=== PATIENT | male | born 1940 | race Caucasian/White ===

== ENCOUNTER → 2017-09-22 11:00 | Outpatient (CLI) | payer MEDICARE, OTHER, SELFPAY ==
[2017-09-22 12:17] LABS: Add Manual Diff / Slide Review NO; Basophils Percent Auto 0.9 % (0-2); Eosinophils Percent Auto 1.9 % (2-4); Hematocrit 27.2 % (41-53); Hemoglobin 9.2 g/dL (13.5-17.5); Lymphocytes Percent Auto 12.7 % (25-40); Mean Corpuscular HGB Conc 33.7 % (30-36); Mean Corpuscular Hemoglobin 30.9 PG (26-34); Mean Corpuscular Volume 91.8 fL (80-100); Monocytes Percent Auto 13.7 % (3-14); Neutrophils Absolute Auto 5600 /uL (3000-5900); Neutrophils Percent Auto 70.8 % (50-75); Platelet Count 265 X10^3/uL (150-400); Red Blood Cell Count 2.96 X10^6/uL (4.5-5.9); Red Cell Distribution Width 18.4 % (11.6-14.8); White Blood Cell Count 7.9 X10^3/uL (4.5-11.0)
== END ==
DX: D64.9 Anemia, unspecified (principal)
CPT/HCPCS: 36415; 85025

== ENCOUNTER → 2017-09-24 06:59 | Outpatient (CLI) | payer MEDICARE, OTHER, SELFPAY ==
[2017-09-24 07:43] LABS: Add Manual Diff / Slide Review NO; Basophils Percent Auto 0.8 % (0-2); Eosinophils Percent Auto 2.1 % (2-4); Hematocrit 29.8 % (41-53); Hemoglobin 9.9 g/dL (13.5-17.5); Lymphocytes Percent Auto 8.9 % (25-40); Mean Corpuscular HGB Conc 33.2 % (30-36); Mean Corpuscular Hemoglobin 30.7 PG (26-34); Mean Corpuscular Volume 92.4 fL (80-100); Monocytes Percent Auto 13.8 % (3-14); Neutrophils Absolute Auto 6200 /uL (3000-5900); Neutrophils Percent Auto 74.4 % (50-75); Platelet Count 284 X10^3/uL (150-400); Red Blood Cell Count 3.23 X10^6/uL (4.5-5.9); Red Cell Distribution Width 18.6 % (11.6-14.8); White Blood Cell Count 8.4 X10^3/uL (4.5-11.0)
== END ==
DX: D64.9 Anemia, unspecified (principal); C22.1 Intrahepatic bile duct carcinoma
CPT/HCPCS: 36415; 85025

== ENCOUNTER → 2017-10-08 07:20 | Outpatient (CLI) | payer MEDICARE, OTHER, SELFPAY ==
[2017-10-08 08:47] LABS: Add Manual Diff / Slide Review NO; Basophils Percent Auto 0.8 % (0-2); Eosinophils Percent Auto 2.3 % (2-4); Hematocrit 25.1 % (41-53); Hemoglobin 8.3 g/dL (13.5-17.5); Lymphocytes Percent Auto 9.7 % (25-40); Mean Corpuscular HGB Conc 33.1 % (30-36); Mean Corpuscular Hemoglobin 31.2 PG (26-34); Mean Corpuscular Volume 94.4 fL (80-100); Monocytes Percent Auto 10.7 % (3-14); Neutrophils Absolute Auto 5700 /uL (3000-5900); Neutrophils Percent Auto 76.5 % (50-75); Platelet Count 281 X10^3/uL (150-400); Red Blood Cell Count 2.66 X10^6/uL (4.5-5.9); Red Cell Distribution Width 18.5 % (11.6-14.8); White Blood Cell Count 7.4 X10^3/uL (4.5-11.0)
== END ==
DX: D64.9 Anemia, unspecified (principal); C22.1 Intrahepatic bile duct carcinoma
CPT/HCPCS: 36415; 85025

== ENCOUNTER → 2017-10-14 09:51 | Outpatient (CLI) | payer MEDICARE, OTHER, SELFPAY ==
[2017-10-14 10:23] LABS: Add Manual Diff / Slide Review NO; Basophils Percent Auto 0.7 % (0-2); Eosinophils Percent Auto 2.4 % (2-4); Hematocrit 27.5 % (41-53); Lymphocytes Percent Auto 13.4 % (25-40); Mean Corpuscular HGB Conc 32.9 % (30-36); Mean Corpuscular Hemoglobin 29.9 PG (26-34); Mean Corpuscular Volume 90.9 fL (80-100); Monocytes Percent Auto 12.9 % (3-14); Neutrophils Absolute Auto 5000 /uL (3000-5900); Neutrophils Percent Auto 70.6 % (50-75); Platelet Count 271 X10^3/uL (150-400); Red Blood Cell Count 3.02 X10^6/uL (4.5-5.9); Red Cell Distribution Width 17.2 % (11.6-14.8)
== END ==
DX: D64.9 Anemia, unspecified (principal); K26.7 Chronic duodenal ulcer without hemorrhage or perforation
CPT/HCPCS: 36415; 85025

== ENCOUNTER → 2017-10-26 10:07 | Outpatient (CLI) | payer MEDICARE, OTHER, SELFPAY ==
[2017-10-26 10:29] LABS: Hemoglobin 7.9 g/dL (13.5-17.5); Mean Corpuscular Hemoglobin 30.2 PG (26-34); Red Blood Cell Count 2.62 X10^6/uL (4.5-5.9); White Blood Cell Count 7.6 X10^3/uL (4.5-11.0)
[2017-10-26 10:33] LABS: Add Manual Diff / Slide Review NO; Basophils Percent Auto 0.8 % (0-2); Eosinophils Percent Auto 1.3 % (2-4); Hematocrit 23.5 % (41-53); Lymphocytes Percent Auto 11.4 % (25-40); Mean Corpuscular HGB Conc 33.6 % (30-36); Monocytes Percent Auto 11.2 % (3-14); Neutrophils Absolute Auto 5700 /uL (3000-5900); Neutrophils Percent Auto 75.3 % (50-75); Platelet Count 306 X10^3/uL (150-400); Red Cell Distribution Width 16.7 % (11.6-14.8)
== END ==
DX: D64.9 Anemia, unspecified (principal); K26.7 Chronic duodenal ulcer without hemorrhage or perforation
CPT/HCPCS: 36415; 85025

== ENCOUNTER → 2017-10-28 08:17 | Outpatient (CLI) | payer MEDICARE, OTHER, SELFPAY ==
[2017-10-28 08:54] LABS: Add Manual Diff / Slide Review NO; Basophils Percent Auto 0.6 % (0-2); Eosinophils Percent Auto 1.3 % (2-4); Hematocrit 25.6 % (41-53); Hemoglobin 8.4 g/dL (13.5-17.5); Mean Corpuscular HGB Conc 32.9 % (30-36); Mean Corpuscular Hemoglobin 29.8 PG (26-34); Mean Corpuscular Volume 90.6 fL (80-100); Monocytes Percent Auto 12.1 % (3-14); Neutrophils Absolute Auto 5300 /uL (3000-5900); Platelet Count 297 X10^3/uL (150-400); Red Blood Cell Count 2.83 X10^6/uL (4.5-5.9); Red Cell Distribution Width 16.2 % (11.6-14.8)
[2017-10-28 09:53] LABS: Ferritin 39.4 ng/mL (17.9-464)
[2017-10-28 10:23] LABS: Folate 8.3 ng/mL (2.76-20.0); Vitamin B12 262 pg/mL (239-931)
== END ==
DX: D64.9 Anemia, unspecified (principal); C22.1 Intrahepatic bile duct carcinoma
CPT/HCPCS: 36415; 82607; 82728; 82746; 85025; 85045

== ENCOUNTER → 2017-11-11 14:27 | Outpatient (CLI) | payer MEDICARE, OTHER, SELFPAY ==
[2017-11-11 14:47] LABS: Add Manual Diff / Slide Review NO; Eosinophils Percent Auto 1.3 % (2-4); Hematocrit 22.5 % (41-53); Hemoglobin 7.4 g/dL (13.5-17.5); Lymphocytes Percent Auto 12.7 % (25-40); Mean Corpuscular HGB Conc 32.9 % (30-36); Mean Corpuscular Hemoglobin 29.5 PG (26-34); Mean Corpuscular Volume 89.7 fL (80-100); Monocytes Percent Auto 12.7 % (3-14); Neutrophils Absolute Auto 4900 /uL (3000-5900); Neutrophils Percent Auto 72.3 % (50-75); Platelet Count 291 X10^3/uL (150-400); Red Blood Cell Count 2.51 X10^6/uL (4.5-5.9); Red Cell Distribution Width 16.6 % (11.6-14.8); White Blood Cell Count 6.7 X10^3/uL (4.5-11.0)
== END ==
DX: D64.9 Anemia, unspecified (principal)
CPT/HCPCS: 36415; 85025

== ENCOUNTER 2017-11-11 16:00 | Emergency (ER) | payer MEDICARE, OTHER, SELFPAY ==
[2017-11-11] VITALS (9 sets, daily range): BP systolic 117–129; BP diastolic 53–65; PULSE 66–78; RESP 14–20; TEMP 36.7–36.9; O2SAT 97–100
--- NOTE | 2017-11-11 16:30 | PC.NURSE ---
patient reports that this has happened before and when he felt short of breath on exertion with some chest pain that is currently resolved he knew he needed to get his levels checked. patient denies any shortness of breath or chest pain at this time.
--- NOTE | 2017-11-11 18:43 | DI.CT.S_ITS ---
PROCEDURE: CT ABDOMEN PELVIS W CON INDICATIONS: known cholangiocarcinoma and bleeding TECHNIQUE: After the administration of intravenous contrast, 5 mm thick sections acquired from the diaphragm to the symphysis. 5 mm coronal and sagittal reformats were acquired. For radiation dose reduction, the following was used: automated exposure control, adjustment of mA and/or kV according to patient size. COMPARISON: [facility], MR, ABDOMEN WITHOUT CONTRAST, 09/27/2014, 14:21. [facility], CT, PE STUDY (CTA CHEST), 02/05/2015, 14:39. [facility], CR, CHEST 1 VIEW, 11/27/2016, 14:46. FINDINGS: Image quality: Excellent. ABDOMEN: Lung bases: Small right pleural effusion and right basilar atelectasis. Heart size is mildly increased. Solid organs: Liver is normal in size and enhancement. There is pneumobilia. Gallbladder is surgically absent. Biliary system is non dilated. Pancreas enhances normally. There is mild atrophy of the pancreatic head and uncinate process. No pancreatic duct dilation. No discrete mass is identified in pancreas. Spleen is normal in size and enhancement. No adrenal nodules. Kidneys demonstrate normal size and enhancement, without hydronephrosis. There are multiple renal cysts bilaterally. Peritoneum and bowel: There is wall thickening involving the gastric antrum. Bowel loops demonstrate normal wall thickness and caliber. No free fluid or air. Nodes and vessels: No retroperitoneal or mesenteric adenopathy by size criteria. Aorta and inferior vena cava are normal in size. Miscellaneous: No ventral hernias. PELVIS: Genitourinary: Bladder wall thickness is normal. Miscellaneous: No inguinal hernias or adenopathy. Bones: No suspicious bony lesions. No vertebral body compression fractures. Bilateral hip prostheses. IMPRESSION: 1. There is wall thickening involving gastric antrum, which may be secondary to gastritis or peptic ulcer disease. No free air to suggest gastric perforation. 2. Pneumobilia, presumably postsurgical. 3. Small right pleural effusion and bibasilar atelectasis. 4. Bilateral renal cysts. 5. Mild cardiomegaly. Dictated by: Dede Aguirre M.D. on 11/11/2017 at 21:11 Approved by: Dede Aguirre M.D. on 11/11/2017 at 21:22
--- NOTE | 2017-11-11 19:06 | ED_ITS ---
HPI - Recheck/Abnormal Lab/Rx General Chief Complaint: Recheck/Abnormal Lab/Rx Stated Complaint: sent by md for infusion Time Seen by Provider: 11/11/17 18:08 Source: patient Mode of arrival: ambulatory Limitations: no limitations History of Present Illness HPI narrative: Patient is a 77-year-old male who presents with need for blood transfusion. He apparently had his labs drawn as an outpatient because he was not feeling well today noted hemoglobin 7.4. 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 He thinks he might be bleeding somewhere. Today he was feeling just fatigued and short of breath with exertion. As he previously has had chest pain but does have a history of atrial fibrillation. He is occasionally seen at that [facility] in [place]. Currently in the middle of from his all turnover is a no he seems to be following him. 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 He did have a procedure done at the [facility] back in September. He was previously also on Xarelto for his atrial fibrillation which she no longer is. He now takes a daily 81 mg aspirin. He currently has no pain no chest pain no shortness of breath no abdominal pain it is really just wanting a blood transfusion. Her primary care physician did order a blood transfusion for him up at the infusion clinic closed [facility] Related Data Home Medications Medication Instructions Recorded Confirmed atorvastatin 80 mg PO QPM #0 11/27/16 11/11/17 levothyroxine 100 mcg PO QAM #0 11/27/16 11/11/17 metformin [Glucophage XR] 500 mg PO BID #0 11/27/16 11/11/17 zolpidem 10 mg PO HS #0 11/27/16 11/11/17 flunisolide 1 spray INTRANASAL PRN PRN 11/11/17 11/11/17 irbesartan 75 mg PO QPM 11/11/17 11/11/17 metoprolol succinate 50 mg PO QPM 11/11/17 11/11/17 omeprazole 40 mg PO BID 11/11/17 11/11/17 Allergies Allergy/AdvReac Type Severity Reaction Status Date / Time No Known Drug Allergies Allergy Verified 10/28/17 15:52 Review of Systems Review of Systems All systems reviewed & are unremarkable except as noted in HPI and below Constitutional Denies chills, Denies fever(s), Denies lethargy and Denies weakness Cardiovascular Reports irregular heart rhythm (AFib), Reports lightheadedness and Reports dyspnea on exertion Respiratory Reports as per HPI and Reports dyspnea on exertion Gastrointestinal Gastrointestinal: Denies melena, Denies change in stool character, Denies fecal incontinence, Denies diarrhea, Denies vomiting and Denies hematemesis Musculoskeletal Denies back pain, Denies muscle weakness, Denies numbness and Denies tingling Integumentary/Breasts Denies pruritus, Denies erythema, Denies rash and Denies wounds Neurologic Denies numbness, Denies tingling and Denies weakness PFSH Medical History Anemia (Acute) Atrial fibrillation (Acute) Cholangiocarcinoma (Acute) Diabetes (Acute) Duodenal ulcer (Acute) Social History marital status: household members: spouse Smoking Status: Never smoker Exam Initial Vital Signs Initial Vital Signs: Vital Signs Temperature 98.0 F 11/11/17 16:05 Pulse Rate 67 11/11/17 16:05 Respiratory Rate 20 11/11/17 16:05 Blood Pressure 117/55 L 11/11/17 16:05 Pulse Oximetry 100 11/11/17 16:05 Const General: cooperative and well developed Nutritional Appearance: well nourished Orientation: alert, awake, oriented x3 and not confused Eyes General: appearance normal, both eyes and all related structures Neck Neck: normal visual inspection, full ROM and no meningeal signs Chest Chest: normal inspection of the chest Resp Effort & Inspection: normal respiratory effort, able to speak in complete sentences, no respiratory distress and no use of accessory muscles Auscultation: clear to auscultation bilaterally, no rales, no rhonchi and no wheezes Cardio Rhythm: abnormal rhythm irregularly irregular Heart Sounds: S1 normal and S2 normal GI Inspection: non-distended Palpation: soft, no hepatosplenomegaly, No guarding, No pulsatile mass and No tender Auscultation: normal bowel sounds Skin General: no rashes or lesions noted, No jaundice and No petechiae Neuro General: alert, awake and oriented x3 Cranial Nerves: CN's II-XI intact bilaterally Course Orders Ordered: ED Orders 11/11/17 18:24 EKG-12 Lead Stat 11/11/17 18:43 CT abdomen pelvis w con Stat 11/11/17 19:55 Partial Thromboplastin Time Stat Prothrombin Time INR Stat Consultations Consultation #1: I spoke with on-call oncology physician for [facility] in [place]. He reviewed patient's chart he is familiar. He agrees the patient needs closer follow-up. He understands patient is between primary physicians at this time. He agrees with patient being discharged after blood transfusion and they will follow up with patient. Time: 22:07 Vital Signs - 8 hr 11/11/17 17:58 11/11/17 18:11 11/11/17 20:53 Temperature Pulse Rate 66 68 69 Respiratory Rate 16 16 16 Blood Pressure Blood Pressure [Right Arm] 121/65 H 125/60 H 123/57 H Pulse Oximetry 97 97 97 11/11/17 21:10 11/11/17 21:30 11/11/17 22:00 Temperature 98.4 F 98.0 F Pulse Rate 66 73 78 Respiratory Rate 16 17 16 Blood Pressure 119/60 129/54 H Blood Pressure [Right Arm] 127/61 H Pulse Oximetry 98 11/11/17 23:05 11/11/17 23:34 Temperature 98.2 F 98.1 F Pulse Rate 78 78 Respiratory Rate 14 14 Blood Pressure 124/53 H 124/53 H Blood Pressure [Right Arm] Pulse Oximetry 97 MDM - Recheck/Abnormal Lab/Rx Medical Records Attestation: I reviewed the patient's medical records. Lab Data Attestation: I reviewed the patient's lab results. Labs from earlier today are noted in chart Result diagrams: 11/11/17 14:36 Lab Results 11/11/17 11/11/17 11/11/17 Range/Units 14:36 14:36 19:55 PT 13.2 H (10.1-12.7) SECONDS INR 1.2 (0.9-1.3) APTT 29 (26.4-36.2) SECONDS Sodium 138 (137-145) mmol/L Potassium 4.1 (3.4-5.1) mmol/L Chloride 105 (98-107) mmol/L Carbon Dioxide 26 (22-32) mmol/L BUN 17 (9-20) mg/dL Creatinine 0.70 (0.66-1.25) mg/dL Estimated GFR > 60.0 (>60) mL/min BUN/Creatinine Ratio 24.3 H (6-22) Glucose 156 H (80-110) mg/dL Calcium 8.4 (8.4-10.2) mg/dL Total Bilirubin 0.3 (0.2-1.3) mg/dL AST 35 (17-59) IU/L ALT 19 L (21-72) IU/L Alkaline Phosphatase 85 (38-126) U/L Total Protein 6.5 (6.3-8.2) g/dL Albumin 3.3 L (3.5-5.0) g/dL Globulin 3.2 (1.7-4.1) g/dL Albumin/Globulin Ratio 1.0 (1.0-2.8) Blood Type A Positive Antibody Screen Negative Crossmatch See Detail Imaging Data CT scan - abdomen: Radiologist's impression: PROCEDURE: CT ABDOMEN PELVIS W CON INDICATIONS: known cholangiocarcinoma and bleeding TECHNIQUE: After the administration of intravenous contrast, 5 mm thick sections acquired from the diaphragm to the symphysis. 5 mm coronal and sagittal reformats were acquired. For radiation dose reduction, the following was used: automated exposure control, adjustment of mA and/or kV according to patient size. COMPARISON: [facility], MR, ABDOMEN WITHOUT CONTRAST, 09/27/2014, 14:21. [facility], CT, PE STUDY (CTA CHEST), 02/05/2015, 14:39. [facility], CR, CHEST 1 VIEW, 11/27/2016, 14:46. FINDINGS: Image quality: Excellent. ABDOMEN: Lung bases: Small right pleural effusion and right basilar atelectasis. Heart size is mildly increased. Solid organs: Liver is normal in size and enhancement. There is pneumobilia. Gallbladder is surgically absent. Biliary system is non dilated. Pancreas enhances normally. There is mild atrophy of the pancreatic head and uncinate process. No pancreatic duct dilation. No discrete mass is identified in pancreas. Spleen is normal in size and enhancement. No adrenal nodules. Kidneys demonstrate normal size and enhancement, without hydronephrosis. There are multiple renal cysts bilaterally. Peritoneum and bowel: There is wall thickening involving the gastric antrum. Bowel loops demonstrate normal wall thickness and caliber. No free fluid or air. Nodes and vessels: No retroperitoneal or mesenteric adenopathy by size criteria. Aorta and inferior vena cava are normal in size. Miscellaneous: No ventral hernias. PELVIS: Genitourinary: Bladder wall thickness is normal. Miscellaneous: No inguinal hernias or adenopathy. Bones: No suspicious bony lesions. No vertebral body compression fractures. Bilateral hip prostheses. IMPRESSION: 1. There is wall thickening involving gastric antrum, which may be secondary to gastritis or peptic ulcer disease. No free air to suggest gastric perforation. 2. Pneumobilia, presumably postsurgical. 3. Small right pleural effusion and bibasilar atelectasis. 4. Bilateral renal cysts. 5. Mild cardiomegaly. Dictated by: Dede Aguirre M.D. on 11/11/2017 at 21:11 ECG Data Attestation: I personally reviewed and interpreted this ECG as follows: Interpretation: AFib rate [address] changes right bundle-branch block noted , this is compared to [facility] is a EKG from 10/26/2017 and this is similar. MDM Narrative Medical decision making narrative: Patient is requiring frequent blood transfusions. It sounds as though he is trying to manage this himself. We discussed how he needs to stop taking aspirin may be contributing to his duodenal ulcers on bleeding. I have received records from [facility] and reviewed them. Initially when he had EGD there were no bleeding ulcers but many were found. He is hemodynamically stable. He continues to deny any changes in bowel movements no signs of acute bleeding. I have discussed case with Oncology who will follow him as outpatient. Expressed my concerns of frequent blood transfusions, they agree and understand. I discussed at length with patient he needs to stop taking his aspirin and Xarelto (which she is currently not taking). He is at risk of stroke is due to his AFib, however he is anemic and likely has bleeding from ulcer. I discussed all findings with the patient and spouse, Education has been performed regarding treatment plan, diagnosis, warning signs and symptoms and all concerns have been addressed. Verbally agree with and understood all of the above. Discharge Plan Departure Patient Disposition: Home, Self-Care Clinical Impression: Anemia Discharge Date/Time: 11/11/17 23:24 Interventions: ED Discharge Assessment Last Done: 11/11/17 23:34 Instructions: Anemia Activity Restrictions/Additional Instructions: *You have been diagnosed with anemia *What to do: Need to follow-up with [facility]. You should hear from them tomorrow if not please contact them. -also asked about a watchmen patch *Continue to take medications as directed *Follow up with your primary care provider in 2-3 days *Return to ER if you should have any new, worsening or concerning symptoms Prescriptions: No Action metformin [Glucophage XR] 500 MG tablet extended release 24 hr 500 mg PO BID Qty: 0 RF: 0 levothyroxine 100 MCG tablet 100 mcg PO QAM Qty: 0 RF: 0 zolpidem 10 MG tablet 10 mg PO HS Qty: 0 RF: 0 atorvastatin 80 MG tablet 80 mg PO QPM Qty: 0 RF: 0 metoprolol succinate 100 mg tablet extended release 24 hr 50 mg PO QPM RF: 0 omeprazole 40 mg capsule,delayed release(DR/EC) 40 mg PO BID RF: 0 irbesartan 150 mg tablet 75 mg PO QPM RF: 0 flunisolide 25 mcg (0.025 %) [place],Non-Aerosol 1 spray Intranasal PRN PRN (Reason: Allergy Symptoms) RF: 0 Referrals: Tomy Pope MD [Non-Staff] -
[2017-11-11 19:13] LABS: Alanine Aminotransferase 19 IU/L (21-72); Albumin 3.3 g/dL (3.5-5.0); Alkaline Phosphatase 85 U/L (38-126); Aspartate Aminotransferase 35 IU/L (17-59); BUN Creatinine Ratio 24.3 (6-22); Bilirubin Total 0.3 mg/dL (0.2-1.3); Blood Urea Nitrogen 17 mg/dL (9-20); Calcium 8.4 mg/dL (8.4-10.2); Carbon Dioxide 26 mmol/L (22-32); Chloride 105 mmol/L (98-107); Estimated Glomerular Filt Rate > 60.0 mL/min (>60); Globulin 3.2 g/dL (1.7-4.1); Glucose 156 mg/dL (80-110); HEMOLYSIS < 15 (0-50); Potassium 4.1 mmol/L (3.4-5.1); Sodium 138 mmol/L (137-145); Total Protein 6.5 g/dL (6.3-8.2)
[2017-11-11 20:13] LABS: INR 1.2 (0.9-1.3); Prothrombin Time 13.2 SECONDS (10.1-12.7)
[2017-11-11 20:16] LABS: PTT Partial Thromboplastin Tim 29 SECONDS (26.4-36.2)
--- NOTE | 2017-11-11 21:20 | PC.NURSE ---
patients is running home for a little bit her number is [phone]
--- NOTE | 2017-11-15 13:16 | PC.NURSE ---
Follow up phone call: Pt states he saw his doctor today and feels well currently. No new complaints. Encouraged to f/u as needed and indicated and return for any concerns or needs.
== END 2017-11-11 23:24 | disposition home or self-care (01) ==
PROVIDERS: Emergency Provider Emergency Medicine
DX: D64.9 Anemia, unspecified (principal); C22.1 Intrahepatic bile duct carcinoma; R53.83 Other fatigue; R06.02 Shortness of breath
CPT/HCPCS: 36415; 36430; 36591; 74177; 80053; 85025; 85610; 85730; 86850; 86900; 86901; 93005; 93010; 99283; 99285; P9016; Q9967

== ENCOUNTER → 2017-11-16 09:55 | Outpatient (CLI) | payer MEDICARE, OTHER, SELFPAY ==
[2017-11-16 10:15] LABS: Add Manual Diff / Slide Review NO; Basophils Percent Auto 1.1 % (0-2); Eosinophils Percent Auto 1.5 % (2-4); Hematocrit 25.6 % (41-53); Hemoglobin 8.3 g/dL (13.5-17.5); Lymphocytes Percent Auto 10.8 % (25-40); Mean Corpuscular HGB Conc 32.6 % (30-36); Mean Corpuscular Hemoglobin 29.4 PG (26-34); Mean Corpuscular Volume 90.2 fL (80-100); Monocytes Percent Auto 12.5 % (3-14); Neutrophils Absolute Auto 5700 /uL (3000-5900); Neutrophils Percent Auto 74.1 % (50-75); Platelet Count 325 X10^3/uL (150-400); Red Blood Cell Count 2.84 X10^6/uL (4.5-5.9); Red Cell Distribution Width 16.4 % (11.6-14.8); White Blood Cell Count 7.7 X10^3/uL (4.5-11.0)
== END ==
PROVIDERS: PCP Internal Medicine; Visit Provider Physician Assistant
DX: D64.9 Anemia, unspecified (principal)
CPT/HCPCS: 36415; 85025

== ENCOUNTER → 2017-11-30 13:18 | Outpatient (CLI) | payer MEDICARE, OTHER, SELFPAY ==
[2017-11-30 13:37] LABS: Add Manual Diff / Slide Review NO; Basophils Percent Auto 0.7 % (0-2); Eosinophils Percent Auto 1.6 % (2-4); Hematocrit 23.3 % (41-53); Hemoglobin 7.8 g/dL (13.5-17.5); Mean Corpuscular HGB Conc 33.2 % (30-36); Mean Corpuscular Hemoglobin 28.5 PG (26-34); Mean Corpuscular Volume 85.7 fL (80-100); Monocytes Percent Auto 13.7 % (3-14); Neutrophils Absolute Auto 4700 /uL (3000-5900); Platelet Count 276 X10^3/uL (150-400); Red Blood Cell Count 2.72 X10^6/uL (4.5-5.9); Red Cell Distribution Width 15.8 % (11.6-14.8); White Blood Cell Count 6.7 X10^3/uL (4.5-11.0)
== END ==
PROVIDERS: PCP Internal Medicine
DX: D64.9 Anemia, unspecified (principal)
CPT/HCPCS: 36415; 85025

== ENCOUNTER → 2017-12-27 12:32 | Outpatient (CLI) | payer MEDICARE, OTHER, SELFPAY ==
--- NOTE | 2017-12-27 | DI.US.S_ITS ---
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 Color and pulse Doppler interrogation was performed of both testicles. COMPARISON: None. FINDINGS: Right: Testicle is normal in size at 4.2 x 2.5 x 3.2 cm, and homogenous in echotexture. Epididymis is normal in overall size and morphology. No hydrocele. Small varicocele. Overlying scrotal skin is normal in thickness. Left: Testicle is normal in size at 4.4 x 2.5 x 2.6 cm, and homogeneous in echotexture. Epididymis is normal in overall size and morphology. Moderate hydrocele. No right varicocele. Overlying scrotal skin is normal in thickness. Doppler: Color and pulse Doppler demonstrate normal and symmetric arterial flow in both testicles. IMPRESSION: 1. Normal testicles bilaterally. 2. Moderate left hydrocele. 3. Small right varicocele. Dictated by: Yoel WING Interpreted: Deepak Anders MD on 12/27/2017 at 14:06 Approved by: Deepak Anders M.D. on 12/27/2017 at 15:19
== END ==
PROVIDERS: PCP Internal Medicine; Visit Provider Internal Medicine
DX: N50.9 Disorder of male genital organs, unspecified (principal); N43.3 Hydrocele, unspecified; I86.1 Scrotal varices
CPT/HCPCS: 76870

== ENCOUNTER → 2018-01-11 09:34 | Outpatient (CLI) | payer MEDICARE, OTHER, SELFPAY ==
[2018-01-11 09:52] LABS: Add Manual Diff / Slide Review NO; Basophils Percent Auto 0.9 % (0-2); Lymphocytes Percent Auto 11.1 % (25-40); Mean Corpuscular HGB Conc 33.3 % (30-36); Mean Corpuscular Hemoglobin 29.2 PG (26-34); Mean Corpuscular Volume 87.6 fL (80-100); Monocytes Percent Auto 13.8 % (3-14); Neutrophils Absolute Auto 4900 /uL (3000-5900); Neutrophils Percent Auto 72.2 % (50-75); Platelet Count 254 X10^3/uL (150-400); Red Blood Cell Count 3.43 X10^6/uL (4.5-5.9); Red Cell Distribution Width 19.6 % (11.6-14.8); White Blood Cell Count 6.8 X10^3/uL (4.5-11.0)
== END ==
PROVIDERS: Family Provider Internal Medicine; PCP Internal Medicine
DX: D64.9 Anemia, unspecified (principal); C22.1 Intrahepatic bile duct carcinoma
CPT/HCPCS: 36415; 85025

== ENCOUNTER → 2018-01-24 07:00 | Outpatient (CLI) | payer MEDICARE, OTHER, SELFPAY ==
[2018-01-24 07:14] LABS: Add Manual Diff / Slide Review NO; Basophils Percent Auto 0.7 % (0-2); Hematocrit 28.4 % (41-53); Hemoglobin 9.3 g/dL (13.5-17.5); Lymphocytes Percent Auto 10.1 % (25-40); Mean Corpuscular HGB Conc 32.7 % (30-36); Mean Corpuscular Hemoglobin 28.7 PG (26-34); Mean Corpuscular Volume 87.6 fL (80-100); Monocytes Percent Auto 12.4 % (3-14); Neutrophils Absolute Auto 5400 /uL (3000-5900); Neutrophils Percent Auto 74.8 % (50-75); Platelet Count 332 X10^3/uL (150-400); Red Blood Cell Count 3.24 X10^6/uL (4.5-5.9); Red Cell Distribution Width 18.8 % (11.6-14.8); White Blood Cell Count 7.2 X10^3/uL (4.5-11.0)
== END ==
PROVIDERS: Family Provider Internal Medicine; PCP Internal Medicine
DX: C22.1 Intrahepatic bile duct carcinoma (principal); D64.9 Anemia, unspecified
CPT/HCPCS: 36415; 85025

== ENCOUNTER → 2018-01-27 13:22 | Outpatient (CLI) | payer MEDICARE, OTHER, SELFPAY ==
[2018-01-27 13:38] LABS: Add Manual Diff / Slide Review NO; Basophils Percent Auto 0.9 % (0-2); Eosinophils Percent Auto 1.8 % (2-4); Hematocrit 25.5 % (41-53); Hemoglobin 8.4 g/dL (13.5-17.5); Lymphocytes Percent Auto 10.8 % (25-40); Mean Corpuscular HGB Conc 33.1 % (30-36); Mean Corpuscular Hemoglobin 28.8 PG (26-34); Mean Corpuscular Volume 87.2 fL (80-100); Monocytes Percent Auto 11.9 % (3-14); Neutrophils Absolute Auto 5500 /uL (3000-5900); Neutrophils Percent Auto 74.6 % (50-75); Platelet Count 350 X10^3/uL (150-400); Red Blood Cell Count 2.93 X10^6/uL (4.5-5.9); White Blood Cell Count 7.4 X10^3/uL (4.5-11.0)
== END ==
PROVIDERS: Family Provider Internal Medicine; PCP Internal Medicine
DX: D64.9 Anemia, unspecified (principal); C22.1 Intrahepatic bile duct carcinoma
CPT/HCPCS: 36415; 85025

== ENCOUNTER → 2018-02-01 13:31 | Outpatient (CLI) | payer MEDICARE, OTHER, SELFPAY ==
[2018-02-01 13:44] LABS: Add Manual Diff / Slide Review NO; Basophils Percent Auto 0.6 % (0-2); Eosinophils Percent Auto 2.3 % (2-4); Hematocrit 29.9 % (41-53); Hemoglobin 9.8 g/dL (13.5-17.5); Lymphocytes Percent Auto 10.3 % (25-40); Mean Corpuscular HGB Conc 32.7 % (30-36); Mean Corpuscular Hemoglobin 28.5 PG (26-34); Mean Corpuscular Volume 86.9 fL (80-100); Monocytes Percent Auto 11.3 % (3-14); Neutrophils Absolute Auto 5700 /uL (3000-5900); Neutrophils Percent Auto 75.5 % (50-75); Platelet Count 406 X10^3/uL (150-400); Red Blood Cell Count 3.44 X10^6/uL (4.5-5.9); Red Cell Distribution Width 18.5 % (11.6-14.8); White Blood Cell Count 7.5 X10^3/uL (4.5-11.0)
== END ==
PROVIDERS: Family Provider Internal Medicine; PCP Internal Medicine; Visit Provider Internal Medicine
DX: K92.2 Gastrointestinal hemorrhage, unspecified (principal)
CPT/HCPCS: 36415; 85025

== ENCOUNTER → 2018-02-07 09:52 | Outpatient (CLI) | payer MEDICARE, OTHER, SELFPAY ==
[2018-02-07 10:10] LABS: Add Manual Diff / Slide Review NO; Basophils Percent Auto 0.7 % (0-2); Eosinophils Percent Auto 1.9 % (2-4); Hematocrit 28.1 % (41-53); Hemoglobin 9.4 g/dL (13.5-17.5); Lymphocytes Percent Auto 13.1 % (25-40); Mean Corpuscular HGB Conc 33.5 % (30-36); Mean Corpuscular Volume 86.6 fL (80-100); Monocytes Percent Auto 13.9 % (3-14); Neutrophils Absolute Auto 4600 /uL (3000-5900); Neutrophils Percent Auto 70.4 % (50-75); Platelet Count 313 X10^3/uL (150-400); Red Blood Cell Count 3.25 X10^6/uL (4.5-5.9); Red Cell Distribution Width 18.4 % (11.6-14.8); White Blood Cell Count 6.5 X10^3/uL (4.5-11.0)
== END ==
PROVIDERS: Family Provider Internal Medicine; PCP Internal Medicine
DX: D64.9 Anemia, unspecified (principal); C22.1 Intrahepatic bile duct carcinoma
CPT/HCPCS: 36415; 85025

== ENCOUNTER → 2018-02-10 12:58 | Outpatient (CLI) | payer MEDICARE, OTHER, SELFPAY ==
[2018-02-10 13:12] LABS: Add Manual Diff / Slide Review NO; Basophils Percent Auto 0.8 % (0-2); Hematocrit 27.2 % (41-53); Hemoglobin 8.9 g/dL (13.5-17.5); Lymphocytes Percent Auto 11.9 % (25-40); Mean Corpuscular HGB Conc 32.6 % (30-36); Mean Corpuscular Hemoglobin 28.3 PG (26-34); Mean Corpuscular Volume 86.8 fL (80-100); Monocytes Percent Auto 14.2 % (3-14); Neutrophils Absolute Auto 5500 /uL (3000-5900); Neutrophils Percent Auto 71.1 % (50-75); Platelet Count 274 X10^3/uL (150-400); Red Blood Cell Count 3.14 X10^6/uL (4.5-5.9); Red Cell Distribution Width 18.4 % (11.6-14.8); White Blood Cell Count 7.8 X10^3/uL (4.5-11.0)
== END ==
PROVIDERS: Family Provider Internal Medicine; PCP Internal Medicine
DX: D64.9 Anemia, unspecified (principal); C22.1 Intrahepatic bile duct carcinoma
CPT/HCPCS: 36415; 85025

== ENCOUNTER → 2018-02-15 09:59 | Outpatient (CLI) | payer MEDICARE, OTHER, SELFPAY ==
[2018-02-15 10:14] LABS: Add Manual Diff / Slide Review NO; Basophils Percent Auto 0.8 % (0-2); Eosinophils Percent Auto 1.5 % (2-4); Hematocrit 26.4 % (41-53); Hemoglobin 8.7 g/dL (13.5-17.5); Mean Corpuscular HGB Conc 33.1 % (30-36); Mean Corpuscular Hemoglobin 28.7 PG (26-34); Mean Corpuscular Volume 86.8 fL (80-100); Monocytes Percent Auto 13.3 % (3-14); Neutrophils Absolute Auto 4600 /uL (3000-5900); Neutrophils Percent Auto 71.4 % (50-75); Platelet Count 266 X10^3/uL (150-400); Red Blood Cell Count 3.05 X10^6/uL (4.5-5.9); Red Cell Distribution Width 18.8 % (11.6-14.8); White Blood Cell Count 6.5 X10^3/uL (4.5-11.0)
== END ==
PROVIDERS: Family Provider Internal Medicine; PCP Internal Medicine
DX: D64.9 Anemia, unspecified (principal); C22.1 Intrahepatic bile duct carcinoma
CPT/HCPCS: 36415; 85025

== ENCOUNTER → 2018-02-18 10:55 | Outpatient (CLI) | payer MEDICARE, OTHER, SELFPAY ==
[2018-02-18 11:11] LABS: Add Manual Diff / Slide Review NO; Basophils Percent Auto 0.9 % (0-2); Eosinophils Percent Auto 1.9 % (2-4); Hematocrit 27.5 % (41-53); Hemoglobin 9.1 g/dL (13.5-17.5); Lymphocytes Percent Auto 14.4 % (25-40); Mean Corpuscular Hemoglobin 28.7 PG (26-34); Mean Corpuscular Volume 86.8 fL (80-100); Monocytes Percent Auto 14.9 % (3-14); Neutrophils Absolute Auto 4400 /uL (3000-5900); Neutrophils Percent Auto 67.9 % (50-75); Platelet Count 283 X10^3/uL (150-400); Red Blood Cell Count 3.17 X10^6/uL (4.5-5.9); Red Cell Distribution Width 18.3 % (11.6-14.8); White Blood Cell Count 6.5 X10^3/uL (4.5-11.0)
== END ==
PROVIDERS: PCP Internal Medicine
DX: D64.9 Anemia, unspecified (principal); C22.1 Intrahepatic bile duct carcinoma
CPT/HCPCS: 36415; 85025

== ENCOUNTER → 2018-02-24 09:53 | Outpatient (CLI) | payer MEDICARE, OTHER, SELFPAY ==
[2018-02-24 10:09] LABS: Add Manual Diff / Slide Review NO; Basophils Percent Auto 0.9 % (0-2); Eosinophils Percent Auto 1.4 % (2-4); Hematocrit 26.9 % (41-53); Hemoglobin 8.9 g/dL (13.5-17.5); Lymphocytes Percent Auto 13.4 % (25-40); Mean Corpuscular Hemoglobin 28.2 PG (26-34); Mean Corpuscular Volume 85.6 fL (80-100); Monocytes Percent Auto 13.9 % (3-14); Neutrophils Absolute Auto 5200 /uL (3000-5900); Neutrophils Percent Auto 70.4 % (50-75); Platelet Count 326 X10^3/uL (150-400); Red Blood Cell Count 3.15 X10^6/uL (4.5-5.9); Red Cell Distribution Width 17.8 % (11.6-14.8); White Blood Cell Count 7.3 X10^3/uL (4.5-11.0)
[2018-02-24 11:17] LABS: HEMOLYSIS < 15 (0-50); Iron 27 ug/dL (49-181)
[2018-02-24 11:28] LABS: Percent Iron Saturation 8 % (20-50); Total Iron Binding Capacity 353 ug/dL (261-462); Transferrin 279 mg/dL (206-381)
[2018-02-24 11:54] LABS: Ferritin 16.9 ng/mL (17.9-464)
== END ==
PROVIDERS: PCP Internal Medicine; Visit Provider Internal Medicine
DX: D50.9 Iron deficiency anemia, unspecified (principal)
CPT/HCPCS: 36415; 82728; 83540; 83550; 85025

== ENCOUNTER → 2018-03-14 10:58 | Outpatient (CLI) | payer MEDICARE, OTHER, SELFPAY ==
[2018-03-14 11:22] LABS: Add Manual Diff / Slide Review NO; Basophils Percent Auto 0.6 % (0-2); Eosinophils Percent Auto 0.7 % (2-4); Hematocrit 27.8 % (41-53); Hemoglobin 8.9 g/dL (13.5-17.5); Lymphocytes Percent Auto 10.6 % (25-40); Mean Corpuscular HGB Conc 31.9 % (30-36); Mean Corpuscular Hemoglobin 26.4 PG (26-34); Mean Corpuscular Volume 82.9 fL (80-100); Monocytes Percent Auto 11.9 % (3-14); Neutrophils Absolute Auto 6100 /uL (3000-5900); Neutrophils Percent Auto 76.2 % (50-75); Platelet Count 339 X10^3/uL (150-400); Red Blood Cell Count 3.36 X10^6/uL (4.5-5.9); White Blood Cell Count 7.9 X10^3/uL (4.5-11.0)
== END ==
PROVIDERS: Family Provider Internal Medicine; PCP Internal Medicine
DX: D64.9 Anemia, unspecified (principal); C22.1 Intrahepatic bile duct carcinoma
CPT/HCPCS: 36415; 85025

== ENCOUNTER → 2018-04-20 10:01 | Outpatient (CLI) | payer MEDICARE, OTHER, SELFPAY ==
[2018-04-20 10:16] LABS: Add Manual Diff / Slide Review NO; Basophils Percent Auto 0.6 % (0-2); Hematocrit 25.2 % (41-53); Hemoglobin 8.2 g/dL (13.5-17.5); Lymphocytes Percent Auto 12.9 % (25-40); Mean Corpuscular HGB Conc 32.4 % (30-36); Mean Corpuscular Volume 77.3 fL (80-100); Monocytes Percent Auto 15.4 % (3-14); Neutrophils Absolute Auto 4600 /uL (1500-7000); Neutrophils Percent Auto 70.1 % (50-75); Platelet Count 373 X10^3/uL (150-400); Red Blood Cell Count 3.26 X10^6/uL (4.5-5.9); Red Cell Distribution Width 19.2 % (11.6-14.8); White Blood Cell Count 6.5 X10^3/uL (4.5-11.0)
== END ==
PROVIDERS: Family Provider Internal Medicine; PCP Internal Medicine
DX: D64.9 Anemia, unspecified (principal); C22.1 Intrahepatic bile duct carcinoma
CPT/HCPCS: 36415; 85025

== ENCOUNTER → 2018-04-22 10:11 | Outpatient (CLI) | payer MEDICARE, OTHER, SELFPAY ==
[2018-04-22 10:27] LABS: Add Manual Diff / Slide Review NO; Basophils Percent Auto 0.7 % (0-2); Eosinophils Percent Auto 1.4 % (2-4); Hematocrit 25.5 % (41-53); Hemoglobin 8.3 g/dL (13.5-17.5); Lymphocytes Percent Auto 13.4 % (25-40); Mean Corpuscular HGB Conc 32.4 % (30-36); Mean Corpuscular Hemoglobin 24.9 PG (26-34); Mean Corpuscular Volume 76.6 fL (80-100); Monocytes Percent Auto 13.8 % (3-14); Neutrophils Absolute Auto 4200 /uL (1500-7000); Neutrophils Percent Auto 70.7 % (50-75); Platelet Count 384 X10^3/uL (150-400); Red Blood Cell Count 3.32 X10^6/uL (4.5-5.9); Red Cell Distribution Width 19.2 % (11.6-14.8); White Blood Cell Count 5.9 X10^3/uL (4.5-11.0)
--- NOTE | 2018-04-26 15:33 | PC.NURSE ---
Addendum entered by Clover Jones R.N. 04/26/18 15:51: Florencia called back. No premeds and no lasix with each unit to infuse over 2 hours. This was written as a verbal telephone order on the original order sheet. Original Note: Left message on pt voicemail to call and schedule an appt for transfusion, Informed him tomorrow 04/27 or Saturday 04/29 would be when we can do it (not as we have too many chemo treatments that day). Looked over orders which had incomplete information on them. Dr Rodriguez's office called and spoke with Florencia in [place]. She is getting clarifications from Dr Rodriguez and will either call or fax the clarifications to us.
== END ==
PROVIDERS: Family Provider Internal Medicine; PCP Internal Medicine
DX: C22.1 Intrahepatic bile duct carcinoma (principal); D64.9 Anemia, unspecified
CPT/HCPCS: 36415; 85025

== ENCOUNTER → 2018-05-04 09:58 | Outpatient (CLI) | payer MEDICARE, OTHER, SELFPAY ==
[2018-05-04 10:24] LABS: Add Manual Diff / Slide Review NO; Basophils Absolute Auto 0 /uL (0-100); Basophils Percent Auto 0.7 % (0-2); Eosinophils Absolute Auto 100 /uL (0-450); Eosinophils Percent Auto 1.6 % (2-4); Hematocrit 30.2 % (41-53); Hemoglobin 9.8 g/dL (13.5-17.5); Lymphocytes Absolute Auto 900 /uL (1100-4500); Lymphocytes Percent Auto 13.1 % (25-40); Mean Corpuscular HGB Conc 32.3 % (30-36); Mean Corpuscular Hemoglobin 25.8 PG (26-34); Mean Corpuscular Volume 79.7 fL (80-100); Monocytes Absolute Auto 900 /uL (0-900); Monocytes Percent Auto 13.2 % (3-14); Neutrophils Absolute Auto 4700 /uL (1500-7000); Neutrophils Percent Auto 71.4 % (50-75); Platelet Count 331 X10^3/uL (150-400); Red Cell Distribution Width 21.5 % (11.6-14.8); White Blood Cell Count 6.6 X10^3/uL (4.5-11.0)
[2018-05-04 10:35] LABS: Acanthocytes 1+; Anisocytosis 1+; Burr Cells 1+; Ovalocytes 1+; Poikilocytosis 1+
== END ==
PROVIDERS: PCP Internal Medicine
DX: D64.9 Anemia, unspecified (principal); C22.1 Intrahepatic bile duct carcinoma
CPT/HCPCS: 85025

== ENCOUNTER → 2018-05-25 12:00 | Outpatient (CLI) | payer MEDICARE, OTHER, SELFPAY ==
[2018-05-25 12:35] LABS: Add Manual Diff / Slide Review NO; Basophils Absolute Auto 0 /uL (0-100); Basophils Percent Auto 0.3 % (0-2); Eosinophils Absolute Auto 100 /uL (0-450); Eosinophils Percent Auto 1.5 % (2-4); Hemoglobin 10.4 g/dL (13.5-17.5); Lymphocytes Absolute Auto 800 /uL (1100-4500); Lymphocytes Percent Auto 10.9 % (25-40); Mean Corpuscular HGB Conc 32.5 % (30-36); Mean Corpuscular Hemoglobin 25.6 PG (26-34); Mean Corpuscular Volume 78.8 fL (80-100); Monocytes Absolute Auto 1000 /uL (0-900); Monocytes Percent Auto 13.8 % (3-14); Neutrophils Absolute Auto 5200 /uL (1500-7000); Neutrophils Percent Auto 73.5 % (50-75); Platelet Count 321 X10^3/uL (150-400); Red Blood Cell Count 4.06 X10^6/uL (4.5-5.9); Red Cell Distribution Width 22.5 % (11.6-14.8); White Blood Cell Count 7.1 X10^3/uL (4.5-11.0)
[2018-05-25 13:06] LABS: Acanthocytes 1+; Anisocytosis 2+; Microcytosis 1+; Ovalocytes 1+; Poikilocytosis 3+; Polychromasia 1+; Schistocytes 1+; Tear Drop Cells 1+
[2018-05-27 07:57] LABS: Cancer (Carbohydrate) Ag 19-9 48 U/mL (< 34)
== END ==
PROVIDERS: Family Provider Internal Medicine; PCP Internal Medicine
DX: D64.9 Anemia, unspecified (principal); C22.1 Intrahepatic bile duct carcinoma
CPT/HCPCS: 36415; 85025; 86301

== ENCOUNTER → 2018-06-17 09:56 | Outpatient (CLI) | payer MEDICARE, OTHER, SELFPAY ==
[2018-06-17 10:23] LABS: Add Manual Diff / Slide Review NO; Basophils Absolute Auto 100 /uL (0-100); Basophils Percent Auto 0.7 % (0-2); Eosinophils Absolute Auto 100 /uL (0-450); Eosinophils Percent Auto 1.2 % (2-4); Hematocrit 31.2 % (41-53); Lymphocytes Absolute Auto 700 /uL (1100-4500); Lymphocytes Percent Auto 8.7 % (25-40); Mean Corpuscular Hemoglobin 25.4 PG (26-34); Mean Corpuscular Volume 79.2 fL (80-100); Monocytes Absolute Auto 1000 /uL (0-900); Monocytes Percent Auto 12.7 % (3-14); Neutrophils Absolute Auto 5900 /uL (1500-7000); Neutrophils Percent Auto 76.7 % (50-75); Platelet Count 371 X10^3/uL (150-400); Red Blood Cell Count 3.94 X10^6/uL (4.5-5.9); Red Cell Distribution Width 21.9 % (11.6-14.8); White Blood Cell Count 7.7 X10^3/uL (4.5-11.0)
[2018-06-17 10:45] LABS: Anisocytosis 3+; Macrocytosis 1+; Microcytosis 1+; Poikilocytosis 2+
[2018-06-17 10:46] LABS: Ovalocytes 1+
[2018-06-17 10:47] LABS: Hypochromasia 2+; Polychromasia 1+; Schistocytes 1+; Stomatocytes 1+; Target Cells 1+
== END ==
PROVIDERS: Family Provider Internal Medicine; PCP Internal Medicine
DX: D64.9 Anemia, unspecified (principal); C22.1 Intrahepatic bile duct carcinoma
CPT/HCPCS: 36415; 85025

== ENCOUNTER → 2018-07-07 08:30 | Outpatient (CLI) | payer MEDICARE, OTHER, SELFPAY ==
[2018-07-07 10:00] LABS: Add Manual Diff / Slide Review NO; Basophils Absolute Auto 0 /uL (0-100); Basophils Percent Auto 0.5 % (0-2); Eosinophils Absolute Auto 300 /uL (0-450); Eosinophils Percent Auto 2.9 % (2-4); Hematocrit 29.3 % (41-53); Hemoglobin 9.7 g/dL (13.5-17.5); Lymphocytes Absolute Auto 800 /uL (1100-4500); Lymphocytes Percent Auto 9.2 % (25-40); Mean Corpuscular Hemoglobin 26.5 PG (26-34); Mean Corpuscular Volume 80.3 fL (80-100); Monocytes Absolute Auto 1000 /uL (0-900); Monocytes Percent Auto 11.5 % (3-14); Neutrophils Absolute Auto 6500 /uL (1500-7000); Neutrophils Percent Auto 75.9 % (50-75); Platelet Count 391 X10^3/uL (150-400); Red Blood Cell Count 3.65 X10^6/uL (4.5-5.9); Red Cell Distribution Width 19.6 % (11.6-14.8); White Blood Cell Count 8.5 X10^3/uL (4.5-11.0)
[2018-07-07 10:32] LABS: Alanine Aminotransferase 42 IU/L (21-72); Albumin 3.1 g/dL (3.5-5.0); Albumin Globulin Ratio 0.9 (1.0-2.8); Alkaline Phosphatase 348 U/L (38-126); Aspartate Aminotransferase 42 IU/L (17-59); Bilirubin Total 0.3 mg/dL (0.2-1.3); Blood Urea Nitrogen 14 mg/dL (9-20); Calcium 8.5 mg/dL (8.4-10.2); Carbon Dioxide 25 mmol/L (22-32); Chloride 100 mmol/L (98-107); Estimated Glomerular Filt Rate > 60.0 mL/min (>60); Globulin 3.5 g/dL (1.7-4.1); Glucose 152 mg/dL (80-110); HEMOLYSIS < 15 (0-50); Potassium 3.9 mmol/L (3.4-5.1); Sodium 137 mmol/L (137-145); Total Protein 6.6 g/dL (6.3-8.2)
[2018-07-09 17:51] LABS: Cancer (Carbohydrate) Ag 19-9 61 U/mL (< 34)
== END ==
DX: C22.1 Intrahepatic bile duct carcinoma (principal)
CPT/HCPCS: 36415; 80053; 85025; 86301

== ENCOUNTER 2018-07-21 00:55 | Inpatient (IN) | payer MEDICARE, OTHER, SELFPAY ==
[2018-07-21] VITALS (14 sets, daily range): BP systolic 112–141; BP diastolic 42–72; PULSE 66–91; RESP 9–18; TEMP 36.4–37; O2SAT 93–100; BMI 32.1
--- NOTE | 2018-07-21 | DI.ECHO.S_ITS ---
[facility] +---------+ : : [address] : : : : [id number] : : : : Phone: [phone]+ Echocardiogram Report + + :Name: PADDY ROYAL Study Date: 07/21/2018 Height: 68 in : :[facility] Exam Location: [facility] Weight: 211 lb : : Gender: Male BSA: 2.1 m2 : :: 1940 Age: 78 yrs BP: 121/70 mmHg: :Reason For Study: PARASTHESIA, MURMUR, TIA : : Performed By: Waqar Ta : :Referring: JUAN ANTONIO DALEY : + + Interpretation Summary Left ventricular systolic function is normal without focal wall motion abnormalities with the ejection fraction visually estimated to be 60-65%. There has been no significant change since the previous study. The right ventricle grossly appears normal in size with probable normal systolic function and is likely unchanged compared to the previous study The right ventricular systolic pressure is estimated to be at least 35 mmHg based on an estimated right atrial pressure of 8 mm Hg. The left atrium is severely dilated and right atrium is moderately dilated. The aortic valve is severely calcified with moderate to severely reduced leaflet mobility producing probable moderate to severe aortic stenosis that is progressive compared to the previous study. The peak aortic velocity is 3.4 m/sec with a mean gradient of 25 mmHg and a calculated aortic valve area is 0.96 cm2. There is mild aortic regurgitation. There is a small mobile echogenic structure noted on the aortic side of the non-coronary cusp of the aortic valve measuring approximately 3 mm x 5 mm which could reflect a calcified Lambl's excrescence and would be a very unusual appearance and location for a vegetation, although the latter cannot be entirely excluded. This was not seen on the previous study although the aortic valve was not well imaged on that exam. There is mild to moderate tricuspid regurgitation that is more prominent compared to the previous study. There is a trivial pericardial effusion noted that appears to be new compared to the previous study. The patient was in atrial fibrillation with heart rates between 61-88 bpm during the exam. Procedure: A two-dimensional transthoracic echocardiogram with color flow and Doppler was performed. The study quality was technically adequate. Comparison is made with the echocardiogram of 05/09/14. The patient was in atrial fibrillation with heart rates between 61-88 bpm during the exam. Left Ventricle: The left ventricle is grossly normal size. There is normal left ventricular wall thickness. Left ventricular systolic function is normal without focal wall motion abnormalities. The ejection fraction is estimated to be 60-65%. There has been no significant change since the previous study. Right Ventricle: The right ventricle grossly appears normal in size with probable normal systolic function. This is unchanged compared to the previous study. Atria: The left atrium is severely dilated. The right atrium is moderately dilated. The interatrial septum is intact with no evidence for an atrial septal defect. Mitral Valve: There is mild mitral annular calcification. There is trace mitral regurgitation. Aortic Valve: The aortic valve is trileaflet. The aortic valve is severely calcified. Leaflet mobility is moderate to severely reduced. There is a small mobile echogenic structure noted on the aortic side of the non-coronary cusp of the aortic valve measuring approximately 3 mm x 5 mm which could reflect a calcified Lambl's excrescence and would be a very unusual appearance and location for a vegetation, although the latter cannot be entirely excluded. This was not seen on the previous study although the aortic valve is not well imaged. There is moderate to severe aortic stenosis. This is progressive compared to the previous study. The peak aortic velocity is 3.4 m/sec. The aortic valve mean gradient is 25 mmHg. The calculated aortic valve area is 0.96 cm2. There is mild aortic regurgitation. Tricuspid Valve: The tricuspid valve is normal in structure and function. There is mild to moderate tricuspid regurgitation. This is more prominent compared to the previous study. The right ventricular systolic pressure is estimated to be at least 35 mmHg based on an estimated right atrial pressure of 8 mm Hg. Pulmonic Valve: The pulmonic valve is normal in structure and function. There is trace pulmonic regurgitation. Great Vessels: The aortic root is normal size. The dimensions of the ascending aorta are normal. The pulmonary artery is normal size. The IVC is dilated (diameter is greater than 2.1 cm) yet it collapses greater than 50% with a sniff. This suggests a right atrial pressure of 8 mm Hg. Pericardium/ Pleura There is a trivial pericardial effusion noted. This is new compared to the previous study. There is no pleural effusion. MMode/2D Measurements & Calculations LVIDd: 5.8 cm LVOT diam: 2.3 cm LVIDs: 4.0 cm Ao root diam: 3.3 cm FS: 30.0 % asc Aorta Diam: 3.3 cm EPSS: 0.99 cm Ao Arch Diam (Prox Trans): 2.6 cm IVSd: 1.0 cm LVPWd: 0.91 cm LV warren. diameter/BSA (cm/m^2): 2.8 LV sys. diameter/BSA (cm/m^2): 1.9 LA dimension: 5.2 cm RA long axis: 6.6 cm LA A2 area: 38.0 cm2 RA area: 25.9 cm2 LA A4 area: 38.3 cm2 RA vol: 86.4 ml LA length (vol): 8.3 cm RA : 41.3 ml/m2 LA vol: 148.5 ml IVC diam: 2.7 cm LA vol index: 71.0 ml/m2 Doppler Measurements & Calculations Ao V2 max: 340.6 cm/sec LVOT Max Jono: 80.9 cm/sec Ao V2 mean: 237.9 cm/sec LV V1 max P.6 mmHg Ao max P.4 mmHg LV V1 VTI: 19.0 cm Ao mean P.3 mmHg JAYA(I,D): 0.96 cm2 Ao V2 VTI: 82.5 cm JAYA(V,D): 0.99 cm2 sev ratio: 0.23 JAYA indexed to BSA (cm^2/m^2): 0.46 AI P1/2t: 834.5 msec AI dec slope: 116.9 cm/sec2 MV E max jono: 101.8 cm/sec TR max jono: 261.4 cm/sec MV A max jono: 2.5 cm/sec TR max P.4 mmHg MV E/A: 41.5 PA V2 max: 93.2 cm/sec Med Peak E' Jono: 4.8 cm/sec PA V2 mean: 67.5 cm/sec E/E' med: 21.3 PA mean P.0 mmHg Lat Peak E' Jono: 7.4 cm/sec PA pr(Accel): 26.6 mmHg E/E' lat: 13.8 E/e' average: 17.6 MV dec time: 0.18 sec SV(LVOT): 79.1 ml Reading Physician:PM
--- NOTE | 2018-07-21 01:07 | DI.CT.S_ITS ---
PROCEDURE: CT HEAD/BRAIN WO CON INDICATIONS: left sided numnbness TECHNIQUE: Noncontrast 4.5 mm thick angled axial sections acquired from the foramen magnum to the vertex, with coronal and sagittal reformats. For radiation dose reduction, the following was used: automated exposure control, adjustment of mA and/or kV according to patient size. COMPARISON: [facility], MR, BRAIN WITHOUT CONTRAST, 08/07/2015, 11:42. FINDINGS: Image quality: Excellent. CSF spaces: Basal cisterns are patent. No extra-axial fluid collections. The ventricles are symmetric in size and shape. Brain: No intracranial bleeds or masses. There is moderate cerebral volume loss for age, with resultant ventricular and sulcal prominence. There are minimal periventricular and deep white matter chronic small vessel ischemic changes. Chronic, small, right frontal and right occipital infarcts noted. noted. There is intracranial internal carotid artery atherosclerosis. Skull and face: Calvarium and visualized facial bones appear intact, without suspicious lesions. Sinuses: Visualized sinuses and mastoids are clear. IMPRESSION: No acute intracranial disease process. Dictated by: Idalmis Yan MD, PhD on 07/21/2018 at 7:39 Approved by: Idalmis Yan MD, PhD on 07/21/2018 at 7:42
[2018-07-21 01:16] LABS: Add Manual Diff / Slide Review NO; Basophils Absolute Auto 100 /uL (0-100); Basophils Percent Auto 1.3 % (0-2); Eosinophils Absolute Auto 200 /uL (0-450); Eosinophils Percent Auto 2.7 % (2-4); Hematocrit 28.9 % (41-53); Hemoglobin 9.6 g/dL (13.5-17.5); INR 1.1 (0.9-1.3); Lymphocytes Absolute Auto 1000 /uL (1100-4500); Lymphocytes Percent Auto 12.5 % (25-40); Mean Corpuscular HGB Conc 33.2 % (30-36); Mean Corpuscular Hemoglobin 26.4 PG (26-34); Mean Corpuscular Volume 79.7 fL (80-100); Monocytes Absolute Auto 900 /uL (0-900); Monocytes Percent Auto 11.1 % (3-14); Neutrophils Absolute Auto 5900 /uL (1500-7000); Neutrophils Percent Auto 72.4 % (50-75); Platelet Count 360 X10^3/uL (150-400); Prothrombin Time 12.3 SECONDS (10.1-12.7); Red Blood Cell Count 3.62 X10^6/uL (4.5-5.9); White Blood Cell Count 8.1 X10^3/uL (4.5-11.0)
[2018-07-21 01:19] LABS: PTT Partial Thromboplastin Tim 30 SECONDS (26.4-36.2)
[2018-07-21] MEDS: SODIUM CHLORIDE 0.9% 1,000 ML 150 ML IV ×2 (01:30→06:27)
[2018-07-21 01:36] LABS: Alanine Aminotransferase 26 IU/L (21-72); Albumin 3.2 g/dL (3.5-5.0); Albumin Globulin Ratio 0.8 (1.0-2.8); Alkaline Phosphatase 294 U/L (38-126); Aspartate Aminotransferase 35 IU/L (17-59); BUN Creatinine Ratio 13.8 (6-22); Bilirubin Total 0.5 mg/dL (0.2-1.3); Blood Urea Nitrogen 11 mg/dL (9-20); Calcium 8.6 mg/dL (8.4-10.2); Carbon Dioxide 27 mmol/L (22-32); Chloride 104 mmol/L (98-107); Creatine Kinase 28 U/L (55-170); Estimated Glomerular Filt Rate > 60.0 mL/min (>60); Globulin 3.8 g/dL (1.7-4.1); Glucose 114 mg/dL (80-110); HEMOLYSIS < 15 (0-50); Potassium 3.8 mmol/L (3.4-5.1); Sodium 138 mmol/L (137-145)
[2018-07-21 01:48] LABS: Troponin I < 0.012 ng/mL (0.01-0.034)
--- NOTE | 2018-07-21 01:51 | ED.NEUROSD ---
HPI - Neuro Symptoms/Deficit General Chief Complaint: Neuro Symptoms/Deficit Stated Complaint: left side face/arm/leg numbness,sx approx 0000 Time Seen by Provider: 07/21/18 01:06 Source: patient and EMS Mode of arrival: ambulatory Limitations: no limitations History of Present Illness HPI Narrative: Patient is a 78-year-old male who presents with left-sided numbness. He says he woke up feeling like his left arm, left face and left leg were numb. Like they were asleep. However he could still move everything. Started 1 hour ago. He has a history of bleeding gastric ulcers. In fact he had an EGD 2 weeks ago for a bleeding ulcer. He does have a history of atrial fibrillation but not on anticoagulation due to frequent gastric bleeding. He has no chest pain no heart palpitations no shortness of breath. no difficulty speaking no other focal deficits. On Anticoagulants: No Related Data Home Medications Medication Instructions Recorded Confirmed atorvastatin 80 mg PO QPM #0 11/27/16 11/11/17 levothyroxine 100 mcg PO QAM #0 11/27/16 11/11/17 metformin [Glucophage XR] 500 mg PO BID #0 11/27/16 11/11/17 zolpidem 10 mg PO HS #0 11/27/16 11/11/17 flunisolide 1 spray INTRANASAL PRN PRN 11/11/17 11/11/17 irbesartan 75 mg PO QPM 11/11/17 11/11/17 metoprolol succinate 50 mg PO QPM 11/11/17 11/11/17 omeprazole 40 mg PO BID 11/11/17 11/11/17 Allergies Allergy/AdvReac Type Severity Reaction Status Date / Time No Known Drug Allergies Allergy Verified 10/28/17 15:52 Review of Systems Review of Systems ROS Unobtainable: All systems reviewed & are unremarkable except as noted in HPI and below Constitutional Denies chills, Denies fever(s), Denies lethargy and Denies weakness Eyes Denies change in vision, Denies eye discharge, Denies irritation and Denies loss of vision Cardiovascular Denies chest pain, Denies irregular heart rhythm, Denies lightheadedness, Denies palpitations, Denies dyspnea, Denies dyspnea on exertion and Denies orthopnea Respiratory Denies cough, Denies dyspnea, Denies dyspnea on exertion and Denies wheezing Gastrointestinal Gastrointestinal: Denies abdominal pain, Denies change in bowel habits, Denies diarrhea, Denies nausea and Denies vomiting Genitourinary Denies hematuria, Denies flank pain, Denies urinary incontinence and Denies urinary urgency Musculoskeletal Denies back pain, Denies muscle weakness, Reports numbness (Left arm and leg and face) and Reports tingling (Left arm and left and face) Integumentary/Breasts Denies pruritus, Denies erythema, Denies rash and Denies wounds Neurologic Denies loss of vision, Reports numbness (Left arm and leg and face), Reports tingling (Left arm and left and face) and Denies weakness Endocrine Denies palpitations Allergic/Immunologic Denies wheezing [facility] Medical History Bladder cancer (Acute) Anemia (Acute) Atrial fibrillation (Acute) Cholangiocarcinoma (Acute) Diabetes (Acute) Duodenal ulcer (Acute) Social History (Updated 11/12/17 @ 01:02 by Nessa Mcgowan DO) marital status: household members: spouse Smoking Status: Never smoker Social History marital status: household members: spouse Smoking Status: Never smoker Exam Initial Vital Signs Initial Vital Signs: Vital Signs Temperature 98.4 F 07/21/18 01:04 Pulse Rate 73 07/21/18 01:04 Respiratory Rate 12 07/21/18 01:04 Blood Pressure 141/64 H 07/21/18 01:04 Pulse Oximetry 93 07/21/18 01:04 GENERAL: Alert pleasant elderly male no acute distress. HEENT: Head atraumatic,EOMI, pupils reactive, face symmetric, moist mucous membranes CARDIOVASCULAR: Regular rate and rhythm without murmurs, rubs or gallops. RESPIRATORY: Breath sounds equal bilaterally, no wheezes rales or rhonchi. ABDOMEN: Soft, nontender. Normoactive bowel sounds all 4 quadrants. No guarding or rebound. EXTREMITIES: Normal range of motion, no clubbing or edema. Neurovascularly intact NEUROLOGICAL: Alert and oriented x4.Normal gait and speech. Cranial nerves II through XII grossly intact. Good wstmrs-pm-peoa, good bsgo-fz-gdxg, strength equal bilaterally, no dysarthria or aphasia, sensation in tact to soft touch bilaterally, no visual changes, no facial droop decreased sensation to light touch to left side of face, left arm and left leg SKIN: Warm, dry, no laceration, no petechiae, no rashes or lesions. bandage on left leg mild erythema patient states that is not new from Mohs surgery Scores NIH Stroke Scale Level of Conciousness: Alert, keenly responsive Ask month/age: Answers both questions correctly. Open/close eyes, close hand: Performs both tasks correctly Best gaze horizontal: Normal Visual castillo: No visual loss Facial palsy: Normal symetrical movement Left arm drift: No drift for full 10 sec Right arm drift: No drift for full 10 sec Left leg drift: No drift for full 10 sec Right leg drift: No drift for full 10 sec Limb ataxia: Absent Sensory on face/arms/legs: Mild to moderate sensory loss, can tell touch Best language: No aphasia, normal Dysarthria: Normal Extinction or inattention: No abnormality Total NIH Stroke scale score: 1 Course Orders Ordered: ED Orders 07/21/18 EKG-12 Lead Routine 07/21/18 00:45 Complete Blood Count AUTO DIFF Stat Partial Thromboplastin Time Stat Prothrombin Time INR Stat 07/21/18 01:07 CT head/brain wo con Stat Urine Drug Screen, Rapid Stat 07/21/18 01:14 Comprehensive Metabolic Panel Stat Troponin & CK Cardiac Panel Stat Sodium Chloride (Normal Saline 0.9%) 1,000 mls @ 150 mls/hr IV CONT ZULEYMA Last Admin: 07/21/18 01:30 Dose: 150 mls/hr Vital Signs - 8 hr 07/21/18 01:04 07/21/18 03:00 07/21/18 03:30 Temperature 98.4 F Pulse Rate 73 66 70 Respiratory Rate 12 9 L 12 Blood Pressure 141/64 H Blood Pressure [Left Arm] 116/60 112/49 L Pulse Oximetry 93 100 99 07/21/18 04:30 Temperature Pulse Rate 68 Respiratory Rate 16 Blood Pressure Blood Pressure [Left Arm] 114/42 L Pulse Oximetry 95 MDM - Neuro Symptoms/Deficit Lab Data Attestation: I reviewed the patient's lab results. Result diagrams: 07/21/18 00:45 07/21/18 01:14 Lab Results 07/21/18 07/21/18 07/21/18 Range/Units 00:45 00:45 01:14 WBC 8.1 (4.5-11.0) X10^3/uL RBC 3.62 L (4.5-5.9) X10^6/uL Hgb 9.6 L (13.5-17.5) g/dL Hct 28.9 L (41-53) % MCV 79.7 L (80-100) fL MCH 26.4 (26-34) PG MCHC 33.2 (30-36) % RDW 18.0 H (11.6-14.8) % Plt Count 360 (150-400) X10^3/uL Neut % (Auto) 72.4 (50-75) % Lymph % (Auto) 12.5 L (25-40) % [place] % (Auto) 11.1 (3-14) % Eos % (Auto) 2.7 (2-4) % Baso % (Auto) 1.3 (0-2) % Neut # (Auto) 5900 (1731-8349) /uL Lymph # (Auto) 1000 L (3293-5269) /uL [place] # (Auto) 900 (0-900) /uL Eos # (Auto) 200 (0-450) /uL Baso # (Auto) 100 (0-100) /uL PT 12.3 (10.1-12.7) SECONDS INR 1.1 (0.9-1.3) APTT 30 (26.4-36.2) SECONDS Sodium 138 (137-145) mmol/L Potassium 3.8 (3.4-5.1) mmol/L Chloride 104 (98-107) mmol/L Carbon Dioxide 27 (22-32) mmol/L BUN 11 (9-20) mg/dL Creatinine 0.80 (0.66-1.25) mg/dL Estimated GFR > 60.0 (>60) mL/min BUN/Creatinine Ratio 13.8 (6-22) Glucose 114 H (80-110) mg/dL Calcium 8.6 (8.4-10.2) mg/dL Total Bilirubin 0.5 (0.2-1.3) mg/dL AST 35 (17-59) IU/L ALT 26 (21-72) IU/L Alkaline Phosphatase 294 H (38-126) U/L Total Creatine Kinase 28 L (55-170) U/L CK-MB (CK-2) TNP CK-MB (CK-2) Rel Index TNP Troponin I < 0.012 (0.01-0.034) ng/mL Total Protein 7.0 (6.3-8.2) g/dL Albumin 3.2 L (3.5-5.0) g/dL Globulin 3.8 (1.7-4.1) g/dL Albumin/Globulin Ratio 0.8 L (1.0-2.8) ECG Data Attestation: I personally reviewed and interpreted this ECG as follows: Prior ECG tracings: available for review Interpretation: Atrial fibrillation rate [address] changes, similar to previous EKG MDM Narrative Medical decision making narrative: Patient is at significantly high risk for TIA or CVA due to atrial fibrillation diabetes hypertension hyperlipidemia and no anticoagulation. Actually it should be evaluated for the watchman patch, if he is a candidate. Patient continues to have numbness he says there is like a line going down his face. 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 Discharge Plan Departure Patient Disposition: Admitted as Observation Clinical Impression: Brain TIA Admit Date/Time: 07/21/18 04:46 Admit Provider: Tavia Stephenson
--- NOTE | 2018-07-21 05:53 | PM.HP.1 ---
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 Symptom onset at approximately 10:00 p.m. on 07/20/2018. Symptoms were persistent for at least 45 minutes, at which time patient brought the could discern up to his and sought help at the emergency department. Prior to onset of symptoms patient admits to taking his night time dose of lipitor and ambien. Associated symptoms included lightheadedness with position change. Patient denies experiencing headache, change in vision, chest pain, palpitations, syncopal events, abdominal pain, nausea or vomiting. He is known to have degree of exertional dyspnea at baseline. At time of the evaluation, approximately 6-8 hours since onset of symptoms patient still experiencing paresthesia of face and extremities. Hx of melanoma, requiring removal of malignant lesions three weeks ago from [facility]. The extremity does have edema, but no tenderness or s/s of an infection. Known to have chronic afib (dx 1992). Currently managed with metoprolol. He is off anti-coagulation due to history of bleeding and anemia. At present time also denies hemoptysis, hematemesis, and blood loss per rectum. Patient follows with Cardiology Dr. Rosi Kaba at [facility]. PCP is Dr. Rodriguez and oncologist Dr. Tomy Pope. Patient History Medical History Bladder cancer (Acute) Anemia (Acute) Atrial fibrillation (Acute) Cholangiocarcinoma (Acute) Diabetes (Acute) Duodenal ulcer (Acute) Surgical History (Updated 07/21/18 @ 07:26 by MARLIN Mcduffie) Status post left hip replacement (Inactive) Family History (Updated 07/21/18 @ 07:28 by MARLIN Mcduffie) Mother No known health problems Father No known health problems Social History marital status: household members: spouse Smoking Status: Never smoker Family & Social History Family History (Updated 07/21/18 @ 07:28 by MARLIN Mcduffie) Mother No known health problems Father No known health problems Social History: household members spouse Prior Living Arrangements House Safety & Behavioral: Feels Safe in Current Yes Environment Been Physically Hurt or No Threatened By a Person Suicidal Ideation Description None Suicide Plan Description No Plan Tobacco & Substance use: Smoking Status Never smoker alcohol intake frequency 0-2 drinks per day Substance Use Type does not use Meds Home Medications Medication Instructions Recorded Confirmed Type atorvastatin 80 mg PO QPM #0 11/27/16 07/21/18 History levothyroxine 100 mcg PO QAM #0 11/27/16 07/21/18 History metformin [Glucophage XR] 500 mg PO BID #0 11/27/16 07/21/18 History zolpidem 5 mg PO HS #0 11/27/16 07/21/18 History flunisolide 1 spray INTRANASAL PRN PRN 11/11/17 07/21/18 History irbesartan 75 mg PO QPM 11/11/17 07/21/18 History metoprolol succinate 50 mg PO QPM 11/11/17 07/21/18 History omeprazole 40 mg PO BID 11/11/17 07/21/18 History pantoprazole 40 mg PO DAILY 07/21/18 07/21/18 History sucralfate 1 g PO QPM 07/21/18 07/21/18 History Allergies Allergy/AdvReac Type Severity Reaction Status Date / Time No Known Drug Allergies Allergy Verified 10/28/17 15:52 Review of Systems Review of Systems All systems reviewed & are unremarkable except as noted in HPI and below Exam Vital Signs (past 8 hours): - 07/21/18 01:04 07/21/18 01:45 07/21/18 02:00 Temperature 98.4 F Pulse Rate 73 73 78 Respiratory Rate 12 13 16 Blood Pressure 141/64 H Blood Pressure [Left Arm] 126/59 L 116/58 L Pulse Oximetry 93 99 97 07/21/18 02:30 07/21/18 03:00 07/21/18 03:30 Temperature Pulse Rate 79 66 70 Respiratory Rate 17 9 L 12 Blood Pressure Blood Pressure [Left Arm] 115/65 116/60 112/49 L Pulse Oximetry 97 100 99 07/21/18 04:30 07/21/18 05:21 Temperature 98.1 F Pulse Rate 68 74 Respiratory Rate 16 18 Blood Pressure 126/72 Blood Pressure [Left Arm] 114/42 L Pulse Oximetry 95 99 Oxygen Delivery Method Room Air Oxygen Flow Rate 0 Narrative Exam Narrative: Constitutional: NAD Neurologic: AOx3, left face mild paresthesis, left upper extremity and left lower extremity - no sensation to light tough NIHSS 1 Head: NC, AT Eyes: PERRL, EOMI Ears: external ears normal, no otorrhea Nose: external nose normal, no rhinorrhea or epistaxis Throat: dry MM, oropharynx w/o exudate Neck: no masses, lymphadenopathy, or JVD Chest / Respiratory: equal chest rise, unlabored respiratory effort, no tachypnea, CTAB Heart / CV: S1S2, + murmur Abdomen / GI: round, NT, ND, + BS, no organomegaly, no suprapubic tenderness Peripheral / Vascular: warm to touch, DP and PT pulses palpable, BLE edema L > R; LLE bandaged no signs of infection or inflammation Musc: full ROM of upper and lower extremities, adequate muscle tone and bulk Skin: no ecchymosis or suspicious lesions / ulcers Objective Labs Result Diagrams: 07/21/18 00:45 07/21/18 01:14 Labs: Laboratory Results - last 24 hr 07/21/18 07/21/18 07/21/18 00:45 00:45 01:14 WBC 8.1 RBC 3.62 L Hgb 9.6 L Hct 28.9 L MCV 79.7 L MCH 26.4 MCHC 33.2 RDW 18.0 H Plt Count 360 Neut % (Auto) 72.4 Lymph % (Auto) 12.5 L [place] % (Auto) 11.1 Eos % (Auto) 2.7 Baso % (Auto) 1.3 Neut # (Auto) 5900 Lymph # (Auto) 1000 L [place] # (Auto) 900 Eos # (Auto) 200 Baso # (Auto) 100 PT 12.3 INR 1.1 APTT 30 Sodium 138 Potassium 3.8 Chloride 104 Carbon Dioxide 27 BUN 11 Creatinine 0.80 Estimated GFR > 60.0 BUN/Creatinine Ratio 13.8 Glucose 114 H Calcium 8.6 Total Bilirubin 0.5 AST 35 ALT 26 Alkaline Phosphatase 294 H Total Creatine Kinase 28 L CK-MB (CK-2) TNP CK-MB (CK-2) Rel Index TNP Troponin I < 0.012 Total Protein 7.0 Albumin 3.2 L Globulin 3.8 Albumin/Globulin Ratio 0.8 L Assessment & Plan Assessment & Plan narrative: Paresthesias (left sided), or acute, present on admission Patient is being admitted for a TIA/stroke workup - MR stroke imaging - echo - neuro checks per protocol - vital signs q.4 hours Chronic atrial fibrillation with controlled ventricular response, chronic condition, present on admission Currently managed with Toprol-XL 50 mg daily. Patient is not a candidate for NOACs, coumadin and now even ASA due to GI bleeds. 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 Patient has advanced directive. Designated DPOA is his spouse. Home medications reviewed and reconciled accordingly. Melanoma of left lower extremity with recent surgical resection of lesions, chronic, present on admission, stable - consider wound care consult if patient has a prolonged hospital stay Quality VTE Deep Vein Thrombosis/Pulmonary Embolism Present on Admission: No
--- NOTE | 2018-07-21 06:23 | DI.MRI.S_ITS ---
PROCEDURE: MR STROKE Pre- and post-contrast brain MRI, non-contrast brain MR angiogram, pre- and postcontrast neck MR angiogram INDICATIONS: left face, arm, leg paresthesia TECHNIQUE: Brain: Noncontrast axial T1 spin echo, axial T2 fast spin echo, sagittal and axial FLAIR, coronal T2 fast spin echo, axial gradient echo, axial diffusion and ADC through the brain. After the administration of contrast, axial 3D VIBE of the cranial vasculature and brain. Brain MRA: Non-contrast 3-D time of flight MR angiogram, with multiple prnkeps-bahdaohwd-hxmipkwodu (MIP) reformats performed. Neck MRA: Axial and sagittal TruFISP through the neck. Coronal dynamic MR angiogram during administration of contrast in the arterial and venous phases, with 3-dimenstional btpxzcy-pwuzusrpi-mfeigfkjrp (MIP) reformats constructed from subtraction images. COMPARISON: [facility], MR, BRAIN WITHOUT CONTRAST, 08/07/2015, 11:42. [facility], CT, CT HEAD/BRAIN WO CON, 07/21/2018, 1:24. FINDINGS: Image quality: Excellent. BRAIN: CSF spaces: Ventricles are normal in size and shape. Basal cisterns are patent. No extra-axial fluid collections. Brain: There is focal infarction involving the right posterior thalamus, with increased diffusion weighted signal with associated dark ADC signal. Potential additional infarction can be seen involving the medial right temporal lobe, as on series 20 image 60. No intracranial bleeds or mass effects. Acevedo-white matter interface is normal. Brainstem appears normal. Normal intravascular flow voids are present. No abnormal intracranial enhancement. Skull and face: Calvarial marrow signal is normal. Orbits appear normal. Note is made of bilateral lens replacements. Sinuses: Sinuses and mastoids are clear. BRAIN MR ANGIOGRAM: Anterior circulation: Intracranial internal carotid arteries are normal in size and enhancement. The flow within the paired anterior cerebral arteries is normal and symmetric. The flow within the middle cerebral arteries is normal and symmetric. The anterior communicating artery is seen. No stenoses, occlusions, or aneurysms. Posterior circulation: The visualized portions of the vertebral arteries demonstrate normal caliber, and join to form a normal appearing basilar artery. There is occlusion of the right proximal posterior cerebral artery, approximately 1 cm beyond its origin. The flow within the left posterior cerebral artery appears normal. No focal aneurysms. NECK MR ANGIOGRAM: Carotids: Great vessels demonstrate a conventional anatomy as they arise from the aortic arch. The origins of the common carotid arteries appear patent. The calibers and courses of both common carotid arteries are normal. The bifurcation regions appear normal bilaterally. The internal carotid arteries demonstrate normal course and caliber. Posterior circulation: The origins of the vertebral arteries appear patent. More superior portions of both vertebral arteries demonstrate normal course and caliber, and join to form a normal appearing basilar artery. Miscellaneous: Subclavian arteries appear patent. There is a small right-sided pleural effusion and a trace left-sided pleural effusion. Pre-contrast images through the neck show no soft tissue abnormalities. IMPRESSION: BRAIN MRI: Focal areas of infarction can be seen involving the right thalamus. There is potential additional infarction seen involving the medial right temporal lobe, yet this is said with less certainty. Note is made of age-appropriate brain parenchymal volume loss and chronic small vessel ischemic changes. BRAIN MR ANGIOGRAM: There is occlusion of the right posterior cerebral artery seen approximately 1 cm beyond its origin. NECK MR ANGIOGRAM: Within the arteries of the neck, no hemodynamically significant stenosis can be seen. Small right-sided pleural effusion and a trace left-sided pleural effusion incidentally noted. Dictated by: Deepak Anders M.D. on 07/21/2018 at 8:51 Approved by: Deepak Anders M.D. on 07/21/2018 at 9:01
--- NOTE | 2018-07-21 06:48 | PC.NURSE ---
Admission note: Pt arrived via stretcher accompanied by ED RN, Geena already in room. Pt transferred self to hospital bed, changed into yellow gown for fall risk, admission assessment complete, oriented to room, call light, and safety protocols. Pt acknowledged understanding. Assessment notable for irregularly irregular heart rate with murmur, bilateral 2+ pitting edema, and melanoma excision to left lower extremity. Pt passed bedside swallow eval, NIH is 0, pt has tingling to left side of body but no sensory deficits related to it. to bring in meds as med list brought in does not indicate how many times a day a med is taken and has duplicates of medications. Pt to have MRI today. Will pass all pertinent information to day shift nurse.
--- NOTE | 2018-07-21 10:58 | PT.IIE ---
Surgical History (Last Updated 07/21/18 @ 07:26 by MARLIN Mcduffie) Status post left hip replacement (Inactive) Medical History (Last Reviewed 07/21/18 @ 07:25 by MARLIN Mcduffie) Bladder cancer (Acute) Anemia (Acute) Atrial fibrillation (Acute) Cholangiocarcinoma (Acute) Diabetes (Acute) Duodenal ulcer (Acute) Physical Therapy Inpatient Evaluation/Re-Eval M1 PT/OT-IP Prior Functional Status Start: 07/21/18 12:49 Freq: NEEDED Status: Active Protocol: Document 07/21/18 10:58 AB (Rec: 07/21/18 13:02 AB [id number]) Medical Review Prior Functional Status Medical History Reviewed Yes Communication able to make needs known Mobility and Gait pt stated that he is independent with all mobilities and ambulation without AD Social History Household Members spouse Living Arrangements House Number of Floors (Floors) Two Floors Number of Stairs To Enter/Railing? pt stays on main level of the house; has no steps to enter Home Environment High Toilet Walk in Shower Home Equipment Crutches Hand Held Shower Employment Status Retired M2 PT-IP Current Condition Start: 07/21/18 12:49 Freq: NEEDED Status: Active Protocol: Document 07/21/18 10:58 AB (Rec: 07/21/18 13:02 AB [id number]) Physical Therapy Current Condition Current Condition Evaluation Date 07/21/18 Treatment Diagnosis Brain TIA; difficulty in walking Onset Date 07/21/18 Precautions Other Precautions Falls M3 PT-IP Subjective Start: 07/21/18 12:49 Freq: NEEDED Status: Active Protocol: Document 07/21/18 10:58 AB (Rec: 07/21/18 13:02 AB [id number]) Subjective Physical Therapy Visit Type Type Initial Evaluation Visit Start Time 10:58 Visit Stop Time 12:25 Total Visit Minutes 30 Notes pt seen for split visits Number of COMPOUND MIXER Visits 0 Physical Therapy Visit Comments Patient Comments i am tired M4 PT-IP Mobility and Gait Start: 07/21/18 12:49 Freq: NEEDED Status: Active Protocol: Document 07/21/18 10:58 AB (Rec: 07/21/18 13:02 AB [id number]) PT-Bed Mobility Assessment Supine to Sit Supine to Sit Maximum Assistance 1 Person Assistance Sit to Supine Sit to Supine Maximum Assistance 1 Person Assistance Scooting Scooting to Edge of Bed Maximum Assistance PT-Transfer Assessment Sit to and From Stand Sit to and from Stand Minimal Assistance Equipment Transfer Assistive Device Gait Belt Front Wheeled Walker Orthotic/Prosthetic Devices or Brace: No Gait Assessment Gait Gait Assistance Required: Minimum Assistance Distance (Feet) 40 Able to Maintain Weight Bearing Status Yes During Gait Assistive Devices Assistive Device Gait Belt Front Wheeled Walker Orthotic/Prosthetic Devices or Brace: No Gait Deviations General Gait Pattern Antalgic Decreased Stride Length Decreased Feet Clearance Factors Limiting Gait Function Factors Limiting Gait Function Decreased Activity Tolerance Decreased Sensation Decreased Strength Poor Balance Poor Safety Awareness Comments Gait Comments pt presents with antalgic gait with decrease LLE elevation. PT-Balance Assessment Sitting Balance and Reactions Static Sitting Balance Ability Good Dynamic Sitting Balance Ability Fair Standing Balance and Reactions Static Standing Balance Ability Fair Dynamic Standing Balance Ability Fair Device Used FWW M5 PT-IP Objective Assessments Start: 07/21/18 12:49 Freq: NEEDED Status: Active Protocol: Document 07/21/18 10:58 AB (Rec: 07/21/18 13:02 [id number]) Orientation Orientation/Cognition Level of Alertness Alert Orientation Name Age Date Place Situation Safety Awareness Decreased Safety Awareness Gross Range of Motion Lower Extremity ROM Assessment Within Functional Limits Strength Lower Extremity Strength Assessment Left Impaired Knee 3+/5 Sensation Assessment Sensation Gross Sensation Left UE Impaired Left LE Impaired Light Touch Impaired Proprioception (Position) Impaired Sensation Description Numbness Comments Sensation Comments pt able to feel light touch on L side but stated that it is less than R side Muscle Tone Muscle Tone WNL Yes M6 PT-IP Treatment Start: 07/21/18 12:49 Freq: NEEDED Status: Active Protocol: Document 07/21/18 10:58 AB (Rec: 07/21/18 13:02 AB [id number]) Physical Therapy Treatment Education Education Provided Safety M7 PT-IP Assessment and Plan Start: 07/21/18 12:49 Freq: NEEDED Status: Active Protocol: Document 07/21/18 10:58 AB (Rec: 07/21/18 13:02 AB [id number]) PT Summary Assessment and Plan Potential Rehabilitation Potential Good Status of Condition at Evaluation Evolving Summary Impairments Strength Balance Coordination Sensation Cognition Bed Mobility Transfers Gait Activity Tolerance Assessment Summary pt requiring max A with bed mobility and min A with transfers and has decrease activity tolerance and safety awareness. pt will benefit from acute rehab or SNF rehab. will continue to assess. Goals Bed Mobility Goal Standby Assistance Transfer Goal Standby Assistance Front Wheeled Walker Gait Goal Standby Assistance Front Wheel Walker Gait Distance 200 Days to Meet Goals 5 Frequency of Treatment Frequency Of Treatment Once a Day Treatment Plan Physical Therapy Treatment Plan Bed Mobility Training Transfer Training Gait Training Therapeutic Exercise Balance Retraining Post Op Education Discharge Planning Hot or Cold Pack Neuromuscular Re-ed Coordination Retraining Manual Therapy Other Recommendations and Next Treatment ambulation, bed mobility Focus Recommendations To Nursing Amount of Assist Needed 1 Person Assist Discharge Recommendations PT Discharge Recommendations SNF Rehab Acute Rehab Equipment Needed for Home Before FWW: pt stated that spouse Discharge will be able to borrow one
[2018-07-21] MEDS: LEVOTHYROXINE 100 MCG TABLET PO (14:16)
--- NOTE | 2018-07-21 14:16 | PM.EVENT ---
Date Patient Seen: 07/21/18 Patient seen and examined chart reviewed. Patient presented with left arm and left leg weakness. 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 This is mostly likely embolic from his Atrial Fibrillation. The patient's echo confirmed progressive aortic stenosis as well. Patient reports he was to follow up with his Oncologist to discuss resuming anticoagulation following his last EGD last week. I have a call into his Oncologist, Dr. Tomy Pope to discuss. In the interim will start PT/OT/Speech. DVT prophylaxis for now.
[2018-07-21] MEDS: PANTOPRAZOLE 40 MG TABLET PO (14:20)
--- NOTE | 2018-07-21 15:22 | OT.IP.EVAL ---
Past Medical History (Last Reviewed 07/21/18 @ 07:25 by MARLIN Mcduffie) Bladder cancer (Acute) Anemia (Acute) Atrial fibrillation (Acute) Cholangiocarcinoma (Acute) Diabetes (Acute) Duodenal ulcer (Acute) Surgical History (Last Updated 07/21/18 @ 07:26 by MARLIN Mcduffie) Status post left hip replacement (Inactive) Occupational Therapy Inpatient Evaluation/Re-Eval M1 PT/OT-IP Prior Functional Status Start: 07/21/18 12:49 Freq: NEEDED Status: Active Protocol: Document 07/21/18 15:22 PJNela (Rec: 07/21/18 18:53 PJ [id number]) Medical Review Prior Functional Status Medical History Reviewed Yes Diet/Fluid Consistency Regular Communication WNL Mobility and Gait Pt stated that he is independent with all mobilities and ambulation without AD. Pt stated he went to gym to walk on treadmill until 3 weeks ago when he had melanoma removed from L LE. Activities of Daily Living and IADL's Pt independent with eating, standing grooming, dressing except assist pt with knee high CHENG hose and pt slipped into his tie shoes. Pt stands to shower. 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 Prior Functional Level (Other details) Pt still drives. He manages his own finances and sets up his pillbox. Social History Household Members spouse Living Arrangements House Number of Floors (Floors) Two Floors Number of Stairs To Enter/Railing? 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 Additional Social History Comment pt has stocking demetrio that he uses with min assist from his M2 OT-IP Current Condition Start: 07/21/18 18:25 Freq: Status: Active Protocol: Document 07/21/18 15:22 PJM (Rec: 07/21/18 18:53 PJ [id number]) Occupational Therapy Current Condition Current Condition Evaluation Date 07/21/18 Treatment Diagnosis decr'd self care, mobility w/ DX of R stroke,occluded post cerebral artery Post Operative Precautions Other Precautions fall risk, L side tingling M3 OT- IP Subjective and Pain Start: 04/11/19 18:25 Freq: Status: Active Protocol: Document 07/21/18 15:22 PJ (Rec: 07/21/18 18:53 [facility] [id number]) OT- Subjective Occupational Therapy Visit Type Type Initial Evaluation Visit Start Time 14:45 Visit Stop Time 15:22 Notes Pt's observing this session. Occupational Therapy Visit Comments Patient Comments I feel like the whole L aside of my body feels tingling. Patient/Caregiver Goals to go home, resume prior level of function, to walk without a device OT Pain Assessment Pain When Pain Assessed After Treatment Pain Present Pain Present Denied Pain M4 OT- IP ADL's Start: 07/21/18 18:25 Freq: Status: Active Protocol: Document 07/21/18 15:22 PJ (Rec: 07/21/18 18:53 [facility] [id number]) OT [id number]-[id number]-[id number] General Evaluation Self-Feeding Ability Independent Comments OT Self-Feeding Comments pt able to use L hand as assist to open all packages, pt is R dominant OT ADL-Grooming General Evaluation Grooming Ability Standby Assistance Areas Needing Assistance Face Washing Comments OT Grooming Comments in bed OT ADL-Oral Care Comments Oral Care Comments to be assessed OT ADL-Dressing Comments OT Dressing Comments pt declined this session due to fatigue, to be assessed OT ADL-Toileting Comments OT Toileting Comments pt declines need, to be assessed OT ADL-Bathing Comments OT Bathing Comments to be assessed as activity tolerance improves, pt currently stands to shower; provided education re: shower seats and other bathroom safety equipt options/ resources M5 OT- IP IADL's Start: 07/21/18 18:25 Freq: Status: Active Protocol: Document 07/21/18 15:22 PJ (Rec: 07/21/18 18:53 [facility] [id number]) OT-Instrumental Activities of Daily Living Deficits IADL Deficits Identified Deficits Home Safety Awareness Awareness of Need for Assistance at Home Good Awareness Ability to Problem Solve Emergency Able to Problem Solve Situations Medication Management Medication Management No Deficits Identified Medication Management Comments pt manages own meds at home and sets up pillbox Money Management Money Management No Deficits Identified Meal Preparation Meal Preparation Caregiver Provides Assist Meal Preparation Comments does cooking at home Spinning Room Worker Spinning Room Worker Caregiver Provides Assist Spinning Room Worker Comments does all radio repairer domestic Driving Driving Comments pt drives when feeling well M6 OT- IP Functional Cognition Start: 07/21/18 18:25 Freq: Status: Active Protocol: Document 07/21/18 15:22 PJM (Rec: 07/21/18 18:53 PJ [id number]) Cognitive Factors Limiting Selfcare Function Cognitive Ability Level of Alertness Alert Patient Orientation Name Age Birthday Month Year Place Situation Attention Span Ability Capable of Focused Attention Capable of Sustained Attention Ability to Follow Commands Able to Follow One Step Commands Memory Description No Deficits Noted Safety Awareness Underestimates Need for Assistance Cognitive Comments Cognitive Assessment Comments Pt alert and oriented but tends to underestimate his current level of function and amount of assistance needed. OT- Vision and Hearing OT- Hearing Assessment OT- Hearing Assessment Left Ear Impaired OT- Vision Assessment Visual Acuity Glasses All The Time Visual Attentiveness WFL Occular Pursuits WFL Visual Caldera WFL Vision Assessment Comments ? subtle L neglect; further assessment to follow M7 OT- IP Mobility and Balance Start: 07/21/18 18:25 Freq: Status: Active Protocol: Document 07/21/18 15:22 PJ (Rec: 07/21/18 18:53 PJ [id number]) OT-Transfer Assessment Comments Mobility Comments pt declined OOB this session, see Dexter gay OT- Gait Assessment Comments Gait Ability Comments pt declined OOB this session, see Dexter gay OT- Balance Assessment Comments Other Balance Tests/Deviations/Treatment pt declined OOB this session, : see Dexter gay M8 OT- IP Objective Assessments Start: 07/21/18 18:25 Freq: Status: Active Protocol: Document 07/21/18 15:22 PJ (Rec: 07/21/18 18:53 PJ [id number]) OT Gross Range of Motion Upper Extremity Range of Motion Assessment Within Functional Limits ROM Impairments BUE WFL except decreased B shoulder scaption noted due to hx of B rotator cuff injuries per pt, R worse than L. B scaption limited to about 90 degrees in BUE. Note LUE lag/drift during BUE AROM assessment. OT Strength Upper Extremity Strength Shoulder R 3+/5 L 4-/5 Elbow R 4+/5 L 4+/5 flex/ext Hand R Infection Control Coordinator 4+/5 L 4/5 Hand Infection Control Coordinator Strength Hand Dominance Right Comments Strength Comments Pt has subtle LUE strength deficts in LUE. New strength deficits in L shoulder difficult to assess due to old B rotator cuff tears. OT- Coordination Assessment Comments Coordination Comments Pt able to open small and tight plastic packages using L hand as assist for meal set up. OT-Muscle Tone Assessment Muscle Tone WNL Yes OT Sensation Assessment Location Left Arm Light Touch Impaired Proprioception (Position) Intact/Normal Comments Summary Comments Pt detects and localizes lt touch but subjectively tingling throughout LUE/hand. Edema Edema Absent M9 OT- IP Assessment and Plan Start: 07/21/18 18:25 Freq: Status: Active Protocol: Document 07/21/18 15:22 PJM (Rec: 07/21/18 18:53 PJM [id number]) OT Summary Assessment and Plan Potential Rehabilitation Potential Good Analytic Complexity at Evaluation Moderate Summary OT Impairments Range of Motion Strength Sensation Functional Mobility Grooming Dressing Toileting Bathing Toilet Transfers Shower Transfers Assessment Summary Moderate complexity OT assessment due to complex medical hx and hx of B orthopedic injuries to shoulders making neuro assessment more challenging. Pt is 78 yr old male admitted with L side weakness/tingling. MRI showed focal infarct in R posterior thalamus and possible 2nd infarct in R temporal lobe with occluded posterior cerebral artery. Pt currently has performance deficits in all functional mobility/transfers resulting in decreased independence in standing grooming, dressing, bathing and toileting. Pt is below his baseline level of function. Recommend further rehab services in acute rehab vs SNF pending progress here. Goals Self-Feeding Goal Independent Grooming Goal Standby Assistance Dressing Goal Minimal Assistance Toileting Goal Standby Assistance Bathing Goal Standby Assistance Toilet Transfer Goal Standby Assistance Shower Transfer Goal Contact Guard Assistance Walk-in Shower Shower Chair Patient/Caregiver Education Goal Demonstrate Energy Conservation and Pacing Caregiver Independent Assisting Patient Days to Meet Goals 7 Frequency of Treatment Frequency Of Treatment Once a Day Treatment Plan OT Treatment Plan ADL Training Functional Mobility Patient/Family Education Discharge Planning Discharge Recommendations OT Discharge Recommendations SNF Rehab Acute Rehab Other Discharge Recommendations pending progress here Home Equipment Needs shower chair, further recommendations to follow
--- NOTE | 2018-07-21 15:23 | PC.NURSE ---
Day Shift- Pt A&OX4, NIH score 1 for left side numbness/tingling only. OOB with 1 PA, slow and slightly unsteady gait. Worked with PT today. Speech seeing this afternoon. Denies pain, discomfort, shortness of breath, nausea. NPO throughout shift, awaiting clarification from Dr. Nobles. Attempted a few times to clarify. Scheduled medications held this AM until clarification. Pt went for Brain MRI this AM, ECHO completed in room. Spoke with Dr. nobles around 1400. Okay for pt to have Heart healthy diet. Check blood glucose levels ac&hs. Okay to have medications since passed nursing swallow evaluation. Pt took 2 small pills without difficulty with water, apple sauce also given. High fall risk precautions in place.
--- NOTE | 2018-07-21 16:12 | ST.IPCSEOM ---
Care Team Visit Care Team Role Provider Type Nessa Mcgowan DO Emergency Provider Physician Specialty: Emergency Medicine Address: [address] [place] [address], [id number] Email: MARLIN Mcduffie Admit Provider Advanced Slot Operations Director Attending Provider Specialty: Internal Medicine Address: [address] [place] [address], [id number] Email: Past Medical History (Last Reviewed 07/21/18 @ 07:25 by MARLIN Mcduffie) Bladder cancer (Acute Medical) Anemia (Acute Medical) Atrial fibrillation (Acute Medical) Cholangiocarcinoma (Acute Medical) Diabetes (Acute Medical) Duodenal ulcer (Acute Medical) Speech-Language Pathology Swallow Evaluation [employer] END FINDER Clinical Swallow Evaluation Start: 07/21/18 16:05 Freq: Status: Active Protocol: Document 07/21/18 16:05 [facility] (Rec: 07/21/18 16:12 [facility] [id number]) Clinical Swallow Evaluation Session Time Visit Start Time 14:50 Visit Stop Time 15:10 Total Visit Minutes 20 Referral Referring Physician Tavia Stephenson Reason for Referral CVA Setting Assessment Location Acute Care Visit Type Note Type Initial Evaluation Next Note Type Next Note Type Treatment Note Patient Information Identification Type Name ID Wristband History Patient is a 78 year old male who presented to the ED with CVA symptoms. He has a history of bladder cancer, anemia, aFib, cholangiocarcinoma, diabetes and duodenal ulcer. Imaging upon admission revealed the following: Brain MRI: Focal areas of infarction can be seen involving the right thalamus. There is potential additional infarction seen involving the medial right temporal lobe, yet this is said with less certainty. Subjective Observations Patient was awake and alert, lying in bed with present . OT just finishing evaluation . Patient passed nursing swallow screen. He had also just eaten a regular turkey sandwich prior to [employer] FINDER clinical swallow evaluation. No signs of difficulty observed. Patient has not worked with speech therapy in the past. Evaluation Liquids Trialed Ice Chips Thin Solids Trialed Mechanical Soft Regular Administration Type Straw Self-Feeding Oral Impairment WFL Oral Strategies Upright at 90 degrees Oral Phase Comments Functional oral phase. No impairment observed. Pharyngeal Impairment WFL Pharyngeal Phase Comments Functional pharyngeal phase. Observed mild wet vocal quality after several bites of arron cracker and a sip of water. However, no cough or change in respiratory rate. Patient verablized that he has a sensitive throat and will cough easily when things stick . Findings Dysphagia Type No dysphagia Rehabilitation Potential Excellent Impressions Patient presents with functional swallowing ability at this time. Mild wet vocal quality observed after multiple trials of arron cracker and a sip of water, however, resolved with spontaneous throat clear. At this time, no s/s of aspiration or dysphagia observed. TRIALS COMPELTED: Thin liquid via cup and straw, string cheese, arron cracker. RECOMMEND: Thin liquids, regular textures, mediation to be administered one at a time in thin liquid, per patient's preference. [employer] END FINDER will follow up for diet tolerance assessment. Diet Recommendations Liquids Order Thin Diet Order Regular Medication Recommendations As Tolerated Aspiration Precautions Recommended Precautions Upright at 90 Degrees Alternate Liquids/Solids Frequent Rest Periods Small Bites/Sips Treatment Plan Placement Recommendations after Home Discharge Appropriate for Therapy Yes Therapy Recommendations Follow up for additional education regarding speech and swallowing and how they can be affected post-CVA. Dysphagia Goals Patient will tolerate the safest, least restrictive diet without overt s/s of aspiration.
[2018-07-21] MEDS: ATORVASTATIN 20 MG TABLET 80 MG PO (17:04)
[2018-07-21] MEDS: METOPROLOL ER 50 MG TABLET PO (17:04)
[2018-07-21] MEDS: IRBESARTAN 150 MG TABLET 75 MG PO (17:05)
[2018-07-21] MEDS: ENOXAPARIN 40 MG/0.4 ML SYRINGE SUBCUT (18:27)
[2018-07-21] MEDS: cephALEXin 250 MG CAPSULE 500 MG PO (18:38)
[2018-07-21] MEDS: ONDANSETRON 4 MG ODT SL (21:22)
--- NOTE | 2018-07-21 22:08 | PC.NURSE ---
Addendum entered by Denise Trevino R.N. 07/21/18 22:50: pt is now resting with eyes closed, respirations equal and unlabored. pt's is awake and states not to wake for PO abx that were previously not administered r/t nausea. Geena states will notify RN when pt awakes to assess pt's ability/want to take ABX. Original Note: 2204 pt had unmeasured amount of emesis (as bag was emptied by pt's )after continued nausea post SL zofran at 2121. pt states has chronic reflux issues and feels like eating dinner and than taking more water with medications was just too much when all I'm doing is sitting here. pt states improvement adding that he hasn't thrown up in 20 years but has 3x in the last 3 weeks. pt educated about nausea as possible side effect to antibiotic but pt feels this does not correlate with medication. oral care with mouth wash and cool washcloth to forehead for comfort. pt's supportive spouse remains at chairside as pt sitting in recliner for comfort.
--- NOTE | 2018-07-22 00:13 | PC.NURSE ---
2350 Checked pt. to do VS & assessment, but he's sound asleep. Spouse requested to just let him sleep, states he's having hard time sleeping earlier, just let him. Instructed to call staff if he wakes up, will monitor.
[2018-07-22 01:20] VITALS: BP 108/60; PULSE 70; RESP 18; TEMP 36.6; O2SAT 96
[2018-07-22 01:35] VITALS: O2SAT 96
[2018-07-22 05:26] VITALS: BP 111/67; PULSE 66; RESP 18; TEMP 36.9; O2SAT 97
[2018-07-22] MEDS: ONDANSETRON 4 MG/2 ML INJ IV (05:34)
[2018-07-22] MEDS: SODIUM CHLORIDE 0.9% FLUSH 10 ML IV ×2 (05:34→09:12)
[2018-07-22] MEDS: LEVOTHYROXINE 100 MCG TABLET PO (05:47)
--- NOTE | 2018-07-22 06:27 | PC.NURSE ---
Notified MARLIN Stephenson that pt. C/O nausea. Pt. & spouse requested to have Zofran IVP, reported after taking Zofran PO on evening shift, he vomited. 4 mg. of Zofran admin. IVP slowly over 3 mins. Pt. resting/sleeping now. Denies any DURAN & CP, will cont. POC & monitor.
[2018-07-22 07:38] VITALS: BP 130/59; PULSE 65; RESP 16; TEMP 36.9; O2SAT 98
[2018-07-22] MEDS: cephALEXin 250 MG CAPSULE 500 MG PO (09:12)
[2018-07-22] MEDS: PANTOPRAZOLE 40 MG TABLET PO (09:12)
[2018-07-22] MEDS: MINOCYCLINE HCL 100 MG CAPSULE PO (09:12)
[2018-07-22] MEDS: ENOXAPARIN 40 MG/0.4 ML SYRINGE SUBCUT (09:45)
--- NOTE | 2018-07-22 10:15 | PT.IPTN ---
Current Diagnoses Cerebral infarction due to embolism of right middle cerebral artery (07/21/18) Physical Therapy Treatment Note M2 PT-IP Current Condition Start: 07/21/18 12:49 Freq: NEEDED Status: Active Protocol: Document 07/21/18 10:58 AB (Rec: 07/21/18 13:02 AB [id number]) Physical Therapy Current Condition Current Condition Evaluation Date 07/21/18 Treatment Diagnosis Brain TIA; difficulty in walking Onset Date 07/21/18 Precautions Other Precautions Falls M3 PT-IP Subjective Start: 07/21/18 12:49 Freq: NEEDED Status: Active Protocol: Document 07/22/18 10:15 AB (Rec: 07/22/18 12:46 AB [id number]) Subjective Physical Therapy Visit Type Type Treatment Note Visit Start Time 10:15 Visit Stop Time 10:58 Total Visit Minutes 43 Number of PLANISHER Visits 0 Physical Therapy Visit Comments Patient Comments pt agreeable to do PT; spouse present M4 PT-IP Mobility and Gait Start: 07/21/18 12:49 Freq: NEEDED Status: Active Protocol: Document 07/22/18 10:15 AB (Rec: 07/22/18 12:46 AB [id number]) PT-Bed Mobility Assessment Supine to Sit Supine to Sit Maximum Assistance 1 Person Assistance Sit to Supine Sit to Supine Moderate Assistance 1 Person Assistance Scooting Scooting to Edge of Bed Maximum Assistance PT-Transfer Assessment Sit to and From Stand Sit to and from Stand Moderate Assistance 1 Person Assistance Use of Upper Extremities Equipment Transfer Assistive Device Gait Belt Front Wheeled Walker Orthotic/Prosthetic Devices or Brace: No Transfers Transfer Destination Bed Chair Transfer Technique Stand Step Pivot Transfer Ability Level of Assist Contact Guard Assistance Comments Mobility Comments caregiver training conducted. educated spouse on how to use safety belt and on how to assist pt with bed mobility, transfers and ambulation. Spouse was able to safely assist pt. Gait Assessment Gait Gait Assistance Required: Contact Guard Assist Distance (Feet) 250 Able to Maintain Weight Bearing Status Yes During Gait Assistive Devices Assistive Device Gait Belt Front Wheeled Walker Orthotic/Prosthetic Devices or Brace: No Gait Deviations General Gait Pattern Antalgic Factors Limiting Gait Function Factors Limiting Gait Function Decreased Activity Tolerance Decreased Strength Poor Balance Poor Safety Awareness Comments Gait Comments spouse assisted pt with ambulation M5 PT-IP Objective Assessments Start: 07/21/18 12:49 Freq: NEEDED Status: Active Protocol: Document 07/21/18 10:58 AB (Rec: 07/21/18 13:02 AB [id number]) Orientation Orientation/Cognition Level of Alertness Alert Orientation Name Age Date Place Situation Safety Awareness Decreased Safety Awareness Gross Range of Motion Lower Extremity ROM Assessment Within Functional Limits Strength Lower Extremity Strength Assessment Left Impaired Knee 3+/5 Sensation Assessment Sensation Gross Sensation Left UE Impaired Left LE Impaired Light Touch Impaired Proprioception (Position) Impaired Sensation Description Numbness Comments Sensation Comments pt able to feel light touch on L side but stated that it is less than R side Muscle Tone Muscle Tone WNL Yes M6 PT-IP Treatment Start: 07/21/18 12:49 Freq: NEEDED Status: Active Protocol: Document 07/22/18 10:15 AB (Rec: 07/22/18 12:46 AB [id number]) Physical Therapy Treatment Education Education Provided Safety Other Treatments Other Treatment Performed spouse stated that she is going to borrow a walker. educated on safety and equipement options and is agreeable but pt is hesitant. pt is also initially not amenable to outpt PT but agreed afterwards. M7 PT-IP Assessment and Plan Start: 07/21/18 12:49 Freq: NEEDED Status: Active Protocol: Document 07/22/18 10:15 AB (Rec: 07/22/18 12:46 AB [id number]) PT Summary Assessment and Plan Potential Rehabilitation Potential Good Status of Condition at Evaluation Evolving Summary Impairments Pain ROM Strength Balance Coordination Sensation Tone Cognition Bed Mobility Transfers Gait Activity Tolerance Progress Towards Goals Progressing Toward Goals Assessment Summary caregiver training conducted and spouse is able to safely assist pt. pt plans to go home today. Goals Bed Mobility Goal Standby Assistance Transfer Goal Standby Assistance Front Wheeled Walker Gait Goal Standby Assistance Front Wheel Walker Gait Distance 200 Days to Meet Goals 5 Frequency of Treatment Frequency Of Treatment Once a Day Treatment Plan Physical Therapy Treatment Plan Bed Mobility Training Transfer Training Gait Training Therapeutic Exercise Balance Retraining Discharge Planning Hot or Cold Pack Neuromuscular Re-ed Coordination Retraining Manual Therapy Other Recommendations and Next Treatment ambulation, bed mobility Focus Recommendations To Nursing Amount of Assist Needed 1 Person Assist Discharge Recommendations PT Discharge Recommendations Home with 02/11 Assist Outpatient PT
--- NOTE | 2018-07-22 10:33 | PM.DS.1 ---
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 Symptom onset at approximately 10:00 p.m. on 07/20/2018. Symptoms were persistent for at least 45 minutes, at which time patient brought the could discern up to his and sought help at the emergency department. Prior to onset of symptoms patient admits to taking his night time dose of lipitor and ambien. Associated symptoms included lightheadedness with position change. Patient denies experiencing headache, change in vision, chest pain, palpitations, syncopal events, abdominal pain, nausea or vomiting. He is known to have degree of exertional dyspnea at baseline. At time of the evaluation, approximately 6-8 hours since onset of symptoms patient still experiencing paresthesia of face and extremities. Hx of melanoma, requiring removal of malignant lesions three weeks ago from [facility]. The extremity does have edema, but no tenderness or s/s of an infection. Known to have chronic afib (dx 1992). Currently managed with metoprolol. He is off anti-coagulation due to history of bleeding and anemia. At present time also denies hemoptysis, hematemesis, and blood loss per rectum. Patient follows with Cardiology Dr. Rosi Kaba at [facility]. PCP is Dr. Rodriguez and oncologist Dr. Tomy Pope. Discharge Providers Date of admission: 07/21/18 04:46 Discharge Date: 07/22/18 Consults: 07/21/18 05:52 Consult to Dietitian, Adult Routine Comment: Reason For Exam: Per protocol 07/21/18 06:23 Consult to Discharge Planning Routine Comment: Consult to Occupational Therapy Evaluate & Treat Comment: Physician Instructions: Evaluate and treat Consult to Physical Therapy Evaluate & Treat Comment: Physician Instructions: Evaluate and Treat Consult to Speech Therapy Evaluate & Treat Comment: Physician Instructions: Evaluate and treat Discharge provider: Leeann Nobles MD Summary Discharge Diagnosis: 1. Acute right thalamic/parietal CVA, present on admission 2. Paroxysmal atrial fibrillation, chronic 3. Recent upper GI bleed 4. Cholangiocarcinoma 5. Malignant melanoma, status post excision of the left lower lesion 6. History of bladder cancer 7. Remote history of a occipital CVA 6. Hypertension 7. Hypothyroid 8. Type 2 diabetes 9. Gastroesophageal reflux disease Hospital Course: The patient is a 78-year-old male with a history of hypertension, hyperlipidemia, remote history of CVA, paroxysmal atrial fibrillation who presented to the hospital with abrupt onset of left-sided weakness. The patient underwent an MRI of the brain which did confirm an acute CVA involving the right parietal and right thalamic area. This was an acute infarct. 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 He had been treated at the [facility] with cautery. He was recently seen and cleared to resume his anticoagulation. The patient had plans to follow up with his oncologist in about 1 week. Unfortunately he developed a left CVA in the interim. Physically his speech was not affected. His mentation is good. He does have some left-sided weakness which persists. It was felt that the patient would benefit from outpatient rehabilitation to work on his balance. The patient will be placed back on Xarelto. He will follow up with Dr. Pope in a week. He will also follow up with his regular screening nurse. In addition the patient will be referred to rehabilitation given his difficulty with balance. Overall he made significant improvement. He was deemed appropriate for discharge and arrangements were made for him to be discharged home. Exam Vital Signs (past 8 hours): - 07/22/18 05:26 07/22/18 07:38 Temperature 98.4 F 98.5 F Pulse Rate 66 65 Respiratory Rate 18 16 Blood Pressure 111/67 130/59 L Pulse Oximetry 97 98 Oxygen Delivery Method Room Air Oxygen Flow Rate 0 Narrative Exam Narrative: Pleasant male in no acute distress Lungs: Clear to auscultation Cardiac exam: Irregularly regular normal S1-S2 with a 2/6 systolic ejection murmur Abdomen: Soft nontender nondistended Extremities: Bilateral edema Objective Imaging MRI - head: Radiologist's impression: BRAIN MRI: Focal areas of infarction can be seen involving the right thalamus. There is potential additional infarction seen involving the medial right temporal lobe, yet this is said with less certainty. Note is made of age-appropriate brain parenchymal volume loss and chronic small vessel ischemic changes. BRAIN MR ANGIOGRAM: There is occlusion of the right posterior cerebral artery seen approximately 1 cm beyond its origin. NECK MR ANGIOGRAM: Within the arteries of the neck, no hemodynamically significant stenosis can be seen. Small right-sided pleural effusion and a trace left-sided pleural effusion incidentally noted. Echo: Radiologist's impression: eft ventricular systolic function is normal without focal wall motion abnormalities with the ejection fraction visually estimated to be 60-65%. There has been no significant change since the previous study. The right ventricle grossly appears normal in size with probable normal systolic function and is likely unchanged compared to the previous study The right ventricular systolic pressure is estimated to be at least 35 mmHg based on an estimated right atrial pressure of 8 mm Hg. The left atrium is severely dilated and right atrium is moderately dilated. The aortic valve is severely calcified with moderate to severely reduced leaflet mobility producing probable moderate to severe aortic stenosis that is progressive compared to the previous study. The peak aortic velocity is 3.4 m/sec with a mean gradient of 25 mmHg and a calculated aortic valve area is 0.96 cm2. There is mild aortic regurgitation. There is a small mobile echogenic structure noted on the aortic side of the non-coronary cusp of the aortic valve measuring approximately 3 mm x 5 mm which could reflect a calcified Lambl's excrescence and would be a very unusual appearance and location for a vegetation, although the latter cannot be entirely excluded. This was not seen on the previous study although the aortic valve was not well imaged on that exam. There is mild to moderate tricuspid regurgitation that is more prominent compared to the previous study. There is a trivial pericardial effusion noted that appears to be new compared to the previous study. The patient was in atrial fibrillation with heart rates between 61-88 bpm during the exam. Labs Result Diagrams: 07/21/18 00:45 07/21/18 01:14 Discharge Plan Discharge Plan Discharge Problem: Brain TIA Patient Disposition: Home Discharge comment: F/u with Dr. Pope and Dr. Toth in 1-2 weeks. Will follow up with out patient rehab as well for balance training Discharge Med Rec/Prescriptions Prescriptions: New Xarelto 20 mg tablet 20 mg PO QPM Qty: 30 RF: 0 Continued metformin [Glucophage XR] 500 MG tablet extended release 24 hr 1,000 mg PO QPM Qty: 0 RF: 0 levothyroxine 100 MCG tablet 100 mcg PO QAM Qty: 0 RF: 0 zolpidem 10 MG tablet 5 mg PO HS Qty: 0 RF: 0 atorvastatin 80 MG tablet 80 mg PO QPM Qty: 0 RF: 0 metoprolol succinate 100 mg tablet extended release 24 hr 50 mg PO DAILY RF: 0 omeprazole 40 mg capsule,delayed release(DR/EC) 40 mg PO BID RF: 0 irbesartan 150 mg tablet 75 mg PO DAILY RF: 0 flunisolide 25 mcg (0.025 %) [place],Non-Aerosol 1 spray Intranasal PRN PRN (Reason: Allergy Symptoms) RF: 0 sucralfate 1 gram tablet 1 g PO QID RF: 0 nitroglycerin 0.4 mg Tablet, Sublingual 0.4 mg SUBLINGUAL Q5-15M PRN (Reason: Chest Pain) RF: 0 isosorbide mononitrate 30 mg Tablet Extended Release 24 Hr 30 mg PO DAILY RF: 0 cephalexin 500 mg Capsule 500 mg PO Q6H RF: 0 minocycline 1 cap PO BID RF: 0 Discontinued pantoprazole 40 mg tablet,delayed release (DR/EC) 40 mg PO BID RF: 0 Provider Discharge Instructions Diet: Low-sodium and Low-cholesterol Activity: as tolerated Skin/Wound/Dressing Care Other wound treatment: Continue current wound care to left lower extremity Discharge Data Attending Provider: Tavia Stephenson Admit Date/Time: 07/21/18 04:46 Quality VTE Deep Vein Thrombosis/Pulmonary Embolism Present on Admission: No
--- NOTE | 2018-07-22 11:21 | PC.NURSE ---
Pt NIH stroke scale a 0. Pt has equal hand cementer and is able to lift both of his legs up. O facial droop or issues with vision and he now denies any numbness or tingling. He has been discharged from the hospital and will be going home this afternoon. Voices no issues with pain. He was incontinent after passing some gas, he had a xs stool. in room visiting.
--- NOTE | 2018-07-22 11:24 | ST.IPDYTX ---
Care Team Visit Care Team Role Provider Type Nessa Mcgowan DO Emergency Provider Physician Specialty: Emergency Medicine Address: [address] [place] [address], [id number] Email: MARLIN Mcduffie Admit Provider Advanced Wire Turning Machine Operator Attending Provider Specialty: Internal Medicine Address: [address] [place] [address], [id number] Email: AIR SAMPLER Dysphagia Treatment AIR SAMPLER Dysphagia Treatment Start: 07/21/18 16:05 Freq: Status: Active Protocol: Document 07/22/18 11:21 MRM (Rec: 07/22/18 11:24 MRM [id number]) Dysphagia Treatment Session Time Visit Start Time 11:10 Visit Stop Time 11:20 Total Visit Minutes 10 Setting Assessment Location Acute Care Visit Type Note Type Treatment Note Next Note Type Next Note Type Treatment Note Patient Information Identification Type Name ID Wristband Subjective Observations Patient awake, sitting upright in chair with present. Per patient and staff, patient was able to eat breakfast this morning and take oral medication without difficulty. No overt s/s of aspiration or dysphagia observed. Treatment Liquids Trialed Thin Administration Type Self-Feeding Oral Strategies Upright at 90 degrees Treatment Activities Patient independent in demonstrating ability to safely tolerate thin liquids. He declined trials of solid food due to not feeling hungry . No overt s/s of aspiration. No dysphagia observed. AIR SAMPLER educated family and patient regarding role of AIR SAMPLER (speech, swallowing, cognition, etc) and invited the patient to request an order from MD should any needs arise in the future that can be addressed by AIR SAMPLER. Patient and family verbalized understanding and agreed. Assessment Patient Response to Treatment Excellent Rehab Potential Excellent Assessment of Improvement No dysphagia. Able to safely eat and drink without overt s/ s of aspiration or difficulty. Diet Recommendations Recommendations Continue Current Diet Liquids Order Thin Diet Order Regular Medication Recommendations As Tolerated Aspiration Precautions Recommended Precautions Upright at 90 Degrees Treatment Plan Placement Recommendation after Discharge Home Therapy Recommendations No further therapy required at this time. Recommend D/C from speech therapy. Please reconsult if warranted.
[2018-07-22 11:45] VITALS: BP 108/55; PULSE 73; RESP 16; TEMP 37.1; O2SAT 98
--- NOTE | 2018-07-23 12:48 | CM.DPNOTE ---
Late Entry DC Note: Pt DC 4.03.30, home w/spouse to assist, therapy team cleared pt for safe return home w/outpt PT. No SW needs indicated. CONRADO Noble Discharge Planning/Care Management Advanced directive, confirm from FAMILY Start: 07/21/18 05:53 Freq: Q24H Status: Discharge Protocol: Document 07/21/18 05:53 RL (Rec: 07/21/18 05:53 RL [id number]) Advance Directive, confirm on record Time 05:45 Person contacted Geena Felixkiana Copy received No CM Discharge Assessment Start: 07/21/18 09:03 Freq: Status: Discharge Protocol: Document 07/21/18 09:04 JW (Rec: 07/21/18 09:11 JW [id number]) Discharge Planning Assessment Assigned Global Sales Executive CONRADO Zepeda DPOA/Assigned Designee Name Geena Martinesparmjit, dtr ([place]) Contact Information [phone] and dtr Advance Directives? Yes: Yes, NOT ON FILE Advance Directives on File No History Provided By Patient Significant Other Medical Record Prior Living Arrangements House Household Members spouse Independent with ADL's No: Exertional dyspnea at baseline Is patient alert and oriented? Yes Comment Prior h/o bladder CA, oncologist Dr Tomy Pope Barriers to Discharge Yes Comment Pt under observation for stroke r/o. PCP: Dr Rodriguez Payer: Medicare/[employer]. DCP pending medical course and possibly therapy evals as indicated/ordered by attending physician. Further assessment needed to determine safest DCP. Additional Comment Referrals pending further assessment. Review Status In Process
== END 2018-07-22 13:39 | disposition home or self-care (01) | DRG 65 ==
LOC: ED 04:35 → AC 06:56
PROVIDERS: Admitting Provider Nurse Practitioner Gerontology; Emergency Provider Emergency Medicine; Visit Provider Nurse Practitioner Gerontology
DX: I63.411 Cerebral infarction due to embolism of right middle cerebral artery (principal); G81.94 Hemiplegia, unspecified affecting left nondominant side; I48.0 Paroxysmal atrial fibrillation; R20.2 Paresthesia of skin; I25.10 Atherosclerotic heart disease of native coronary artery without angina pectoris; E11.9 Type 2 diabetes mellitus without complications; I10 Essential (primary) hypertension; E03.9 Hypothyroidism, unspecified; Z79.84 Long term (current) use of oral hypoglycemic drugs; R01.1 Cardiac murmur, unspecified; D63.8 Anemia in other chronic diseases classified elsewhere
CPT/HCPCS: 36415; 70450; 70553; 80053; 81003; 82550; 82962; 84484; 85025; 85610; 85730; 92526; 92610; 93005; 93010; 93306; 94762; 96360; 96361; 97116; 97162; 97166; 97530; 97535; 99284; 99285; 99291; J1650; J2405

== ENCOUNTER → 2018-08-12 13:36 | Outpatient (RCR) | payer MEDICARE, OTHER, SELFPAY ==
[2018-07-21 05:26] VITALS: BMI 32.1
[2018-08-12 13:57] VITALS: BP 125/69; PULSE 76; RESP 18; TEMP 36.6; O2SAT 97
== END ==
LOC: INF 13:36
PROVIDERS: PCP Internal Medicine; Visit Provider Internal Medicine
DX: D64.9 Anemia, unspecified (principal)

== ENCOUNTER 2018-09-06 21:53 | Emergency (ER) | payer MEDICARE, OTHER, SELFPAY ==
[2018-07-21 05:26] VITALS: BMI 32.1
[2018-09-06 22:07] VITALS: BP 142/61; PULSE 61; RESP 15; TEMP 36.4; O2SAT 99; BMI 32.6
--- NOTE | 2018-09-06 22:21 | ED.NEUROSD ---
HPI - Neuro Symptoms/Deficit General Chief Complaint: Neuro Symptoms/Deficit Stated Complaint: STROKE SYMPTOMS Time Seen by Provider: 09/06/18 21:59 Source: patient Mode of arrival: ambulatory Limitations: no limitations History of Present Illness HPI Narrative: The patient is a 78-year-old male who presents with confusion and repetitive questioning. He has complicated history of cholangiocarcinoma with a biliary stent which actually was blocked last week and repaired at [facility]. He has been on a clear liquid diet and symptoms of blockage of actually resolved. He had a stroke all in July is with some left arm tingling and weakness. He has been going to physical therapy and occupational therapy since then. Patient states that since occupational therapy this morning he has had some left arm tingling but not really weakness. He says he gets this occasionally. She seems to be lasting a while. Patient according to has had confusion asking where things are on and places things that he should no his such as physical therapy he goes there twice a week and has been for number of weeks. He had repetitive questions this evening. They drove by house and he kept asking about over and over again. Patient actually can't remember this. No point did he have any slurring of speech or facial drooping no weakness. He has in the past had GI bleeding and was held off of anticoagulation for his atrial fibrillation. However after stroke in July he was put back on Eliquis. He has hemoglobin hematocrit have been stable since then. He denies any GI bleeding at this time. Onset (ago): day(s) On Anticoagulants: Yes Related Data Home Medications Medication Instructions Recorded Confirmed atorvastatin 80 mg PO QPM #0 11/27/16 07/21/18 levothyroxine 100 mcg PO QAM #0 11/27/16 07/21/18 metformin [Glucophage XR] 1,000 mg PO QPM #0 11/27/16 07/21/18 zolpidem 5 mg PO HS #0 11/27/16 07/21/18 flunisolide 1 spray INTRANASAL PRN PRN 11/11/17 07/21/18 irbesartan 75 mg PO DAILY 11/11/17 07/21/18 metoprolol succinate 50 mg PO DAILY 11/11/17 07/21/18 omeprazole 40 mg PO BID 11/11/17 07/21/18 cephalexin 500 mg PO Q6H 07/21/18 07/21/18 isosorbide mononitrate 30 mg PO DAILY 07/21/18 07/21/18 minocycline 1 cap PO BID 07/21/18 07/21/18 nitroglycerin 0.4 mg SUBLINGUAL Q5-15M PRN 07/21/18 07/21/18 sucralfate 1 g PO QID 07/21/18 07/21/18 Previous Rx's Medication Instructions Recorded rivaroxaban [Xarelto] 20 mg PO QPM #30 tab 07/22/18 Allergies Allergy/AdvReac Type Severity Reaction Status Date / Time No Known Drug Allergies Allergy Verified 09/06/18 22:10 Review of Systems Review of Systems ROS Unobtainable: All systems reviewed & are unremarkable except as noted in HPI and below Constitutional Denies chills, Denies fever(s), Denies lethargy and Denies weakness Eyes Denies change in vision, Denies eye discharge, Denies irritation and Denies loss of vision ENT Ears, Nose, Mouth, and Throat: Denies dizziness Cardiovascular Denies chest pain, Denies irregular heart rhythm, Denies lightheadedness, Denies palpitations, Denies dyspnea, Denies dyspnea on exertion and Denies orthopnea Respiratory Denies cough, Denies dyspnea, Denies dyspnea on exertion and Denies wheezing Genitourinary Denies hematuria, Denies flank pain, Denies urinary incontinence and Denies urinary urgency Musculoskeletal Denies back pain, Denies muscle weakness, Denies numbness and Denies tingling Integumentary/Breasts Denies pruritus, Denies erythema, Denies rash and Denies wounds Neurologic Reports as per HPI, Denies dizziness, Denies loss of vision, Denies numbness, Denies tingling and Denies weakness Endocrine Denies palpitations Allergic/Immunologic Denies wheezing [facility] Medical History CVA (cerebral vascular accident) (Acute) Anemia (Acute) Atrial fibrillation (Acute) Bladder cancer (Acute) Cholangiocarcinoma (Acute) Diabetes (Acute) Duodenal ulcer (Acute) Surgical History Status post left hip replacement (Inactive) Family History (Updated 07/21/18 @ 07:28 by MARLIN Mcduffie) Mother No known health problems Father No known health problems Social History marital status: household members: spouse Smoking Status: Never smoker Family History Mother No known health problems Father No known health problems Social History marital status: household members: spouse Smoking Status: Never smoker Exam Initial Vital Signs Initial Vital Signs: Vital Signs Temperature 97.5 F L 09/06/18 22:07 Pulse Rate 61 09/06/18 22:07 Respiratory Rate 15 09/06/18 22:07 Blood Pressure 142/61 H 09/06/18 22:07 Pulse Oximetry 99 09/06/18 22:07 GENERAL: Alert pleasant elderly gentleman HEENT: Head atraumatic,EOMI, pupils reactive, CARDIOVASCULAR: Irregular systolic murmur noted. RESPIRATORY: Breath sounds equal bilaterally, no wheezes rales or rhonchi. ABDOMEN: Soft, nontender. No right upper quadrant pain no guarding no rebound RECTAL: Hemoccult-positive, no hemorrhoids, nontender : No CVA tenderness EXTREMITIES: Normal range of motion, no clubbing or edema. Neurovascularly intact NEUROLOGICAL: Alert and oriented x4.Normal gait and speech. Cranial nerves II through XII grossly intact. Good [id number], good [id number], strength equal bilaterally, no dysarthria or aphasia, sensation in tact to soft touch bilaterally, no visual changes, no facial droop SKIN: Warm, dry, no laceration, no petechiae, no rashes or lesions. Nonjaundiced. Scores NIH Stroke Scale Level of Conciousness: Alert, keenly responsive Ask month/age: Answers both questions correctly. Open/close eyes, close hand: Performs both tasks correctly Best gaze horizontal: Normal Visual castillo: No visual loss Facial palsy: Normal symetrical movement Left arm drift: No drift for full 10 sec Right arm drift: No drift for full 10 sec Left leg drift: No drift for full 10 sec Right leg drift: No drift for full 10 sec Limb ataxia: Absent Sensory on face/arms/legs: Normal, no sensory loss Best language: No aphasia, normal Dysarthria: Normal Extinction or inattention: No abnormality Total NIH Stroke scale score: 0 Course Orders Ordered: ED Orders 09/06/18 22:20 Ammonia (NH3) Stat Complete Blood Count AUTO DIFF Stat Comprehensive Metabolic Panel Stat Partial Thromboplastin Time Stat Prothrombin Time INR Stat 09/06/18 22:24 CT head/brain wo con Stat EKG-12 Lead Stat Vital Signs - 8 hr 09/06/18 23:17 09/07/18 00:14 Pulse Rate 60 64 Respiratory Rate 58 H 18 Blood Pressure 118/60 Blood Pressure [Left Arm] 122/63 Pulse Oximetry 100 99 MDM - Neuro Symptoms/Deficit Lab Data Attestation: I reviewed the patient's lab results. Result diagrams: 09/06/18 22:20 09/06/18 22:20 Lab Results 09/06/18 09/06/18 09/06/18 Range/Units 22:20 22:20 22:20 WBC 6.9 (4.5-11.0) X10^3/uL RBC 3.88 L (4.5-5.9) X10^6/uL Hgb 10.7 L (13.5-17.5) g/dL Hct 32.3 L (41-53) % MCV 83.3 (80-100) fL MCH 27.5 (26-34) PG MCHC 33.0 (30-36) % RDW 22.1 H (11.6-14.8) % Plt Count 350 (150-400) X10^3/uL Neut % (Auto) 67.9 (50-75) % Lymph % (Auto) 15.2 L (25-40) % [place] % (Auto) 13.5 (3-14) % Eos % (Auto) 2.6 (2-4) % Baso % (Auto) 0.8 (0-2) % Neut # (Auto) 4700 (1276-8213) /uL Lymph # (Auto) 1100 (5970-5211) /uL [place] # (Auto) 900 (0-900) /uL Eos # (Auto) 200 (0-450) /uL Baso # (Auto) 100 (0-100) /uL RBC Morphology See below Anisocytosis 3+ H PT (10.1-12.7) SECONDS INR (0.9-1.3) APTT (26.4-36.2) SECONDS Sodium 139 (137-145) mmol/L Potassium 3.9 (3.4-5.1) mmol/L Chloride 102 (98-107) mmol/L Carbon Dioxide 29 (22-32) mmol/L BUN 8 L (9-20) mg/dL Creatinine 0.70 (0.66-1.25) mg/dL Estimated GFR > 60.0 (>60) mL/min BUN/Creatinine Ratio 11.4 (6-22) Glucose 109 (80-110) mg/dL Calcium 9.0 (8.4-10.2) mg/dL Total Bilirubin 0.5 (0.2-1.3) mg/dL AST 31 (17-59) IU/L ALT 27 (21-72) IU/L Alkaline Phosphatase 276 H (38-126) U/L Ammonia < 9.0 L (9-30) umol/L Total Protein 7.3 (6.3-8.2) g/dL Albumin 3.5 (3.5-5.0) g/dL Globulin 3.8 (1.7-4.1) g/dL Albumin/Globulin Ratio 0.9 L (1.0-2.8) 05//19 Range/Units 22:20 WBC (4.5-11.0) X10^3/uL RBC (4.5-5.9) X10^6/uL Hgb (13.5-17.5) g/dL Hct (41-53) % MCV (80-100) fL MCH (26-34) PG MCHC (30-36) % RDW (11.6-14.8) % Plt Count (150-400) X10^3/uL Neut % (Auto) (50-75) % Lymph % (Auto) (25-40) % [place] % (Auto) (3-14) % Eos % (Auto) (2-4) % Baso % (Auto) (0-2) % Neut # (Auto) (1274-9037) /uL Lymph # (Auto) (0847-2528) /uL [place] # (Auto) (0-900) /uL Eos # (Auto) (0-450) /uL Baso # (Auto) (0-100) /uL RBC Morphology Anisocytosis PT 14.0 H (10.1-12.7) SECONDS INR 1.2 (0.9-1.3) APTT 35 D (26.4-36.2) SECONDS Sodium (137-145) mmol/L Potassium (3.4-5.1) mmol/L Chloride (98-107) mmol/L Carbon Dioxide (22-32) mmol/L BUN (9-20) mg/dL Creatinine (0.66-1.25) mg/dL Estimated GFR (>60) mL/min BUN/Creatinine Ratio (6-22) Glucose (80-110) mg/dL Calcium (8.4-10.2) mg/dL Total Bilirubin (0.2-1.3) mg/dL AST (17-59) IU/L ALT (21-72) IU/L Alkaline Phosphatase (38-126) U/L Ammonia (9-30) umol/L Total Protein (6.3-8.2) g/dL Albumin (3.5-5.0) g/dL Globulin (1.7-4.1) g/dL Albumin/Globulin Ratio (1.0-2.8) Imaging Data CT scan - head: Radiologist's impression: Patient report: No acute intracranial disease. ECG Data Attestation: I personally reviewed and interpreted this ECG as follows: Prior ECG tracings: available for review Interpretation: Atrial fibrillation rate [address] change is right bundle-branch block noted MDM Narrative Medical decision making narrative: Discussed at length patient and . No evidence of hepatic encephalopathy ammonia level is negative and he is alert and oriented x3 now. He had stroke workup last month echocardiogram and brain MRI. At which point he was restarted on Eliquis. He had no actual focal deficits. He has some worsening of left arm tingling which is a symptom he had during his stroke in July. We discussed observation versus discharge home. They understand that he is at high risk for CVA. At this time they would like to go home. They an appointment with PCP in 2 days. At this time his blood work is reassuring and symptoms do not suggest blockage of his stent. He has no pain vomiting or elevated bilirubin. At this time imaging not indicated. states that it was blocked actually with food, and he has been on clear liquid diet since. Discharge Plan Departure Patient Disposition: Home Clinical Impression: Amnesia, global, transient Discharge Date/Time: 09/07/18 00:15 Interventions: ED Discharge Assessment Last Done: 09/07/18 00:14 Instructions: DI for Transient Ischemic Attack Activity Restrictions/Additional Instructions: *You have been diagnosed with possible transient global amnesia *What to do: No sign of liver failure today. Head CT is blood work are reassuring. Still at risk for stroke *Continue to take medications as directed *Follow up with your primary care provider in 2-3 days as scheduled *Return to ER if you should have increasing weakness, confusion, facial drooping, speech changes, visual changes or any new, worsening or concerning symptoms Prescriptions: No Action metformin [Glucophage XR] 500 MG tablet extended release 24 hr 1,000 mg PO QPM Qty: 0 RF: 0 levothyroxine 100 MCG tablet 100 mcg PO QAM Qty: 0 RF: 0 zolpidem 10 MG tablet 5 mg PO HS Qty: 0 RF: 0 atorvastatin 80 MG tablet 80 mg PO QPM Qty: 0 RF: 0 metoprolol succinate 100 mg tablet extended release 24 hr 50 mg PO DAILY RF: 0 omeprazole 40 mg capsule,delayed release(DR/EC) 40 mg PO BID RF: 0 irbesartan 150 mg tablet 75 mg PO DAILY RF: 0 flunisolide 25 mcg (0.025 %) [place],Non-Aerosol 1 spray Intranasal PRN PRN (Reason: Allergy Symptoms) RF: 0 sucralfate 1 gram tablet 1 g PO QID RF: 0 nitroglycerin 0.4 mg Tablet, Sublingual 0.4 mg SUBLINGUAL Q5-15M PRN (Reason: Chest Pain) RF: 0 isosorbide mononitrate 30 mg Tablet Extended Release 24 Hr 30 mg PO DAILY RF: 0 cephalexin 500 mg Capsule 500 mg PO Q6H RF: 0 minocycline 1 cap PO BID RF: 0 Xarelto 20 mg tablet 20 mg PO QPM Qty: 30 RF: 0 Referrals: Flaquito Rodriguez MD [Primary Care Provider] -
--- NOTE | 2018-09-06 22:24 | DI.CT.S_ITS ---
PROCEDURE: CT HEAD/BRAIN WO CON INDICATIONS: confusion TECHNIQUE: Noncontrast 4.5 mm thick angled axial sections acquired from the foramen magnum to the vertex, with coronal and sagittal reformats. For radiation dose reduction, the following was used: automated exposure control, adjustment of mA and/or kV according to patient size. COMPARISON: [facility], CT, CT HEAD/BRAIN WO CON, 07/21/2018, 1:24. FINDINGS: Image quality: Excellent. CSF spaces: Basal cisterns are patent. No extra-axial fluid collections. The ventricles are symmetric in size and shape. Brain: No intracranial bleeds or masses. There is cerebral volume loss for age, with resultant ventricular and sulcal prominence. There are periventricular and deep white matter chronic small vessel ischemic changes. Chronic small right frontal and right occipital infarcts are stable. There is intracranial internal carotid artery and vertebral artery atherosclerosis. Skull and face: Calvarium and visualized facial bones appear intact, without suspicious lesions. Metallic device with tip in the posterior margin of the left temporal bone is stable compared to prior examination. Sinuses: Visualized sinuses and mastoids are clear. IMPRESSION: No acute intracranial disease process. Dictated by: Idalmis Yan MD, PhD on 09/07/2018 at 7:34 Approved by: Idalmis Yan MD, PhD on 09/07/2018 at 7:36
[2018-09-06 22:34] LABS: Add Manual Diff / Slide Review NO; Basophils Absolute Auto 100 /uL (0-100); Basophils Percent Auto 0.8 % (0-2); Eosinophils Absolute Auto 200 /uL (0-450); Eosinophils Percent Auto 2.6 % (2-4); Hematocrit 32.3 % (41-53); Hemoglobin 10.7 g/dL (13.5-17.5); Lymphocytes Absolute Auto 1100 /uL (1100-4500); Lymphocytes Percent Auto 15.2 % (25-40); Mean Corpuscular Hemoglobin 27.5 PG (26-34); Mean Corpuscular Volume 83.3 fL (80-100); Monocytes Absolute Auto 900 /uL (0-900); Monocytes Percent Auto 13.5 % (3-14); Neutrophils Absolute Auto 4700 /uL (1500-7000); Neutrophils Percent Auto 67.9 % (50-75); Platelet Count 350 X10^3/uL (150-400); Red Blood Cell Count 3.88 X10^6/uL (4.5-5.9); Red Cell Distribution Width 22.1 % (11.6-14.8); White Blood Cell Count 6.9 X10^3/uL (4.5-11.0)
[2018-09-06 22:35] LABS: INR 1.2 (0.9-1.3)
[2018-09-06 22:37] LABS: PTT Partial Thromboplastin Tim 35 SECONDS (26.4-36.2)
[2018-09-06 22:40] LABS: Alanine Aminotransferase 27 IU/L (21-72); Albumin 3.5 g/dL (3.5-5.0); Albumin Globulin Ratio 0.9 (1.0-2.8); Alkaline Phosphatase 276 U/L (38-126); Aspartate Aminotransferase 31 IU/L (17-59); BUN Creatinine Ratio 11.4 (6-22); Bilirubin Total 0.5 mg/dL (0.2-1.3); Blood Urea Nitrogen 8 mg/dL (9-20); Carbon Dioxide 29 mmol/L (22-32); Chloride 102 mmol/L (98-107); Estimated Glomerular Filt Rate > 60.0 mL/min (>60); Globulin 3.8 g/dL (1.7-4.1); Glucose 109 mg/dL (80-110); HEMOLYSIS < 15 (0-50); Potassium 3.9 mmol/L (3.4-5.1); Sodium 139 mmol/L (137-145); Total Protein 7.3 g/dL (6.3-8.2)
[2018-09-06 22:48] LABS: Ammonia (NH3) < 9.0 umol/L (9-30)
[2018-09-06 23:17] VITALS: BP 122/63; PULSE 60; RESP 58; O2SAT 100
--- NOTE | 2018-09-07 00:07 | ED_ITS ---
HPI - Neuro Symptoms/Deficit General Chief Complaint: Neuro Symptoms/Deficit Stated Complaint: STROKE SYMPTOMS Time Seen by Provider: 09/06/18 21:59 Source: patient Mode of arrival: ambulatory Limitations: no limitations History of Present Illness HPI Narrative: The patient is a 78-year-old male who presents with confusion and repetitive questioning. He has complicated history of cholangiocarcinoma with a biliary stent which actually was blocked last week and repaired at [facility]. He has been on a clear liquid diet and symptoms of blockage of actually resolved. He had a stroke all in July is with some left arm tingling and weakness. He has been going to physical therapy and occupational therapy since then. Patient states that since occupational therapy this morning he has had some left arm tingling but not really weakness. He says he gets this occasionally. She seems to be lasting a while. Patient according to has had confusion asking where things are on and places things that he should no his such as physical therapy he goes there twice a week and has been for number of weeks. He had repetitive questions this evening. They drove by house and he kept asking about over and over again. Patient actually can't remember this. No point did he have any slurring of speech or facial drooping no weakness. He has in the past had GI bleeding and was held off of anticoagulation for his atrial fibrillation. However after stroke in July he was put back on Eliquis. He has hemoglobin hematocrit have been stable since then. He denies any GI bleeding at this time. Onset (ago): day(s) On Anticoagulants: Yes Related Data Home Medications Medication Instructions Recorded Confirmed atorvastatin 80 mg PO QPM #0 11/27/16 07/21/18 levothyroxine 100 mcg PO QAM #0 11/27/16 07/21/18 metformin [Glucophage XR] 1,000 mg PO QPM #0 11/27/16 07/21/18 zolpidem 5 mg PO HS #0 11/27/16 07/21/18 flunisolide 1 spray INTRANASAL PRN PRN 11/11/17 07/21/18 irbesartan 75 mg PO DAILY 11/11/17 07/21/18 metoprolol succinate 50 mg PO DAILY 11/11/17 07/21/18 omeprazole 40 mg PO BID 11/11/17 07/21/18 cephalexin 500 mg PO Q6H 07/21/18 07/21/18 isosorbide mononitrate 30 mg PO DAILY 07/21/18 07/21/18 minocycline 1 cap PO BID 07/21/18 07/21/18 nitroglycerin 0.4 mg SUBLINGUAL Q5-15M PRN 07/21/18 07/21/18 sucralfate 1 g PO QID 07/21/18 07/21/18 Previous Rx's Medication Instructions Recorded rivaroxaban [Xarelto] 20 mg PO QPM #30 tab 07/22/18 Allergies Allergy/AdvReac Type Severity Reaction Status Date / Time No Known Drug Allergies Allergy Verified 09/06/18 22:10 Review of Systems Review of Systems ROS Unobtainable: All systems reviewed & are unremarkable except as noted in HPI and below Constitutional Denies chills, Denies fever(s), Denies lethargy and Denies weakness Eyes Denies change in vision, Denies eye discharge, Denies irritation and Denies loss of vision ENT Ears, Nose, Mouth, and Throat: Denies dizziness Cardiovascular Denies chest pain, Denies irregular heart rhythm, Denies lightheadedness, Denies palpitations, Denies dyspnea, Denies dyspnea on exertion and Denies orthopnea Respiratory Denies cough, Denies dyspnea, Denies dyspnea on exertion and Denies wheezing Genitourinary Denies hematuria, Denies flank pain, Denies urinary incontinence and Denies urinary urgency Musculoskeletal Denies back pain, Denies muscle weakness, Denies numbness and Denies tingling Integumentary/Breasts Denies pruritus, Denies erythema, Denies rash and Denies wounds Neurologic Reports as per HPI, Denies dizziness, Denies loss of vision, Denies numbness, Denies tingling and Denies weakness Endocrine Denies palpitations Allergic/Immunologic Denies wheezing FORMERLY [facility], [facility] Medical History CVA (cerebral vascular accident) (Acute) Anemia (Acute) Atrial fibrillation (Acute) Bladder cancer (Acute) Cholangiocarcinoma (Acute) Diabetes (Acute) Duodenal ulcer (Acute) Surgical History Status post left hip replacement (Inactive) Family History (Updated 07/21/18 @ 07:28 by MARLIN Mcduffie) Mother No known health problems Father No known health problems Social History marital status: household members: spouse Smoking Status: Never smoker Family History Mother No known health problems Father No known health problems Social History marital status: household members: spouse Smoking Status: Never smoker Exam Initial Vital Signs Initial Vital Signs: Vital Signs Temperature 97.5 F L 09/06/18 22:07 Pulse Rate 61 09/06/18 22:07 Respiratory Rate 15 09/06/18 22:07 Blood Pressure 142/61 H 09/06/18 22:07 Pulse Oximetry 99 09/06/18 22:07 GENERAL: Alert pleasant elderly gentleman HEENT: Head atraumatic,EOMI, pupils reactive, CARDIOVASCULAR: Irregular systolic murmur noted. RESPIRATORY: Breath sounds equal bilaterally, no wheezes rales or rhonchi. ABDOMEN: Soft, nontender. No right upper quadrant pain no guarding no rebound RECTAL: Hemoccult-positive, no hemorrhoids, nontender : No CVA tenderness EXTREMITIES: Normal range of motion, no clubbing or edema. Neurovascularly intact NEUROLOGICAL: Alert and oriented x4.Normal gait and speech. Cranial nerves II through XII grossly intact. Good [id number], good [id number], strength equal bilaterally, no dysarthria or aphasia, sensation in tact to soft touch b ilaterally, no visual changes, no facial droop SKIN: Warm, dry, no laceration, no petechiae, no rashes or lesions. Nonjaundiced. Scores NIH Stroke Scale Level of Conciousness: Alert, keenly responsive Ask month/age: Answers both questions correctly. Open/close eyes, close hand: Performs both tasks correctly Best gaze horizontal: Normal Visual castillo: No visual loss Facial palsy: Normal symetrical movement Left arm drift: No drift for full 10 sec Right arm drift: No drift for full 10 sec Left leg drift: No drift for full 10 sec Right leg drift: No drift for full 10 sec Limb ataxia: Absent Sensory on face/arms/legs: Normal, no sensory loss Best language: No aphasia, normal Dysarthria: Normal Extinction or inattention: No abnormality Total NIH Stroke scale score: 0 Course Orders Ordered: ED Orders 09/06/18 22:20 Ammonia (NH3) Stat Complete Blood Count AUTO DIFF Stat Comprehensive Metabolic Panel Stat Partial Thromboplastin Time Stat Prothrombin Time INR Stat 09/06/18 22:24 CT head/brain wo con Stat EKG-12 Lead Stat Vital Signs - 8 hr 09/06/18 23:17 09/07/18 00:14 Pulse Rate 60 64 Respiratory Rate 58 H 18 Blood Pressure 118/60 Blood Pressure [Left Arm] 122/63 Pulse Oximetry 100 99 MDM - Neuro Symptoms/Deficit Lab Data Attestation: I reviewed the patient's lab results. Result diagrams: 09/06/18 22:20 09/06/18 22:20 Lab Results 09/06/18 09/06/18 09/06/18 Range/Units 22:20 22:20 22:20 WBC 6.9 (4.5-11.0) X10^3/uL RBC 3.88 L (4.5-5.9) X10^6/uL Hgb 10.7 L (13.5-17.5) g/dL Hct 32.3 L (41-53) % MCV 83.3 (80-100) fL MCH 27.5 (26-34) PG MCHC 33.0 (30-36) % RDW 22.1 H (11.6-14.8) % Plt Count 350 (150-400) X10^3/uL Neut % (Auto) 67.9 (50-75) % Lymph % (Auto) 15.2 L (25-40) % [place] % (Auto) 13.5 (3-14) % Eos % (Auto) 2.6 (2-4) % Baso % (Auto) 0.8 (0-2) % Neut # (Auto) 4700 (3664-6894) /uL Lymph # (Auto) 1100 (3621-7270) /uL [place] # (Auto) 900 (0-900) /uL Eos # (Auto) 200 (0-450) /uL Baso # (Auto) 100 (0-100) /uL RBC Morphology See below Anisocytosis 3+ H PT (10.1-12.7) SECONDS INR (0.9-1.3) APTT (26.4-36.2) SECONDS Sodium 139 (137-145) mmol/L Potassium 3.9 (3.4-5.1) mmol/L Chloride 102 (98-107) mmol/L Carbon Dioxide 29 (22-32) mmol/L BUN 8 L (9-20) mg/dL Creatinine 0.70 (0.66-1.25) mg/dL Estimated GFR > 60.0 (>60) mL/min BUN/Creatinine Ratio 11.4 (6-22) Glucose 109 (80-110) mg/dL Calcium 9.0 (8.4-10.2) mg/dL Total Bilirubin 0.5 (0.2-1.3) mg/dL AST 31 (17-59) IU/L ALT 27 (21-72) IU/L Alkaline Phosphatase 276 H (38-126) U/L Ammonia < 9.0 L (9-30) umol/L Total Protein 7.3 (6.3-8.2) g/dL Albumin 3.5 (3.5-5.0) g/dL Globulin 3.8 (1.7-4.1) g/dL Albumin/Globulin Ratio 0.9 L (1.0-2.8) // Range/Units 22:20 WBC (4.5-11.0) X10^3/uL RBC (4.5-5.9) X10^6/uL Hgb (13.5-17.5) g/dL Hct (41-53) % MCV (80-100) fL MCH (26-34) PG MCHC (30-36) % RDW (11.6-14.8) % Plt Count (150-400) X10^3/uL Neut % (Auto) (50-75) % Lymph % (Auto) (25-40) % [place] % (Auto) (3-14) % Eos % (Auto) (2-4) % Baso % (Auto) (0-2) % Neut # (Auto) (5044-0705) /uL Lymph # (Auto) (7908-2493) /uL [place] # (Auto) (0-900) /uL Eos # (Auto) (0-450) /uL Baso # (Auto) (0-100) /uL RBC Morphology Anisocytosis PT 14.0 H (10.1-12.7) SECONDS INR 1.2 (0.9-1.3) APTT 35 D (26.4-36.2) SECONDS Sodium (137-145) mmol/L Potassium (3.4-5.1) mmol/L Chloride (98-107) mmol/L Carbon Dioxide (22-32) mmol/L BUN (9-20) mg/dL Creatinine (0.66-1.25) mg/dL Estimated GFR (>60) mL/min BUN/Creatinine Ratio (6-22) Glucose (80-110) mg/dL Calcium (8.4-10.2) mg/dL Total Bilirubin (0.2-1.3) mg/dL AST (17-59) IU/L ALT (21-72) IU/L Alkaline Phosphatase (38-126) U/L Ammonia (9-30) umol/L Total Protein (6.3-8.2) g/dL Albumin (3.5-5.0) g/dL Globulin (1.7-4.1) g/dL Albumin/Globulin Ratio (1.0-2.8) Imaging Data CT scan - head: Radiologist's impression: Patient report: No acute intracranial disease. ECG Data Attestation: I personally reviewed and interpreted this ECG as follows: Prior ECG tracings: available for review Interpretation: Atrial fibrillation rate [address] change is right bundle-branch block noted MDM Narrative Medical decision making narrative: Discussed at length patient and . No evidence of hepatic encephalopathy ammonia level is negative and he is alert and oriented x3 now. He had stroke workup last month echocardiogram and brain MRI. At which point he was restarted on Eliquis. He had no actual focal deficits. He has some worsening of left arm tingling which is a symptom he had during his stroke in July. We discussed observation versus discharge home. They und erstand that he is at high risk for CVA. At this time they would like to go home. They an appointment with PCP in 2 days. At this time his blood work is reassuring and symptoms do not suggest blockage of his stent. He has no pain vomiting or elevated bilirubin. At this time imaging not indicated. states that it was blocked actually with food, and he has been on clear liquid diet since. Discharge Plan Departure Patient Disposition: Home Clinical Impression: Amnesia, global, transient Discharge Date/Time: 09/07/18 00:15 Interventions: ED Discharge Assessment Last Done: 09/07/18 00:14 Instructions: DI for Transient Ischemic Attack Activity Restrictions/Additional Instructions: *You have been diagnosed with possible transient global amnesia *What to do: No sign of liver failure today. Head CT is blood work are reassuring. Still at risk for stroke *Continue to take medications as directed *Follow up with your primary care provider in 2-3 days as scheduled *Return to ER if you should have increasing weakness, confusion, facial drooping, speech changes, visual changes or any new, worsening or concerning symptoms Prescriptions: No Action metformin [Glucophage XR] 500 MG tablet extended release 24 hr 1,000 mg PO QPM Qty: 0 RF: 0 levothyroxine 100 MCG tablet 100 mcg PO QAM Qty: 0 RF: 0 zolpidem 10 MG tablet 5 mg PO HS Qty: 0 RF: 0 atorvastatin 80 MG tablet 80 mg PO QPM Qty: 0 RF: 0 metoprolol succinate 100 mg tablet extended release 24 hr 50 mg PO DAILY RF: 0 omeprazole 40 mg capsule,delayed release(DR/EC) 40 mg PO BID RF: 0 irbesartan 150 mg tablet 75 mg PO DAILY RF: 0 flunisolide 25 mcg (0.025 %) [place],Non-Aerosol 1 spray Intranasal PRN PRN (Reason: Allergy Symptoms) RF: 0 sucralfate 1 gram tablet 1 g PO QID RF: 0 nitroglycerin 0.4 mg Tablet, Sublingual 0.4 mg SUBLINGUAL Q5-15M PRN (Reason: Chest Pain) RF: 0 isosorbide mononitrate 30 mg Tablet Extended Release 24 Hr 30 mg PO DAILY RF: 0 cephalexin 500 mg Capsule 500 mg PO Q6H RF: 0 minocycline 1 cap PO BID RF: 0 Xarelto 20 mg tablet 20 mg PO QPM Qty: 30 RF: 0 Referrals: Flaquito Rodriguez MD [Primary Care Provider] -
[2018-09-07 00:14] VITALS: BP 118/60; PULSE 64; RESP 18; O2SAT 99
[2018-09-07 05:32] LABS: Anisocytosis 3+
== END 2018-09-07 00:15 | disposition home or self-care (01) ==
PROVIDERS: Emergency Provider Emergency Medicine; Family Provider Internal Medicine; PCP Internal Medicine
DX: G45.4 Transient global amnesia (principal); Z86.73 Personal history of transient ischemic attack (TIA), and cerebral infarction without residual deficits
CPT/HCPCS: 36591; 70450; 80053; 82140; 85025; 85610; 85730; 93005; 99283; 99285

== ENCOUNTER → 2018-10-06 14:55 | Outpatient (CLI) | payer MEDICARE, OTHER, SELFPAY ==
[2018-07-21 05:26] VITALS: BMI 32.1
[2018-10-06 15:32] LABS: Basophils Absolute Auto 0 /uL (0-100); Basophils Percent Auto 0.7 % (0-2); Eosinophils Absolute Auto 100 /uL (0-450); Eosinophils Percent Auto 1.5 % (2-4); Hematocrit 31.3 % (41-53); Hemoglobin 10.1 g/dL (13.5-17.5); Lymphocytes Absolute Auto 900 /uL (1100-4500); Lymphocytes Percent Auto 12.7 % (25-40); Mean Corpuscular HGB Conc 32.4 % (30-36); Mean Corpuscular Hemoglobin 27.2 PG (26-34); Mean Corpuscular Volume 84.1 fL (80-100); Monocytes Absolute Auto 900 /uL (0-900); Monocytes Percent Auto 13.3 % (3-14); Neutrophils Absolute Auto 5100 /uL (1500-7000); Neutrophils Percent Auto 71.8 % (50-75); Platelet Count 347 X10^3/uL (150-400); Red Blood Cell Count 3.72 X10^6/uL (4.5-5.9); Red Cell Distribution Width 20.5 % (11.6-14.8)
[2018-10-06 15:52] LABS: Add Manual Diff / Slide Review SLIDE REVIEW
[2018-10-06 16:06] LABS: Blood Urea Nitrogen 15 mg/dL (9-20); Calcium 9.5 mg/dL (8.4-10.2); Carbon Dioxide 27 mmol/L (22-32); Chloride 101 mmol/L (98-107); Estimated Glomerular Filt Rate > 60.0 mL/min (>60); Glucose 123 mg/dL (80-110); HEMOLYSIS < 15 (0-50); Potassium 4.5 mmol/L (3.4-5.1); Sodium 139 mmol/L (137-145)
[2018-10-06 16:37] LABS: Acanthocytes 1+; Anisocytosis 2+; Hypochromasia 1+; Microcytosis 1+
[2018-10-06 16:38] LABS: Poikilocytosis 1+
== END ==
PROVIDERS: Visit Provider Internal Medicine
DX: G45.4 Transient global amnesia (principal)
CPT/HCPCS: 36415; 80048; 85025

== ENCOUNTER 2018-10-08 19:37 | Emergency (ER) | payer MEDICARE, OTHER, SELFPAY ==
[2018-07-21 05:26] VITALS: BMI 32.1
[2018-10-08 19:39] VITALS: BP 107/43; PULSE 75; RESP 17; TEMP 36.7; O2SAT 100
--- NOTE | 2018-10-08 19:47 | ED.GENADULT ---
HPI - General Adult General Chief complaint: Neuro Symptoms/Deficit Stated complaint: intense tingling left side Time Seen by Provider: 10/08/18 19:41 Source: patient Mode of arrival: ambulatory Limitations: no limitations History of Present Illness HPI narrative: Patient is a 78-year-old male. He is currently on Xarelto. Back in July patient was admitted here at the hospital with a diagnosis of TIA. 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 Patient states that since that event he has had tingling in the left side of his face and his left upper extremity and also the left side of his abdomen and thorax. He has also had some balance issues. Has been attending physical therapy because of the balance issues. Has been taking his Xarelto. He reports that he was at his baseline state health when prior to arrival he stated that he had a sudden onset of a more intense tingling feeling in the left side of his body. He states that it was not new symptoms just a more intense feeling of the tingling that he has been having since his stroke. Initially was evaluated by EMS but came to the hospital by private vehicle with his . Related Data Home Medications Medication Instructions Recorded Confirmed atorvastatin 80 mg PO QPM #0 11/27/16 07/21/18 levothyroxine 100 mcg PO QAM #0 11/27/16 07/21/18 metformin [Glucophage XR] 1,000 mg PO QPM #0 11/27/16 07/21/18 zolpidem 5 mg PO HS #0 11/27/16 07/21/18 flunisolide 1 spray INTRANASAL PRN PRN 11/11/17 07/21/18 irbesartan 75 mg PO DAILY 11/11/17 07/21/18 metoprolol succinate 50 mg PO DAILY 11/11/17 07/21/18 omeprazole 40 mg PO BID 11/11/17 07/21/18 cephalexin 500 mg PO Q6H 07/21/18 07/21/18 isosorbide mononitrate 30 mg PO DAILY 07/21/18 07/21/18 minocycline 1 cap PO BID 07/21/18 07/21/18 nitroglycerin 0.4 mg SUBLINGUAL Q5-15M PRN 07/21/18 07/21/18 sucralfate 1 g PO QID 07/21/18 07/21/18 Previous Rx's Medication Instructions Recorded rivaroxaban [Xarelto] 20 mg PO QPM #30 tab 07/22/18 gabapentin 100 mg PO TID #90 cap 10/08/18 Allergies Allergy/AdvReac Type Severity Reaction Status Date / Time No Known Drug Allergies Allergy Verified 09/06/18 22:10 Review of Systems Constitutional Denies fever(s), Denies headache(s) and Denies weakness Eyes Denies change in vision ENT Ears, Nose, Mouth, and Throat: Denies vertigo, Denies dizziness, Denies facial pain, Denies headache(s), Denies disequilibrium and Denies tinnitus Cardiovascular Denies chest pain, Denies palpitations and Denies dyspnea Respiratory Denies cough and Denies dyspnea Gastrointestinal Gastrointestinal: Denies change in stool character, Denies constipation, Denies diarrhea and Denies vomiting Genitourinary Denies dysuria Musculoskeletal Denies myalgias, Denies arthralgias and Reports tingling Integumentary/Breasts Denies lesions and Denies rash Neurologic Denies abnormal speech, Denies confusion, Denies vertigo, Denies dizziness, Denies headache(s), Denies focal weakness, Reports tingling, Reports paresthesias, Denies disequilibrium and Denies weakness Psychiatric Denies confusion Endocrine Denies palpitations Hematologic/Lymphatic Comments: On Xarelto [facility] Medical History CVA (cerebral vascular accident) (Acute) Anemia (Acute) Atrial fibrillation (Acute) Bladder cancer (Acute) Cholangiocarcinoma (Acute) Diabetes (Acute) Duodenal ulcer (Acute) Social History marital status: household members: spouse Smoking Status: Never smoker Exam Initial Vital Signs Initial Vital Signs: Vital Signs Temperature 98.0 F 10/08/18 19:39 Pulse Rate 75 10/08/18 19:39 Respiratory Rate 17 10/08/18 19:39 Blood Pressure 107/43 L 10/08/18 19:39 Pulse Oximetry 100 10/08/18 19:39 Const General: cooperative, comfortable, well developed, well groomed and No acute distress Orientation: alert, awake and oriented x3 HENMT Head: normal to inspection and normocephalic Eyes Pupils: PERRL EOM: EOM intact bilaterally Resp Effort & Inspection: normal respiratory effort Auscultation: clear to auscultation bilaterally Cardio Rate: regular rate Rhythm: regular rhythm Pulses: radial pulses present GI Inspection: non-distended Palpation: soft, No firm and No tender Skin Lesions: no lesions Rashes: no rashes Neuro General: alert, awake and oriented x3 Cranial Nerves: CN's II-XI intact bilaterally Speech: speech normal Gait: normal gait Motor: muscle tone normal throughout Sensory Exam: no sensory deficits noted Coordination: [id number] test normal Extrem General: normal to inspection and capillary refill normal Scores GCS Walter coma scale eye opening: Spontaneous Walter coma scale verbal response: Orientated Walter coma scale motor response: Obey commands Walter coma scale total score: 15 NIH Stroke Scale Level of Conciousness: Alert, keenly responsive Ask month/age: Answers both questions correctly. Open/close eyes, close hand: Performs both tasks correctly Best gaze horizontal: Normal Visual castillo: No visual loss Facial palsy: Normal symetrical movement Left arm drift: No drift for full 10 sec Right arm drift: No drift for full 10 sec Left leg drift: No drift for full 10 sec Right leg drift: No drift for full 10 sec Limb ataxia: Absent Sensory on face/arms/legs: Mild to moderate sensory loss, can tell touch Best language: No aphasia, normal Dysarthria: Normal Extinction or inattention: No abnormality Total NIH Stroke scale score: 1 Course Orders Ordered: ED Orders 10/08/18 19:49 CT head/brain wo con Stat EKG-12 Lead Stat 10/08/18 19:50 Complete Blood Count AUTO DIFF Stat Comprehensive Metabolic Panel Stat Lipase Stat Partial Thromboplastin Time Stat Prothrombin Time INR Stat Thyroid Stimulating Hormone Stat Triiodothyronine T3 Free Stat Troponin I Stat 10/08/18 22:02 Troponin I Stat Discontinued Medications Gabapentin (Neurontin) 100 mg PO NOW ONE Stop: 10/08/18 21:30 Last Admin: 10/08/18 21:41 Dose: 100 mg Vital Signs - 8 hr 10/08/18 19:39 10/08/18 21:00 10/08/18 22:04 Temperature 98.0 F Pulse Rate 75 58 L 54 L Respiratory Rate 17 16 14 Blood Pressure 107/43 L Blood Pressure [Right Arm] 104/46 L 108/74 Pulse Oximetry 100 99 99 10/08/18 23:06 Temperature Pulse Rate 57 L Respiratory Rate 14 Blood Pressure Blood Pressure [Right Arm] 102/56 L Pulse Oximetry 99 Medical Decision Making Medical Records Medical records reviewed: Yes I reviewed the patient's medical records. Lab Data Lab results reviewed: Yes I reviewed the patient's lab results. Result diagrams: 10/08/18 19:50 10/08/18 19:50 Lab Results 10/08/18 10/08/18 10/08/18 Range/Units 19:50 19:50 19:50 WBC 7.3 (4.5-11.0) X10^3/uL RBC 3.48 L (4.5-5.9) X10^6/uL Hgb 9.7 L (13.5-17.5) g/dL Hct 29.2 L (41-53) % MCV 83.8 (80-100) fL MCH 28.0 (26-34) PG MCHC 33.4 (30-36) % RDW 20.3 H (11.6-14.8) % Plt Count 318 (150-400) X10^3/uL Neut % (Auto) 68.3 (50-75) % Lymph % (Auto) 14.8 L (25-40) % [place] % (Auto) 13.6 (3-14) % Eos % (Auto) 2.2 (2-4) % Baso % (Auto) 1.1 (0-2) % Neut # (Auto) 5000 (8402-0870) /uL Lymph # (Auto) 1100 (9528-6598) /uL Bedford # (Auto) 1000 H (0-900) /uL Eos # (Auto) 200 (0-450) /uL Baso # (Auto) 100 (0-100) /uL RBC Morphology See below Polychromasia 1+ H Poikilocytosis 2+ H Acanthocytes (Spur) 2+ Schistocytes 1+ H PT 13.4 H (10.1-12.7) SECONDS INR 1.2 (0.9-1.3) APTT 33 D (26.4-36.2) SECONDS Sodium 140 (137-145) mmol/L Potassium 4.1 (3.4-5.1) mmol/L Chloride 105 (98-107) mmol/L Carbon Dioxide 25 (22-32) mmol/L BUN 13 (9-20) mg/dL Creatinine 0.60 L (0.66-1.25) mg/dL Estimated GFR > 60.0 (>60) mL/min BUN/Creatinine Ratio 21.7 (6-22) Glucose 125 H (80-110) mg/dL Calcium 8.9 (8.4-10.2) mg/dL Total Bilirubin 0.4 (0.2-1.3) mg/dL AST 46 (17-59) IU/L ALT 34 (21-72) IU/L Alkaline Phosphatase 340 H (38-126) U/L Troponin I 0.018 (0.01-0.034) ng/mL Total Protein 7.2 (6.3-8.2) g/dL Albumin 3.6 (3.5-5.0) g/dL Globulin 3.6 (1.7-4.1) g/dL Albumin/Globulin Ratio 1.0 (1.0-2.8) Lipase 32 (23-300) U/L TSH (0.47-4.68) uIU/mL Free T3 (2.77-5.27) pg/mL 10/08/18 10/08/18 Range/Units 19:50 22:02 WBC (4.5-11.0) X10^3/uL RBC (4.5-5.9) X10^6/uL Hgb (13.5-17.5) g/dL Hct (41-53) % MCV (80-100) fL MCH (26-34) PG MCHC (30-36) % RDW (11.6-14.8) % Plt Count (150-400) X10^3/uL Neut % (Auto) (50-75) % Lymph % (Auto) (25-40) % Bedford % (Auto) (3-14) % Eos % (Auto) (2-4) % Baso % (Auto) (0-2) % Neut # (Auto) (2469-6858) /uL Lymph # (Auto) (7140-3673) /uL Bedford # (Auto) (0-900) /uL Eos # (Auto) (0-450) /uL Baso # (Auto) (0-100) /uL RBC Morphology Polychromasia Poikilocytosis Acanthocytes (Spur) Schistocytes PT (10.1-12.7) SECONDS INR (0.9-1.3) APTT (26.4-36.2) SECONDS Sodium (137-145) mmol/L Potassium (3.4-5.1) mmol/L Chloride (98-107) mmol/L Carbon Dioxide (22-32) mmol/L BUN (9-20) mg/dL Creatinine (0.66-1.25) mg/dL Estimated GFR (>60) mL/min BUN/Creatinine Ratio (6-22) Glucose (80-110) mg/dL Calcium (8.4-10.2) mg/dL Total Bilirubin (0.2-1.3) mg/dL AST (17-59) IU/L ALT (21-72) IU/L Alkaline Phosphatase (38-126) U/L Troponin I < 0.012 (0.01-0.034) ng/mL Total Protein (6.3-8.2) g/dL Albumin (3.5-5.0) g/dL Globulin (1.7-4.1) g/dL Albumin/Globulin Ratio (1.0-2.8) Lipase (23-300) U/L TSH 2.90 (0.47-4.68) uIU/mL Free T3 2.60 L (2.77-5.27) pg/mL Imaging Data CT scan - head: Radiologist's impression: [place] [address] CT Scan Report Signed Patient: Osvaldo Martines [facility]#: [id number] : 2Acct:[id number] Age/Sex: 78 / MDate of Service: 10/08/18 Loc: ED Accession Number: [id number] Procedure: CT head/brain wo con Ordering Provider: Wagner Ronquillo D.O. PROCEDURE: CT HEAD/BRAIN WO CON INDICATIONS: Left-sided tingling TECHNIQUE: Noncontrast 4.5 mm thick angled axial sections acquired from the foramen magnum to the vertex, with coronal and sagittal reformats. For radiation dose reduction, the following was used: automated exposure control, adjustment of mA and/or kV according to patient size. COMPARISON: [facility], CT, CT HEAD/BRAIN WO CON, 09/06/2018, 22:27. [facility], CT, CT HEAD/BRAIN WO CON, 07/21/2018, 1:24. FINDINGS: Image quality: Excellent. CSF spaces: Basal cisterns are patent. No extra-axial fluid collections. The ventricles are symmetric in size and shape. Brain: No intracranial bleeds or masses. There is cerebral volume loss for age, with resultant ventricular and sulcal prominence. There are periventricular and deep white matter chronic small vessel ischemic changes. Old small areas of encephalomalacia at the right frontal and right occipital regions are again noted from prior infarctions in those areas in the distant past. There is intracranial internal carotid artery atherosclerosis. Skull and face: Calvarium and visualized facial bones appear intact, without suspicious lesions. There is a metallic structure that appears embedded within the calvarium of the posterior fossa on the left anterolaterally. Uncertain etiology but this appears likely iatrogenic. Sinuses: Visualized sinuses and mastoids are clear. IMPRESSION: Source of paresthesias on the left is not found. The brain parenchyma appears normal for age except for the presence of mild microvascular atherosclerotic change in the deep white matter of each hemisphere and small areas of right anterior and right posterior cerebrum infarctions producing small areas of encephalomalacia previously documented. Metal artifact is present from a device that appears embedded within the calvarium lateral to the posterior lateral aspect of the left cerebellum. Please correlate clinically to determine the etiology of that structure. Dictated by: Luis Carlos Paulino M.D. on 10/08/2018 at 20:38 Approved by: Luis Carlos Paulino M.D. on 10/08/2018 at 20:44 ECG Data Attestation: I personally reviewed and interpreted this ECG as follows: Prior ECG tracings: not available for review Interpretation: Atrial fibrillation Ventricular rate is 73 Normal axis Right bundle branch block Normal QTC No ST T wave changes MDM Narrative Medical decision making narrative: Patient with no objective findings on his neurologic exam. I did give him a 1 on his NIH scale because he stated that he was having tingling on the left side of his body however when testing this with touch patient reported that it felt the same as his right side. He did ambulate in the emergency department without problems. His head CT shows no acute pathology. He is on Xarelto for atrial fibrillation. Patient is not a candidate for tPA given the fact that he is on Xarelto. I did discuss the case with Dr. Fernando who was the neurologist cosmetics and toiletries salesperson at [facility] who stated that because of his thalamic stroke he is at risk for ?thalamic pain syndrome ?she states that this is a condition that normally develops a couple months after a thalamic issue. This does fit the patient's symptoms. She states that is treated with gabapentin. If the patient was having a new stroke today he would have to be from his atrial fibrillation causing him to shed emboli that would have to affect the exact same area as his prior stroke and in the setting of him being on Xarelto. We feel that this is unlikely. Patient was given gabapentin here in the emergency department. He did stay for 2nd troponin which was unremarkable. I felt this is less likely ACS. I have the patient call his primary provider on Wednesday for follow-up. He was given return precautions and follow-up instructions. He expressed understanding and agreement with plan. Discharge Plan Departure Patient Disposition: Home Clinical Impression: Paresthesia Discharge Date/Time: 10/08/18 23:08 Interventions: ED Discharge Assessment Last Done: 10/08/18 23:08 Instructions: DI for Numbness/tingling Activity Restrictions/Additional Instructions: Continue all of your medications as directed. On Wednesday contact your primary doctor's office to discuss follow-up. Take the new prescription as directed. Return to the emergency department for any new or worsening symptoms Prescriptions: New gabapentin 100 mg capsule 100 mg PO TID Qty: 90 RF: 0 No Action metformin [Glucophage XR] 500 MG tablet extended release 24 hr 1,000 mg PO QPM Qty: 0 RF: 0 levothyroxine 100 MCG tablet 100 mcg PO QAM Qty: 0 RF: 0 zolpidem 10 MG tablet 5 mg PO HS Qty: 0 RF: 0 atorvastatin 80 MG tablet 80 mg PO QPM Qty: 0 RF: 0 metoprolol succinate 100 mg tablet extended release 24 hr 50 mg PO DAILY RF: 0 omeprazole 40 mg capsule,delayed release(DR/EC) 40 mg PO BID RF: 0 irbesartan 150 mg tablet 75 mg PO DAILY RF: 0 flunisolide 25 mcg (0.025 %) Garrett,Non-Aerosol 1 spray Intranasal PRN PRN (Reason: Allergy Symptoms) RF: 0 sucralfate 1 gram tablet 1 g PO QID RF: 0 nitroglycerin 0.4 mg Tablet, Sublingual 0.4 mg SUBLINGUAL Q5-15M PRN (Reason: Chest Pain) RF: 0 isosorbide mononitrate 30 mg Tablet Extended Release 24 Hr 30 mg PO DAILY RF: 0 cephalexin 500 mg Capsule 500 mg PO Q6H RF: 0 minocycline 1 cap PO BID RF: 0 Xarelto 20 mg tablet 20 mg PO QPM Qty: 30 RF: 0 Referrals: Tomy Pope MD [Primary Care Provider] -
[2018-10-08 20:01] LABS: Add Manual Diff / Slide Review NO; Basophils Absolute Auto 100 /uL (0-100); Basophils Percent Auto 1.1 % (0-2); Eosinophils Absolute Auto 200 /uL (0-450); Eosinophils Percent Auto 2.2 % (2-4); Hematocrit 29.2 % (41-53); Hemoglobin 9.7 g/dL (13.5-17.5); Lymphocytes Absolute Auto 1100 /uL (1100-4500); Lymphocytes Percent Auto 14.8 % (25-40); Mean Corpuscular HGB Conc 33.4 % (30-36); Mean Corpuscular Volume 83.8 fL (80-100); Monocytes Absolute Auto 1000 /uL (0-900); Monocytes Percent Auto 13.6 % (3-14); Neutrophils Absolute Auto 5000 /uL (1500-7000); Neutrophils Percent Auto 68.3 % (50-75); Platelet Count 318 X10^3/uL (150-400); Red Blood Cell Count 3.48 X10^6/uL (4.5-5.9); Red Cell Distribution Width 20.3 % (11.6-14.8); White Blood Cell Count 7.3 X10^3/uL (4.5-11.0)
[2018-10-08 20:06] LABS: INR 1.2 (0.9-1.3); Prothrombin Time 13.4 SECONDS (10.1-12.7)
[2018-10-08 20:08] LABS: PTT Partial Thromboplastin Tim 33 SECONDS (26.4-36.2)
[2018-10-08 20:10] LABS: Alanine Aminotransferase 34 IU/L (21-72); Albumin 3.6 g/dL (3.5-5.0); Alkaline Phosphatase 340 U/L (38-126); Aspartate Aminotransferase 46 IU/L (17-59); BUN Creatinine Ratio 21.7 (6-22); Bilirubin Total 0.4 mg/dL (0.2-1.3); Blood Urea Nitrogen 13 mg/dL (9-20); Calcium 8.9 mg/dL (8.4-10.2); Carbon Dioxide 25 mmol/L (22-32); Chloride 105 mmol/L (98-107); Estimated Glomerular Filt Rate > 60.0 mL/min (>60); Globulin 3.6 g/dL (1.7-4.1); Glucose 125 mg/dL (80-110); HEMOLYSIS < 15 (0-50); Lipase 32 U/L (23-300); Potassium 4.1 mmol/L (3.4-5.1); Sodium 140 mmol/L (137-145); Total Protein 7.2 g/dL (6.3-8.2)
[2018-10-08 20:21] LABS: Troponin I 0.018 ng/mL (0.01-0.034)
[2018-10-08 20:54] LABS: Acanthocytes 2+; Poikilocytosis 2+; Polychromasia 1+; Schistocytes 1+
[2018-10-08 21:00] VITALS: BP 104/46; PULSE 58; RESP 16; O2SAT 99
[2018-10-08] MEDS: GABAPENTIN 100 MG CAPSULE PO (21:41)
[2018-10-08 22:04] VITALS: BP 108/74; PULSE 54; RESP 14; O2SAT 99
[2018-10-08 22:32] LABS: Troponin I < 0.012 ng/mL (0.01-0.034)
[2018-10-08 23:06] VITALS: BP 102/56; PULSE 57; RESP 14; O2SAT 99
== END 2018-10-08 23:08 | disposition home or self-care (01) ==
PROVIDERS: Emergency Provider Emergency Medicine
DX: R20.2 Paresthesia of skin (principal); I48.91 Unspecified atrial fibrillation; Z79.01 Long term (current) use of anticoagulants
CPT/HCPCS: 36415; 36591; 70450; 80053; 83690; 84443; 84481; 84484; 85025; 85610; 85730; 93005; 99283; 99285

== ENCOUNTER 2018-10-11 10:30 | Outpatient (RCR) | payer MEDICARE, OTHER, SELFPAY ==
[2018-07-21 05:26] VITALS: BMI 32.1
--- NOTE | 2018-07-27 13:53 | PT.OIE ---
Current Diagnoses Cerebral infarction, unspecified (07/27/18) Hemiplegia and hemiparesis following cerebral infarction affecting left non-dominant side (07/27/18) Past Medical History (Last Reviewed 07/21/18 @ 07:25 by MARLIN Mcduffie) Anemia (Acute) Atrial fibrillation (Acute) Bladder cancer (Acute) Cholangiocarcinoma (Acute) Diabetes (Acute) Duodenal ulcer (Acute) Past Surgical History (Last Updated 07/21/18 @ 07:26 by MARLIN Mcduffie) Status post left hip replacement (Inactive) Provider Visit Care Team Role Provider Type Flaquito Rodriguez MD Primary Care Provider Physician Specialty: Internal Medicine Address: [address] [place] [address], [id number] Email: Leeann Nobles MD Attending Provider Physician Specialty: Internal Medicine Address: [address] [place] [address], [id number] Email: [email or web address] Physical Therapy Initial Evaluation PT-OP-A Visit Information Start: 07/26/18 16:33 Freq: Status: Active Protocol: Document 07/27/18 11:20 [facility] (Rec: 07/27/18 13:47 [facility] [id number]) Out-Patient Physical Therapy Visit Information Visit Information Visit Type Initial Evaluation Visit Start Time 11:20 Visit Stop Time 12:05 Total Visit Minutes 45 Visit Number 1/10 Number of SENIOR PRODUCTION SUPERVISOR Visits 0 PT-OP-B Current Condition Start: 07/26/18 16:33 Freq: Status: Active Protocol: Document 07/27/18 11:20 [facility] (Rec: 07/27/18 12:16 [facility] [id number]) Current Condition History of Current Condition Current Complaints CVA left sided weakness History of Current Condition Pt was brought to hospital for TIA 07/21 and was d/c from hospital Saturday 07/22. has been helping with transfers and getting out of bed. He was able to get out of bed last night to use the barthroom indep but is typically requiring assistance. He reports dizziness when he is standing and does anything letting go of the walker. He also has cancer w/recent chemo and internal bleeding with dec hematocrit. Pt also has hx of B hip replacements in 90s and R HS issue. No falls in the past year. Pt reports entire L side hurts and feels like LUE coordination is dec. Hx of R rotator cuff injury. Treatment Goals Patient/Caregiver Goals Be back to way he was before: Used to go the gym -treadmill 15 min and stretches on machines; walk without a device; be able to push the self propell mower, get in/out of the car PT-OP-C Subjective Start: 07/26/18 16:33 Freq: Status: Active Protocol: Document 07/27/18 11:20 [facility] (Rec: 07/27/18 13:47 [facility] [id number]) OP-PT Subjective Patient Comments Patient Comments Pt reports he does not want to use the bike. PT-OP-E Functional Tests Start: 07/26/18 16:33 Freq: Status: Active Protocol: Document 07/27/18 11:20 [facility] (Rec: 07/27/18 13:47 [facility] [id number]) Functional Tests Timed Up and Go (TUG) Score 32 sec Tinetti Balance and Gait Assessment Composite Score 15 Composite Score Impairment Rating 40 to <60% Impaired (Score 12- 16) PT-OP-G Mobility & Gait Start: 07/26/18 16:33 Freq: Status: Active Protocol: Document 07/27/18 11:20 [facility] (Rec: 07/27/18 13:47 [facility] [id number]) OP Mobility Evaluation Bed Mobility Supine to and from Sit Supine to sit mod A & sit to supine SBA OP Gait Assessment Comments Gait Comments Pt amb with FWW with dec step clearance and step length. PT-OP-M Strength Start: 07/26/18 16:33 Freq: Status: Active Protocol: Document 07/27/18 11:20 [facility] (Rec: 07/27/18 12:16 [facility] [id number]) Hip Strength Hip Manual Muscle Testing Right Flexion (L2) 4- Good- Abduction 4- Good- External Rotation 4 Good Left Flexion (L2) 4- Good- External Rotation 3 Fair Knee Strength Knee Manual Muscle Testing Right Flexion (S2) 4+ Good+ Extension (L3) 4+ Good+ Left Flexion (S2) 4 Good Extension (L3) 4 Good Ankle/Foot Strength Ankle and Foot Manual Muscle Testing Right Dorsiflexion (L4) 5 Normal Plantarflexion (S1) 5 Normal Left Dorsiflexion (L4) 4 Good Plantarflexion (S1) 4 Good PT-OP-Q Treatments Start: 07/26/18 16:33 Freq: Status: Active Protocol: Document 07/27/18 11:20 [facility] (Rec: 07/27/18 13:51 [facility] [id number]) Therapeutic Exercises Supine Exercises SLR Supine Exercise Name SLR Side bilateral Reps/Minutes 10 bridge Supine Exercise Name bridge Side bilateral Reps/Minutes 10 Sidelying Exercises abd Sidelying Exercise Name sidelying Side left Reps/Minutes 15 PT-OP-T Assessment and Plan Start: 07/26/18 16:33 Freq: Status: Active Protocol: Document 07/27/18 11:20 [facility] (Rec: 07/27/18 13:47 [facility] [id number]) Physical Therapy Assessment Rehab Potential Rehabilitation Potential Good Evaluation Complexity Number of Personal Factors/Comorbidities 3 or More Number of Body Systems Impaired 4 or More Clinical Presentation at Evaluation Evolving Impairments Impairments Activity Tolerance Balance Coordination Functional Activities Functional Mobility Gait Pain Posture ROM Soft Tissue Mobility Strength Transfers Goals functional ability Short Term Goal (STG) Pt will be indep with bed mobility & transfers STG Duration 09/09/18 Flake Or Shred Roll Operator Goal (LTG) Pt will be able to get in and out of car safely and independently LTG Duration 10/26/18 balance Short Term Goal (STG) Pt will score 19 or greater to be at lower risk for falls. STG Duration 08/28/18 Flake Or Shred Roll Operator Goal (LTG) Pt will score 24 or greater on tinnetti to demonstrate improved balance and dec risk of falls LTG Duration 10/26/18 gait Short Term Goal (STG) Pt will be able to amb safely with SPC for 200ft STG Duration 09/08/18 Senior Living Goal (LTG) Pt will be able to amb safely without AD for 250ft LTG Duration 10/26/18 Assessment Summary Assessment Pt suffered CVA affecting L side with overall weakness and decreased coordination and balance. He is motivated to return to typical activities and at this time is significantly limited and requires significant assist of his . He has multiple comorbitities that are currently affecting him and have been part of his recent decline in the past 11 months. He would benefit from skilled PT to advance balance and strength. Physical Therapy Plan Frequency and Duration Frequency of Treatment 3x/Week Duration of Treatment 3 months Plan of Care Start Date 07/27/18 Plan of Care End Date 10/26/18 Therapeutic Interventions Therapeutic Interventions Aquatic Therapy Balance Training Gait Training Home Exercise Program Manual Therapy Neuromuscular Re-education Patient/Caregiver Education Self-Care/Home Management Soft Tissue Mobilization Taping Therapeutic Activities Therapeutic Exercises Next Visit Focus/Plan Next Note Type Treatment Note Next Visit Plan Standing balance exercises & strengthening; gait training; review HEP and advance further
--- NOTE | 2018-07-27 13:53 | PT.OPPOC ---
Current Diagnoses Cerebral infarction, unspecified (07/27/18) Hemiplegia and hemiparesis following cerebral infarction affecting left non-dominant side (07/27/18) Provider Visit Care Team Role Provider Type Flaquito Rodriguez MD Primary Care Provider Physician Specialty: Internal Medicine Address: [address] [place] [address], [phone] Email: Leeann Nobles MD Attending Provider Physician Specialty: Internal Medicine Address: [address] [place] [address], [phone] Email: [email or web address] Plan Of Care PT-OP-T Assessment and Plan Start: 07/26/18 16:33 Freq: Status: Active Protocol: Document 07/27/18 11:20 [facility] (Rec: 07/27/18 13:47 [facility] [id number]) Physical Therapy Assessment Rehab Potential Rehabilitation Potential Good Evaluation Complexity Number of Personal Factors/Comorbidities 3 or More Number of Body Systems Impaired 4 or More Clinical Presentation at Evaluation Evolving Impairments Impairments Activity Tolerance Balance Coordination Functional Activities Functional Mobility Gait Pain Posture ROM Soft Tissue Mobility Strength Transfers Goals functional ability Short Term Goal (STG) Pt will be indep with bed mobility & transfers STG Duration 09/09/18 Director [employer] Goal (LTG) Pt will be able to get in and out of car safely and independently LTG Duration 10/26/18 balance Short Term Goal (STG) Pt will score 19 or greater to be at lower risk for falls. STG Duration 08/28/18 Halfway Goal (LTG) Pt will score 24 or greater on tinnetti to demonstrate improved balance and dec risk of falls LTG Duration 10/26/18 gait Short Term Goal (STG) Pt will be able to amb safely with SPC for 200ft STG Duration 09/08/18 Director University Goal (LTG) Pt will be able to amb safely without AD for 250ft LTG Duration 10/26/18 Assessment Summary Assessment Pt suffered CVA affecting L side with overall weakness and decreased coordination and balance. He is motivated to return to typical activities and at this time is significantly limited and requires significant assist of his . He has multiple comorbitities that are currently affecting him and have been part of his recent decline in the past 11 months. He would benefit from skilled PT to advance balance and strength. Physical Therapy Plan Frequency and Duration Frequency of Treatment 3x/Week Duration of Treatment 3 months Plan of Care Start Date 07/27/18 Plan of Care End Date 10/26/18 Therapeutic Interventions Therapeutic Interventions Aquatic Therapy Balance Training Gait Training Home Exercise Program Manual Therapy Neuromuscular Re-education Patient/Caregiver Education Self-Care/Home Management Soft Tissue Mobilization Taping Therapeutic Activities Therapeutic Exercises Next Visit Focus/Plan Next Note Type Treatment Note Next Visit Plan Standing balance exercises & strengthening; gait training; review HEP and advance further Plan of Care Dates Plan of Care Start Date 07/27/18 Plan of Care End Date 10/26/18 Please Sign and Return: I have reviewed this Plan of Care and certify that the skilled therapy services above are required to meet the patient?s needs. Physician Signature Date Printed Name and Credentials Clinical Instructor Signature Printed Name and Credentials
--- NOTE | 2018-07-29 14:18 | PT.OTN ---
Current Diagnoses Cerebral infarction, unspecified (07/29/18) Hemiplegia and hemiparesis following cerebral infarction affecting left non-dominant side (07/29/18) Physical Therapy Treatment Note PT-OP-A Visit Information Start: 07/26/18 16:33 Freq: Status: Active Protocol: Document 07/29/18 12:05 [facility] (Rec: 07/29/18 12:30 BS [id number]) Out-Patient Physical Therapy Visit Information Visit Information Visit Type Treatment Note Visit Start Time 11:20 Visit Stop Time 12:05 Total Visit Minutes 45 Visit Number 2/10 Number of PROGRAM COUNSELOR Visits 0 PT-OP-B Current Condition Start: 07/26/18 16:33 Freq: Status: Active Protocol: Document 07/27/18 11:20 [facility] (Rec: 07/27/18 12:16 [facility] [id number]) Current Condition History of Current Condition Current Complaints CVA left sided weakness History of Current Condition Pt was brought to hospital for TIA 07/21 and was d/c from hospital Saturday 07/22. has been helping with transfers and getting out of bed. He was able to get out of bed last night to use the barthroom indep but is typically requiring assistance. He reports dizziness when he is standing and does anything letting go of the walker. He also has cancer w/recent chemo and internal bleeding with dec hematocrit. Pt also has hx of B hip replacements in s and R HS issue. No falls in the past year. Pt reports entire L side hurts and feels like LUE coordination is dec. Hx of R rotator cuff injury. Treatment Goals Patient/Caregiver Goals Be back to way he was before: Used to go the gym -treadmill 15 min and stretches on machines; walk without a device; be able to push the self propell mower, get in/out of the car PT-OP-C Subjective Start: 07/26/18 16:33 Freq: Status: Active Protocol: Document 07/29/18 12:05 [facility] (Rec: 07/29/18 12:30 BS [id number]) OP-PT Subjective Patient Comments Patient Comments Pt states he was a little depressed after the initial evaluation and notes that the stroke has been quite the life changing event. He reports a little LE muscle soreness following IE and states he did his HEP yesterday. PT-OP-E Functional Tests Start: 07/26/18 16:33 Freq: Status: Active Protocol: Document 07/27/18 11:20 [facility] (Rec: 07/27/18 13:47 [facility] [id number]) Functional Tests Timed Up and Go (TUG) Score 32 sec Tinetti Balance and Gait Assessment Composite Score 15 Composite Score Impairment Rating 40 to <60% Impaired (Score 12- 16) PT-OP-G Mobility & Gait Start: 07/26/18 16:33 Freq: Status: Active Protocol: Document 07/27/18 11:20 [facility] (Rec: 07/27/18 13:47 [facility] [id number]) OP Mobility Evaluation Bed Mobility Supine to and from Sit Supine to sit mod A & sit to supine SBA OP Gait Assessment Comments Gait Comments Pt amb with FWW with dec step clearance and step length. PT-OP-M Strength Start: 07/26/18 16:33 Freq: Status: Active Protocol: Document 07/27/18 11:20 [facility] (Rec: 07/27/18 12:16 [facility] [id number]) Hip Strength Hip Manual Muscle Testing Right Flexion (L2) 4- Good- Abduction 4- Good- External Rotation 4 Good Left Flexion (L2) 4- Good- External Rotation 3 Fair Knee Strength Knee Manual Muscle Testing Right Flexion (S2) 4+ Good+ Extension (L3) 4+ Good+ Left Flexion (S2) 4 Good Extension (L3) 4 Good Ankle/Foot Strength Ankle and Foot Manual Muscle Testing Right Dorsiflexion (L4) 5 Normal Plantarflexion (S1) 5 Normal Left Dorsiflexion (L4) 4 Good Plantarflexion (S1) 4 Good PT-OP-Q Treatments Start: 07/26/18 16:33 Freq: Status: Active Protocol: Document 07/29/18 12:05 BS (Rec: 07/29/18 12:30 BS [id number]) Therapeutic Exercises Supine Exercises SLR Supine Exercise Name SLR Side bilateral Reps/Minutes x10 Comments VCs for eccentric lowering control bridge Supine Exercise Name bridge Side bilateral Equipment Used with ball between knees Reps/Minutes 2x8 Sidelying Exercises abd Sidelying Exercise Name sidelying Side left Reps/Minutes 5 Comments Difficult for pt to do against gravity. added standing abd. Sitting Exercises 1 Sitting Exercise Name LAQs Side left Reps/Minutes x10 Comments VCs to avoid compensating with trunk extension Standing Exercises 4 Standing Exercise Name Hamstring Curls Equipment Used // bars, UE support Reps/Minutes 2x10 3 Standing Exercise Name Hip extension Side bilateral Equipment Used // bars UE support Reps/Minutes 2x10 Comments VCs for knee extension 2 Standing Exercise Name Calf Raises Side bilateral Equipment Used // bars, UE support Reps/Minutes 2x10 1 Standing Exercise Name Hip Abduction Side bilateral Equipment Used // bars, UE support Reps/Minutes 2x10 Comments VCs for slow controlled movement Neuro Re-Education Treatment Balance Activities 3 Details Vertical/Horizontal Head movements Equipment // bars Reps/Duration x8 each Comments NBOS to semi-tandem position. Minimal sway with vertical head movements. CGA 2 Details Ball catch and toss Equipment // bars Comments WBOS progressed to NBOS. Ball in/out of PREM with CGA behind pt 1 Details Alternating Marches Equipment // bars Comments with B UE support progressing to no UE for increased balance challenge. VCs slow, control. PT-OP-T Assessment and Plan Start: 07/26/18 16:33 Freq: Status: Active Protocol: Document 07/29/18 12:05 BS (Rec: 07/29/18 12:30 BS [id number]) Physical Therapy Assessment Assessment Summary Assessment Pt tolerated session well with focus on B LE strengthening and balance challenging activities. He did complain of some abdominal pain which he accredited to his tumors. Pt admitted LE fatigue at completion of session. He demo 'd poor bed mobility from supine to sit and required Mod A. Modified sidelying hip abduction to standing, change made to HEP. Physical Therapy Plan Next Visit Focus/Plan Next Note Type Treatment Note Next Visit Plan Address log roll technique/bed mobility. B LE strengthening and balance activities. Progress HEP as able.
--- NOTE | 2018-08-01 12:07 | PT.OTN ---
Current Diagnoses Cerebral infarction, unspecified (08/01/18) Hemiplegia and hemiparesis following cerebral infarction affecting left non-dominant side (08/01/18) Physical Therapy Treatment Note PT-OP-A Visit Information Start: 07/26/18 16:33 Freq: Status: Active Protocol: Document 08/01/18 11:12 EA (Rec: 08/01/18 11:18 EA [id number]) Out-Patient Physical Therapy Visit Information Visit Information Visit Type Treatment Note Visit Start Time 10:30 Visit Stop Time 11:15 Total Visit Minutes 38 Visit Number 3 PT-OP-B Current Condition Start: 07/26/18 16:33 Freq: Status: Active Protocol: Document 07/27/18 11:20 [facility] (Rec: 07/27/18 12:16 [facility] [id number]) Current Condition History of Current Condition Current Complaints CVA left sided weakness History of Current Condition Pt was brought to hospital for TIA 07/21 and was d/c from hospital Saturday 07/22. has been helping with transfers and getting out of bed. He was able to get out of bed last night to use the barthroom indep but is typically requiring assistance. He reports dizziness when he is standing and does anything letting go of the walker. He also has cancer w/recent chemo and internal bleeding with dec hematocrit. Pt also has hx of B hip replacements in 90s and R HS issue. No falls in the past year. Pt reports entire L side hurts and feels like LUE coordination is dec. Hx of R rotator cuff injury. Treatment Goals Patient/Caregiver Goals Be back to way he was before: Used to go the gym -treadmill 15 min and stretches on machines; walk without a device; be able to push the self propell mower, get in/out of the car PT-OP-C Subjective Start: 07/26/18 16:33 Freq: Status: Active Protocol: Document 08/01/18 11:12 EA (Rec: 08/01/18 11:18 EA [id number]) OP-PT Subjective Patient Comments Patient Comments Pt reports tight abdominal and low back due to bed exercises (HEP). Pt reports would like to use FRA crutches for support. PT-OP-E Functional Tests Start: 07/26/18 16:33 Freq: Status: Active Protocol: Document 07/27/18 11:20 [facility] (Rec: 07/27/18 13:47 [facility] [id number]) Functional Tests Timed Up and Go (TUG) Score 32 sec Tinetti Balance and Gait Assessment Composite Score 15 Composite Score Impairment Rating 40 to <60% Impaired (Score 12- 16) PT-OP-G Mobility & Gait Start: 07/26/18 16:33 Freq: Status: Active Protocol: Document 07/27/18 11:20 [facility] (Rec: 07/27/18 13:47 [facility] [id number]) OP Mobility Evaluation Bed Mobility Supine to and from Sit Supine to sit mod A & sit to supine SBA OP Gait Assessment Comments Gait Comments Pt amb with FWW with dec step clearance and step length. PT-OP-M Strength Start: 07/26/18 16:33 Freq: Status: Active Protocol: Document 07/27/18 11:20 [facility] (Rec: 07/27/18 12:16 [facility] [id number]) Hip Strength Hip Manual Muscle Testing Right Flexion (L2) 4- Good- Abduction 4- Good- External Rotation 4 Good Left Flexion (L2) 4- Good- External Rotation 3 Fair Knee Strength Knee Manual Muscle Testing Right Flexion (S2) 4+ Good+ Extension (L3) 4+ Good+ Left Flexion (S2) 4 Good Extension (L3) 4 Good Ankle/Foot Strength Ankle and Foot Manual Muscle Testing Right Dorsiflexion (L4) 5 Normal Plantarflexion (S1) 5 Normal Left Dorsiflexion (L4) 4 Good Plantarflexion (S1) 4 Good PT-OP-Q Treatments Start: 07/26/18 16:33 Freq: Status: Active Protocol: Document 08/01/18 11:12 EA (Rec: 08/01/18 11:18 EA [id number]) Therapeutic Exercises Sitting Exercises 1 Sitting Exercise Name LAQs Side left Resistance 2# Reps/Minutes x10 Comments VCs to avoid compensating with trunk extension Standing Exercises 5 Standing Exercise Name LUNGES WITH SUPPORT PRN Side bilateral Reps/Minutes x 8 reps each leg Comments PARTIAL 4 Standing Exercise Name Hamstring Curls Equipment Used // bars, UE support Reps/Minutes 2x10 3 Standing Exercise Name Hip extension Side bilateral Equipment Used // bars UE support Reps/Minutes 2x10 Comments VCs for knee extension 2 Standing Exercise Name Calf Raises Side bilateral Equipment Used // bars, UE support Reps/Minutes 2x10 1 Standing Exercise Name Hip Abduction Side bilateral Equipment Used // bars, UE support Reps/Minutes 2x10 Comments VCs for slow controlled movement Neuro Re-Education Treatment Balance Activities 4 Details wobble board: SDW tilt Reps/Duration x 4 mins 3 Details Vertical/Horizontal Head movements Equipment // bars Reps/Duration x8 each Comments NBOS to semi-tandem position. Minimal sway with vertical head movements. CGA 2 Details Ball catch and toss Equipment // bars Comments WBOS progressed to NBOS. Ball in/out of PREM with CGA behind pt 1 Details Alternating Marches Equipment // bars Comments with B UE support progressing to no UE for increased balance challenge. VCs slow, control. PT-OP-T Assessment and Plan Start: 07/26/18 16:33 Freq: Status: Active Protocol: Document 08/01/18 11:12 [facility] (Rec: 08/01/18 11:18 EA [id number]) Physical Therapy Assessment Assessment Summary Assessment Tolerated treatment well. Physical Therapy Plan Next Visit Focus/Plan Next Note Type Treatment Note Next Visit Plan RANDA crutches to practice
--- NOTE | 2018-08-05 11:40 | PT.OTN ---
Current Diagnoses Cerebral infarction, unspecified (08/05/18) Hemiplegia and hemiparesis following cerebral infarction affecting left non-dominant side (08/05/18) Physical Therapy Treatment Note PT-OP-A Visit Information Start: 07/26/18 16:33 Freq: Status: Active Protocol: Document 08/05/18 11:32 SA (Rec: 08/05/18 11:40 [email or web address]) Out-Patient Physical Therapy Visit Information Visit Information Visit Type Treatment Note Visit Start Time 10:30 Visit Stop Time 11:15 Total Visit Minutes 45 Visit Number 4 Number of CERTIFIED MEDICAL BILLER Visits 1 PT-OP-B Current Condition Start: 07/26/18 16:33 Freq: Status: Active Protocol: Document 07/27/18 11:20 [facility] (Rec: 07/27/18 12:16 [facility] [id number]) Current Condition History of Current Condition Current Complaints CVA left sided weakness History of Current Condition Pt was brought to hospital for TIA 07/21 and was d/c from hospital Saturday 07/22. has been helping with transfers and getting out of bed. He was able to get out of bed last night to use the barthroom indep but is typically requiring assistance. He reports dizziness when he is standing and does anything letting go of the walker. He also has cancer w/recent chemo and internal bleeding with dec hematocrit. Pt also has hx of B hip replacements in s and R HS issue. No falls in the past year. Pt reports entire L side hurts and feels like LUE coordination is dec. Hx of R rotator cuff injury. Treatment Goals Patient/Caregiver Goals Be back to way he was before: Used to go the gym -treadmill 15 min and stretches on machines; walk without a device; be able to push the self propell mower, get in/out of the car PT-OP-C Subjective Start: 07/26/18 16:33 Freq: Status: Active Protocol: Document 08/05/18 11:32 SA (Rec: 08/05/18 11:40 SA [email or web address]) OP-PT Subjective Patient Comments Patient Comments Pt presents in clinic with FWW and single forearm crutch, states he hates FWW and hopes to use crutch instead. PT-OP-E Functional Tests Start: 07/26/18 16:33 Freq: Status: Active Protocol: Document 07/27/18 11:20 [facility] (Rec: 07/27/18 13:47 [facility] [email or web address]) Functional Tests Timed Up and Go (TUG) Score 32 sec Tinetti Balance and Gait Assessment Composite Score 15 Composite Score Impairment Rating 40 to <60% Impaired (Score 12- 16) PT-OP-G Mobility & Gait Start: 07/26/18 16:33 Freq: Status: Active Protocol: Document 07/27/18 11:20 [facility] (Rec: 07/27/18 13:47 [facility] [email or web address]) OP Mobility Evaluation Bed Mobility Supine to and from Sit Supine to sit mod A & sit to supine SBA OP Gait Assessment Comments Gait Comments Pt amb with FWW with dec step clearance and step length. PT-OP-M Strength Start: 07/26/18 16:33 Freq: Status: Active Protocol: Document 07/27/18 11:20 [facility] (Rec: 07/27/18 12:16 [facility] [id number]) Hip Strength Hip Manual Muscle Testing Right Flexion (L2) 4- Good- Abduction 4- Good- External Rotation 4 Good Left Flexion (L2) 4- Good- External Rotation 3 Fair Knee Strength Knee Manual Muscle Testing Right Flexion (S2) 4+ Good+ Extension (L3) 4+ Good+ Left Flexion (S2) 4 Good Extension (L3) 4 Good Ankle/Foot Strength Ankle and Foot Manual Muscle Testing Right Dorsiflexion (L4) 5 Normal Plantarflexion (S1) 5 Normal Left Dorsiflexion (L4) 4 Good Plantarflexion (S1) 4 Good PT-OP-Q Treatments Start: 07/26/18 16:33 Freq: Status: Active Protocol: Document 08/05/18 11:32 SA (Rec: 08/05/18 11:40 SA [email or web address]) Therapeutic Exercises Supine Exercises SLR Supine Exercise Name SLR Side bilateral Equipment Used 3# Reps/Minutes x10 Comments VCs for eccentric lowering control bridge Supine Exercise Name bridge Side bilateral Equipment Used with ball between knees Reps/Minutes 2x8 Standing Exercises 5 Standing Exercise Name LUNGES WITH SUPPORT PRN Side bilateral Resistance //bars Reps/Minutes 10x each Comments PARTIAL 4 Standing Exercise Name Hamstring Curls Resistance 3# Equipment Used // bars, UE support Reps/Minutes 2x10 3 Standing Exercise Name Hip extension Side bilateral Equipment Used // bars UE support Reps/Minutes 2x10 Comments VCs for knee extension 2 Standing Exercise Name Calf Raises Side bilateral Equipment Used // bars, UE support Reps/Minutes 2x10 1 Standing Exercise Name Hip Abduction Equipment Used // bars, UE support Reps/Minutes 2x10 Comments VCs for slow controlled movement Gait Training Gait Activity Forearm cruch gait Device Used forearm crutch Level of Assistance CGA Surface level Distance/Duration 200feet Treatment Focus LLE foot elevation/sequencing Comments Completed 1 lap at stard of session and one lap at end to assess gait with fatigue. Pt did wall with foot scuff. Neuro Re-Education Treatment Balance Activities 4 Details wobble board: SDW tilt Reps/Duration x 4 mins 3 Details Vertical/Horizontal Head movements Equipment // bars Reps/Duration x8 each Comments NBOS to semi-tandem position. Minimal sway with vertical head movements. CGA 2 Details Ball catch and toss Equipment // bars Comments WBOS progressed to NBOS. Ball in/out of PREM with CGA behind pt 1 Details Alternating Marches Equipment // bars Comments Cues for slowing down, increasing SLS time PT-OP-T Assessment and Plan Start: 07/26/18 16:33 Freq: Status: Active Protocol: Document 08/05/18 11:32 SA (Rec: 08/05/18 11:40 SA [email or web address]) Physical Therapy Assessment Assessment Summary Assessment Pt to gradually transition to Single forearm crutch use in home but use FWW when fatigued , pt and agreeable to plan. Physical Therapy Plan Next Visit Focus/Plan Next Note Type Treatment Note Next Visit Plan Continue to increase use of forearm crutch vs FWW, continue with HEP and progression of strength/ balance program.
--- NOTE | 2018-08-08 12:08 | PT.OTN ---
Current Diagnoses Cerebral infarction, unspecified (08/08/18) Hemiplegia and hemiparesis following cerebral infarction affecting left non-dominant side (08/08/18) Physical Therapy Treatment Note PT-OP-A Visit Information Start: 07/26/18 16:33 Freq: Status: Active Protocol: Document 08/08/18 10:40 EA (Rec: 08/08/18 11:11 EA [id number]) Out-Patient Physical Therapy Visit Information Visit Information Visit Type Treatment Note Visit Start Time 10:30 Visit Stop Time 11:15 Total Visit Minutes 45 Visit Number 5 Number of CREDIT RELATIONSHIP MANAGER Visits 1 PT-OP-B Current Condition Start: 07/26/18 16:33 Freq: Status: Active Protocol: Document 07/27/18 11:20 [facility] (Rec: 07/27/18 12:16 [facility] [id number]) Current Condition History of Current Condition Current Complaints CVA left sided weakness History of Current Condition Pt was brought to hospital for TIA 07/21 and was d/c from hospital Saturday 07/22. has been helping with transfers and getting out of bed. He was able to get out of bed last night to use the barthroom indep but is typically requiring assistance. He reports dizziness when he is standing and does anything letting go of the walker. He also has cancer w/recent chemo and internal bleeding with dec hematocrit. Pt also has hx of B hip replacements in s and R HS issue. No falls in the past year. Pt reports entire L side hurts and feels like LUE coordination is dec. Hx of R rotator cuff injury. Treatment Goals Patient/Caregiver Goals Be back to way he was before: Used to go the gym -treadmill 15 min and stretches on machines; walk without a device; be able to push the self propell mower, get in/out of the car PT-OP-C Subjective Start: 07/26/18 16:33 Freq: Status: Active Protocol: Document 08/08/18 10:40 EA (Rec: 08/08/18 11:11 EA [id number]) OP-PT Subjective Patient Comments Patient Comments I don't use a walker at home now states FRA crutches is much better. Pt reports both shoulder s and neck are sore due to frequent sitting up and down to low chair. PT-OP-E Functional Tests Start: 07/26/18 16:33 Freq: Status: Active Protocol: Document 07/27/18 11:20 [facility] (Rec: 07/27/18 13:47 [facility] [email or web address]) Functional Tests Timed Up and Go (TUG) Score 32 sec Tinetti Balance and Gait Assessment Composite Score 15 Composite Score Impairment Rating 40 to <60% Impaired (Score 12- 16) PT-OP-G Mobility & Gait Start: 07/26/18 16:33 Freq: Status: Active Protocol: Document 07/27/18 11:20 [facility] (Rec: 07/27/18 13:47 [facility] [email or web address]) OP Mobility Evaluation Bed Mobility Supine to and from Sit Supine to sit mod A & sit to supine SBA OP Gait Assessment Comments Gait Comments Pt amb with FWW with dec step clearance and step length. PT-OP-M Strength Start: 07/26/18 16:33 Freq: Status: Active Protocol: Document 07/27/18 11:20 [facility] (Rec: 07/27/18 12:16 [facility] [id number]) Hip Strength Hip Manual Muscle Testing Right Flexion (L2) 4- Good- Abduction 4- Good- External Rotation 4 Good Left Flexion (L2) 4- Good- External Rotation 3 Fair Knee Strength Knee Manual Muscle Testing Right Flexion (S2) 4+ Good+ Extension (L3) 4+ Good+ Left Flexion (S2) 4 Good Extension (L3) 4 Good Ankle/Foot Strength Ankle and Foot Manual Muscle Testing Right Dorsiflexion (L4) 5 Normal Plantarflexion (S1) 5 Normal Left Dorsiflexion (L4) 4 Good Plantarflexion (S1) 4 Good PT-OP-Q Treatments Start: 07/26/18 16:33 Freq: Status: Active Protocol: Document 08/08/18 11:12 EA (Rec: 08/08/18 11:16 EA [id number]) Therapeutic Exercises Supine Exercises SLR Supine Exercise Name SLR Side bilateral Equipment Used 3# Reps/Minutes x10 Comments VCs for eccentric lowering control bridge Supine Exercise Name bridge Side bilateral Equipment Used with ball between knees Reps/Minutes 2x8 Sitting Exercises 2 Sitting Exercise Name Low chair sitting and standing correction: Nose over heels Reps/Minutes x 5 times 1 Sitting Exercise Name LAQs Side left Resistance 2# Reps/Minutes x10 Comments VCs to avoid compensating with trunk extension Standing Exercises 5 Standing Exercise Name LUNGES WITH SUPPORT PRN Side bilateral Resistance //bars Reps/Minutes 10x each Comments PARTIAL 4 Standing Exercise Name Hamstring Curls Resistance 3# Equipment Used // bars, UE support Reps/Minutes 2x10 3 Standing Exercise Name Hip extension Side bilateral Equipment Used // bars UE support Reps/Minutes 2x10 Comments VCs for knee extension 2 Standing Exercise Name Calf Raises Side bilateral Equipment Used // bars, UE support Reps/Minutes 2x10 1 Standing Exercise Name Hip Abduction Resistance 2# Equipment Used // bars, UE support Reps/Minutes 2x10 Comments VCs for slow controlled movement Gait Training Gait Activity 1 Description 200 ft amb Device Used none Surface flat Distance/Duration 200 ft Treatment Focus indep Comments SBA PT-OP-T Assessment and Plan Start: 07/26/18 16:33 Freq: Status: Active Protocol: Document 08/08/18 11:12 EA (Rec: 08/08/18 11:16 EA [id number]) Physical Therapy Assessment Assessment Summary Assessment Improved ambulation without support and able to apply correct technique with low chair sitting and standing., Physical Therapy Plan Next Visit Focus/Plan Next Note Type Treatment Note Next Visit Plan Progress as tolerated
--- NOTE | 2018-08-10 12:00 | PT.OTN ---
Current Diagnoses Cerebral infarction, unspecified (08/10/18) Hemiplegia and hemiparesis following cerebral infarction affecting left non-dominant side (08/10/18) Physical Therapy Treatment Note PT-OP-A Visit Information Start: 07/26/18 16:33 Freq: Status: Active Protocol: Document 08/10/18 09:45 BS (Rec: 08/10/18 16:11 BS [email or web address]) Out-Patient Physical Therapy Visit Information Visit Information Visit Type Treatment Note Visit Start Time 09:00 Visit Stop Time 09:45 Total Visit Minutes 45 Visit Number 6 PT-OP-B Current Condition Start: 07/26/18 16:33 Freq: Status: Active Protocol: Document 07/27/18 11:20 [facility] (Rec: 07/27/18 12:16 [facility] [id number]) Current Condition History of Current Condition Current Complaints CVA left sided weakness History of Current Condition Pt was brought to hospital for TIA 07/21 and was d/c from hospital Saturday 07/22. has been helping with transfers and getting out of bed. He was able to get out of bed last night to use the barthroom indep but is typically requiring assistance. He reports dizziness when he is standing and does anything letting go of the walker. He also has cancer w/recent chemo and internal bleeding with dec hematocrit. Pt also has hx of B hip replacements in 90s and R HS issue. No falls in the past year. Pt reports entire L side hurts and feels like LUE coordination is dec. Hx of R rotator cuff injury. Treatment Goals Patient/Caregiver Goals Be back to way he was before: Used to go the gym -treadmill 15 min and stretches on machines; walk without a device; be able to push the self propell mower, get in/out of the car PT-OP-C Subjective Start: 07/26/18 16:33 Freq: Status: Active Protocol: Document 08/10/18 09:45 BS (Rec: 08/10/18 16:11 BS [email or web address]) OP-PT Subjective Patient Comments Patient Comments Pt states his quads were a little sore and he notices they fatigue quickly during PT . PT-OP-E Functional Tests Start: 07/26/18 16:33 Freq: Status: Active Protocol: Document 07/27/18 11:20 [facility] (Rec: 07/27/18 13:47 [facility] [email or web address]) Functional Tests Timed Up and Go (TUG) Score 32 sec Tinetti Balance and Gait Assessment Composite Score 15 Composite Score Impairment Rating 40 to <60% Impaired (Score 12- 16) PT-OP-G Mobility & Gait Start: 07/26/18 16:33 Freq: Status: Active Protocol: Document 07/27/18 11:20 [facility] (Rec: 07/27/18 13:47 [facility] [email or web address]) OP Mobility Evaluation Bed Mobility Supine to and from Sit Supine to sit mod A & sit to supine SBA OP Gait Assessment Comments Gait Comments Pt amb with FWW with dec step clearance and step length. PT-OP-M Strength Start: 07/26/18 16:33 Freq: Status: Active Protocol: Document 07/27/18 11:20 [facility] (Rec: 07/27/18 12:16 [facility] [id number]) Hip Strength Hip Manual Muscle Testing Right Flexion (L2) 4- Good- Abduction 4- Good- External Rotation 4 Good Left Flexion (L2) 4- Good- External Rotation 3 Fair Knee Strength Knee Manual Muscle Testing Right Flexion (S2) 4+ Good+ Extension (L3) 4+ Good+ Left Flexion (S2) 4 Good Extension (L3) 4 Good Ankle/Foot Strength Ankle and Foot Manual Muscle Testing Right Dorsiflexion (L4) 5 Normal Plantarflexion (S1) 5 Normal Left Dorsiflexion (L4) 4 Good Plantarflexion (S1) 4 Good PT-OP-Q Treatments Start: 07/26/18 16:33 Freq: Status: Active Protocol: Document 08/10/18 09:45 BS (Rec: 08/10/18 16:11 BS [email or web address]) Therapeutic Exercises Supine Exercises SLR Supine Exercise Name SLR Side bilateral Equipment Used 3# Reps/Minutes 2x10 Comments VCs for eccentric lowering control bridge Supine Exercise Name bridge Comments held today. back pain with supine position. Sitting Exercises 1 Sitting Exercise Name LAQs Side bilateral Resistance 2# Reps/Minutes 2x10 Comments VCs to avoid compensating with trunk extension Standing Exercises 5 Standing Exercise Name LUNGES WITH SUPPORT PRN Side bilateral Resistance //bars Reps/Minutes 10x each Comments PARTIAL 4 Standing Exercise Name Hamstring Curls Resistance 3# Equipment Used // bars, UE support Reps/Minutes 2x12 3 Standing Exercise Name Hip extension Side bilateral Equipment Used // bars UE support Reps/Minutes 2x10 Comments VCs for knee extension 2 Standing Exercise Name Calf Raises Side bilateral Resistance 2# wts Equipment Used // bars, UE support Reps/Minutes 2x10 1 Standing Exercise Name Hip Abduction Resistance 2# Equipment Used // bars, UE support Reps/Minutes 2x10 Comments VCs for slow controlled movement Neuro Re-Education Treatment Balance Activities 2 Details Balloon Balance Surface blue foam pods Equipment // bars Comments WBOS on foam pods. balloon reaching in/out of PREM with CGA behind pt. 1 Details Alternating Marches Equipment // bars Reps/Duration 4# ankle weights Comments Cues for slowing down, increasing SLS time PT-OP-T Assessment and Plan Start: 07/26/18 16:33 Freq: Status: Active Protocol: Document 08/10/18 09:45 BS (Rec: 08/10/18 16:11 BS [email or web address]) Physical Therapy Assessment Assessment Summary Assessment Pt to PT today with use of R forearm crutch, present for session. Pt able to ambulate without forearm crutch in clinic and demo'd good balance. He tolerated B LE strengthening and balance, does become fatigued toward end of session. Physical Therapy Plan Next Visit Focus/Plan Next Note Type Treatment Note Next Visit Plan Progress B LE strengthening and balance activities as able .
--- NOTE | 2018-08-12 17:36 | PT.OTN ---
Current Diagnoses Cerebral infarction, unspecified (08/12/18) Hemiplegia and hemiparesis following cerebral infarction affecting left non-dominant side (08/12/18) Physical Therapy Treatment Note PT-OP-A Visit Information Start: 07/26/18 16:33 Freq: Status: Active Protocol: Document 08/12/18 16:00 [facility] (Rec: 08/12/18 17:36 [email or web address]) Out-Patient Physical Therapy Visit Information Visit Information Visit Type Treatment Note Visit Start Time 16:00 Visit Stop Time 16:45 Total Visit Minutes 45 Visit Number 7 Number of HOG KILLER Visits 0 PT-OP-B Current Condition Start: 07/26/18 16:33 Freq: Status: Active Protocol: Document 07/27/18 11:20 [facility] (Rec: 07/27/18 12:16 [facility] [id number]) Current Condition History of Current Condition Current Complaints CVA left sided weakness History of Current Condition Pt was brought to hospital for TIA 07/21 and was d/c from hospital Saturday 07/22. has been helping with transfers and getting out of bed. He was able to get out of bed last night to use the barthroom indep but is typically requiring assistance. He reports dizziness when he is standing and does anything letting go of the walker. He also has cancer w/recent chemo and internal bleeding with dec hematocrit. Pt also has hx of B hip replacements in s and R HS issue. No falls in the past year. Pt reports entire L side hurts and feels like LUE coordination is dec. Hx of R rotator cuff injury. Treatment Goals Patient/Caregiver Goals Be back to way he was before: Used to go the gym -treadmill 15 min and stretches on machines; walk without a device; be able to push the self propell mower, get in/out of the car PT-OP-C Subjective Start: 07/26/18 16:33 Freq: Status: Active Protocol: Document 08/12/18 16:00 HH (Rec: 08/12/18 17:36 HH [email or web address]) OP-PT Subjective Patient Comments Patient Comments my quad always feel stiff and sore. PT-OP-E Functional Tests Start: 07/26/18 16:33 Freq: Status: Active Protocol: Document 07/27/18 11:20 [facility] (Rec: 07/27/18 13:47 [facility] [email or web address]) Functional Tests Timed Up and Go (TUG) Score 32 sec Tinetti Balance and Gait Assessment Composite Score 15 Composite Score Impairment Rating 40 to <60% Impaired (Score 12- 16) PT-OP-G Mobility & Gait Start: 07/26/18 16:33 Freq: Status: Active Protocol: Document 07/27/18 11:20 [facility] (Rec: 07/27/18 13:47 [facility] [email or web address]) OP Mobility Evaluation Bed Mobility Supine to and from Sit Supine to sit mod A & sit to supine SBA OP Gait Assessment Comments Gait Comments Pt amb with FWW with dec step clearance and step length. PT-OP-M Strength Start: 07/26/18 16:33 Freq: Status: Active Protocol: Document 07/27/18 11:20 [facility] (Rec: 07/27/18 12:16 [facility] [id number]) Hip Strength Hip Manual Muscle Testing Right Flexion (L2) 4- Good- Abduction 4- Good- External Rotation 4 Good Left Flexion (L2) 4- Good- External Rotation 3 Fair Knee Strength Knee Manual Muscle Testing Right Flexion (S2) 4+ Good+ Extension (L3) 4+ Good+ Left Flexion (S2) 4 Good Extension (L3) 4 Good Ankle/Foot Strength Ankle and Foot Manual Muscle Testing Right Dorsiflexion (L4) 5 Normal Plantarflexion (S1) 5 Normal Left Dorsiflexion (L4) 4 Good Plantarflexion (S1) 4 Good PT-OP-Q Treatments Start: 07/26/18 16:33 Freq: Status: Active Protocol: Document 08/12/18 16:00 (Rec: 08/12/18 17:36 [email or web address]) Cardio Equipment Recumbent Stepper (Sci-Fit) Duration (Minutes) 5 Resistance 4 Therapeutic Exercises Standing Exercises fwd walk Side bilateral Equipment Used green loop band Reps/Minutes 5 mins lateral walk Side bilateral Equipment Used green loop band Reps/Minutes 5 mins SLS on L Side left Equipment Used grab bar Reps/Minutes 5 mins Comments finger touch on grab bar hurdles Side left Equipment Used 1 rozina Reps/Minutes 10 mins Comments step over with RLE without UE support sit to stand Side bilateral Equipment Used grab bar Reps/Minutes 10 x 3 5 Standing Exercise Name LUNGES WITH SUPPORT PRN Side bilateral Resistance //bars Reps/Minutes 10x each x2 Comments PARTIAL Manual Therapy Treatment Soft Tissue Mobilization b quad Mobilization Type Rolling Strumming Intensity/Depth Moderate Body Position Hooklying Comments distal to proximal stroke PT-OP-T Assessment and Plan Start: 07/26/18 16:33 Freq: Status: Active Protocol: Document 08/12/18 16:00 HH (Rec: 08/12/18 17:36 HH [email or web address]) Physical Therapy Assessment Assessment Summary Assessment pt milad tx well. Tx focused on facilitating single leg stance on L, B LE strengthening and manual therapy on quad. Pt feels very good and less stiff after quad STM. Physical Therapy Plan Next Visit Focus/Plan Next Note Type Treatment Note Next Visit Plan Progress B LE strengthening and balance activities as able .
--- NOTE | 2018-08-16 11:29 | PT.OTN ---
Current Diagnoses Cerebral infarction, unspecified (08/16/18) Hemiplegia and hemiparesis following cerebral infarction affecting left non-dominant side (08/16/18) Physical Therapy Treatment Note PT-OP-A Visit Information Start: 07/26/18 16:33 Freq: Status: Active Protocol: Document 08/16/18 11:18 [facility] (Rec: 08/16/18 11:29 [email or web address]) Out-Patient Physical Therapy Visit Information Visit Information Visit Type Treatment Note Visit Start Time 10:30 Visit Stop Time 11:15 Total Visit Minutes 45 Visit Number 8 Number of CLOTH COVERER Visits 1 PT-OP-B Current Condition Start: 07/26/18 16:33 Freq: Status: Active Protocol: Document 07/27/18 11:20 [facility] (Rec: 07/27/18 12:16 [facility] [id number]) Current Condition History of Current Condition Current Complaints CVA left sided weakness History of Current Condition Pt was brought to hospital for TIA 07/21 and was d/c from hospital Saturday 07/22. has been helping with transfers and getting out of bed. He was able to get out of bed last night to use the barthroom indep but is typically requiring assistance. He reports dizziness when he is standing and does anything letting go of the walker. He also has cancer w/recent chemo and internal bleeding with dec hematocrit. Pt also has hx of B hip replacements in and R HS issue. No falls in the past year. Pt reports entire L side hurts and feels like LUE coordination is dec. Hx of R rotator cuff injury. Treatment Goals Patient/Caregiver Goals Be back to way he was before: Used to go the gym -treadmill 15 min and stretches on machines; walk without a device; be able to push the self propell mower, get in/out of the car PT-OP-C Subjective Start: 07/26/18 16:33 Freq: Status: Active Protocol: Document 08/16/18 11:18 SA (Rec: 08/16/18 11:29 SA [email or web address]) OP-PT Subjective Patient Comments Patient Comments Feeling pretty good today, no longer using FWW PT-OP-E Functional Tests Start: 07/26/18 16:33 Freq: Status: Active Protocol: Document 07/27/18 11:20 [facility] (Rec: 07/27/18 13:47 [facility] [email or web address]) Functional Tests Timed Up and Go (TUG) Score 32 sec Tinetti Balance and Gait Assessment Composite Score 15 Composite Score Impairment Rating 40 to <60% Impaired (Score 12- 16) PT-OP-G Mobility & Gait Start: 07/26/18 16:33 Freq: Status: Active Protocol: Document 07/27/18 11:20 [facility] (Rec: 07/27/18 13:47 [facility] [email or web address]) OP Mobility Evaluation Bed Mobility Supine to and from Sit Supine to sit mod A & sit to supine SBA OP Gait Assessment Comments Gait Comments Pt amb with FWW with dec step clearance and step length. PT-OP-M Strength Start: 07/26/18 16:33 Freq: Status: Active Protocol: Document 07/27/18 11:20 [facility] (Rec: 07/27/18 12:16 [facility] [id number]) Hip Strength Hip Manual Muscle Testing Right Flexion (L2) 4- Good- Abduction 4- Good- External Rotation 4 Good Left Flexion (L2) 4- Good- External Rotation 3 Fair Knee Strength Knee Manual Muscle Testing Right Flexion (S2) 4+ Good+ Extension (L3) 4+ Good+ Left Flexion (S2) 4 Good Extension (L3) 4 Good Ankle/Foot Strength Ankle and Foot Manual Muscle Testing Right Dorsiflexion (L4) 5 Normal Plantarflexion (S1) 5 Normal Left Dorsiflexion (L4) 4 Good Plantarflexion (S1) 4 Good PT-OP-Q Treatments Start: 07/26/18 16:33 Freq: Status: Active Protocol: Document 08/16/18 11:18 [facility] (Rec: 08/16/18 11:29 [email or web address]) Gym Equipment Shuttle Balance Blue Details tandem, NBOS Reps/Duration 5 min Comments head turns, UE movements Therapeutic Exercises Standing Exercises fwd walk Side bilateral Equipment Used green loop band Reps/Minutes 3 mins lateral walk Side bilateral Equipment Used green loop band Reps/Minutes 3 mins SLS on L Side left Equipment Used grab bar Reps/Minutes 3 mins Comments finger touch on grab bar hurdles Side left Equipment Used 1 rozina Reps/Minutes 5 min Comments step over with RLE without UE support sit to stand Side bilateral Equipment Used grab bar Reps/Minutes 15x 5 Standing Exercise Name LUNGES WITH SUPPORT PRN Side bilateral Resistance bar Reps/Minutes 2 lengths Comments PARTIAL 4 Standing Exercise Name Hamstring Curls Resistance 3# Equipment Used // bars, UE support Reps/Minutes 2 x 10 3 Standing Exercise Name Hip extension Side bilateral Resistance 3# Equipment Used // bars UE support Reps/Minutes 10 x each Comments VCs for knee extension 2 Standing Exercise Name Calf Raises Side bilateral Equipment Used // bars, UE support Reps/Minutes 2x10 1 Standing Exercise Name Hip Abduction Side bilateral Resistance 3# Equipment Used // bars, UE support Reps/Minutes 10x each Gait Training Gait Activity Forearm cruch gait Description speed changes Device Used forearm crutch RUE Level of Assistance SBA Surface level Distance/Duration 300 feet Treatment Focus heel strike Neuro Re-Education Treatment Balance Activities 1 Details Alternating Marches Equipment bar Reps/Duration 3# Comments Cues for slowing down, increasing SLS time PT-OP-T Assessment and Plan Start: 07/26/18 16:33 Freq: Status: Active Protocol: Document 08/16/18 11:18 [facility] (Rec: 08/16/18 11:29 [facility] [email or web address]) Physical Therapy Assessment Assessment Summary Assessment Focused on LE strengthening and balance stability, pt tolerating progressions well, still fatigues quickly. Pt using single forearm crutch in RUE safely. Physical Therapy Plan Next Visit Focus/Plan Next Note Type Treatment Note Next Visit Plan Progress B LE strengthening and balance activities as able .
--- NOTE | 2018-08-18 15:20 | PT.OTN ---
Current Diagnoses Cerebral infarction, unspecified (08/18/18) Hemiplegia and hemiparesis following cerebral infarction affecting left non-dominant side (08/18/18) Physical Therapy Treatment Note PT-OP-A Visit Information Start: 07/26/18 16:33 Freq: Status: Active Protocol: Document 08/18/18 15:20 [facility] (Rec: 08/18/18 16:42 [facility] [email or web address]) Out-Patient Physical Therapy Visit Information Visit Information Visit Type Treatment Note Visit Start Time 15:20 Visit Stop Time 16:04 Total Visit Minutes 44 Visit Number 9 Number of SHADOWGRAPH OPERATOR Visits 0 PT-OP-B Current Condition Start: 07/26/18 16:33 Freq: Status: Active Protocol: Document 07/27/18 11:20 [facility] (Rec: 07/27/18 12:16 [facility] [id number]) Current Condition History of Current Condition Current Complaints CVA left sided weakness History of Current Condition Pt was brought to hospital for TIA 07/21 and was d/c from hospital Saturday 07/22. has been helping with transfers and getting out of bed. He was able to get out of bed last night to use the barthroom indep but is typically requiring assistance. He reports dizziness when he is standing and does anything letting go of the walker. He also has cancer w/recent chemo and internal bleeding with dec hematocrit. Pt also has hx of B hip replacements in s and R HS issue. No falls in the past year. Pt reports entire L side hurts and feels like LUE coordination is dec. Hx of R rotator cuff injury. Treatment Goals Patient/Caregiver Goals Be back to way he was before: Used to go the gym -treadmill 15 min and stretches on machines; walk without a device; be able to push the self propell mower, get in/out of the car PT-OP-C Subjective Start: 07/26/18 16:33 Freq: Status: Active Protocol: Document 08/18/18 15:20 [facility] (Rec: 08/18/18 16:42 [facility] [email or web address]) OP-PT Subjective Patient Comments Patient Comments Pt states that he is compliant with his HEP. PT-OP-E Functional Tests Start: 07/26/18 16:33 Freq: Status: Active Protocol: Document 07/27/18 11:20 [facility] (Rec: 07/27/18 13:47 [facility] [email or web address]) Functional Tests Timed Up and Go (TUG) Score 32 sec Tinetti Balance and Gait Assessment Composite Score 15 Composite Score Impairment Rating 40 to <60% Impaired (Score 12- 16) PT-OP-G Mobility & Gait Start: 07/26/18 16:33 Freq: Status: Active Protocol: Document 07/27/18 11:20 [facility] (Rec: 07/27/18 13:47 [facility] [email or web address]) OP Mobility Evaluation Bed Mobility Supine to and from Sit Supine to sit mod A & sit to supine SBA OP Gait Assessment Comments Gait Comments Pt amb with FWW with dec step clearance and step length. PT-OP-M Strength Start: 07/26/18 16:33 Freq: Status: Active Protocol: Document 07/27/18 11:20 [facility] (Rec: 07/27/18 12:16 [facility] [id number]) Hip Strength Hip Manual Muscle Testing Right Flexion (L2) 4- Good- Abduction 4- Good- External Rotation 4 Good Left Flexion (L2) 4- Good- External Rotation 3 Fair Knee Strength Knee Manual Muscle Testing Right Flexion (S2) 4+ Good+ Extension (L3) 4+ Good+ Left Flexion (S2) 4 Good Extension (L3) 4 Good Ankle/Foot Strength Ankle and Foot Manual Muscle Testing Right Dorsiflexion (L4) 5 Normal Plantarflexion (S1) 5 Normal Left Dorsiflexion (L4) 4 Good Plantarflexion (S1) 4 Good PT-OP-Q Treatments Start: 07/26/18 16:33 Freq: Status: Active Protocol: Document 08/18/18 15:20 [facility] (Rec: 08/18/18 16:42 [facility] [email or web address]) Gym Equipment Shuttle Recovery Unilateral Squats Resistance 50 lbs Shuttle Recovery Platform Stable Reps/Time x15 each Bilateral Squats Resistance 75 lbs Shuttle Recovery Platform Stable Reps/Time x20 Shuttle Balance Red Details A/P normal stance Reps/Duration 4 min Blue Details tandem, NBOS, normal stance Reps/Duration 6 min Comments head turns, UE movements, perturbations with normal stance Therapeutic Exercises Standing Exercises lateral walk Side bilateral Equipment Used green loop band Reps/Minutes 5 mins Therapeutic Activity Therapeutic Activity 1 Name HEP- added lateral walk, TS, NBOS added Comments printout given Neuro Re-Education Treatment Balance Activities TS, NBOS Details UE movement, head movements, EC with NBOS Surface level Equipment rail Reps/Duration 5 min Other Activities Hurdles Details 2 lb AW Reps/Duration 8 laps x3 hurdles PT-OP-T Assessment and Plan Start: 07/26/18 16:33 Freq: Status: Active Protocol: Document 08/18/18 15:20 [facility] (Rec: 08/18/18 16:42 [facility] [email or web address]) Physical Therapy Assessment Assessment Summary Assessment Pt with greater difficulty in tandem stance with L foot posterior. has gait belt at home and willing to assist with balance training, added to HEP. Pt with tendency of BLE ER in standing, requires cuing for neutral positioning. Physical Therapy Plan Frequency and Duration Frequency of Treatment 3x/Week Duration of Treatment 3 months Plan of Care Start Date 07/27/18 Plan of Care End Date 10/26/18 Next Visit Focus/Plan Next Note Type Treatment Note Next Visit Plan gait training, standing balance- static and dynamic
--- NOTE | 2018-08-23 19:06 | PT.OTN ---
Current Diagnoses Cerebral infarction, unspecified (08/23/18) Hemiplegia and hemiparesis following cerebral infarction affecting left non-dominant side (08/23/18) Physical Therapy Treatment Note PT-OP-A Visit Information Start: 07/26/18 16:33 Freq: Status: Active Protocol: Document 08/23/18 16:45 [facility] (Rec: 08/23/18 19:06 [email or web address]) Out-Patient Physical Therapy Visit Information Visit Information Visit Type Treatment Note Visit Start Time 16:45 Visit Stop Time 17:30 Total Visit Minutes 45 Visit Number 10 Number of BOX STACKER Visits 0 PT-OP-B Current Condition Start: 07/26/18 16:33 Freq: Status: Active Protocol: Document 07/27/18 11:20 [facility] (Rec: 07/27/18 12:16 [facility] [id number]) Current Condition History of Current Condition Current Complaints CVA left sided weakness History of Current Condition Pt was brought to hospital for TIA 07/21 and was d/c from hospital Saturday 07/22. has been helping with transfers and getting out of bed. He was able to get out of bed last night to use the barthroom indep but is typically requiring assistance. He reports dizziness when he is standing and does anything letting go of the walker. He also has cancer w/recent chemo and internal bleeding with dec hematocrit. Pt also has hx of B hip replacements in s and R HS issue. No falls in the past year. Pt reports entire L side hurts and feels like LUE coordination is dec. Hx of R rotator cuff injury. Treatment Goals Patient/Caregiver Goals Be back to way he was before: Used to go the gym -treadmill 15 min and stretches on machines; walk without a device; be able to push the self propell mower, get in/out of the car PT-OP-C Subjective Start: 07/26/18 16:33 Freq: Status: Active Protocol: Document 08/23/18 16:45 [facility] (Rec: 08/23/18 19:06 [email or web address]) OP-PT Subjective Patient Comments Patient Comments pt states he has not been very active recently. C/O fatigue today. PT-OP-E Functional Tests Start: 07/26/18 16:33 Freq: Status: Active Protocol: Document 07/27/18 11:20 [facility] (Rec: 07/27/18 13:47 [facility] [email or web address]) Functional Tests Timed Up and Go (TUG) Score 32 sec Tinetti Balance and Gait Assessment Composite Score 15 Composite Score Impairment Rating 40 to <60% Impaired (Score 12- 16) PT-OP-G Mobility & Gait Start: 07/26/18 16:33 Freq: Status: Active Protocol: Document 07/27/18 11:20 [facility] (Rec: 07/27/18 13:47 [facility] [email or web address]) OP Mobility Evaluation Bed Mobility Supine to and from Sit Supine to sit mod A & sit to supine SBA OP Gait Assessment Comments Gait Comments Pt amb with FWW with dec step clearance and step length. PT-OP-M Strength Start: 07/26/18 16:33 Freq: Status: Active Protocol: Document 07/27/18 11:20 [facility] (Rec: 07/27/18 12:16 [facility] [id number]) Hip Strength Hip Manual Muscle Testing Right Flexion (L2) 4- Good- Abduction 4- Good- External Rotation 4 Good Left Flexion (L2) 4- Good- External Rotation 3 Fair Knee Strength Knee Manual Muscle Testing Right Flexion (S2) 4+ Good+ Extension (L3) 4+ Good+ Left Flexion (S2) 4 Good Extension (L3) 4 Good Ankle/Foot Strength Ankle and Foot Manual Muscle Testing Right Dorsiflexion (L4) 5 Normal Plantarflexion (S1) 5 Normal Left Dorsiflexion (L4) 4 Good Plantarflexion (S1) 4 Good PT-OP-Q Treatments Start: 07/26/18 16:33 Freq: Status: Active Protocol: Document 08/23/18 16:45 (Rec: 08/23/18 19:06 [email or web address]) Therapeutic Exercises Standing Exercises step up Side bilateral Equipment Used 5 inch box and //bar Reps/Minutes 5 mins Comments without UE support fwd walk Side bilateral Equipment Used green loop band Reps/Minutes 3 mins lateral walk Side bilateral Equipment Used green loop band Reps/Minutes 5 mins SLS on L Side left Equipment Used grab bar Reps/Minutes 5 mins Comments finger touch on grab bar hurdles Side left Equipment Used 1 rozina Reps/Minutes 5 mins Comments step over with RLE without UE support sit to stand Side bilateral Equipment Used grab bar Reps/Minutes 10 x 3 Manual Therapy Treatment Soft Tissue Mobilization b quad Mobilization Type Rolling Strumming Intensity/Depth Moderate Body Position Hooklying Comments distal to proximal stroke Neuro Re-Education Treatment Balance Activities TS, NBOS Details UE movement, head movements, EC with NBOS Surface level Equipment rail Reps/Duration 5 min Other Activities Hurdles Details 2 lb AW Reps/Duration 8 laps x3 hurdles PT-OP-T Assessment and Plan Start: 07/26/18 16:33 Freq: Status: Active Protocol: Document 08/23/18 16:45 [facility] (Rec: 08/23/18 19:06 [facility] [email or web address]) Physical Therapy Assessment Assessment Summary Assessment Pt milad tx well with focus on single leg balance and strengthening. Cont to show better balance and strength on RLE> LLE. Physical Therapy Plan Next Visit Focus/Plan Next Note Type Treatment Note Next Visit Plan gait training, single leg strengthening and balance standing balance- static and dynamic
--- NOTE | 2018-09-02 11:00 | PT.OTN ---
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 (Rec: 07/27/18 12:16 [facility] [id number]) Current Condition History of Current Condition Current Complaints CVA left sided weakness History of Current Condition Pt was brought to hospital for TIA 07/21 and was d/c from hospital Saturday 07/22. has been helping with transfers and getting out of bed. He was able to get out of bed last night to use the barthroom indep but is typically requiring assistance. He reports dizziness when he is standing and does anything letting go of the walker. He also has cancer w/recent chemo and internal bleeding with dec hematocrit. Pt also has hx of B hip replacements in s and R HS issue. No falls in the past year. Pt reports entire L side hurts and feels like LUE coordination is dec. Hx of R rotator cuff injury. Treatment Goals Patient/Caregiver Goals Be back to way he was before: Used to go the gym -treadmill 15 min and stretches on machines; walk without a device; be able to push the self propell mower, get in/out of the car PT-OP-C Subjective Start: 07/26/18 16:33 Freq: Status: Active Protocol: Document 09/02/18 11:00 [facility] (Rec: 09/02/18 17:48 [facility] [id number]) OP-PT Subjective Patient Comments Patient Comments He had to go to [facility] for testing on his stomach. He does not like using any of the machines at the clinic. His reports he is more tired today due to the testing in [facility]. PT-OP-E Functional Tests Start: 07/26/18 16:33 Freq: Status: Active Protocol: Document 07/27/18 11:20 [facility] (Rec: 07/27/18 13:47 [facility] [email or web address]) Functional Tests Timed Up and Go (TUG) Score 32 sec Tinetti Balance and Gait Assessment Composite Score 15 Composite Score Impairment Rating 40 to <60% Impaired (Score 12- 16) PT-OP-G Mobility & Gait Start: 07/26/18 16:33 Freq: Status: Active Protocol: Document 07/27/18 11:20 [facility] (Rec: 07/27/18 13:47 [facility] [email or web address]) OP Mobility Evaluation Bed Mobility Supine to and from Sit Supine to sit mod A & sit to supine SBA OP Gait Assessment Comments Gait Comments Pt amb with FWW with dec step clearance and step length. PT-OP-M Strength Start: 07/26/18 16:33 Freq: Status: Active Protocol: Document 07/27/18 11:20 [facility] (Rec: 07/27/18 12:16 [facility] [id number]) Hip Strength Hip Manual Muscle Testing Right Flexion (L2) 4- Good- Abduction 4- Good- External Rotation 4 Good Left Flexion (L2) 4- Good- External Rotation 3 Fair Knee Strength Knee Manual Muscle Testing Right Flexion (S2) 4+ Good+ Extension (L3) 4+ Good+ Left Flexion (S2) 4 Good Extension (L3) 4 Good Ankle/Foot Strength Ankle and Foot Manual Muscle Testing Right Dorsiflexion (L4) 5 Normal Plantarflexion (S1) 5 Normal Left Dorsiflexion (L4) 4 Good Plantarflexion (S1) 4 Good PT-OP-Q Treatments Start: 07/26/18 16:33 Freq: Status: Active Protocol: Document 09/02/18 11:00 [facility] (Rec: 09/02/18 17:48 [facility] [id number]) Therapeutic Exercises Standing Exercises step up Side bilateral Equipment Used 5 inch box and //bar Reps/Minutes 5 mins Comments without UE support fwd walk Side bilateral Equipment Used green loop band Reps/Minutes 3 mins lateral walk Side bilateral Equipment Used green loop band Reps/Minutes 5 mins hurdles Side left Equipment Used 1 rozina Reps/Minutes 5 mins Comments step over with RLE without UE support sit to stand Side bilateral Equipment Used grab bar Reps/Minutes x 10 reps Comments verbal cues needed for technique 4 Standing Exercise Name Hamstring Curls Resistance 3# Equipment Used // bars, UE support Reps/Minutes 2 x 10 3 Standing Exercise Name Hip extension Side bilateral Resistance 3# Equipment Used // bars UE support Reps/Minutes 10 x each Comments VCs for knee extension 2 Standing Exercise Name Calf Raises Side bilateral Equipment Used // bars, UE support Reps/Minutes 2x10 1 Standing Exercise Name Hip Abduction Side bilateral Resistance 3# Equipment Used // bars, UE support Reps/Minutes 10x each Neuro Re-Education Treatment Balance Activities TS, NBOS Details tandem and narrow base of support Surface level Equipment // bars Reps/Duration 5 min Comments UE movement, head movements, EC with NBOS 4 Details Single Limb standing Surface firm Equipment // bars Reps/Duration 3 reps each side 1 Details Alternating Marches Equipment bar Reps/Duration 3# Comments Cues for slowing down, increasing SLS time PT-OP-T Assessment and Plan Start: 07/26/18 16:33 Freq: Status: Active Protocol: Document 09/02/18 11:00 [facility] (Rec: 09/02/18 17:48 [facility] [id number]) Physical Therapy Assessment Goals functional ability Short Term Goal (STG) Pt will be indep with bed mobility & transfers STG Duration 09/09/18 Migration Specialist Goal (LTG) Pt will be able to get in and out of car safely and independently LTG Duration 10/26/18 balance Short Term Goal (STG) Pt will score 19 or greater to be at lower risk for falls. STG Duration 08/28/18 Migration Specialist Goal (LTG) Pt will score 24 or greater on tinnetti to demonstrate improved balance and dec risk of falls LTG Duration 10/26/18 gait Short Term Goal (STG) Pt will be able to amb safely with SPC for 200ft STG Duration 09/08/18 Migration Specialist Goal (LTG) Pt will be able to amb safely without AD for 250ft LTG Duration 10/26/18 Progress Towards Goals Progress Towards Goals Progressing Toward Goals Assessment Summary Assessment Pt to therapy with forearm crutch. He appears frustrated with ongoing medical issues and testing. He verbalized that he does not like to use the machines at the clinic so focused on other exercises/ activities today. His is present for therapy today. Berny tolerated the treatment well with mild to moderate fatigue. Physical Therapy Plan Frequency and Duration Frequency of Treatment 3x/Week Duration of Treatment 3 months Plan of Care Start Date 07/27/18 Plan of Care End Date 10/26/18 Next Visit Focus/Plan Next Note Type Treatment Note Next Visit Plan gait training, single leg strengthening and balance standing balance- static and dynamic
--- NOTE | 2018-09-06 09:30 | PT.OTN ---
Current Diagnoses Cerebral infarction, unspecified (09/02/18) Hemiplegia and hemiparesis following cerebral infarction affecting left non-dominant side (09/02/18) Physical Therapy Treatment Note PT-OP-A Visit Information Start: 07/26/18 16:33 Freq: Status: Active Protocol: Document 09/02/18 11:00 DLM (Rec: 09/02/18 17:48 DLM [id number]) Out-Patient Physical Therapy Visit Information Visit Information Visit Type Treatment Note Visit Start Time 11:00 Visit Stop Time 11:44 Total Visit Minutes 44 Visit Number 11 Evaluation Information Evaluation Date 07/27/18 PT-OP-B Current Condition Start: 07/26/18 16:33 Freq: Status: Active Protocol: Document 07/27/18 11:20 LR (Rec: 07/27/18 12:16 [facility] [id number]) Current Condition History of Current Condition Current Complaints CVA left sided weakness History of Current Condition Pt was brought to hospital for TIA 07/21 and was d/c from hospital Saturday 07/22. has been helping with transfers and getting out of bed. He was able to get out of bed last night to use the barthroom indep but is typically requiring assistance. He reports dizziness when he is standing and does anything letting go of the walker. He also has cancer w/recent chemo and internal bleeding with dec hematocrit. Pt also has hx of B hip replacements in s and R HS issue. No falls in the past year. Pt reports entire L side hurts and feels like LUE coordination is dec. Hx of R rotator cuff injury. Treatment Goals Patient/Caregiver Goals Be back to way he was before: Used to go the gym -treadmill 15 min and stretches on machines; walk without a device; be able to push the self propell mower, get in/out of the car PT-OP-C Subjective Start: 07/26/18 16:33 Freq: Status: Active Protocol: Document 09/06/18 09:27 EA (Rec: 09/06/18 09:30 EA [id number]) OP-PT Subjective Patient Comments Patient Comments Patient received on foot with his today; he stated that he woke up at 1 a.m today and unable to get back sleep and not feeling good. He and I agreeable to cancel the session today as his main treatment plan is strengthening and endurance exercises which would be affected with his current energy level. PT-OP-E Functional Tests Start: 07/26/18 16:33 Freq: Status: Active Protocol: Document 07/27/18 11:20 [facility] (Rec: 07/27/18 13:47 [facility] [id number]) Functional Tests Timed Up and Go (TUG) Score 32 sec Tinetti Balance and Gait Assessment Composite Score 15 Composite Score Impairment Rating 40 to <60% Impaired (Score 12- 16) PT-OP-G Mobility & Gait Start: 07/26/18 16:33 Freq: Status: Active Protocol: Document 07/27/18 11:20 [facility] (Rec: 07/27/18 13:47 [facility] [id number]) OP Mobility Evaluation Bed Mobility Supine to and from Sit Supine to sit mod A & sit to supine SBA OP Gait Assessment Comments Gait Comments Pt amb with FWW with dec step clearance and step length. PT-OP-M Strength Start: 07/26/18 16:33 Freq: Status: Active Protocol: Document 07/27/18 11:20 [facility] (Rec: 07/27/18 12:16 [facility] [id number]) Hip Strength Hip Manual Muscle Testing Right Flexion (L2) 4- Good- Abduction 4- Good- External Rotation 4 Good Left Flexion (L2) 4- Good- External Rotation 3 Fair Knee Strength Knee Manual Muscle Testing Right Flexion (S2) 4+ Good+ Extension (L3) 4+ Good+ Left Flexion (S2) 4 Good Extension (L3) 4 Good Ankle/Foot Strength Ankle and Foot Manual Muscle Testing Right Dorsiflexion (L4) 5 Normal Plantarflexion (S1) 5 Normal Left Dorsiflexion (L4) 4 Good Plantarflexion (S1) 4 Good PT-OP-Q Treatments Start: 07/26/18 16:33 Freq: Status: Active Protocol: Document 09/02/18 11:00 DLM (Rec: 09/02/18 17:48 DL [id number]) Therapeutic Exercises Standing Exercises step up Side bilateral Equipment Used 5 inch box and //bar Reps/Minutes 5 mins Comments without UE support fwd walk Side bilateral Equipment Used green loop band Reps/Minutes 3 mins lateral walk Side bilateral Equipment Used green loop band Reps/Minutes 5 mins hurdles Side left Equipment Used 1 rozina Reps/Minutes 5 mins Comments step over with RLE without UE support sit to stand Side bilateral Equipment Used grab bar Reps/Minutes x 10 reps Comments verbal cues needed for technique 4 Standing Exercise Name Hamstring Curls Resistance 3# Equipment Used // bars, UE support Reps/Minutes 2 x 10 3 Standing Exercise Name Hip extension Side bilateral Resistance 3# Equipment Used // bars UE support Reps/Minutes 10 x each Comments VCs for knee extension 2 Standing Exercise Name Calf Raises Side bilateral Equipment Used // bars, UE support Reps/Minutes 2x10 1 Standing Exercise Name Hip Abduction Side bilateral Resistance 3# Equipment Used // bars, UE support Reps/Minutes 10x each Neuro Re-Education Treatment Balance Activities TS, NBOS Details tandem and narrow base of support Surface level Equipment // bars Reps/Duration 5 min Comments UE movement, head movements, EC with NBOS 4 Details Single Limb standing Surface firm Equipment // bars Reps/Duration 3 reps each side 1 Details Alternating Marches Equipment bar Reps/Duration 3# Comments Cues for slowing down, increasing SLS time PT-OP-T Assessment and Plan Start: 07/26/18 16:33 Freq: Status: Active Protocol: Document 09/02/18 11:00 DLM (Rec: 09/02/18 17:48 DLM [id number]) Physical Therapy Assessment Goals functional ability Short Term Goal (STG) Pt will be indep with bed mobility & transfers STG Duration 09/09/18 [employer] Goal (LTG) Pt will be able to get in and out of car safely and independently LTG Duration 10/26/18 balance Short Term Goal (STG) Pt will score 19 or greater to be at lower risk for falls. STG Duration 08/28/18 Prison Goal (LTG) Pt will score 24 or greater on tinnetti to demonstrate improved balance and dec risk of falls LTG Duration 10/26/18 gait Short Term Goal (STG) Pt will be able to amb safely with SPC for 200ft STG Duration 09/08/18 Prison Goal (LTG) Pt will be able to amb safely without AD for 250ft LTG Duration 10/26/18 Progress Towards Goals Progress Towards Goals Progressing Toward Goals Assessment Summary Assessment Pt to therapy with forearm crutch. He appears frustrated with ongoing medical issues and testing. He verbalized that he does not like to use the machines at the clinic so focused on other exercises/ activities today. His is present for therapy today. Berny tolerated the treatment well with mild to moderate fatigue. Physical Therapy Plan Frequency and Duration Frequency of Treatment 3x/Week Duration of Treatment 3 months Plan of Care Start Date 07/27/18 Plan of Care End Date 10/26/18 Next Visit Focus/Plan Next Note Type Treatment Note Next Visit Plan gait training, single leg strengthening and balance standing balance- static and dynamic
--- NOTE | 2018-09-13 16:02 | PT.OTN ---
Current Diagnoses Cerebral infarction, unspecified (09/13/18) Hemiplegia and hemiparesis following cerebral infarction affecting left non-dominant side (09/13/18) Physical Therapy Treatment Note PT-OP-A Visit Information Start: 07/26/18 16:33 Freq: Status: Active Protocol: Document 09/13/18 15:56 EA (Rec: 09/13/18 16:01 EA [id number]) Out-Patient Physical Therapy Visit Information Visit Information Visit Type Treatment Note Visit Start Time 15:15 Visit Stop Time 16:00 Total Visit Minutes 40 Visit Number 12 Number of MANAGEMENT CONSULTING Visits 0 PT-OP-B Current Condition Start: 07/26/18 16:33 Freq: Status: Active Protocol: Document 07/27/18 11:20 [facility] (Rec: 07/27/18 12:16 [facility] [id number]) Current Condition History of Current Condition Current Complaints CVA left sided weakness History of Current Condition Pt was brought to hospital for TIA 07/21 and was d/c from hospital Saturday 07/22. has been helping with transfers and getting out of bed. He was able to get out of bed last night to use the barthroom indep but is typically requiring assistance. He reports dizziness when he is standing and does anything letting go of the walker. He also has cancer w/recent chemo and internal bleeding with dec hematocrit. Pt also has hx of B hip replacements in and R HS issue. No falls in the past year. Pt reports entire L side hurts and feels like LUE coordination is dec. Hx of R rotator cuff injury. Treatment Goals Patient/Caregiver Goals Be back to way he was before: Used to go the gym -treadmill 15 min and stretches on machines; walk without a device; be able to push the self propell mower, get in/out of the car PT-OP-C Subjective Start: 07/26/18 16:33 Freq: Status: Active Protocol: Document 09/13/18 15:56 EA (Rec: 09/13/18 16:01 EA [id number]) OP-PT Subjective Patient Comments Patient Comments Pt reports he was able to work on his backyard today; states energy is much better. PT-OP-E Functional Tests Start: 07/26/18 16:33 Freq: Status: Active Protocol: Document 07/27/18 11:20 [facility] (Rec: 07/27/18 13:47 [facility] [id number]) Functional Tests Timed Up and Go (TUG) Score 32 sec Tinetti Balance and Gait Assessment Composite Score 15 Composite Score Impairment Rating 40 to <60% Impaired (Score 12- 16) PT-OP-G Mobility & Gait Start: 07/26/18 16:33 Freq: Status: Active Protocol: Document 07/27/18 11:20 [facility] (Rec: 07/27/18 13:47 [facility] [id number]) OP Mobility Evaluation Bed Mobility Supine to and from Sit Supine to sit mod A & sit to supine SBA OP Gait Assessment Comments Gait Comments Pt amb with FWW with dec step clearance and step length. PT-OP-M Strength Start: 07/26/18 16:33 Freq: Status: Active Protocol: Document 07/27/18 11:20 [facility] (Rec: 07/27/18 12:16 [facility] [id number]) Hip Strength Hip Manual Muscle Testing Right Flexion (L2) 4- Good- Abduction 4- Good- External Rotation 4 Good Left Flexion (L2) 4- Good- External Rotation 3 Fair Knee Strength Knee Manual Muscle Testing Right Flexion (S2) 4+ Good+ Extension (L3) 4+ Good+ Left Flexion (S2) 4 Good Extension (L3) 4 Good Ankle/Foot Strength Ankle and Foot Manual Muscle Testing Right Dorsiflexion (L4) 5 Normal Plantarflexion (S1) 5 Normal Left Dorsiflexion (L4) 4 Good Plantarflexion (S1) 4 Good PT-OP-Q Treatments Start: 07/26/18 16:33 Freq: Status: Active Protocol: Document 09/13/18 15:56 EA (Rec: 09/13/18 16:01 EA [id number]) Cardio Equipment Recumbent Stepper (Sci-Fit) Duration (Minutes) 7 Resistance 2 Gym Equipment Shuttle Recovery Unilateral Squats Resistance 50 lbs Shuttle Recovery Platform Stable Reps/Time x15 each Bilateral Squats Resistance 75 lbs Shuttle Recovery Platform Stable Reps/Time x20 x 2 Shuttle Balance Red Details A/P normal stance Reps/Duration 5 min Comments arm challenge; head turns Blue Details tandem, NBOS, normal stance Reps/Duration 6 min Comments head turns, UE movements, perturbations with normal stance Sport Cord 1 Exercise Details Fwd/BWD/SWD steps Cord/Resistance red Reps/Duration x 5 laps each Therapeutic Exercises Standing Exercises sit to stand Side bilateral Equipment Used grab bar Reps/Minutes x 10 reps Comments verbal cues needed for technique 1 Standing Exercise Name Hip Abduction Side bilateral Resistance 3# Equipment Used // bars, UE support Reps/Minutes 10x each Neuro Re-Education Treatment Other Activities Hurdles Details 2 lb AW Reps/Duration 4 laps x5 hurdles PT-OP-T Assessment and Plan Start: 07/26/18 16:33 Freq: Status: Active Protocol: Document 09/13/18 15:56 EA (Rec: 09/13/18 16:01 EA [id number]) Physical Therapy Assessment Assessment Summary Assessment Noted increased exercises tolerance; no instability noted without the use of AD. Patient is progress well. Physical Therapy Plan Next Visit Focus/Plan Next Note Type Treatment Note Next Visit Plan gait training, single leg strengthening and balance standing balance- static and dynamic
--- NOTE | 2018-09-15 13:46 | PT.OTN ---
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 non-dominant side (09/15/18) Physical Therapy Treatment Note PT-OP-A Visit Information Start: 07/26/18 16:33 Freq: Status: Active Protocol: Document 09/15/18 13:40 EA (Rec: 09/15/18 13:46 EA [id number]) Out-Patient Physical Therapy Visit Information Visit Information Visit Type Treatment Note Visit Start Time 12:15 Visit Stop Time 13:00 Total Visit Minutes 40 PT-OP-B Current Condition Start: 07/26/18 16:33 Freq: Status: Active Protocol: Document 07/27/18 11:20 [facility] (Rec: 07/27/18 12:16 [facility] [id number]) Current Condition History of Current Condition Current Complaints CVA left sided weakness History of Current Condition Pt was brought to hospital for TIA 07/21 and was d/c from hospital Saturday 07/22. has been helping with transfers and getting out of bed. He was able to get out of bed last night to use the barthroom indep but is typically requiring assistance. He reports dizziness when he is standing and does anything letting go of the walker. He also has cancer w/recent chemo and internal bleeding with dec hematocrit. Pt also has hx of B hip replacements in s and R HS issue. No falls in the past year. Pt reports entire L side hurts and feels like LUE coordination is dec. Hx of R rotator cuff injury. Treatment Goals Patient/Caregiver Goals Be back to way he was before: Used to go the gym -treadmill 15 min and stretches on machines; walk without a device; be able to push the self propell mower, get in/out of the car PT-OP-C Subjective Start: 07/26/18 16:33 Freq: Status: Active Protocol: Document 09/15/18 13:40 EA (Rec: 09/15/18 13:46 EA [id number]) OP-PT Subjective Patient Comments Patient Comments Pt reports right is sore after last OT hand therapy. Patient Reported Progress Improving PT-OP-E Functional Tests Start: 07/26/18 16:33 Freq: Status: Active Protocol: Document 07/27/18 11:20 [facility] (Rec: 07/27/18 13:47 [facility] [id number]) Functional Tests Timed Up and Go (TUG) Score 32 sec Tinetti Balance and Gait Assessment Composite Score 15 Composite Score Impairment Rating 40 to <60% Impaired (Score 12- 16) PT-OP-G Mobility & Gait Start: 07/26/18 16:33 Freq: Status: Active Protocol: Document 07/27/18 11:20 [facility] (Rec: 07/27/18 13:47 [facility] [id number]) OP Mobility Evaluation Bed Mobility Supine to and from Sit Supine to sit mod A & sit to supine SBA OP Gait Assessment Comments Gait Comments Pt amb with FWW with dec step clearance and step length. PT-OP-M Strength Start: 07/26/18 16:33 Freq: Status: Active Protocol: Document 07/27/18 11:20 [facility] (Rec: 07/27/18 12:16 [facility] [id number]) Hip Strength Hip Manual Muscle Testing Right Flexion (L2) 4- Good- Abduction 4- Good- External Rotation 4 Good Left Flexion (L2) 4- Good- External Rotation 3 Fair Knee Strength Knee Manual Muscle Testing Right Flexion (S2) 4+ Good+ Extension (L3) 4+ Good+ Left Flexion (S2) 4 Good Extension (L3) 4 Good Ankle/Foot Strength Ankle and Foot Manual Muscle Testing Right Dorsiflexion (L4) 5 Normal Plantarflexion (S1) 5 Normal Left Dorsiflexion (L4) 4 Good Plantarflexion (S1) 4 Good PT-OP-Q Treatments Start: 07/26/18 16:33 Freq: Status: Active Protocol: Document 09/15/18 13:40 EA (Rec: 09/15/18 13:46 EA [id number]) Cardio Equipment Recumbent Stepper (Sci-Fit) Duration (Minutes) 7 Resistance 2 Seat Position 14 Gym Equipment Shuttle Recovery Unilateral Squats Resistance 50 lbs Shuttle Recovery Platform Stable Reps/Time x15 each Bilateral Squats Resistance 100 lbs Shuttle Recovery Platform Stable Reps/Time x15 x 2 Shuttle Balance Red Details A/P normal stance Reps/Duration 5 min Comments arm challenge; head turns Blue Details tandem, NBOS, normal stance Reps/Duration 6 min Comments head turns, UE movements, perturbations with normal stance Sport Cord 1 Exercise Details Fwd/BWD/SWD steps Cord/Resistance blue Reps/Duration x 5 laps each Therapeutic Exercises Standing Exercises step up Side bilateral Equipment Used 5 inch box and //bar Reps/Minutes 5 mins Comments without UE support 1 Standing Exercise Name Hip Abduction Side bilateral Resistance 3# Equipment Used // bars, UE support Reps/Minutes 10x each Other Exercises 1 Other Exercise Name Side step quat on rails support Reps/Minutes 10 ft x 2 lines each direction Neuro Re-Education Treatment Balance Activities 1 Details Alternating Marches Equipment bar Reps/Duration 3# Comments Cues for slowing down, increasing SLS time Other Activities Hurdles Details 4 lb AW Reps/Duration 4 laps x5 hurdles PT-OP-T Assessment and Plan Start: 07/26/18 16:33 Freq: Status: Active Protocol: Document 09/15/18 13:40 EA (Rec: 09/15/18 13:46 EA [id number]) Physical Therapy Assessment Assessment Summary Assessment Patient tolerated treatment well with minor breaks. Over all he is progressing well. Physical Therapy Plan Next Visit Focus/Plan Next Note Type Treatment Note Next Visit Plan gait training, single leg strengthening and balance standing balance- static and dynamic
--- NOTE | 2018-09-20 15:36 | PT.OTN ---
Current Diagnoses Cerebral infarction, unspecified (09/20/18) Hemiplegia and hemiparesis following cerebral infarction affecting left non-dominant side (09/20/18) Physical Therapy Treatment Note PT-OP-A Visit Information Start: 07/26/18 16:33 Freq: Status: Active Protocol: Document 09/20/18 11:15 (Rec: 09/20/18 15:36 [email or web address]) Out-Patient Physical Therapy Visit Information Visit Information Visit Type Treatment Note Visit Note PA Visit Start Time 11:15 Visit Stop Time 12:00 Total Visit Minutes 45 Visit Number 13 Number of PROGRAM ATTENDANT Visits 0 PT-OP-B Current Condition Start: 07/26/18 16:33 Freq: Status: Active Protocol: Document 07/27/18 11:20 [facility] (Rec: 07/27/18 12:16 [facility] [id number]) Current Condition History of Current Condition Current Complaints CVA left sided weakness History of Current Condition Pt was brought to hospital for TIA 07/21 and was d/c from hospital Saturday 07/22. has been helping with transfers and getting out of bed. He was able to get out of bed last night to use the barthroom indep but is typically requiring assistance. He reports dizziness when he is standing and does anything letting go of the walker. He also has cancer w/recent chemo and internal bleeding with dec hematocrit. Pt also has hx of B hip replacements in and R HS issue. No falls in the past year. Pt reports entire L side hurts and feels like LUE coordination is dec. Hx of R rotator cuff injury. Treatment Goals Patient/Caregiver Goals Be back to way he was before: Used to go the gym -treadmill 15 min and stretches on machines; walk without a device; be able to push the self propell mower, get in/out of the car PT-OP-C Subjective Start: 07/26/18 16:33 Freq: Status: Active Protocol: Document 09/20/18 11:15 [facility] (Rec: 09/20/18 15:36 [email or web address]) OP-PT Subjective Patient Comments Patient Comments So far so good but i still want to work on my balance. My L hand has been feeling more tingling. Patient Reported Progress Improving PT-OP-E Functional Tests Start: 07/26/18 16:33 Freq: Status: Active Protocol: Document 07/27/18 11:20 [facility] (Rec: 07/27/18 13:47 [facility] [email or web address]) Functional Tests Timed Up and Go (TUG) Score 32 sec Tinetti Balance and Gait Assessment Composite Score 15 Composite Score Impairment Rating 40 to <60% Impaired (Score 12- 16) PT-OP-G Mobility & Gait Start: 07/26/18 16:33 Freq: Status: Active Protocol: Document 07/27/18 11:20 [facility] (Rec: 07/27/18 13:47 [facility] [email or web address]) OP Mobility Evaluation Bed Mobility Supine to and from Sit Supine to sit mod A & sit to supine SBA OP Gait Assessment Comments Gait Comments Pt amb with FWW with dec step clearance and step length. PT-OP-M Strength Start: 07/26/18 16:33 Freq: Status: Active Protocol: Document 07/27/18 11:20 [facility] (Rec: 07/27/18 12:16 [facility] [id number]) Hip Strength Hip Manual Muscle Testing Right Flexion (L2) 4- Good- Abduction 4- Good- External Rotation 4 Good Left Flexion (L2) 4- Good- External Rotation 3 Fair Knee Strength Knee Manual Muscle Testing Right Flexion (S2) 4+ Good+ Extension (L3) 4+ Good+ Left Flexion (S2) 4 Good Extension (L3) 4 Good Ankle/Foot Strength Ankle and Foot Manual Muscle Testing Right Dorsiflexion (L4) 5 Normal Plantarflexion (S1) 5 Normal Left Dorsiflexion (L4) 4 Good Plantarflexion (S1) 4 Good PT-OP-Q Treatments Start: 07/26/18 16:33 Freq: Status: Active Protocol: Document 09/20/18 11:15 (Rec: 09/20/18 15:36 [email or web address]) Gym Equipment Shuttle Balance Red Details A/P normal stance Reps/Duration 5 min Comments arm challenge; head turns Therapeutic Exercises Standing Exercises sit step with rozina Equipment Used hurdles //bar Reps/Minutes 3 round trips Comments without UE support stair climbing Standing Exercise Name step over pattern Side bilateral Equipment Used CGA Reps/Minutes 5 round trips Comments without UE support wall squat Side bilateral Equipment Used back against ball Reps/Minutes 15 secs x 5 step up Side bilateral Equipment Used 5 to 6 inch box and //bar Reps/Minutes 5 mins Comments without UE support SLS on L Equipment Used //bar if needed Reps/Minutes 5 secs on each x 5 hurdles Side bilateral Equipment Used 5 hurdles Reps/Minutes 5 mins Comments //bar Neuro Re-Education Treatment Balance Activities TS, EDUARDO Details tandem and narrow base of support Surface level Equipment // bars Reps/Duration 5 min Comments UE movement, head movements, EC with NBOS PT-OP-T Assessment and Plan Start: 07/26/18 16:33 Freq: Status: Active Protocol: Document 09/20/18 11:15 [facility] (Rec: 09/20/18 15:36 HH [email or web address]) Physical Therapy Assessment Goals sit to stand Impairment need UE for STS from 18inch chair Penitentiary Goal (LTG) Pt will be able to stand up from a 18' high chair without UE support LTG Duration 10/26/18 stair climbing Impairment step to pattern with railings currently Varnish Filterer Goal (LTG) Pt will be able to climb stairs with step over pattern without UE support safely. LTG Duration 10/26/18 functional ability Varnish Filterer Goal (LTG) 09/20: SBA/CGA for car transfers; ind for mobility with SPC Pt will be able to get in and out of car safely and independently LTG Duration 10/26/18 balance Penitentiary Goal (LTG) Pt will score 24 or greater on tinnetti to demonstrate improved balance and dec risk of falls LTG Duration 10/26/18 gait Varnish Filterer Goal (LTG) 09/20: goal met. Able to amb without SPC as milad Pt will be able to amb safely without AD for 250ft LTG Duration 10/26/18 Progress Towards Goals Progress Towards Goals Progressing Toward Goals Slow Progress due to Activity Tolerance Assessment Summary Assessment Pt cont to progress with overall mobility and strength. He was able to negotiate stairs 6inches with step over without UE support today with CGA. He still shows excessive sway during single leg stance activity. He will cont benefit from skilled therapy to improve overall single leg stability, strength to optimize his functional mobility in a safe manner. Physical Therapy Plan Next Visit Focus/Plan Next Note Type Treatment Note Next Visit Plan stair training. gait training, single leg strengthening and balance standing balance- static and dynamic
--- NOTE | 2018-09-22 18:26 | PT.OTN ---
Current Diagnoses Cerebral infarction, unspecified (09/22/18) Hemiplegia and hemiparesis following cerebral infarction affecting left non-dominant side (09/22/18) Physical Therapy Treatment Note PT-OP-A Visit Information Start: 07/26/18 16:33 Freq: Status: Active Protocol: Document 09/22/18 16:00 (Rec: 09/22/18 18:26 [email or web address]) Out-Patient Physical Therapy Visit Information Visit Information Visit Type Treatment Note Visit Start Time 16:00 Visit Stop Time 16:45 Total Visit Minutes 45 Visit Number 14 Number of PERCUSSION WELDING MACHINE OPERATOR Visits 0 PT-OP-B Current Condition Start: 07/26/18 16:33 Freq: Status: Active Protocol: Document 07/27/18 11:20 [facility] (Rec: 07/27/18 12:16 [facility] [id number]) Current Condition History of Current Condition Current Complaints CVA left sided weakness History of Current Condition Pt was brought to hospital for TIA 07/21 and was d/c from hospital Saturday 07/22. has been helping with transfers and getting out of bed. He was able to get out of bed last night to use the barthroom indep but is typically requiring assistance. He reports dizziness when he is standing and does anything letting go of the walker. He also has cancer w/recent chemo and internal bleeding with dec hematocrit. Pt also has hx of B hip replacements in s and R HS issue. No falls in the past year. Pt reports entire L side hurts and feels like LUE coordination is dec. Hx of R rotator cuff injury. Treatment Goals Patient/Caregiver Goals Be back to way he was before: Used to go the gym -treadmill 15 min and stretches on machines; walk without a device; be able to push the self propell mower, get in/out of the car PT-OP-C Subjective Start: 07/26/18 16:33 Freq: Status: Active Protocol: Document 09/22/18 16:00 [facility] (Rec: 09/22/18 18:26 [email or web address]) OP-PT Subjective Patient Comments Patient Comments Its a late appointment today and i feel quite tired already . PT-OP-E Functional Tests Start: 07/26/18 16:33 Freq: Status: Active Protocol: Document 07/27/18 11:20 [facility] (Rec: 07/27/18 13:47 [facility] [email or web address]) Functional Tests Timed Up and Go (TUG) Score 32 sec Tinetti Balance and Gait Assessment Composite Score 15 Composite Score Impairment Rating 40 to <60% Impaired (Score 12- 16) PT-OP-G Mobility & Gait Start: 07/26/18 16:33 Freq: Status: Active Protocol: Document 07/27/18 11:20 [facility] (Rec: 07/27/18 13:47 [facility] [email or web address]) OP Mobility Evaluation Bed Mobility Supine to and from Sit Supine to sit mod A & sit to supine SBA OP Gait Assessment Comments Gait Comments Pt amb with FWW with dec step clearance and step length. PT-OP-M Strength Start: 07/26/18 16:33 Freq: Status: Active Protocol: Document 07/27/18 11:20 [facility] (Rec: 07/27/18 12:16 [facility] [id number]) Hip Strength Hip Manual Muscle Testing Right Flexion (L2) 4- Good- Abduction 4- Good- External Rotation 4 Good Left Flexion (L2) 4- Good- External Rotation 3 Fair Knee Strength Knee Manual Muscle Testing Right Flexion (S2) 4+ Good+ Extension (L3) 4+ Good+ Left Flexion (S2) 4 Good Extension (L3) 4 Good Ankle/Foot Strength Ankle and Foot Manual Muscle Testing Right Dorsiflexion (L4) 5 Normal Plantarflexion (S1) 5 Normal Left Dorsiflexion (L4) 4 Good Plantarflexion (S1) 4 Good PT-OP-Q Treatments Start: 07/26/18 16:33 Freq: Status: Active Protocol: Document 09/22/18 16:00 (Rec: 09/22/18 18:26 [email or web address]) Gym Equipment Shuttle Balance Red Details A/P normal stance Reps/Duration 5 min Comments arm challenge; head turns stagger stance Sport Cord 1 Exercise Details Fwd/BWD/SWD steps Cord/Resistance blue Reps/Duration x 5 laps each Therapeutic Exercises Standing Exercises lateral step up Side bilateral Equipment Used 4' step, within //bar Reps/Minutes 4 mins Comments cues for foot placement sit step with rozina Equipment Used hurdles //bar Reps/Minutes 3 round trips Comments without UE support stair climbing Standing Exercise Name step over pattern Side bilateral Equipment Used CGA Reps/Minutes 7 round trips Comments without UE support step up Side bilateral Equipment Used 5 to 6 inch box and //bar Reps/Minutes 5 mins Comments without UE support Neuro Re-Education Treatment Coordination Activities tennis ball catch Details 1 step catch Equipment tennis ball Reps/Duration 10 mins Comments with athletic position PT-OP-T Assessment and Plan Start: 07/26/18 16:33 Freq: Status: Active Protocol: Document 09/22/18 16:00 [facility] (Rec: 09/22/18 18:26 [email or web address]) Physical Therapy Assessment Assessment Summary Assessment pt cont improves his single leg strength who is able to perform step up and lateral step up but required cont training for balance. Added tennis ball catch today to focus on coordination and reactive balance. Physical Therapy Plan Next Visit Focus/Plan Next Note Type Treatment Note Next Visit Plan ball catch stair training. gait training, single leg strengthening and balance standing balance- static and dynamic
--- NOTE | 2018-09-27 17:48 | PT.OTN ---
Current Diagnoses Cerebral infarction, unspecified (09/27/18) Hemiplegia and hemiparesis following cerebral infarction affecting left non-dominant side (09/27/18) Physical Therapy Treatment Note PT-OP-A Visit Information Start: 07/26/18 16:33 Freq: Status: Active Protocol: Document 09/27/18 11:15 [facility] (Rec: 09/27/18 17:48 [email or web address]) Out-Patient Physical Therapy Visit Information Visit Information Visit Type Treatment Note Visit Start Time 11:15 Visit Stop Time 12:00 Total Visit Minutes 45 Visit Number 15 Number of M48/M60 TANK DRIVER Visits 0 PT-OP-B Current Condition Start: 07/26/18 16:33 Freq: Status: Active Protocol: Document 07/27/18 11:20 [facility] (Rec: 07/27/18 12:16 [facility] [id number]) Current Condition History of Current Condition Current Complaints CVA left sided weakness History of Current Condition Pt was brought to hospital for TIA 07/21 and was d/c from hospital Saturday 07/22. has been helping with transfers and getting out of bed. He was able to get out of bed last night to use the barthroom indep but is typically requiring assistance. He reports dizziness when he is standing and does anything letting go of the walker. He also has cancer w/recent chemo and internal bleeding with dec hematocrit. Pt also has hx of B hip replacements in s and R HS issue. No falls in the past year. Pt reports entire L side hurts and feels like LUE coordination is dec. Hx of R rotator cuff injury. Treatment Goals Patient/Caregiver Goals Be back to way he was before: Used to go the gym -treadmill 15 min and stretches on machines; walk without a device; be able to push the self propell mower, get in/out of the car PT-OP-C Subjective Start: 07/26/18 16:33 Freq: Status: Active Protocol: Document 09/27/18 11:15 HH (Rec: 09/27/18 17:48 HH [email or web address]) OP-PT Subjective Patient Comments Patient Comments I did treadmill and knee extension machine yesterday. Quite sore today. PT-OP-E Functional Tests Start: 07/26/18 16:33 Freq: Status: Active Protocol: Document 07/27/18 11:20 [facility] (Rec: 07/27/18 13:47 [facility] [email or web address]) Functional Tests Timed Up and Go (TUG) Score 32 sec Tinetti Balance and Gait Assessment Composite Score 15 Composite Score Impairment Rating 40 to <60% Impaired (Score 12- 16) PT-OP-G Mobility & Gait Start: 07/26/18 16:33 Freq: Status: Active Protocol: Document 07/27/18 11:20 [facility] (Rec: 07/27/18 13:47 [facility] [email or web address]) OP Mobility Evaluation Bed Mobility Supine to and from Sit Supine to sit mod A & sit to supine SBA OP Gait Assessment Comments Gait Comments Pt amb with FWW with dec step clearance and step length. PT-OP-M Strength Start: 07/26/18 16:33 Freq: Status: Active Protocol: Document 07/27/18 11:20 [facility] (Rec: 07/27/18 12:16 [facility] [id number]) Hip Strength Hip Manual Muscle Testing Right Flexion (L2) 4- Good- Abduction 4- Good- External Rotation 4 Good Left Flexion (L2) 4- Good- External Rotation 3 Fair Knee Strength Knee Manual Muscle Testing Right Flexion (S2) 4+ Good+ Extension (L3) 4+ Good+ Left Flexion (S2) 4 Good Extension (L3) 4 Good Ankle/Foot Strength Ankle and Foot Manual Muscle Testing Right Dorsiflexion (L4) 5 Normal Plantarflexion (S1) 5 Normal Left Dorsiflexion (L4) 4 Good Plantarflexion (S1) 4 Good PT-OP-Q Treatments Start: 07/26/18 16:33 Freq: Status: Active Protocol: Document 09/27/18 11:15 (Rec: 09/27/18 17:48 [email or web address]) Therapeutic Exercises Standing Exercises sit step with rozina Equipment Used hurdles //bar Reps/Minutes 3 round trips Comments without UE support stair climbing Standing Exercise Name step over pattern Side bilateral Equipment Used CGA Reps/Minutes 7 round trips Comments without UE support step up Side bilateral Equipment Used 5 to 6 inch box and //bar Reps/Minutes 5 mins Comments without UE support SLS on L Equipment Used //bar if needed Reps/Minutes 5 secs on each x 5 hurdles Side bilateral Equipment Used 5 hurdles Reps/Minutes 5 mins Comments //bar sit to stand Standing Exercise Name STS from 19.5' Side bilateral Equipment Used from adjustable table Reps/Minutes x 8reps x 3 Comments cues for rocking motion, without UE push off Neuro Re-Education Treatment Coordination Activities tennis ball catch Details 1 step and 2 step catch Equipment tennis ball Reps/Duration 15 mins Comments with athletic position PT-OP-T Assessment and Plan Start: 07/26/18 16:33 Freq: Status: Active Protocol: Document 09/27/18 11:15 [facility] (Rec: 09/27/18 17:48 HH [email or web address]) Physical Therapy Assessment Goals balance 2 Impairment reduced overall balance Group Home Goal (LTG) Pt will be able to negotiate 5 ' hurdles in an open area without UE support to improve overall functional balance and reduce fall risk LTG Duration 10/26/18 sit to stand Impairment need UE for STS from 18inch chair Science Technician Goal (LTG) Pt will be able to stand up from a 18' high chair without UE support LTG Duration 10/26/18 stair climbing Impairment step to pattern with railings currently Group Home Goal (LTG) Pt will be able to climb stairs with step over pattern without UE support safely. LTG Duration 10/26/18 functional ability Science Technician Goal (LTG) 09/20: SBA/CGA for car transfers; ind for mobility with SPC Pt will be able to get in and out of car safely and independently LTG Duration 10/26/18 balance Science Technician Goal (LTG) Pt will score 24 or greater on tinnetti to demonstrate improved balance and dec risk of falls LTG Duration 10/26/18 gait Science Technician Goal (LTG) 09/20: goal met. Able to amb without SPC as milad Pt will be able to amb safely without AD for 250ft LTG Duration 10/26/18 Assessment Summary Assessment Pt cont improves with single leg balance. Performed hurdles next to wall bar today. And He also able to stand up from 19.5' table without UE support. Physical Therapy Plan Next Visit Focus/Plan Next Note Type Treatment Note Next Visit Plan ball catch stair training. gait training, single leg strengthening and balance standing balance- static and dynamic
--- NOTE | 2018-09-29 19:38 | PT.OTN ---
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 side (09/29/18) Physical Therapy Treatment Note PT-OP-A Visit Information Start: 07/26/18 16:33 Freq: Status: Active Protocol: Document 09/29/18 15:15 (Rec: 09/29/18 19:38 [email or web address]) Out-Patient Physical Therapy Visit Information Visit Information Visit Type Treatment Note Visit Start Time 15:15 Visit Stop Time 16:00 Total Visit Minutes 45 Visit Number 16 Number of RIVETING MACHINE OPERATOR Visits 0 PT-OP-B Current Condition Start: 07/26/18 16:33 Freq: Status: Active Protocol: Document 07/27/18 11:20 [facility] (Rec: 07/27/18 12:16 [facility] [id number]) Current Condition History of Current Condition Current Complaints CVA left sided weakness History of Current Condition Pt was brought to hospital for TIA 07/21 and was d/c from hospital Saturday 07/22. has been helping with transfers and getting out of bed. He was able to get out of bed last night to use the barthroom indep but is typically requiring assistance. He reports dizziness when he is standing and does anything letting go of the walker. He also has cancer w/recent chemo and internal bleeding with dec hematocrit. Pt also has hx of B hip replacements in s and R HS issue. No falls in the past year. Pt reports entire L side hurts and feels like LUE coordination is dec. Hx of R rotator cuff injury. Treatment Goals Patient/Caregiver Goals Be back to way he was before: Used to go the gym -treadmill 15 min and stretches on machines; walk without a device; be able to push the self propell mower, get in/out of the car PT-OP-C Subjective Start: 07/26/18 16:33 Freq: Status: Active Protocol: Document 09/29/18 15:15 (Rec: 09/29/18 19:38 [email or web address]) OP-PT Subjective Patient Comments Patient Comments no c/o PT-OP-E Functional Tests Start: 07/26/18 16:33 Freq: Status: Active Protocol: Document 07/27/18 11:20 [facility] (Rec: 07/27/18 13:47 [facility] [email or web address]) Functional Tests Timed Up and Go (TUG) Score 32 sec Tinetti Balance and Gait Assessment Composite Score 15 Composite Score Impairment Rating 40 to <60% Impaired (Score 12- 16) PT-OP-G Mobility & Gait Start: 07/26/18 16:33 Freq: Status: Active Protocol: Document 07/27/18 11:20 [facility] (Rec: 07/27/18 13:47 [facility] [email or web address]) OP Mobility Evaluation Bed Mobility Supine to and from Sit Supine to sit mod A & sit to supine SBA OP Gait Assessment Comments Gait Comments Pt amb with FWW with dec step clearance and step length. PT-OP-M Strength Start: 07/26/18 16:33 Freq: Status: Active Protocol: Document 07/27/18 11:20 [facility] (Rec: 07/27/18 12:16 [facility] [id number]) Hip Strength Hip Manual Muscle Testing Right Flexion (L2) 4- Good- Abduction 4- Good- External Rotation 4 Good Left Flexion (L2) 4- Good- External Rotation 3 Fair Knee Strength Knee Manual Muscle Testing Right Flexion (S2) 4+ Good+ Extension (L3) 4+ Good+ Left Flexion (S2) 4 Good Extension (L3) 4 Good Ankle/Foot Strength Ankle and Foot Manual Muscle Testing Right Dorsiflexion (L4) 5 Normal Plantarflexion (S1) 5 Normal Left Dorsiflexion (L4) 4 Good Plantarflexion (S1) 4 Good PT-OP-Q Treatments Start: 07/26/18 16:33 Freq: Status: Active Protocol: Document 09/29/18 15:15 (Rec: 09/29/18 19:38 [email or web address]) Therapeutic Exercises Standing Exercises S walk with hurdles Side bilateral Equipment Used hurdles Reps/Minutes 4 mins Comments open area lateral step up Side bilateral Equipment Used 4' step, open area Reps/Minutes 4 mins Comments cues for foot placement sit step with rozina Equipment Used hurdles //bar Reps/Minutes 3 round trips Comments without UE support stair climbing Standing Exercise Name step over pattern Side bilateral Equipment Used CGA Reps/Minutes 7 round trips Comments hands on hips step up Side bilateral Equipment Used 5 to 6 inch box and //bar Reps/Minutes 5 mins Comments hands on hips SLS on L Equipment Used //bar if needed Reps/Minutes 5 secs on each x 5 sit to stand Standing Exercise Name STS from 18.5 Side bilateral Equipment Used with 5 lbs ball, from adjustable table Reps/Minutes x 8reps x 3 Comments cues for rocking motion, without UE push off Neuro Re-Education Treatment Balance Activities TS, NBOS Details tandem and narrow base of support Surface level Reps/Duration 5 min Comments UE movement, head movements, Coordination Activities tennis ball catch Details 1 step and 2 step catch Equipment tennis ball Reps/Duration 15 mins Comments with athletic position and talk at the same time PT-OP-T Assessment and Plan Start: 07/26/18 16:33 Freq: Status: Active Protocol: Document 09/29/18 15:15 (Rec: 09/29/18 19:38 [email or web address]) Physical Therapy Assessment Goals balance 2 Impairment reduced overall balance Post Manager Goal (LTG) Pt will be able to negotiate 5 ' hurdles in an open area without UE support to improve overall functional balance and reduce fall risk LTG Duration 10/26/18 sit to stand Impairment need UE for STS from 18inch chair Residential Goal (LTG) Pt will be able to stand up from a 18' high chair without UE support LTG Duration 10/26/18 stair climbing Impairment step to pattern with railings currently Residential Goal (LTG) Pt will be able to climb stairs with step over pattern without UE support safely. LTG Duration 10/26/18 functional ability Post Manager Goal (LTG) 09/20: SBA/CGA for car transfers; ind for mobility with SPC Pt will be able to get in and out of car safely and independently LTG Duration 10/26/18 balance Post Manager Goal (LTG) Pt will score 24 or greater on tinnetti to demonstrate improved balance and dec risk of falls LTG Duration 10/26/18 gait Residential Goal (LTG) 09/20: goal met. Able to amb without SPC as milad Pt will be able to amb safely without AD for 250ft LTG Duration 10/26/18 Assessment Summary Assessment Pt progressed to perform rozina activities in open area today. overall showed improved single leg balance and strength. Physical Therapy Plan Next Visit Focus/Plan Next Note Type Treatment Note Next Visit Plan balance activities at open area ball catch stair training. gait training, single leg strengthening and balance standing balance- static and dynamic
--- NOTE | 2018-10-05 15:15 | PT.OTN ---
Current Diagnoses Cerebral infarction, unspecified (10/05/18) Hemiplegia and hemiparesis following cerebral infarction affecting left non-dominant side (10/05/18) Physical Therapy Treatment Note PT-OP-A Visit Information Start: 07/26/18 16:33 Freq: Status: Active Protocol: Document 10/05/18 15:12 EA (Rec: 10/05/18 15:15 EA [id number]) Out-Patient Physical Therapy Visit Information Visit Information Visit Start Time 14:30 Visit Stop Time 15:15 Total Visit Minutes 40 Visit Number 17 PT-OP-B Current Condition Start: 07/26/18 16:33 Freq: Status: Active Protocol: Document 07/27/18 11:20 [facility] (Rec: 07/27/18 12:16 [facility] [id number]) Current Condition History of Current Condition Current Complaints CVA left sided weakness History of Current Condition Pt was brought to hospital for TIA 07/21 and was d/c from hospital Saturday 07/22. has been helping with transfers and getting out of bed. He was able to get out of bed last night to use the barthroom indep but is typically requiring assistance. He reports dizziness when he is standing and does anything letting go of the walker. He also has cancer w/recent chemo and internal bleeding with dec hematocrit. Pt also has hx of B hip replacements in s and R HS issue. No falls in the past year. Pt reports entire L side hurts and feels like LUE coordination is dec. Hx of R rotator cuff injury. Treatment Goals Patient/Caregiver Goals Be back to way he was before: Used to go the gym -treadmill 15 min and stretches on machines; walk without a device; be able to push the self propell mower, get in/out of the car PT-OP-C Subjective Start: 07/26/18 16:33 Freq: Status: Active Protocol: Document 10/05/18 15:12 EA (Rec: 10/05/18 15:15 EA [id number]) OP-PT Subjective Patient Comments Patient Comments Pt reports had a long walk yesterday and feels both legs are sore. PT-OP-E Functional Tests Start: 07/26/18 16:33 Freq: Status: Active Protocol: Document 07/27/18 11:20 LR (Rec: 07/27/18 13:47 [facility] [id number]) Functional Tests Timed Up and Go (TUG) Score 32 sec Tinetti Balance and Gait Assessment Composite Score 15 Composite Score Impairment Rating 40 to <60% Impaired (Score 12- 16) PT-OP-G Mobility & Gait Start: 07/26/18 16:33 Freq: Status: Active Protocol: Document 07/27/18 11:20 [facility] (Rec: 07/27/18 13:47 [facility] [id number]) OP Mobility Evaluation Bed Mobility Supine to and from Sit Supine to sit mod A & sit to supine SBA OP Gait Assessment Comments Gait Comments Pt amb with FWW with dec step clearance and step length. PT-OP-M Strength Start: 07/26/18 16:33 Freq: Status: Active Protocol: Document 07/27/18 11:20 [facility] (Rec: 07/27/18 12:16 [facility] [id number]) Hip Strength Hip Manual Muscle Testing Right Flexion (L2) 4- Good- Abduction 4- Good- External Rotation 4 Good Left Flexion (L2) 4- Good- External Rotation 3 Fair Knee Strength Knee Manual Muscle Testing Right Flexion (S2) 4+ Good+ Extension (L3) 4+ Good+ Left Flexion (S2) 4 Good Extension (L3) 4 Good Ankle/Foot Strength Ankle and Foot Manual Muscle Testing Right Dorsiflexion (L4) 5 Normal Plantarflexion (S1) 5 Normal Left Dorsiflexion (L4) 4 Good Plantarflexion (S1) 4 Good PT-OP-Q Treatments Start: 07/26/18 16:33 Freq: Status: Active Protocol: Document 10/05/18 15:12 EA (Rec: 10/05/18 15:15 EA [id number]) Cardio Equipment Recumbent Stepper (Sci-Fit) Duration (Minutes) 7 Resistance 2 Seat Position 14 Gym Equipment Shuttle Recovery Unilateral Squats Resistance 50 lbs Shuttle Recovery Platform Stable Reps/Time x15 each Bilateral Squats Resistance 100 lbs Shuttle Recovery Platform Stable Reps/Time x15 x 2 Shuttle Balance Red Details A/P normal stance Reps/Duration 5 min Comments arm challenge; head turns stagger stance Sport Cord 1 Exercise Details Fwd/BWD/SWD steps Cord/Resistance red Reps/Duration x 5 laps each Therapeutic Exercises Standing Exercises lateral step up Side bilateral Equipment Used 4' step, open area Reps/Minutes 4 mins Comments cues for foot placement sit step with rozina Equipment Used hurdles //bar Reps/Minutes 3 round trips Comments without UE support step up Side bilateral Equipment Used 5 to 6 inch box and //bar Reps/Minutes 5 mins Comments hands on hips Other Exercises 1 Other Exercise Name Side step quat on rails support Reps/Minutes 10 ft x 2 lines each direction PT-OP-T Assessment and Plan Start: 07/26/18 16:33 Freq: Status: Active Protocol: Document 10/05/18 15:12 EA (Rec: 10/05/18 15:15 EA [id number]) Physical Therapy Assessment Assessment Summary Assessment Tolerated treatment well. Physical Therapy Plan Next Visit Focus/Plan Next Note Type Treatment Note Next Visit Plan balance activities at open area ball catch stair training. gait training, single leg strengthening and balance standing balance- static and dynamic
--- NOTE | 2018-10-11 11:38 | PT.OTN ---
Current Diagnoses Cerebral infarction, unspecified (10/11/18) Hemiplegia and hemiparesis following cerebral infarction affecting left non-dominant side (10/11/18) Physical Therapy Treatment Note PT-OP-A Visit Information Start: 07/26/18 16:33 Freq: Status: Active Protocol: Document 10/11/18 11:33 SA (Rec: 10/11/18 11:38 [email or web address]) Out-Patient Physical Therapy Visit Information Visit Information Visit Type Treatment Note Visit Start Time 10:30 Visit Stop Time 11:12 Total Visit Minutes 42 Visit Number 18 Number of WATER INSPECTOR Visits 1 PT-OP-B Current Condition Start: 07/26/18 16:33 Freq: Status: Active Protocol: Document 07/27/18 11:20 [facility] (Rec: 07/27/18 12:16 [facility] [id number]) Current Condition History of Current Condition Current Complaints CVA left sided weakness History of Current Condition Pt was brought to hospital for TIA 07/21 and was d/c from hospital Saturday 07/22. has been helping with transfers and getting out of bed. He was able to get out of bed last night to use the barthroom indep but is typically requiring assistance. He reports dizziness when he is standing and does anything letting go of the walker. He also has cancer w/recent chemo and internal bleeding with dec hematocrit. Pt also has hx of B hip replacements in and R HS issue. No falls in the past year. Pt reports entire L side hurts and feels like LUE coordination is dec. Hx of R rotator cuff injury. Treatment Goals Patient/Caregiver Goals Be back to way he was before: Used to go the gym -treadmill 15 min and stretches on machines; walk without a device; be able to push the self propell mower, get in/out of the car PT-OP-C Subjective Start: 07/26/18 16:33 Freq: Status: Active Protocol: Document 10/11/18 11:33 SA (Rec: 10/11/18 11:38 SA [email or web address]) OP-PT Subjective Patient Comments Patient Comments Pt reports feeling wobbly today, did a lot of shopping yesterday and standing/walking . PT-OP-E Functional Tests Start: 07/26/18 16:33 Freq: Status: Active Protocol: Document 07/27/18 11:20 [facility] (Rec: 07/27/18 13:47 [facility] [email or web address]) Functional Tests Timed Up and Go (TUG) Score 32 sec Tinetti Balance and Gait Assessment Composite Score 15 Composite Score Impairment Rating 40 to <60% Impaired (Score 12- 16) PT-OP-G Mobility & Gait Start: 07/26/18 16:33 Freq: Status: Active Protocol: Document 07/27/18 11:20 [facility] (Rec: 07/27/18 13:47 [facility] [email or web address]) OP Mobility Evaluation Bed Mobility Supine to and from Sit Supine to sit mod A & sit to supine SBA OP Gait Assessment Comments Gait Comments Pt amb with FWW with dec step clearance and step length. PT-OP-M Strength Start: 07/26/18 16:33 Freq: Status: Active Protocol: Document 07/27/18 11:20 [facility] (Rec: 07/27/18 12:16 [facility] [id number]) Hip Strength Hip Manual Muscle Testing Right Flexion (L2) 4- Good- Abduction 4- Good- External Rotation 4 Good Left Flexion (L2) 4- Good- External Rotation 3 Fair Knee Strength Knee Manual Muscle Testing Right Flexion (S2) 4+ Good+ Extension (L3) 4+ Good+ Left Flexion (S2) 4 Good Extension (L3) 4 Good Ankle/Foot Strength Ankle and Foot Manual Muscle Testing Right Dorsiflexion (L4) 5 Normal Plantarflexion (S1) 5 Normal Left Dorsiflexion (L4) 4 Good Plantarflexion (S1) 4 Good PT-OP-Q Treatments Start: 07/26/18 16:33 Freq: Status: Active Protocol: Document 10/11/18 11:33 SA (Rec: 10/11/18 11:38 SA [email or web address]) Cardio Equipment Recumbent Stepper (Sci-Fit) Duration (Minutes) 7 Resistance 2 Seat Position 14 Gym Equipment Shuttle Recovery Unilateral Squats Resistance 50 lbs Shuttle Recovery Platform Stable Reps/Time x15 each Bilateral Squats Resistance 100 lbs Shuttle Recovery Platform Stable Reps/Time x15 x 2 Shuttle Balance Red Details A/P normal stance Reps/Duration 5 min Comments arm challenge; head turns stagger stance Therapeutic Exercises Standing Exercises S walk with hurdles Side bilateral Equipment Used hurdles Reps/Minutes 4 mins Comments open area lateral step up Side bilateral Equipment Used 4' step, open area Reps/Minutes 4 mins sit step with rozina Equipment Used hurdles //bar Reps/Minutes 3 round trips Comments without UE support stair climbing Standing Exercise Name step over pattern Side bilateral Equipment Used CGA Reps/Minutes 7 round trips Comments hands on hips step up Side bilateral Equipment Used 5 to 6 inch box and //bar Reps/Minutes 5 mins Comments hands on hips SLS on L Side bilateral Equipment Used //bar if needed Reps/Minutes 5 secs on each x 5 Comments finger touch on grab bar sit to stand Standing Exercise Name STS from 18.5 Side bilateral Equipment Used with 5 lbs ball, from adjustable table Reps/Minutes x 8reps x 3 Comments cues for rocking motion, without UE push off Neuro Re-Education Treatment Balance Activities TS, NBOS Details tandem and narrow base of support Surface level Equipment // bars Reps/Duration 5 min Comments UE movement, head movements, Coordination Activities tennis ball catch Details 1 step and 2 step catch Equipment tennis ball Reps/Duration 6' Comments with athletic position and talk at the same time PT-OP-T Assessment and Plan Start: 07/26/18 16:33 Freq: Status: Active Protocol: Document 10/11/18 11:33 SA (Rec: 10/11/18 11:38 SA [email or web address]) Physical Therapy Assessment Assessment Summary Assessment CGA needed with balance challenges, pt tends to have LOB posterior but able to self correct. Physical Therapy Plan Next Visit Focus/Plan Next Note Type Treatment Note Next Visit Plan balance activities at open area ball catch stair training. gait training, single leg strengthening and balance standing balance- static and dynamic
--- NOTE | 2018-11-28 09:21 | PT.OPDS ---
Current Diagnoses Cerebral infarction, unspecified (10/11/18) Hemiplegia and hemiparesis following cerebral infarction affecting left non-dominant side (10/11/18) Provider Visit Care Team Role Provider Type Flaquito Rodriguez MD Primary Care Provider Physician Specialty: Internal Medicine Address: [address] [place] [address], [id number] Email: Leeann Nobles MD Attending Provider Physician Specialty: Internal Medicine Address: [address] [place] [address], [address] Email: [email or web address] Visit Number Visit Number 18 Discharge Summary PT-OP-B Current Condition Start: 07/26/18 16:33 Freq: Status: Active Protocol: Document 07/27/18 11:20 [facility] (Rec: 07/27/18 12:16 [facility] [id number]) Current Condition History of Current Condition Current Complaints CVA left sided weakness History of Current Condition Pt was brought to hospital for TIA 07/21 and was d/c from hospital Saturday 07/22. has been helping with transfers and getting out of bed. He was able to get out of bed last night to use the barthroom indep but is typically requiring assistance. He reports dizziness when he is standing and does anything letting go of the walker. He also has cancer w/recent chemo and internal bleeding with dec hematocrit. Pt also has hx of B hip replacements in 90s and R HS issue. No falls in the past year. Pt reports entire L side hurts and feels like LUE coordination is dec. Hx of R rotator cuff injury. Treatment Goals Patient/Caregiver Goals Be back to way he was before: Used to go the gym -treadmill 15 min and stretches on machines; walk without a device; be able to push the self propell mower, get in/out of the car PT-OP-C Subjective Start: 07/26/18 16:33 Freq: Status: Active Protocol: Document 10/11/18 11:33 [facility] (Rec: 10/11/18 11:38 [facility] [id number]) OP-PT Subjective Patient Comments Patient Comments Pt reports feeling wobbly today, did a lot of shopping yesterday and standing/walking . PT-OP-E Functional Tests Start: 07/26/18 16:33 Freq: Status: Active Protocol: Document 07/27/18 11:20 [facility] (Rec: 07/27/18 13:47 [facility] [id number]) Functional Tests Timed Up and Go (TUG) Score 32 sec Tinetti Balance and Gait Assessment Composite Score 15 Composite Score Impairment Rating 40 to <60% Impaired (Score 12- 16) PT-OP-G Mobility & Gait Start: 07/26/18 16:33 Freq: Status: Active Protocol: Document 07/27/18 11:20 [facility] (Rec: 07/27/18 13:47 [facility] [id number]) OP Mobility Evaluation Bed Mobility Supine to and from Sit Supine to sit mod A & sit to supine SBA OP Gait Assessment Comments Gait Comments Pt amb with FWW with dec step clearance and step length. PT-OP-M Strength Start: 07/26/18 16:33 Freq: Status: Active Protocol: Document 07/27/18 11:20 [facility] (Rec: 07/27/18 12:16 [facility] [id number]) Hip Strength Hip Manual Muscle Testing Right Flexion (L2) 4- Good- Abduction 4- Good- External Rotation 4 Good Left Flexion (L2) 4- Good- External Rotation 3 Fair Knee Strength Knee Manual Muscle Testing Right Flexion (S2) 4+ Good+ Extension (L3) 4+ Good+ Left Flexion (S2) 4 Good Extension (L3) 4 Good Ankle/Foot Strength Ankle and Foot Manual Muscle Testing Right Dorsiflexion (L4) 5 Normal Plantarflexion (S1) 5 Normal Left Dorsiflexion (L4) 4 Good Plantarflexion (S1) 4 Good PT-OP-T Assessment and Plan Start: 07/26/18 16:33 Freq: Status: Active Protocol: Document 11/28/18 09:20 [facility] (Rec: 11/28/18 09:21 [facility] [id number]) Physical Therapy Plan Discharge Physical Therapy Discharge Reasons Patient Request Discharge Comments Per pt done with PT on 10/20
== END 2018-11-29 16:16 | disposition home or self-care (01) ==
LOC: PHYS 10:30
PROVIDERS: PCP Internal Medicine; Visit Provider Internal Medicine
DX: I63.9 Cerebral infarction, unspecified (principal); I69.354 Hemiplegia and hemiparesis following cerebral infarction affecting left non-dominant side
CPT/HCPCS: 97110; 97112; 97116; 97140; 97162

== ENCOUNTER 2018-11-08 22:37 | Emergency (ER) | payer MEDICARE, OTHER, SELFPAY ==
[2018-07-21 05:26] VITALS: BMI 32.1
[2018-11-08 22:40] VITALS: BP 141/58; PULSE 65; RESP 27; TEMP 36.6; O2SAT 98; BMI 29.6
--- NOTE | 2018-11-08 22:56 | ED.ABDPAIN ---
HPI - Abdominal Pain General Chief Complaint: Abdominal Pain Stated Complaint: abdominal pain Time Seen by Provider: 11/08/18 22:37 Source: patient and family Mode of arrival: ambulatory Limitations: no limitations History of Present Illness HPI narrative: 78-year-old male with the prior history of cancer. He is not currently undergoing chemotherapy. 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 He does have a pyloric stent in place. This is not a new stent. Here for evaluation of generalized abdominal pain. No urinary symptoms. No change in bowel habits. Some nausea no vomiting. Related Data Home Medications Medication Instructions Recorded Confirmed atorvastatin 80 mg PO QPM #0 11/27/16 07/21/18 levothyroxine 100 mcg PO QAM #0 11/27/16 07/21/18 metformin [Glucophage XR] 1,000 mg PO QPM #0 11/27/16 07/21/18 zolpidem 5 mg PO HS #0 11/27/16 07/21/18 flunisolide 1 spray INTRANASAL PRN PRN 11/11/17 07/21/18 irbesartan 75 mg PO DAILY 11/11/17 07/21/18 metoprolol succinate 50 mg PO DAILY 11/11/17 07/21/18 omeprazole 40 mg PO BID 11/11/17 07/21/18 cephalexin 500 mg PO Q6H 07/21/18 07/21/18 isosorbide mononitrate 30 mg PO DAILY 07/21/18 07/21/18 minocycline 1 cap PO BID 07/21/18 07/21/18 nitroglycerin 0.4 mg SUBLINGUAL Q5-15M PRN 07/21/18 07/21/18 sucralfate 1 g PO QID 07/21/18 07/21/18 Previous Rx's Medication Instructions Recorded rivaroxaban [Xarelto] 20 mg PO QPM #30 tab 07/22/18 gabapentin 100 mg PO TID #90 cap 10/08/18 docusate sodium [Colace] 100 mg PO BID PRN #20 cap 11/09/18 Allergies Allergy/AdvReac Type Severity Reaction Status Date / Time No Known Drug Allergies Allergy Verified 11/08/18 22:44 Review of Systems Constitutional Denies headache(s) ENT Ears, Nose, Mouth, and Throat: Denies headache(s) Cardiovascular Denies chest pain and Denies dyspnea Respiratory Denies dyspnea Gastrointestinal Gastrointestinal: Reports abdominal pain, Denies change in stool character, Reports nausea and Denies vomiting Genitourinary Denies dysuria Integumentary/Breasts Denies rash Neurologic Denies behavioral changes and Denies headache(s) Psychiatric Denies behavioral changes Hematologic/Lymphatic Denies easy bleeding and Denies easy bruising FOR[facility]LY [facility] Medical History Anemia (Acute) Atrial fibrillation (Acute) Bladder cancer (Acute) CVA (cerebral vascular accident) (Acute) Cholangiocarcinoma (Acute) Diabetes (Acute) Duodenal ulcer (Acute) Surgical History Status post left hip replacement (Inactive) Family History Mother No known health problems Father No known health problems Social History marital status: household members: spouse Smoking Status: Never smoker Family History Mother No known health problems Father No known health problems Social History marital status: household members: spouse Smoking Status: Never smoker Exam Initial Vital Signs Initial Vital Signs: Vital Signs Temperature 97.8 F 11/08/18 22:40 Pulse Rate 65 11/08/18 22:40 Respiratory Rate 27 H 11/08/18 22:40 Blood Pressure 141/58 H 11/08/18 22:40 Pulse Oximetry 98 11/08/18 22:40 Const General: cooperative, well developed, well groomed and No acute distress Orientation: alert, awake and oriented x3 Resp Effort & Inspection: normal respiratory effort Auscultation: clear to auscultation bilaterally Cardio Rate: regular rate Rhythm: regular rhythm Pulses: radial pulses present GI Inspection: non-distended Palpation: soft, No firm and tender (Generalized tenderness) Skin Lesions: no lesions Rashes: no rashes Neuro General: alert and awake Cognition: normal cognition Speech: speech normal Gait: normal gait Extrem General: normal to inspection and capillary refill normal Psych Appearance: grossly normal and well kempt Course Orders Ordered: ED Orders 11/08/18 22:45 Complete Blood Count AUTO DIFF Stat Comprehensive Metabolic Panel Stat Lactate (Lactic Acid) Stat Lipase Stat Partial Thromboplastin Time Stat Procalcitonin Stat Prothrombin Time INR Stat Troponin I Stat 11/08/18 22:47 EKG-12 Lead Stat 11/08/18 22:57 CT abdomen pelvis w con Stat Discontinued Medications Sodium Chloride (Normal Saline 0.9%) 1,000 mls @ 500 mls/hr IV BOLUS ONE Stop: 11/09/18 00:56 Last Infusion: 11/09/18 01:02 Dose: 0 mls/hr Admin: 11/08/18 23:10 Dose: 500 mls/hr Morphine Sulfate (Morphine) 4 mg IV NOW ONE Stop: 11/08/18 23:36 Last Admin: 11/08/18 23:44 Dose: 4 mg Vital Signs - 8 hr 11/08/18 22:40 11/08/18 23:54 11/09/18 01:03 Temperature 97.8 F Pulse Rate 65 60 59 L Respiratory Rate 27 H 12 12 Blood Pressure 141/58 H 108/53 L Blood Pressure [Right Arm] 106/52 L Pulse Oximetry 98 98 98 MDM - Abdominal Pain Lab Data Attestation: I reviewed the patient's lab results. Result diagrams: 11/08/18 22:45 11/08/18 22:45 Lab Results 11/08/18 11/08/18 11/08/18 Range/Units 22:45 22:45 22:45 WBC 7.0 (4.5-11.0) X10^3/uL RBC 3.30 L (4.5-5.9) X10^6/uL Hgb 9.1 L (13.5-17.5) g/dL Hct 27.8 L (41-53) % MCV 84.1 (80-100) fL MCH 27.5 (26-34) PG MCHC 32.7 (30-36) % RDW 17.0 H (11.6-14.8) % Plt Count 410 H (150-400) X10^3/uL Neut % (Auto) 72.7 (50-75) % Lymph % (Auto) 12.3 L (25-40) % [place] % (Auto) 12.8 (3-14) % Eos % (Auto) 1.4 L (2-4) % Baso % (Auto) 0.8 (0-2) % Neut # (Auto) 5100 (5600-5437) /uL Lymph # (Auto) 900 L (2192-6806) /uL [place] # (Auto) 900 (0-900) /uL Eos # (Auto) 100 (0-450) /uL Baso # (Auto) 100 (0-100) /uL PT 12.6 (10.1-12.7) SECONDS INR 1.1 (0.9-1.3) APTT 45 H D (26.4-36.2) SECONDS Sodium 136 L (137-145) mmol/L Potassium 3.6 (3.4-5.1) mmol/L Chloride 101 (98-107) mmol/L Carbon Dioxide 27 (22-32) mmol/L BUN 12 (9-20) mg/dL Creatinine 0.50 L (0.66-1.25) mg/dL Estimated GFR > 60.0 (>60) mL/min BUN/Creatinine Ratio 24.0 H (6-22) Glucose 118 H (80-110) mg/dL Lactate (0.7-2.1) mmol/L Calcium 8.6 (8.4-10.2) mg/dL Total Bilirubin 0.5 (0.2-1.3) mg/dL AST 41 (17-59) IU/L ALT 32 (21-72) IU/L Alkaline Phosphatase 532 H (38-126) U/L Troponin I (0.01-0.034) ng/mL Total Protein 7.2 (6.3-8.2) g/dL Albumin 3.2 L (3.5-5.0) g/dL Globulin 4.0 (1.7-4.1) g/dL Albumin/Globulin Ratio 0.8 L (1.0-2.8) Lipase 37 (23-300) U/L Procalcitonin (<0.5) ng/mL 11/08/18 11/08/18 11/08/18 Range/Units 22:45 22:45 22:45 WBC (4.5-11.0) X10^3/uL RBC (4.5-5.9) X10^6/uL Hgb (13.5-17.5) g/dL Hct (41-53) % MCV (80-100) fL MCH (26-34) PG MCHC (30-36) % RDW (11.6-14.8) % Plt Count (150-400) X10^3/uL Neut % (Auto) (50-75) % Lymph % (Auto) (25-40) % [place] % (Auto) (3-14) % Eos % (Auto) (2-4) % Baso % (Auto) (0-2) % Neut # (Auto) (8115-4878) /uL Lymph # (Auto) (5037-2269) /uL [place] # (Auto) (0-900) /uL Eos # (Auto) (0-450) /uL Baso # (Auto) (0-100) /uL PT (10.1-12.7) SECONDS INR (0.9-1.3) APTT (26.4-36.2) SECONDS Sodium (137-145) mmol/L Potassium (3.4-5.1) mmol/L Chloride (98-107) mmol/L Carbon Dioxide (22-32) mmol/L BUN (9-20) mg/dL Creatinine (0.66-1.25) mg/dL Estimated GFR (>60) mL/min BUN/Creatinine Ratio (6-22) Glucose (80-110) mg/dL Lactate 0.9 (0.7-2.1) mmol/L Calcium (8.4-10.2) mg/dL Total Bilirubin (0.2-1.3) mg/dL AST (17-59) IU/L ALT (21-72) IU/L Alkaline Phosphatase (38-126) U/L Troponin I < 0.012 (0.01-0.034) ng/mL Total Protein (6.3-8.2) g/dL Albumin (3.5-5.0) g/dL Globulin (1.7-4.1) g/dL Albumin/Globulin Ratio (1.0-2.8) Lipase (23-300) U/L Procalcitonin 0.19 (<0.5) ng/mL Imaging Data CT scan - abdomen: Attestation: I personally reviewed and interpreted this imaging study as follows: My impression: Pyloric stent has been placed without bowel obstruction. Stable indeterminate hypodensity in the pancreatic head caudate region Descending colonic diverticulosis with moderate stool in the colon ECG Data Attestation: I personally reviewed and interpreted this ECG as follows: Prior ECG tracings: not available for review Interpretation: Sinus rhythm Ventricular rate is 65 Right bundle branch block No ST T wave changes MDM Narrative Medical decision making narrative: No acute findings noted on the CT scan. Patient reports vast improvement of his symptoms after pain medication here in the ER. No vomiting. Does have a soft abdomen. He does have moderate stool in his colon on the CT scan. Patient states that he has had small bowel movements recently. This could potentially be the cause of his symptoms. No indication for surgical referral. No indication for antibiotics. I the patient follow up with his primary doctor. He already has an appointment scheduled for later today with his primary provider. We discussed return precautions and follow-up instructions. He expressed understanding and agreement with plan Discharge Plan Departure Patient Disposition: Home Clinical Impression: Abdominal pain Qualifiers: Abdominal location: generalized Qualified Code(s): R10.84 - Generalized abdominal pain Discharge Date/Time: 11/09/18 01:04 Interventions: ED Discharge Assessment Last Done: 11/09/18 01:03 Instructions: DI for Abdominal Pain-Adult Activity Restrictions/Additional Instructions: Your CT scan today shows no signs of infection or obstructions or perforations. I would recommend you keep your appointment that you have with your primary doctor later today. Take the medication like we discussed. Return to the emergency department for any new or worsening symptoms Prescriptions: New docusate sodium [Colace] 100 mg capsule 100 mg PO BID PRN (Reason: constipation) Qty: 20 RF: 0 No Action metformin [Glucophage XR] 500 MG tablet extended release 24 hr 1,000 mg PO QPM Qty: 0 RF: 0 levothyroxine 100 MCG tablet 100 mcg PO QAM Qty: 0 RF: 0 zolpidem 10 MG tablet 5 mg PO HS Qty: 0 RF: 0 atorvastatin 80 MG tablet 80 mg PO QPM Qty: 0 RF: 0 metoprolol succinate 100 mg tablet extended release 24 hr 50 mg PO DAILY RF: 0 omeprazole 40 mg capsule,delayed release(DR/EC) 40 mg PO BID RF: 0 irbesartan 150 mg tablet 75 mg PO DAILY RF: 0 flunisolide 25 mcg (0.025 %) [place],Non-Aerosol 1 spray Intranasal PRN PRN (Reason: Allergy Symptoms) RF: 0 sucralfate 1 gram tablet 1 g PO QID RF: 0 nitroglycerin 0.4 mg Tablet, Sublingual 0.4 mg SUBLINGUAL Q5-15M PRN (Reason: Chest Pain) RF: 0 isosorbide mononitrate 30 mg Tablet Extended Release 24 Hr 30 mg PO DAILY RF: 0 cephalexin 500 mg Capsule 500 mg PO Q6H RF: 0 minocycline 1 cap PO BID RF: 0 Xarelto 20 mg tablet 20 mg PO QPM Qty: 30 RF: 0 gabapentin 100 mg capsule 100 mg PO TID Qty: 90 RF: 0 Referrals: Flaquito Rodriguez MD [Primary Care Provider] -
--- NOTE | 2018-11-08 22:57 | DI.CT.S_ITS ---
PROCEDURE: CT ABDOMEN PELVIS W CON INDICATIONS: Left upper quadrant abdominal pain TECHNIQUE: After the administration of intravenous contrast, 5 mm thick sections acquired from the diaphragm to the symphysis. 5 mm coronal and sagittal reformats were acquired. For radiation dose reduction, the following was used: automated exposure control, adjustment of mA and/or kV according to patient size. COMPARISON: [facility], CT, CT ABDOMEN PELVIS W CON, 11/11/2017, 20:29. FINDINGS: Image quality: Excellent. ABDOMEN: Lung bases: Bibasilar scarring/atelectasis is seen posteriorly. Heart size is normal. Solid organs: Liver is normal in size and enhancement. Extensive pneumobilia is again seen. Gallbladder is surgically absent. Biliary system is non dilated. Indeterminate hypodensity near posterior to pancreatic head is again seen, not significantly changed in size and appearance from prior study in 2018. Spleen is normal in size and enhancement. No adrenal nodules. Kidneys demonstrate normal size and enhancement, without hydronephrosis. Peritoneum and bowel: There is interval placement of a pyloric stent, extending to proximal to mid duodenum. Fluid distended stomach lumen is seen. Small hiatal hernia is noted. There is no bowel obstruction. No abnormal bowel wall thickening or mesenteric fat stranding. No free fluid or free air. Moderate fecal stasis in the colon is seen. Descending colon diverticulosis is noted, no evidence of acute diverticulitis. Nodes and vessels: No retroperitoneal or mesenteric adenopathy by size criteria. Aorta and inferior vena cava are normal in size. Moderate atherosclerotic plaques throughout abdominal aorta is seen. Miscellaneous: No ventral hernias. PELVIS: Genitourinary: Bladder wall thickness is normal. Miscellaneous: No inguinal hernias or adenopathy. Bones: No suspicious bony lesions. No vertebral body compression fractures. Patient is status post bilateral hip arthroplasty. IMPRESSION: 1. Interval placement of a pyloric stent. No evidence of bowel obstruction. No free fluid or free air. Small hiatal hernia. Moderate gastric distention with fluid. 2. Stable indeterminant hypodensity in pancreatic head region. 3. Moderate amount of pneumobilia. No biliary dilatation. Dictated by: Mamadou Gonzalez M.D. on 11/09/2018 at 9:13 Approved by: Mamadou Gonzalez M.D. on 11/09/2018 at 9:18
[2018-11-08 23:09] LABS: Add Manual Diff / Slide Review NO; Basophils Absolute Auto 100 /uL (0-100); Basophils Percent Auto 0.8 % (0-2); Eosinophils Absolute Auto 100 /uL (0-450); Eosinophils Percent Auto 1.4 % (2-4); Hematocrit 27.8 % (41-53); Hemoglobin 9.1 g/dL (13.5-17.5); Lymphocytes Absolute Auto 900 /uL (1100-4500); Lymphocytes Percent Auto 12.3 % (25-40); Mean Corpuscular HGB Conc 32.7 % (30-36); Mean Corpuscular Hemoglobin 27.5 PG (26-34); Mean Corpuscular Volume 84.1 fL (80-100); Monocytes Absolute Auto 900 /uL (0-900); Monocytes Percent Auto 12.8 % (3-14); Neutrophils Absolute Auto 5100 /uL (1500-7000); Neutrophils Percent Auto 72.7 % (50-75); Platelet Count 410 X10^3/uL (150-400)
[2018-11-08 23:10] LABS: INR 1.1 (0.9-1.3); Prothrombin Time 12.6 SECONDS (10.1-12.7)
[2018-11-08] MEDS: SODIUM CHLORIDE 0.9% 1,000 ML 500 ML IV (23:10)
[2018-11-08 23:13] LABS: PTT Partial Thromboplastin Tim 45 SECONDS (26.4-36.2)
[2018-11-08 23:15] LABS: Alanine Aminotransferase 32 IU/L (21-72); Albumin 3.2 g/dL (3.5-5.0); Albumin Globulin Ratio 0.8 (1.0-2.8); Alkaline Phosphatase 532 U/L (38-126); Aspartate Aminotransferase 41 IU/L (17-59); Bilirubin Total 0.5 mg/dL (0.2-1.3); Blood Urea Nitrogen 12 mg/dL (9-20); Calcium 8.6 mg/dL (8.4-10.2); Carbon Dioxide 27 mmol/L (22-32); Chloride 101 mmol/L (98-107); Estimated Glomerular Filt Rate > 60.0 mL/min (>60); Glucose 118 mg/dL (80-110); HEMOLYSIS < 15 (0-50); Lipase 37 U/L (23-300); Potassium 3.6 mmol/L (3.4-5.1); Sodium 136 mmol/L (137-145); Total Protein 7.2 g/dL (6.3-8.2)
[2018-11-08 23:26] LABS: Lactate (Lactic Acid) 0.9 mmol/L (0.7-2.1)
[2018-11-08 23:39] LABS: Troponin I < 0.012 ng/mL (0.01-0.034)
[2018-11-08 23:42] LABS: Procalcitonin 0.19 ng/mL (<0.5)
[2018-11-08] MEDS: MORPHINE 4 MG/ML INJ IV (23:44)
[2018-11-08 23:54] VITALS: BP 106/52; PULSE 60; RESP 12; O2SAT 98
[2018-11-09 01:03] VITALS: BP 108/53; PULSE 59; RESP 12; O2SAT 98
== END 2018-11-09 01:04 | disposition home or self-care (01) ==
PROVIDERS: Emergency Provider Emergency Medicine; PCP Internal Medicine
DX: R10.84 Generalized abdominal pain (principal)
CPT/HCPCS: 36591; 74177; 80053; 83605; 83690; 84145; 84484; 85025; 85610; 85730; 93005; 96361; 96374; 99283; 99285; J2270; Q9967

== ENCOUNTER 2018-11-11 11:30 | Outpatient (RCR) | payer MEDICARE, OTHER, SELFPAY ==
[2018-07-21 05:26] VITALS: BMI 32.1
--- NOTE | 2018-09-26 17:52 | ST.OPIE ---
Provider Information Visit Care Team Role Provider Type Flaquito Rodriguez MD Attending Provider Physician Primary Care Provider Specialty: Internal Medicine Address: [address] [place] [address], [id number] Email: Speech-Language Pathology Initial Evaluation TRANSMISSION MECHANIC Cognitive/Memory Evaluation Start: 09/23/18 10:02 Freq: Status: Active Protocol: Document 09/22/18 13:30 [facility] (Rec: 09/23/18 10:25 [facility] [id number]) Evaluation of Cognition Session Time Visit Start Time 13:30 Visit Stop Time 14:10 Total Visit Minutes 40 Visit Information Visit Number 1 Plan of Care Dates 09/22/18-12/23/18 Insurance Information Medicare Next Note Type Next Note Type Treatment Note Referral Referring Physician Dr. Rodriguez Reason for Referral CVA Past Medical History Patient History Mr. Martines presented to [facility] ER on 2018 w/ left face, arm and leg weakness and parasthesias. 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 He was discharged from [facility] on Saturday 07/22. He currently receives outpatient OT and PT. 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 Martines arrived on time for the appointment. They were pleasant and conversation. Mr. Martines reports notable cognitive changes following his stroke and complains of a brain fog. He manages finances at home, but states this task has been more mentally challenging for him since the stroke. He recounted an error he made recently when paying bills. Mrs. Martines reports she has noticed more difficulty with memory, but Mr. Martines states he feels his memory is normal. He denies any word finding difficulty. - Informal Assessment Receptive Language Normal Yes Expressive Language Normal Yes Formal Assessment Standardized Test Cognitive Linguistic Quick Test + Administration Complete Results The CLQT+ is a criterion- referenced test with severity ratings for two age categories (ages 18-69 and ages 70-89). It was designed to quickly assess the relative status of five cognitive domains ( attention, memory, language, exectuive functions, and visuospatial skills). Mr. Martines's scores fell within normal limits in the following domains: attention, memory, executive functions and visuospatial skills. His score in the language domain implied a mild impairment. Specifically, he had difficulty recalling details from a short story during the story retell task. He named 11 animals in 1 minute, but only named 7 words that begin with 'm' in one minute during the generative naming task equating to a score of 4 out of 9 possible points. He scored 5 out of 8 possible points on the mazes. On both mazes, he found a correct solution, but he lost 3 points on maze 2 where his line traveled down an incorrect path before it was self-corrected. During the design generation task, he rodger a total of 13 designs; however, 7 designs were incorrect due to using more than 4 lines. His score on this task was 5 out of a possible 13 points. - Cognition - Memory - Findings Cognitive/Memory Impressions Mr. Martines presents with mild cognitive impairments following a right parietal and thalamic stroke on 07/21/18. He would benefit from outpatient speech therapy to restore function, compensate for deficits, and educate and Mrs. Martines about the impairment and treatment. Treatment Goals Short Term Goals Mr. Martines will answer multiple choice questions regarding short paragraphs (5/ 6 sentences) with 90% accuracy in order to improve short term recall of functional information. Mr. Martines will name at least 10 items in a category without cues in order to improve categorization. Mr. Martines will demonstrate self-monitoring by performing self corrections out assistance/cues. Half-Way Goals Mr. Martines will demonstrate understanding of and use of trained strategies and will report improvements in overall cognitive function. Total Time Full Evaluation Time 40
--- NOTE | 2018-09-29 09:47 | ST.OPTN ---
Care Team Visit Care Team Role Provider Type Flaquito Rodriguez MD Attending Provider Physician Primary Care Provider Address: [address] [place] [address], [id number] PREPARED FOODS TEAM LEADER Treatment Note PREPARED FOODS TEAM LEADER Treatment Note Start: 09/23/18 10:02 Freq: Status: Active Protocol: Document 09/29/18 09:30 [facility] (Rec: 09/30/18 09:47 [facility] [id number]) Speech Pathology Treatment Note Session Time Visit Start Time 09:30 Visit Stop Time 10:15 Total Visit Minutes 45 Visit Information Visit Number 2 Plan of Care Dates 09/22/18-12/23/18 Insurance Information Medicare Setting Treatment Setting Outpatient Care Visit Type Note Type Treatment Note Next Note Type Next Note Type Treatment Note General Information General Information Mr. Martines presented to [facility] ER on 2018 w/ left face, arm and leg weakness and parasthesias. 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 He was discharged from [facility] on Saturday 07/22. He currently receives outpatient OT and PT. 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 Subjective Identification Type Name Others Present Family Observations/Patient Presentation and Mrs. Martines arrived on time for the appointment. Chief Complaint(s) Cognitive Patient Knowledge/Awareness of PREPARED FOODS TEAM LEADER Role Good in Treatment Parent/Caretake Knowledge/Awareness of Good PREPARED FOODS TEAM LEADER Role in Treatment Objective Short Term Goals Mr. Martines will answer multiple choice questions regarding short paragraphs (5/ 6 sentences) with 90% accuracy in order to improve short term recall of functional information. Mr. Martines will name at least 10 items in a category without cues in order to improve categorization. Mr. Martines will demonstrate self-monitoring by performing self corrections out assistance/cues. Manager Surgery Goals Mr. Martines will demonstrate understanding of and use of trained strategies and will report improvements in overall cognitive function. Treatment Activities Reviewed results of CLQT. Provided education regarding plan of care and compensatory strategies related to medication management, remembering appointments/ schedules and managing finances at home. Discussed importance of routines and use of external memory aids. Completed divergent naming tasks. Mr. Martines did not have difficulty with naming tangible items such as types of trees. For this task, he used visualization as a strategy for naming items in categories. However, for a more abstract category such as words that begin with /f/, he was only able to name 4 in one minute. We discussed using consonant+ vowel combinations and visualization to help with generation of words such as fa..., fe..., fi..., etc. On the second trial, he names 8 words that begin with /g/ using the strategy. Short term recall of information read aloud in a short paragraph was also targeted. Information was interesting to Mr. Martines which likely improved his recall of the information. He answered open ended questions about the information read aloud immediately w/ ~90% accuracy. He recalled details such as dates, years, names, etc. Assessment Patient Response to Treatment Good Rehab Potential Good Impairments Identified Attention Memory - Short Term Progress Towards Goals Good Progress Assessment of Overall Progress Improving Assessment of Improvement Good progress today. and Mrs. Martines report they are eager to continue therapy to improve overall cognition as Mr Mesfin Martines reports this is his biggest complaint post CVA . Reviewed with Patient Goals Progress Being Made Home Exercise Program Patient/Caregiver Understanding Good Plan Amount of Therapy Recommended 2-3 Months Frequency of Treatment Once a Week Length of Session 45 Minutes Therapeutic Contents Client Education Cognitive-Linguistic Training Provided Patient/Caregiver Instruction Questions/Concerns Therapy Recommendations Continue with Current Program
--- NOTE | 2018-10-04 12:56 | ST.OPTN ---
Care Team Visit Care Team Role Provider Type Flaquito Rodriguez MD Attending Provider Physician Primary Care Provider Address: [address] [place] [address], [id number] COMPOUNDER FLAVORINGS Treatment Note [employer] Treatment Note Start: 09/23/18 10:02 Freq: Status: Active Protocol: Document 10/04/18 11:30 [facility] (Rec: 10/05/18 12:56 [facility] [id number]) Speech Pathology Treatment Note Session Time Visit Start Time 11:35 Visit Stop Time 12:15 Total Visit Minutes 40 Visit Information Visit Number 3 Plan of Care Dates 09/22/18-12/23/18 Insurance Information Medicare Setting Treatment Setting Outpatient Care Visit Type Note Type Treatment Note Next Note Type Next Note Type Treatment Note General Information General Information Mr. Martines presented to [facility] ER on 2018 w/ left face, arm and leg weakness and parasthesias. 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 He was discharged from [facility] on Saturday 07/22. He currently receives outpatient OT and PT. 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 Subjective Identification Type Name Observations/Patient Presentation and Mrs. Martines arrived for the appointment a few minutes late. Chief Complaint(s) Cognitive Patient Knowledge/Awareness of COMPOUNDER [employer]LAVORINGS Role Good in Treatment Parent/Caretake Knowledge/Awareness of Good COMPOUNDER [employer]LAVORINGS Role in Treatment Objective Short Term Goals Mr. Martines will answer multiple choice questions regarding short paragraphs (5/ 6 sentences) with 90% accuracy in order to improve short term recall of functional information. Mr. Martines will name at least 10 items in a category without cues in order to improve categorization. Mr. Martines will demonstrate self-monitoring by performing self corrections out assistance/cues. Branch Operation Evaluation Manager Goals Mr. Martines will demonstrate understanding of and use of trained strategies and will report improvements in overall cognitive function. Treatment Activities Completed a variety of tasks for attention and memory: deduction puzzle with min verbal cues, answering questions about information read loud (4 word paragraph) ~ 80% accuracy w/o cues, divergent naming given categories (states - 32 in 1 minute, [place] cities -17 in 1 minute, cold items - 10 in 1 minute, growing things - 10 in 1 minute), 2-back task for working memory - 65% accuracy w/o cues. Ongoing education provided re: attention and memory strategies for use at home including external memory aids. Assessment Patient Response to Treatment Good Rehab Potential Good Impairments Identified Attention Memory - Short Term Progress Towards Goals Good Progress Assessment of Overall Progress Improving Assessment of Improvement Excellent progress toward goals, continue strategies to improve sustained attention and working memory. Reviewed with Patient Goals Progress Being Made Home Exercise Program Patient/Caregiver Understanding Good Plan Amount of Therapy Recommended 2-3 Months Frequency of Treatment Once a Week Length of Session 45 Minutes Therapeutic Contents Client Education Cognitive-Linguistic Training Provided Patient/Caregiver Instruction Questions/Concerns Therapy Recommendations Continue with Current Program
--- NOTE | 2018-10-11 15:52 | ST.OPTN ---
Care Team Visit Care Team Role Provider Type Flaquito Rodriguez MD Attending Provider Physician Primary Care Provider Address: [address] [place] [address], [id number] MEDICAL MALPRACTICE PARALEGAL Treatment Note MEDICAL MALPRACTICE PARALEGAL Treatment Note Start: 09/23/18 10:02 Freq: Status: Active Protocol: Document 10/11/18 15:46 TLC (Rec: 10/11/18 15:52 TLC [id number]) Speech Pathology Treatment Note Session Time Visit Start Time 14:35 Visit Stop Time 15:15 Total Visit Minutes 40 Visit Information Visit Number 4 Plan of Care Dates 09/22/18-12/23/18 Insurance Information Medicare Setting Treatment Setting Outpatient Care Visit Type Note Type Treatment Note Next Note Type Next Note Type Treatment Note General Information General Information Mr. Martines presented to [facility] ER on 2018 w/ left face, arm and leg weakness and parasthesias. 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 He was discharged from [facility] on Saturday 07/22. He currently receives outpatient OT and PT. 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 Subjective Identification Type Name Observations/Patient Presentation Mr. Martines arrived on time accompanied by his who was present during the session . Patient Knowledge/Awareness of MEDICAL MALPRACTICE PARALEGAL Role Good in Treatment Parent/Caretake Knowledge/Awareness of Good MEDICAL MALPRACTICE PARALEGAL Role in Treatment Objective Short Term Goals Mr. Martines will answer multiple choice questions regarding short paragraphs (5/ 6 sentences) with 90% accuracy in order to improve short term recall of functional information. Mr. Martines will name at least 10 items in a category without cues in order to improve categorization. Mr. Martines will demonstrate self-monitoring by performing self corrections out assistance/cues. Sample Dye Mixer Goals Mr. Martines will demonstrate understanding of and use of trained strategies and will report improvements in overall cognitive function. Treatment Activities Targeted mental flexibility and categorization during divergent naming tasks. Mr. Martines named 7 words that begin with /g/ and 9 words that begin with /l/ in 1 minute. He recalled a strategy we had discussed in a previous session. The 2-back task was completed on the iPad to target working memory. Mr. Martines completed with 74% accuracy (an increase of 9% since last session). Focused attention and deductive reasoning were targeted through completion of a deduction puzzle with 9 elements. He required moderate verbal cues to complete the puzzle in the presence of auditory distractions. He stated this is too hard for my brain today. Assessment Patient Response to Treatment Good Rehab Potential Good Impairments Identified Attention Memory - Short Term Progress Towards Goals Good Progress Assessment of Overall Progress Improving Assessment of Improvement Good progress toward goals. Mr Mesfin Martines is usually aware of errors and self-corrects as needed. He denies any memory difficulty, but does occasionally repeat information/stories he has already shared in previous session. Reviewed with Patient Goals Progress Being Made Home Exercise Program Patient/Caregiver Understanding Good Plan Amount of Therapy Recommended 1-2 Months Frequency of Treatment Once a Week Length of Session 45 Minutes Therapeutic Contents Client Education Cognitive-Linguistic Training Provided Patient/Caregiver Instruction Questions/Concerns Therapy Recommendations Continue with Current Program
--- NOTE | 2018-10-24 11:19 | ST.OPTN ---
Care Team Visit Care Team Role Provider Type Flaquito Rodriguez MD Attending Provider Physician Primary Care Provider Address: [address] [place] [address], [id number] SUPPLY CHAIN PROJECT MANAGER Treatment Note SUPPLY CHAIN PROJECT MANAGER Treatment Note Start: 09/23/18 10:02 Freq: Status: Active Protocol: Document 10/24/18 11:16 TLC (Rec: 10/24/18 11:19 TLC [id number]) Speech Pathology Treatment Note Session Time Visit Start Time 10:35 Visit Stop Time 11:10 Total Visit Minutes 35 Visit Information Visit Number 6 Plan of Care Dates 09/22/18-12/23/18 Insurance Information Medicare Setting Treatment Setting Outpatient Care Visit Type Note Type Treatment Note Next Note Type Next Note Type Treatment Note General Information General Information Mr. Martines presented to [facility] ER on 2018 w/ left face, arm and leg weakness and parasthesias. 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 He was discharged from [facility] on Saturday 07/22. He currently receives outpatient OT and PT. 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 Subjective Identification Type Name Observations/Patient Presentation Mr. Martines arrived on time accompanied by his who was present during the session . He stated he was tired from not sleeping well last night. Patient Knowledge/Awareness of SUPPLY CHAIN PROJECT MANAGER Role Good in Treatment Parent/Caretake Knowledge/Awareness of Good SUPPLY CHAIN PROJECT MANAGER Role in Treatment Objective Short Term Goals Mr. Martines will answer multiple choice questions regarding short paragraphs (5/ 6 sentences) with 90% accuracy in order to improve short term recall of functional information. Mr. Martines will name at least 10 items in a category without cues in order to improve categorization. Mr. Martines will demonstrate self-monitoring by performing self corrections out assistance/cues. Header Boss Goals Mr. Martines will demonstrate understanding of and use of trained strategies and will report improvements in overall cognitive function. Treatment Activities picture 2-back task - 86%, deduction puzzles - 100% accuracy with mod cues, word finding for cateogry members given initial letters - 90% accuracy moderate cues Assessment Patient Response to Treatment Good Rehab Potential Good Impairments Identified Attention Memory - Short Term Progress Towards Goals Good Progress Assessment of Overall Progress Improving Assessment of Improvement Great progress, likely nearing d/c home with home exercise program. Reviewed with Patient Goals Progress Being Made Home Exercise Program Patient/Caregiver Understanding Good Plan Amount of Therapy Recommended 2-4 Weeks Frequency of Treatment Once a Week Length of Session 45 Minutes Therapeutic Contents Client Education Cognitive-Linguistic Training Provided Patient/Caregiver Instruction Questions/Concerns Therapy Recommendations Continue with Current Program
--- NOTE | 2018-11-11 09:17 | ST.OPDS ---
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 Martines presented to [facility] ER on 2018 w/ left face, arm and leg weakness and parasthesias. 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 He was discharged from [facility] on Saturday 07/22. He currently receives outpatient OT and PT. 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 Subjective Identification Type Name Observations/Patient Presentation Mr. Martines arrived on time. Patient Knowledge/Awareness of MACHINE FANCY STITCHER Role Good in Treatment Parent/Caretake Knowledge/Awareness of Good MACHINE FANCY STITCHER Role in Treatment Objective Short Term Goals Mr. Martines will answer multiple choice questions regarding short paragraphs (5/ 6 sentences) with 90% accuracy in order to improve short term recall of functional information. Mr. Martines will name at least 10 items in a category without cues in order to improve categorization. Mr. Martines will demonstrate self-monitoring by performing self corrections out assistance/cues. Manager Membership Goals Mr. Martines will demonstrate understanding of and use of trained strategies and will report improvements in overall cognitive function. Treatment Activities Targeted verbal and visual reasoning skills with deduction puzzles and visual sequencing worksheets. Discussed progress with therapy thus far. All goals have been met and Osvaldo has remained active in managing finances and in the home building process with his . He continues to report fatigue, but states he completes more complex cognitive tasks first thing in the morning. Assessment Patient Response to Treatment Good Rehab Potential Good Impairments Identified Attention Memory - Short Term Progress Towards Goals Good Progress Assessment of Overall Progress Improving Assessment of Improvement Great progress. Ready for discharge. Will discuss with his when he gets home. Reviewed with Patient Goals Progress Being Made Home Exercise Program Patient/Caregiver Understanding Good Plan Amount of Therapy Recommended No Further Therapy Frequency of Treatment No Further Therapy Therapeutic Contents Client Education Cognitive-Linguistic Training Provided Patient/Caregiver Instruction Questions/Concerns Therapy Recommendations Discharge from Speech Therapy
== END 2018-11-16 13:06 | disposition home or self-care (01) ==
LOC: SP 11:30
PROVIDERS: PCP Internal Medicine; Visit Provider Internal Medicine
DX: I63.9 Cerebral infarction, unspecified (principal)
CPT/HCPCS: 96125

== ENCOUNTER 2018-11-11 14:30 | Outpatient (RCR) | payer MEDICARE, OTHER, SELFPAY ==
[2018-07-21 05:26] VITALS: BMI 32.1
--- NOTE | 2018-09-07 11:37 | OT.OP.EVAL ---
Visit Care Team Role Provider Type Flaquito Rodriguez MD Attending Provider Physician Primary Care Provider Specialty: Internal Medicine Address: [address] [place] [address], [id number] Email: Occupational Therapy Initial Evaluation OT Outpatient Adult Evaluation Start: 09/06/18 10:16 Freq: Status: Active Protocol: Document 08/24/18 14:28 AMS (Rec: 09/06/18 15:33 AMS [email or web address]) General Information Visit Start Time 10:30 Visit Stop Time 11:15 Total Visit Minutes 45 Visit Number 04/21 Plan of Care Dates 08/24/18-11/16/18 Insurance Information Medicare; 1 eval & 19 visits Treatment Setting Outpatient Care Note Type Initial Evaluation Referring Physician MD Michael Reason for Referral Other cerebrovascular disease Identification Confirmed Yes Identification Confirmed By Medical History Medical records available reviewed, including outpatient PT evaluation. Patient presented to [facility] ER on 07/21/2018 w/ left face, arm and leg weakness and parasthesias. 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 Osvaldo was d/ c from hospital on Saturday 07/22 . 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 Current Therapy/Therapies Outpatient PT Therapy Pain Assessment When Pain Assessed Pre-eval Pain Present Pain Reported Left Hand Intensity 6 Scale Used Numeric (1 - 10) Left Generalized Intensity 5 Scale Used Numeric (1 - 10) Right Shoulder Intensity 4 Scale Used Numeric (1 - 10) Patient Questionnaires Quick Dash UE Score 31.82 Quick Dash UE Impairment 20 to 39% Impaired (Score 20- 39) ADLs Comments Impaired IADLs Comments Impaired Vision Comments (+) wearing of glasses Range of Motion Right Active Shoulder ER AROM (degrees) 0-45 Comments h/o torn R UE rotator cuff Left Active Shoulder Flex AROM (degrees) 0-100 Query Text: Shoulder Abd AROM (degrees) 0-120 Shoulder ER AROM (degrees) 0-35 Neurological Assessment - Adult Comments Minimal impairment L UE; errors observed w/ L Finger Opposition Test w/ EO and EC. In-Hand Manipulation Left Level of Ability Mild Impairment Level of Ability Mild Impairment Level of Ability Mild Impairment Level of Ability Mild Impairment Level of Ability Mild Impairment Goals Treatment Initiated HEP. Instructed in palm <-> fingertip translation and simple rotation of objects utilizing /dice. In addition, recommended manipulation and shuffling of deck of cards. present throughout treatment session and denied questions. Short Term Goals 1. Patient will be able to move golf ball left <-> right on fingertip pads of the left hand x 10 repetitions utilizing thumb, without use of compensatory motor patterns , with modified independence. Longterm Goals 1. Patient will be modified independent with execution of home exercise program utilizing provided written and visual instructions from therapist w/ support of . 2. Based on verbal report, patient will be able to flip pages with modified independence in home environment on a daily basis utilizing non-dominant, affected left hand. 3. Patient will present with improved functional abilities of the left hand, as evidenced by obtaining a score of 20.00 or less on the QuickDASH UE Outcome Measure. Assessment/Plan Patient Response Good Rehabilitation Potential Fair Impairments Identified Balance Cognition Coordination/Dexterity Functional Activities Motor Function Pain Weakness Posture Range of Motion Recreational Activities Meaningful Activities Stiffness Safety Insight Motor Planning Treatment Assessment Patient is a 78 year-old right hand dominant male referred to outpatient OT secondary to suffering CVA with subsequent L sided weakness. Medical records available reviewed, including outpatient PT evaluation. Patient presented to [facility] ER on 2018 w/ left face, arm and leg weakness and parasthesias. 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 Osvaldo was d/c from hospital on Saturday 07/22. 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 Patient concerns/goals: Improve function of affected hand/UE. Reported difficulties flipping pages w/ L hand; difficulty doing lots of things with the left hand. c/o impaired sensation of L side of body. Evaluation findings: Decreased functional independence w/ execution of BADLs and IADLs; impaired sensation of L side of body; impaired balance and use of mobility AE; decreased activity tolerance; c/o cognitive 'fog'; decreased motor coordination of L UE; weakness; decreased fine motor /in-hand manipulation skills of L hand; pain of L side of body/R shoulder; impaired kinesthetic awareness of L UE; decreased bimanual coordination. Outpatient OT is recommended to address these areas in order to improve upon functional independence and maximize patient's success w/ active engagement in meaningful activities. Home Exercise Program Please refer to treatment section of note for specific details. Comment 12 weeks Treatment Frequency Once a Week Therapeutic Contents Active Range of Motion Adaptive Equipment Education Client Education Cognitive Skills Development Functional Activities Home Exercise Program Joint Protection Manual Therapy Education Neurodevelopment Treatment Neuromuscular Re-Education Self-Care Stretching/Flexibility Activities Therapeutic Activities Therapeutic Exercises Modalities Sensory Re-education Patient Instruction Home Exercise Program Plan of Care Questions/Concerns Occupational Therapy Assessment OT Outpatient Standardized Assessments Start: 09/06/18 10:16 Freq: Status: Active Protocol: Document 08/24/18 14:28 AMS (Rec: 09/06/18 15:33 AMS [email or web address]) 9-Hole Peg Hand Test Hand Right Date of Test 08/24/18 Therapist DANIEL Plasencia/[facility] Age/Sex 22.9 +/- 4.0 Comments Performance = 28.2 sec Interpretation = > 1 SD above the mean Left Date of Test 08/24/18 Therapist Payton Sutherland MSOTR/[facility] Age/Sex 26.4 +/- 4.8 Comments Performance = 35.7 sec Interpretation = > 1 SD above the mean
--- NOTE | 2018-09-07 12:02 | OT.OP.TRT ---
Visit Care Team Role Provider Type Flaquito Rodriguez MD Attending Provider Physician Primary Care Provider Specialty: Internal Medicine Address: [address] [place] [address], [id number] Email: Occupational Therapy Treatment Note OT Outpatient Treatment Note - Adult Start: 09/06/18 10:16 Freq: Status: Active Protocol: Document 09/06/18 15:30 AMS (Rec: 09/07/18 12:02 AMS [email or web address]) OT Outpatient Adult Treatment Note Session Time Visit Start Time 13:30 Visit Stop Time 14:18 Total Visit Minutes 48 Visit Information Visit Number 05/22 Plan of Care Dates 08/24/18-11/16/18 Insurance Information Medicare Setting Treatment Setting Outpatient Care Visit Type Note Type Treatment Note General Information General Information Patient is a 78 year-old right hand dominant male referred to outpatient OT secondary to suffering CVA with subsequent L sided weakness. Medical records available reviewed, including outpatient PT evaluation. Patient presented to [facility] ER on 2018 w/ left face, arm and leg weakness and parasthesias. 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 Osvaldo was d/c from hospital on Saturday 07/22. 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 - Subjective Identification Type Name Identification Reconciled With Medical Record Others Present Family Observations He had to go into the ER because his stent was clogged per . That is where we were last week. He is on an all liquid diet and he might have to be on an all liquid diet for the rest of his life . I have been working with a ball while I have been sitting in my chair per Osvaldo. Chief Complaint(s) Restricts Patient/Caregiver Compliance with Home Good Exercise Program Comments w/ 's support. - Objective Objective Measurements (+) intrinsic tightness L; decreased motor planning noted w/ tendon gliding. Minor puckering of palmar fascial tissue bilaterally. (+) locking of R 4th digit into flexion intermittently noted w / tendon gliding (It happens every once and awhile). c/o tendency of left hand to go into flexion pattern. Please refer to below for progress towards meeting established OT goals. Short Term Goals 1. Patient will be able to move golf ball left <-> right on fingertip pads of the left hand x 10 repetitions utilizing thumb, without use of compensatory motor patterns , with modified independence. [employer]oring [employer] Goals 1. Patient will be modified independent with execution of home exercise program utilizing provided written and visual instructions from therapist w/ support of . 2. Based on verbal report, patient will be able to flip pages with modified independence in home environment on a daily basis utilizing non-dominant, affected left hand. 3. Patient will present with improved functional abilities of the left hand, as evidenced by obtaining a score of 20.00 or less on the QuickDASH UE Outcome Measure. - Treatment 1 Descriptor In-hand manipulation (left) Translation w/ focus on pads of digits Shifting of objects Rotation of objects Complexity Upgraded Exercises 3 Descriptor Sh AROM Supine stretch of chest Cane sh abd Body Position Supine Sets 1 Repetitions 10 Complexity Upgraded 2 Descriptor Digit extensor strengthening Side Left Body Position Seated Sets 3 Repetitions 10 Resistance 2 rubberbands combined 1 Descriptor HEP. Upgraded. Initiated tendon gliding exercises for L hand, as well as digit extensor strengthening and supine cane exercises versus sitting to decrease utilization of compensatory strategies at trunk level (e.g ., trunk extension). Provided written and visual instructions for tendon gliding; denied need for written instructions for rubberband and supine cane exercise. Provided 2 rubberbands to combine for digit extensor strengthening. - Assessment Patient Response to Treatment Good Rehab Potential Fair Impairments Identified ADLs Balance Coordination/Dexterity Flexibility Functional Activities Memory Motor Function Pain Weakness Posture Range of Motion Recreational Activities Meaningful Activities Stiffness Safety Insight Motor Planning Eye-Hand Coordination Assessment of Improvement Upgraded HEP. Improving translation of objects palm <- > fingertips. Upgraded activity to increased focus on translation of object to finger tip pads. Decreased activity tolerance. Compensatory motor patterns. Decreased speed and efficiency w/ manipulating objects away from base of support w/ L UE. Recommend that therapist continues to address UE motor planning, object manipulation skills, bimanual coordination, and functional activities. Home Exercise Program Please refer to treatment section of note for specific details. Reviewed with Patient/Caregiver Goals Progress Being Made Home Exercise Program Patient/Caregiver Understanding Good - Plan Therapy Recommendations Continue with Current Program Advance per Rehabilitation Protocol Additional Therapy Recommendations Rec CLERICAL DENTIST ASSISTANT eval d/t cognitive concerns
--- NOTE | 2018-09-13 14:00 | OT.OP.TRT ---
Visit Care Team Role Provider Type Flaquito Rodriguez MD Attending Provider Physician Primary Care Provider Specialty: Internal Medicine Address: [address] [place] [address], [id number] Email: Occupational Therapy Treatment Note OT Outpatient Treatment Note - Adult Start: 09/06/18 10:16 Freq: Status: Active Protocol: Document 09/13/18 13:47 AMS (Rec: 09/13/18 13:51 AMS [id number]) OT Outpatient Adult Treatment Note Session Time Visit Start Time 12:30 Visit Stop Time 13:16 Total Visit Minutes 46 Visit Information Visit Number 06/19 Plan of Care Dates 08/24/18-11/16/18 Insurance Information Medicare Setting Treatment Setting Outpatient Care Visit Type Note Type Treatment Note General Information General Information Patient is a 78 year-old right hand dominant male referred to outpatient OT secondary to suffering CVA with subsequent L sided weakness. Medical records available reviewed, including outpatient PT evaluation. Patient presented to [facility] ER on 2018 w/ left face, arm and leg weakness and parasthesias. 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 Osvaldo was d/c from hospital on Saturday 07/22. 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 - Subjective Identification Type Name Identification Reconciled With Medical Record Others Present Family Observations I don't remember saying that per Osvaldo in re: 'having difficulty turning pages' with the left hand. We have an appointment next with the speech therapist. His PT appointment is this afternoon at 3:15 per . Chief Complaint(s) Restricts Patient/Caregiver Compliance with Home Good Exercise Program Comments w/ 's support. - Objective Objective Measurements (+) intrinsic tightness L; decreased motor planning noted w/ tendon gliding. Minor puckering of palmar fascial tissue bilaterally. (+) locking of R 4th digit into flexion intermittently noted w / tendon gliding (It happens every once and awhile). c/o tendency of left hand to go into flexion pattern. Please refer to below for progress towards meeting established OT goals. Short Term Goals 1. Patient will be able to complete 1 get-a-data warehousing engineer pattern, with board positioned vertically, with therapist placing 2 small clothespins in palm of left hand at a time, without utilizing compensatory motor patterns, with modified independence. 09/13/18= NEW GOAL GOALS MET Moved golf ball L <-> R on fingertip pads in palm utilizing thumb x 10 reps, w/ mod I. *MET 09/13/18 Wildlife Conservationist Goals 1. Patient will be modified independent with execution of home exercise program utilizing provided written and visual instructions from therapist w/ support of . 09/13/18= 25% met; HEP upgraded 2. Based on verbal report, patient will be able to flip pages with modified independence in home environment on a daily basis utilizing non-dominant, affected left hand. 09/13/18= 25 % met 3. Patient will present with improved functional abilities of the left hand, as evidenced by obtaining a score of 20.00 or less on the QuickDASH UE Outcome Measure. - Treatment 1 Descriptor In-hand manipulation (left) Translation w/ focus on pads of digits Shifting of objects Rotation of objects Manipulation of objects - vertical surface/to left of body Complexity Upgraded Exercises 3 Descriptor Sh AROM Seated TT positioning Sh stretch Sh hor abd/add Body Position Supine Sets 1 Repetitions 10 Complexity Upgraded 2 Descriptor Digit extensor strengthening Side Left Body Position Seated Sets 3 Repetitions 10 Resistance 2 rubberbands combined 1 Descriptor HEP. Upgraded. Initiated UE environmental positioning; TT hor abd add while seated; stretching of UE out of aroldo pattern in sitting/standing w/ use of doorway; finger walks to left of body. present throughout treatment session and denied questions re: new recommendations. Also education provided w/ emphasis on functional incorporation of UE in day-to-day life. - Assessment Patient Response to Treatment Good Rehab Potential Fair Impairments Identified ADLs Balance Coordination/Dexterity Flexibility Functional Activities Memory Motor Function Pain Weakness Posture Range of Motion Recreational Activities Meaningful Activities Stiffness Safety Insight Motor Planning Eye-Hand Coordination Assessment of Improvement Upgraded HEP. Improving in- hand manipulation skills; this is evidenced by Osvaldo meeting short term goal in this area, as well as observed improvements w/ shuffling full deck of cards and therapist's ability to transition to objects manipulated on vertical surface in front and to the left of body. Decreased activity tolerance. Decreased UE strength; c/o tightness in UE. c/o tingling in UE w/ positioning of UE to the left of body despite use of TT shoulder --> distally. c/o mental fogginess. Recommend that therapist continues to address UE motor planning, object manipulation skills, bimanual coordination, and functional activities. Recommend increased focus on functional manipulation of objects w/ L UE away from body /functional reaching. Home Exercise Program Please refer to treatment section of note for specific details. Reviewed with Patient/Caregiver Goals Progress Being Made Home Exercise Program Patient/Caregiver Understanding Good - Plan Therapy Recommendations Continue with Current Program Advance per Rehabilitation Protocol
--- NOTE | 2018-09-20 13:53 | OT.OP.TRT ---
Visit Care Team Role Provider Type Flaquito Rodriguez MD Attending Provider Physician Primary Care Provider Specialty: Internal Medicine Address: [address] [place] [address], [address] Email: Occupational Therapy Treatment Note OT Outpatient Treatment Note - Adult Start: 09/06/18 10:16 Freq: Status: Active Protocol: Document 09/20/18 13:40 AMS (Rec: 09/20/18 13:53 AMS [id number]) OT Outpatient Adult Treatment Note Session Time Visit Start Time 12:30 Visit Stop Time 13:18 Total Visit Minutes 48 Visit Information Visit Number 07/20 Plan of Care Dates 08/24/18-11/16/18 Insurance Information Medicare Setting Treatment Setting Outpatient Care Visit Type Note Type Treatment Note General Information General Information Patient is a 78 year-old right hand dominant male referred to outpatient OT secondary to suffering CVA with subsequent L sided weakness. Medical records available reviewed, including outpatient PT evaluation. Patient presented to [facility] ER on 2018 w/ left face, arm and leg weakness and parasthesias. 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 Osvaldo was d/c from hospital on Saturday 07/22. 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 - Subjective Identification Type Name Identification Reconciled With Medical Record Others Present Family Observations I can't tell any difference per Osvaldo. I feel that there has been a change in sensation of this arm and down the middle of my whole entire body per Osvaldo. Chief Complaint(s) Restricts Patient/Caregiver Compliance with Home Good Exercise Program Comments w/ 's support. - Objective Objective Measurements (+) intrinsic tightness L; decreased motor planning noted w/ tendon gliding. Minor puckering of palmar fascial tissue bilaterally. (+) locking of R 4th digit into flexion intermittently noted w / tendon gliding (It happens every once and awhile). c/o tendency of left hand to go into flexion pattern. Please refer to below for progress towards meeting established OT goals. Short Term Goals 1. Patient will be able to complete 1 get-a-glove tagger pattern, with board positioned vertically, with therapist placing 2 small clothespins in palm of left hand at a time, without utilizing compensatory motor patterns, with modified independence. 09/20/18= 25% met GOALS MET Moved golf ball L <-> R on fingertip pads in palm utilizing thumb x 10 reps, w/ mod I. *MET 09/13/18 Assisted Goals 1. Patient will be modified independent with execution of home exercise program utilizing provided written and visual instructions from therapist w/ support of . 09/13/18= 25% met; HEP upgraded 2. Based on verbal report, patient will be able to flip pages with modified independence in home environment on a daily basis utilizing non-dominant, affected left hand. 09/13/18= 25 % met 3. Patient will present with improved functional abilities of the left hand, as evidenced by obtaining a score of 20.00 or less on the QuickDASH UE Outcome Measure. - Treatment 1 Descriptor Manipulation of objects w/ L UE/hand away from base of support (resistant clothespins - 1# to 8# of force resistance) Complexity Upgraded Exercises 3 Descriptor Sh AROM Supine (sh flex; sh abd; sh hor abd & ER; ER w/ hands behind head); shoulder circles Ceiling reach Seated w/ use of yoga ball to approx 90 degrees sh flex/sh abd Balloon volleyball seated at EOM w/ L UE Body Position Supine Sets 1 Repetitions 10 Complexity Upgraded 2 Descriptor Digit extensor strengthening Side Left Body Position Seated Sets 3 Repetitions 10 Resistance 2 rubberbands combined 1 Descriptor HEP. Upgraded. Demonstrated in treatment session w/ present; recommended daily stretching of affected UE out of aroldo pattern in supine position and/or w/ use of yoga ball on table w/ support as needed. Reviewed importance of positioning of thumb to encourage ROM/movement out of typical aroldo pattern. Discussed use of heat prior to ROM exercises. Focus was on ER, hor abd and ER, sh abd; also discussed execution of UE arm circles in supine; increasing in size as able. Also education provided w/ emphasis on functional incorporation of UE in day-to- day life. Complexity Upgraded - Assessment Patient Response to Treatment Good Rehab Potential Fair Impairments Identified ADLs Balance Coordination/Dexterity Flexibility Functional Activities Memory Motor Function Pain Weakness Posture Range of Motion Recreational Activities Meaningful Activities Stiffness Safety Insight Motor Planning Eye-Hand Coordination Assessment of Improvement Decreased activity tolerance; however, improving motor coordination/motor planning of affected UE. This is evidenced by increased fluidity w/ manipulation of objects away from base of support w/ L hand in front and to the left of the body. This was also evidenced by increased fluidity w/ sh hor abd without support x 5 consecutive reps to side <-> in front of body. Upgraded HEP on this treatment date; discussed importance of stretching out of aroldo pattern w/ focus on improving upon pain-free ROM to support increased active incorporation of affected hand in daily life/thus, increased focus on functional strengthening. Recommend that therapist continues to address UE motor planning, object manipulation skills, bimanual coordination, and functional activities. Recommend increased focus on functional manipulation of objects w/ L UE away from body /functional reaching. Home Exercise Program Please refer to treatment section of note for specific details. Reviewed with Patient/Caregiver Goals Progress Being Made Home Exercise Program Patient/Caregiver Understanding Good - Plan Therapy Recommendations Continue with Current Program Advance per Rehabilitation Protocol
--- NOTE | 2018-09-27 15:22 | OT.OP.TRT ---
Visit Care Team Role Provider Type Flaquito Rodriguez MD Attending Provider Physician Primary Care Provider Specialty: Internal Medicine Address: [address] [place] [address], [id number] Email: Occupational Therapy Treatment Note OT Outpatient Treatment Note - Adult Start: 09/06/18 10:16 Freq: Status: Active Protocol: Document 09/27/18 15:10 AMS (Rec: 09/27/18 15:22 [facility] [email or web address]) OT Outpatient Adult Treatment Note Session Time Visit Start Time 12:30 Visit Stop Time 13:17 Total Visit Minutes 47 Visit Information Visit Number 08/19 Plan of Care Dates 08/24/18-11/16/18 Insurance Information Medicare Setting Treatment Setting Outpatient Care Visit Type Note Type Treatment Note General Information General Information Patient is a 78 year-old right hand dominant male referred to outpatient OT secondary to suffering CVA with subsequent L sided weakness. Medical records available reviewed, including outpatient PT evaluation. Patient presented to [facility] ER on 2018 w/ left face, arm and leg weakness and parasthesias. 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 Osvaldo was d/c from hospital on Saturday 07/22. 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 - Subjective Identification Type Name Identification Reconciled With Medical Record Others Present Family Observations I went to the gym yesterday. I went on the elliptical, treadmill and used the TRX to stretch my arms per Osvaldo. Chief Complaint(s) Restricts Patient/Caregiver Compliance with Home Good Exercise Program Comments w/ 's support. - Objective Objective Measurements (+) intrinsic tightness L; decreased motor planning noted w/ tendon gliding. Minor puckering of palmar fascial tissue bilaterally. (+) locking of R 4th digit into flexion intermittently noted w / tendon gliding (It happens every once and awhile). c/o tendency of left hand to go into flexion pattern. Please refer to below for progress towards meeting established OT goals. Short Term Goals 1. Patient will be able to complete 1 get-a-rail project engineer pattern, with board positioned vertically, with therapist placing 2 small clothespins in palm of left hand at a time, without utilizing compensatory motor patterns, with modified independence. 09/27/18= 75% met GOALS MET Moved golf ball L <-> R on fingertip pads in palm utilizing thumb x 10 reps, w/ mod I. *MET 09/13/18 Residential Goals 1. Patient will be modified independent with execution of home exercise program utilizing provided written and visual instructions from therapist w/ support of . 09/27/18= 25% met; HEP upgraded 2. Based on verbal report, patient will be able to flip pages with modified independence in home environment on a daily basis utilizing non-dominant, affected left hand. 09/13/18= 25 % met 3. Patient will present with improved functional abilities of the left hand, as evidenced by obtaining a score of 20.00 or less on the QuickDASH UE Outcome Measure. - Treatment 1 Descriptor Manipulation of objects w/ L UE/hand away from base of support (resistant clothespins - 1# to 8# of force resistance and get-a-rail project engineer pattern) Complexity Upgraded Exercises 3 Descriptor Sh AROM Supine (sh hor abd & ER; ER w/ hands behind head) Sidelying (scapular protraction & retraction; UB & LB dissociation rotation of UB trunk) Sitting (orientation to midline; circles) N/A 09/27/18 Balloon volleyball seated at EOM w/ L UE Body Position Supine Sets 1 Repetitions 10 Complexity Upgraded 1 Descriptor HEP. No changes to HEP made on this treatment date. - Assessment Patient Response to Treatment Good Rehab Potential Fair Impairments Identified ADLs Balance Coordination/Dexterity Flexibility Functional Activities Memory Motor Function Pain Weakness Posture Range of Motion Recreational Activities Meaningful Activities Stiffness Safety Insight Motor Planning Eye-Hand Coordination Assessment of Improvement Improving object manipulation abilities of L hand/UE; cueing to avoid compensatory motor patterns w/ object manipulation. Improving fluidity/smoothness w/ functional motor planning of affected UE w/ object manipulation away from body/ base of support. Tightness of L UE out of typical aroldo pattern. Recommend that therapist continues to address UE motor planning, object manipulation skills, bimanual coordination, and functional activities. Recommend increased focus on functional manipulation of objects w/ L UE away from body/functional reaching. Home Exercise Program Please refer to treatment section of note for specific details. Reviewed with Patient/Caregiver Goals Progress Being Made Home Exercise Program Patient/Caregiver Understanding Good - Plan Therapy Recommendations Continue with Current Program Advance per Rehabilitation Protocol
--- NOTE | 2018-10-04 13:49 | OT.OP.TRT ---
Visit Care Team Role Provider Type Flaquito Rodriguez MD Attending Provider Physician Primary Care Provider Specialty: Internal Medicine Address: [address] [place] [address], [id number] Email: Occupational Therapy Treatment Note OT Outpatient Treatment Note - Adult Start: 09/06/18 10:16 Freq: Status: Active Protocol: Document 10/04/18 13:24 AMS (Rec: 10/04/18 13:49 AMS [id number]) OT Outpatient Adult Treatment Note Session Time Visit Start Time 12:30 Visit Stop Time 13:18 Total Visit Minutes 48 Visit Information Visit Number 09/19 Plan of Care Dates 08/24/18-11/16/18 Insurance Information Medicare Setting Treatment Setting Outpatient Care Visit Type Note Type Treatment Note General Information General Information Patient is a 78 year-old right hand dominant male referred to outpatient OT secondary to suffering CVA with subsequent L sided weakness. Medical records available reviewed, including outpatient PT evaluation. Patient presented to [facility] ER on 2018 w/ left face, arm and leg weakness and parasthesias. 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 Osvaldo was d/c from hospital on Saturday 07/22. 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 - Subjective Identification Type Name Identification Reconciled With Medical Record Others Present Family Observations I am stiff per Osvaldo. Chief Complaint(s) Restricts Patient/Caregiver Compliance with Home Good Exercise Program Comments w/ 's support. - Objective Objective Measurements (+) intrinsic tightness L; decreased motor planning noted w/ tendon gliding. Minor puckering of palmar fascial tissue bilaterally. (+) locking of R 4th digit into flexion intermittently noted w / tendon gliding (It happens every once and awhile). c/o tendency of left hand to go into flexion pattern. Please refer to below for progress towards meeting established OT goals. Short Term Goals 1. Patient will be able to complete 1 get-a-template fitter pattern, with board positioned vertically, with therapist placing 3 small clothespins in palm of left hand at a time, without utilizing compensatory motor patterns, with modified independence. 10/04/18= GOAL UPGRADED GOALS MET Moved golf ball L <-> R on fingertip pads in palm utilizing thumb x 10 reps, w/ mod I. *MET 09/13/18 Completed 1 get-a-template fitter pattern vertically w/ 2 clothespins in L palm of left hand w/ mod I. *MET 10/04/18 Senior Care Goals 1. Patient will be modified independent with execution of home exercise program utilizing provided written and visual instructions from therapist w/ support of . 09/27/18= 25% met; HEP upgraded 2. Based on verbal report, patient will be able to flip pages with modified independence in home environment on a daily basis utilizing non-dominant, affected left hand. 09/13/18= 25 % met 3. Patient will present with improved functional abilities of the left hand, as evidenced by obtaining a score of 20.00 or less on the QuickDASH UE Outcome Measure. - Treatment 2 Descriptor Fine motor coordination ( finger isolation) Complexity Upgraded 1 Descriptor Manipulation of objects w/ L UE/hand away from base of support (get-a-template fitter; balloon; tennis ball) Complexity Upgraded Exercises 3 Descriptor Sh AROM Supine (sh hor abd & ER; ER w/ hands behind head; sh flex; sh abd; sh hor abd/add; sh circles) Sitting (trunk rotation w/ arms in frontal plane; trunk rotation [id number]; sh hor abd w/ scap retraction L) N/A 09/27/18 Balloon volleyball seated at EOM w/ L UE Sets 1 Repetitions 10 Complexity Upgraded 1 Descriptor HEP. Upgraded. Provided visual to support execution of home exercise program working on fine motor planning of the digits. Demonstrated activity to ; she denied questions. Complexity Upgraded - Assessment Patient Response to Treatment Good Rehab Potential Fair Impairments Identified ADLs Balance Coordination/Dexterity Flexibility Functional Activities Memory Motor Function Pain Weakness Posture Range of Motion Recreational Activities Meaningful Activities Stiffness Safety Insight Motor Planning Eye-Hand Coordination Assessment of Improvement Improving object manipulation abilities of L hand/UE, as evidenced by meeting short term goal in this area. Cueing however, to continue to support avoidance of compensatory motor patterns w/ object manipulation. Upgraded fine motor planning activities. Tightness of L UE out of typical aroldo pattern. Recommend that therapist continues to address UE motor planning, object manipulation skills, bimanual coordination, and functional activities. Recommend increased focus on functional manipulation of objects w/ L UE away from body /functional reaching. Recommend re-administering 9- Hole Peg Test at time of next treatment session. Home Exercise Program Please refer to treatment section of note for specific details. Reviewed with Patient/Caregiver Goals Progress Being Made Home Exercise Program Patient/Caregiver Understanding Good - Plan Therapy Recommendations Continue with Current Program Advance per Rehabilitation Protocol
--- NOTE | 2018-10-06 15:44 | OT.OP.TRT ---
Visit Care Team Role Provider Type Flaquito Rodriguez MD Attending Provider Physician Primary Care Provider Specialty: Internal Medicine Address: [address] [place] [address], [id number] Email: Occupational Therapy Treatment Note OT Outpatient Treatment Note - Adult Start: 09/06/18 10:16 Freq: Status: Active Protocol: Document 10/06/18 12:30 AMS (Rec: 10/06/18 15:44 AMS [email or web address]) OT Outpatient Adult Treatment Note Session Time Visit Start Time 12:30 Visit Stop Time 13:20 Total Visit Minutes 50 Visit Information Visit Number 10/19 Plan of Care Dates 08/24/18-11/16/18 Insurance Information Medicare Setting Treatment Setting Outpatient Care Visit Type Note Type Treatment Note General Information General Information Patient is a 78 year-old right hand dominant male referred to outpatient OT secondary to suffering CVA with subsequent L sided weakness. Medical records available reviewed, including outpatient PT evaluation. Patient presented to [facility] ER on 2018 w/ left face, arm and leg weakness and parasthesias. 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 Osvaldo was d/c from hospital on Saturday 07/22. 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 - Subjective Identification Type Name Identification Reconciled With Medical Record Others Present Family Observations I don't trust this hand per Osvaldo in re: left hand. Chief Complaint(s) Restricts Patient/Caregiver Compliance with Home Good Exercise Program Comments w/ 's support. - Objective Objective Measurements (+) intrinsic tightness L; decreased motor planning noted w/ tendon gliding. Minor puckering of palmar fascial tissue bilaterally. (+) locking of R 4th digit into flexion intermittently noted w / tendon gliding (It happens every once and awhile). c/o tendency of left hand to go into flexion pattern. Please refer to below for progress towards meeting established OT goals. Short Term Goals 1. Patient will be able to complete 1 get-a-media job titles pattern, with board positioned vertically, with therapist placing 3 small clothespins in palm of left hand at a time, without utilizing compensatory motor patterns, with modified independence. 10/06/18= 75% met GOALS MET Moved golf ball L <-> R on fingertip pads in palm utilizing thumb x 10 reps, w/ mod I. *MET 09/13/18 Completed 1 get-a-media job titles pattern vertically w/ 2 clothespins in L palm of left hand w/ mod I. *MET 10/04/18 Supervisor Type Photography Goals 1. Patient will be modified independent with execution of home exercise program utilizing provided written and visual instructions from therapist w/ support of . 09/27/18= 25% met; HEP upgraded 2. Based on verbal report, patient will be able to flip pages with modified independence in home environment on a daily basis utilizing non-dominant, affected left hand. 09/13/18= 25 % met 3. Patient will present with improved functional abilities of the left hand, as evidenced by obtaining a score of 20.00 or less on the QuickDASH UE Outcome Measure. - Treatment 2 Descriptor Fine motor coordination ( finger isolation) Complexity Upgraded 1 Descriptor Manipulation of objects w/ L UE/hand away from base of support (get-a-media job titles; balloon; tennis ball) Complexity Upgraded Exercises 3 Descriptor Sh AROM Supine (sh hor abd & ER; ER w/ hands behind head; sh flex; sh abd; sh hor abd/add; sh circles) Sitting (trunk rotation w/ arms in frontal plane; trunk rotation [id number]; sh hor abd w/ scap retraction L) N/A 09/27/18 Balloon volleyball seated at EOM w/ L UE Sets 1 Repetitions 10 Complexity Upgraded 1 Descriptor HEP. Upgraded. Function focus. Recommended manipulating and carrying functional items in the home to support spontaneous incorporation of affected UE in daily life. Demonstrated activity to ; she denied questions. Complexity Upgraded - Assessment Patient Response to Treatment Good Rehab Potential Fair Impairments Identified ADLs Balance Coordination/Dexterity Flexibility Functional Activities Memory Motor Function Pain Weakness Posture Range of Motion Recreational Activities Meaningful Activities Stiffness Safety Insight Motor Planning Eye-Hand Coordination Assessment of Improvement Improving fine motor manipulation abilities of the L hand; able to isolate each digit pad w/ tapping exercise w/ neighboring fingers slightly extended. Able to transfer small pegs w/ opposition of thumb to each digit pad WFL; able to manage ruler WFL. Able to manage marbles w/ bimanual coordination exercise WFL. Mild difficulty managing 3 small clothespins on vertical surface; decreased confidence and increased reliance on non- affected hand in day-to-life. Recommend that therapist continues to address UE motor planning, object manipulation skills, bimanual coordination, and functional activities; recommend follow-up in 2 weeks w/ focus on functional use of hand w/ tasks executed throughout the day (focus on carrying and transporting/ transferring items with the left hand). Home Exercise Program Please refer to treatment section of note for specific details. Reviewed with Patient/Caregiver Goals Progress Being Made Home Exercise Program Patient/Caregiver Understanding Good - Plan Therapy Recommendations Continue with Current Program Advance per Rehabilitation Protocol Additional Therapy Recommendations Follow-up in 2 weeks
--- NOTE | 2018-10-20 15:45 | OT.OP.TRT ---
Visit Care Team Role Provider Type Flaquito Rodriguez MD Attending Provider Physician Primary Care Provider Specialty: Internal Medicine Address: [address] [place] [address], [id number] Email: Occupational Therapy Treatment Note OT Outpatient Treatment Note - Adult Start: 09/06/18 10:16 Freq: Status: Active Protocol: Document 10/20/18 15:29 AMS (Rec: 10/20/18 15:45 AMS [id number]) OT Outpatient Adult Treatment Note Session Time Visit Start Time 13:33 Visit Stop Time 14:18 Total Visit Minutes 45 Visit Information Visit Number 11/19 Plan of Care Dates 08/24/18-11/16/18 Insurance Information Medicare Setting Treatment Setting Outpatient Care Visit Type Note Type Treatment Note General Information General Information Patient is a 78 year-old right hand dominant male referred to outpatient OT secondary to suffering CVA with subsequent L sided weakness. Medical records available reviewed, including outpatient PT evaluation. Patient presented to [facility] ER on 2018 w/ left face, arm and leg weakness and parasthesias. 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 Osvaldo was d/c from hospital on Saturday 07/22. 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 - Subjective Identification Type Name Identification Reconciled With Medical Record Others Present Family Observations I went down to [facility] this week because of my stomach. It was distended and I wasn't feeling really well. I also came into the hospital here into the ER a couple of weeks ago because of pain. I was worried I was having another stroke per Osvaldo. They didn't do anything about it. 31.Osvaldo completed QuickDASH UE Outcome Measure on this treatment date; he obtained a score of 22.73. Chief Complaint(s) Restricts Patient/Caregiver Compliance with Home Fair Exercise Program Comments w/ 's support. - Objective Objective Measurements (+) intrinsic tightness L; decreased motor planning noted w/ tendon gliding. Minor puckering of palmar fascial tissue bilaterally. (+) locking of R 4th digit into flexion intermittently noted w / tendon gliding (It happens every once and awhile). c/o tendency of left hand to go into flexion pattern. Please refer to below for progress towards meeting established OT goals. Short Term Goals 1. Patient will be able to complete 1 get-a-mold hoister pattern, with board positioned vertically, with therapist placing 3 small clothespins in palm of left hand at a time, without utilizing compensatory motor patterns, with modified independence. 10/20/18= 75% met GOALS MET Moved golf ball L <-> R on fingertip pads in palm utilizing thumb x 10 reps, w/ mod I. *MET 09/13/18 Completed 1 get-a-mold hoister pattern vertically w/ 2 clothespins in L palm of left hand w/ mod I. *MET 10/04/18 Automotive Parts Counter Person Goals 1. Patient will be modified independent with execution of home exercise program utilizing provided written and visual instructions from therapist w/ support of . 10/20/18= 75% met; HEP upgraded 2. Patient will present with improved functional abilities of the left hand, as evidenced by obtaining a score of 20.00 or less on the QuickDASH UE Outcome Measure. 10/20/18 = 75% met; obtained a QuickDASH UE Score of 22.73 GOALS MET Able to flip pages with mod independence w/ non-dominant hand based on self-report. * MET 10/20/18 - Treatment 2 Descriptor Fine motor coordination ( finger isolation) 1 Descriptor Manipulation of objects w/ L UE/hand away from base of support (get-a-mold hoister; tennis ball) Exercises 1 Descriptor HEP. Functional focus. No changes to HEP. Recommended monitoring day-to-day life to determine if there are any tasks/activities having difficulty completing with active incorporation of the L hand/UE. - Assessment Patient Response to Treatment Good Rehab Potential Fair Impairments Identified ADLs Balance Coordination/Dexterity Flexibility Functional Activities Memory Motor Function Pain Weakness Posture Range of Motion Recreational Activities Meaningful Activities Stiffness Safety Insight Motor Planning Eye-Hand Coordination Assessment of Improvement Improving functional abilities of the left hand; this is evidenced by patient obtaining a score of 22.73 versus initial score of 31.82. This is also evidenced by Osvaldo meeting short term goal in this area relative to ability to flip pages with the left hand based on self report. Mild difficulty managing 3 small clothespins on vertical surface; decreased confidence and increased reliance on non- affected hand in day-to-life. Recommend follow-up in 2 weeks w/ focus on identification of functional difficulties in day-to-day life with active utilization of the left hand/ UE given recent hospitalizations and decreased focus on left hand abilities as previously requested by OT. Home Exercise Program Please refer to treatment section of note for specific details. Reviewed with Patient/Caregiver Goals Progress Being Made Home Exercise Program Patient/Caregiver Understanding Good - Plan Additional Therapy Recommendations Follow-up in 2 weeks
--- NOTE | 2018-11-11 15:31 | OT.OP.DC ---
Visit Care Team Role Provider Type Flaquito Rodriguez MD Attending Provider Physician Primary Care Provider Address: [address] [place] [address], [id number] Email: OT Outpatient OT Outpatient Adult Evaluation Start: 09/06/18 10:16 Freq: Status: Active Protocol: Document 08/24/18 14:28 AMS (Rec: 09/06/18 15:33 AMS [id number]) General Information Session Time Visit Start Time 10:30 Visit Stop Time 11:15 Total Visit Minutes 45 Visit Information Visit Number 04/21 Plan of Care Dates 08/24/18-11/16/18 Insurance Information Medicare; 1 eval & 19 visits Setting Treatment Setting Outpatient Care Visit Type Note Type Initial Evaluation Referral Referring Physician MD Michael Reason for Referral Other cerebrovascular disease Identification Identification Confirmed Yes Identification Confirmed By Medical Information Medical History Medical records available reviewed, including outpatient PT evaluation. Patient presented to [facility] ER on 07/21/2018 w/ left face, arm and leg weakness and parasthesias. 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 Osvaldo was d/ c from hospital on Saturday 07/22 . 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 Current Therapy/Therapies Outpatient PT Therapy Pain Assessment Pain When Pain Assessed Pre-eval Pain Present Pain Present Pain Reported Location Left Hand Intensity 6 Scale Used Numeric (1 - 10) Left Generalized Intensity 5 Scale Used Numeric (1 - 10) Right Shoulder Intensity 4 Scale Used Numeric (1 - 10) Patient Questionnaires Quick Dash- Upper Extremity Quick Dash UE Score 31.82 Quick Dash UE Impairment 20 to 39% Impaired (Score 20- 39) ADLs Overall Ability Comments Impaired IADLs Overall Function Comments Impaired Vision Vision Comments (+) wearing of glasses Range of Motion Shoulder Right Active Shoulder ER AROM (degrees) 0-45 Comments h/o torn R UE rotator cuff Left Active Shoulder Flex AROM (degrees) 0-100 Query Text: Shoulder Abd AROM (degrees) 0-120 Shoulder ER AROM (degrees) 0-35 Neurological Assessment - Adult Coordination Comments Minimal impairment L UE; errors observed w/ L Finger Opposition Test w/ EO and EC. In-Hand Manipulation Risyjo-zd-[id number] Translation Left Level of Ability Mild Impairment [id number]-[id number] Translation Level of Ability Mild Impairment Shift Level of Ability Mild Impairment Simple Rotation Level of Ability Mild Impairment Complex Rotation Level of Ability Mild Impairment Goals Treatment Treatment Initiated HEP. Instructed in palm <-> fingertip translation and simple rotation of objects utilizing /dice. In addition, recommended manipulation and shuffling of deck of cards. present throughout treatment session and denied questions. Short Term Goals Short Term Goals 1. Patient will be able to move golf ball left <-> right on fingertip pads of the left hand x 10 repetitions utilizing thumb, without use of compensatory motor patterns , with modified independence. Turbine Subassembler Goals Senior Living Goals 1. Patient will be modified independent with execution of home exercise program utilizing provided written and visual instructions from therapist w/ support of . 2. Based on verbal report, patient will be able to flip pages with modified independence in home environment on a daily basis utilizing non-dominant, affected left hand. 3. Patient will present with improved functional abilities of the left hand, as evidenced by obtaining a score of 20.00 or less on the QuickDASH UE Outcome Measure. Assessment/Plan Assessment Patient Response Good Rehabilitation Potential Fair Impairments Identified Balance Cognition Coordination/Dexterity Functional Activities Motor Function Pain Weakness Posture Range of Motion Recreational Activities Meaningful Activities Stiffness Safety Insight Motor Planning Treatment Assessment Patient is a 78 year-old right hand dominant male referred to outpatient OT secondary to suffering CVA with subsequent L sided weakness. Medical records available reviewed, including outpatient PT evaluation. Patient presented to [facility] ER on 2018 w/ left face, arm and leg weakness and parasthesias. 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 Osvaldo was d/c from hospital on Saturday 07/22. 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 Patient concerns/goals: Improve function of affected hand/UE. Reported difficulties flipping pages w/ L hand; difficulty doing lots of things with the left hand. c/o impaired sensation of L side of body. Evaluation findings: Decreased functional independence w/ execution of BADLs and IADLs; impaired sensation of L side of body; impaired balance and use of mobility AE; decreased activity tolerance; c/o cognitive 'fog'; decreased motor coordination of L UE; weakness; decreased fine motor /in-hand manipulation skills of L hand; pain of L side of body/R shoulder; impaired kinesthetic awareness of L UE; decreased bimanual coordination. Outpatient OT is recommended to address these areas in order to improve upon functional independence and maximize patient's success w/ active engagement in meaningful activities. Home Exercise Program Please refer to treatment section of note for specific details. Plan Comment 12 weeks Treatment Frequency Once a Week Therapeutic Contents Active Range of Motion Adaptive Equipment Education Client Education Cognitive Skills Development Functional Activities Home Exercise Program Joint Protection Manual Therapy Education Neurodevelopment Treatment Neuromuscular Re-Education Self-Care Stretching/Flexibility Activities Therapeutic Activities Therapeutic Exercises Modalities Sensory Re-education Patient Instruction Home Exercise Program Plan of Care Questions/Concerns Sensory Assessment Sensory Profile2 Functional Wrist/Hand Scan Hand Side OT Outpatient Treatment Note - Adult Start: 09/06/18 10:16 Freq: Status: Active Protocol: Document 11/11/18 15:31 AMS (Rec: 11/11/18 15:31 AMS [id number]) OT Outpatient Adult Treatment Note Visit Information Visit Number 9/10 Plan of Care Dates 08/24/18-11/16/18 Insurance Information Medicare Setting Treatment Setting Outpatient Care Visit Type Note Type Discharge Summary General Information General Information Patient is a 78 year-old right hand dominant male referred to outpatient OT secondary to suffering CVA with subsequent L sided weakness. Medical records available reviewed, including outpatient PT evaluation. Patient presented to [facility] ER on 2018 w/ left face, arm and leg weakness and parasthesias. 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 Osvaldo was d/c from hospital on Saturday 07/22. 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 - Subjective Identification Type Name Identification Reconciled With Medical Record Others Present Family Observations We talked to the neurologist about it per Osvaldo in re: tingling in this hand and arm. Osvaldo completed QuickDASH UE Outcome Measure on this treatment date; he obtained a score of 22.73. Chief Complaint(s) Restricts Patient/Caregiver Compliance with Home Fair Exercise Program Comments w/ 's support. - Objective Objective Measurements Minor puckering of palmar fascial tissue bilaterally. (+ ) locking of R 4th digit into flexion intermittently noted w / tendon gliding (It happens every once and awhile). c/o tendency of left hand to go into flexion pattern. Please refer to below for progress towards meeting established OT goals. Short Term Goals *GOALS MET Moved golf ball L <-> R on fingertip pads in palm utilizing thumb x 10 reps, w/ mod I. *MET 09/13/18 Completed 1 get-a-banquet steward pattern vertically w/ 2 clothespins in L palm of left hand w/ mod I. *MET 10/04/18 Completed 1 get-a-banquet steward pattern , w/ board vertical, w/ therapist placing 3 small clothespins in L hand, w/ mod I. *MET 11/11/18 Senior Living Goals *GOAL MET mod I w/ HEP. *MET 11/11/18 *GOAL DISCHARGED 11/11/18 Patient will present with improved functional abilities of the left hand, as evidenced by obtaining a score of 20.00 or less on the QuickDASH UE Outcome Measure. 10/20/18 = 75% met; obtained a QuickDASH UE Score of 22.73 GOALS MET Able to flip pages with mod independence w/ non-dominant hand based on self-report. * MET 10/20/18 - Treatment 2 Descriptor Fine motor coordination ( finger isolation) 1 Descriptor Manipulation of objects w/ L UE/hand away from base of support (get-a-banquet steward; tennis ball) Exercises 1 Descriptor HEP. Recommended functional incorporation of L hand/UE in daily life. Patient and denied questions. Recommended d/c to HEP at this time. - Assessment Patient Response to Treatment Good Rehab Potential Fair Impairments Identified ADLs Balance Coordination/Dexterity Flexibility Functional Activities Memory Motor Function Pain Weakness Posture Range of Motion Recreational Activities Meaningful Activities Stiffness Safety Insight Motor Planning Eye-Hand Coordination Assessment of Overall Progress Improving Assessment of Improvement Osvaldo is presenting w/ improving functional abilities of the left hand, as well as improving object manipulation and in-hand manipulation abilities of the left hand. This is evidenced by Osvaldo meeting goals in these areas, as well as based on self- report. Osvaldo is mod I w/ HEP given functional focus. Osvaldo is also unable to identify specific meaningful activities for therapist to specifically address. Based on gains made in outpatient OT and modified independence with execution of HEP, it is recommended that Osvaldo be discharged from outpatient OT. Recommended follow-up w/ neurologist re: tingling of the L UE. Osvaldo and in agreement to d/c from outpatient OT. Home Exercise Program Please refer to treatment section of note for specific details. Reviewed with Patient/Caregiver Goals Progress Being Made Home Exercise Program Patient/Caregiver Understanding Good - Plan Therapy Recommendations Discharge from Occupational Therapy
== END 2018-11-16 09:57 | disposition home or self-care (01) ==
LOC: OT 14:30
PROVIDERS: PCP Internal Medicine; Visit Provider Internal Medicine
DX: I67.89 Other cerebrovascular disease (principal)
CPT/HCPCS: 97112; 97165; 97530; 97535

== ENCOUNTER 2018-11-14 12:13 | Emergency (ER) | payer MEDICARE, OTHER, SELFPAY ==
[2018-07-21 05:26] VITALS: BMI 32.1
[2018-11-14] VITALS (12 sets, daily range): BP systolic 96–129; BP diastolic 49–66; PULSE 76–87; RESP 11–91; TEMP 37.1; O2SAT 95–100; BMI 27.9
[2018-11-14] MEDS: PANTOPRAZOLE 40 MG VIAL 80 MG IV (13:59)
[2018-11-14] MEDS: ONDANSETRON 4 MG/2 ML INJ IV ×2 (13:59→16:30)
[2018-11-14] MEDS: SODIUM CHLORIDE 0.9% 1,000 ML 150 ML IV (13:59)
[2018-11-14 14:02] LABS: Add Manual Diff / Slide Review NO; Basophils Absolute Auto 100 /uL (0-100); Basophils Percent Auto 0.7 % (0-2); Eosinophils Absolute Auto 0 /uL (0-450); Hemoglobin 9.3 g/dL (13.5-17.5); Lymphocytes Absolute Auto 600 /uL (1100-4500); Lymphocytes Percent Auto 5.3 % (25-40); Mean Corpuscular HGB Conc 33.3 % (30-36); Mean Corpuscular Hemoglobin 27.9 PG (26-34); Mean Corpuscular Volume 83.9 fL (80-100); Monocytes Absolute Auto 1100 /uL (0-900); Monocytes Percent Auto 10.5 % (3-14); Neutrophils Absolute Auto 8900 /uL (1500-7000); Neutrophils Percent Auto 83.5 % (50-75); Platelet Count 439 X10^3/uL (150-400); Red Blood Cell Count 3.34 X10^6/uL (4.5-5.9); Red Cell Distribution Width 17.2 % (11.6-14.8); White Blood Cell Count 10.6 X10^3/uL (4.5-11.0)
[2018-11-14 14:10] LABS: INR 1.1 (0.9-1.3); Prothrombin Time 12.4 SECONDS (10.1-12.7)
[2018-11-14 14:12] LABS: Alanine Aminotransferase 26 IU/L (21-72); Albumin 3.3 g/dL (3.5-5.0); Albumin Globulin Ratio 0.9 (1.0-2.8); Alkaline Phosphatase 406 U/L (38-126); Aspartate Aminotransferase 24 IU/L (17-59); Bilirubin Total 0.5 mg/dL (0.2-1.3); Blood Urea Nitrogen 15 mg/dL (9-20); Calcium 8.6 mg/dL (8.4-10.2); Carbon Dioxide 25 mmol/L (22-32); Chloride 100 mmol/L (98-107); Estimated Glomerular Filt Rate > 60.0 mL/min (>60); Globulin 3.8 g/dL (1.7-4.1); Glucose 125 mg/dL (80-110); HEMOLYSIS < 15 (0-50); Potassium 3.4 mmol/L (3.4-5.1); Sodium 138 mmol/L (137-145); Total Protein 7.1 g/dL (6.3-8.2)
[2018-11-14 14:13] LABS: Lactate (Lactic Acid) 0.7 mmol/L (0.7-2.1); PTT Partial Thromboplastin Tim 34 SECONDS (26.4-36.2)
--- NOTE | 2018-11-14 14:45 | ED.NAVMDI ---
HPI - Nausea/Vomiting/Diarrhea General Chief complaint: Abdominal Pain Stated complaint: vomiting brown last night and today Time Seen by Provider: 11/14/18 14:28 Source: patient, family () and old records reviewed Mode of arrival: ambulatory Limitations: no limitations History of Present Illness HPI Narrative: This is a 78-year-old male comes in with vomiting with some brownish discoloration his emesis. There was concern for possible blood. Patient has known cholangiocarcinoma, he has a peptic ulcer, he has also had issues with GI bleeding from radiation patient has had a resection and removal of tumor from his bile duct. He has not had chemo but has had radiation in the past. He had been on blood thinners they were stopped because of bleeding and then restarted after he had a stroke. He is currently taking Eliquis. They did not know any bright red blood or black in his stool. He had vomiting several times last night 3 times today. That is not typical for him. He has not had any abdominal pain currently. No syncope, no fevers or chills. Denies chest pain or shortness of breath. He is quite fatigued and tired. No nausea currently. But he has received Zofran. Patient usually has small formed bowel movements that come out when he passes gas. Related Data Home Medications Medication Instructions Recorded Confirmed atorvastatin 80 mg PO QPM #0 11/27/16 11/14/18 levothyroxine 100 mcg PO QAM #0 11/27/16 11/14/18 metformin [Glucophage XR] 1,000 mg PO QPM #0 11/27/16 11/14/18 zolpidem 10 mg PO BEDTIME PRN #0 11/27/16 11/14/18 flunisolide 1 spray INTRANASAL PRN PRN 11/11/17 11/14/18 metoprolol succinate 50 mg PO DAILY 11/11/17 11/14/18 omeprazole 40 mg PO BID 11/11/17 11/14/18 isosorbide mononitrate 30 mg PO DAILY PRN 07/21/18 11/14/18 nitroglycerin 0.4 mg SUBLINGUAL Q5-15M PRN 07/21/18 11/14/18 sucralfate 1 g PO QID 07/21/18 11/14/18 apixaban [Eliquis] 5 mg PO BID 11/14/18 11/14/18 [id number] [Creon] 1 cap PO TID 11/14/18 11/14/18 Previous Rx's Medication Instructions Recorded docusate sodium [Colace] 100 mg PO BID PRN #20 cap 11/09/18 Allergies Allergy/AdvReac Type Severity Reaction Status Date / Time No Known Drug Allergies Allergy Verified 11/14/18 12:26 Review of Systems Review of Systems ROS Unobtainable: All systems reviewed & are unremarkable except as noted in HPI and below Constitutional Denies chills, Denies fever(s) and Denies lethargy Cardiovascular Denies chest pain and Denies dyspnea Respiratory Denies dyspnea Gastrointestinal Gastrointestinal: Reports abdominal pain (burning feeling), Denies melena, Denies hematochezia, Denies change in bowel habits, Denies constipation, Denies diarrhea, Reports nausea, Reports vomiting and Denies hematemesis (had brownish emesis, no brb or black.) Genitourinary Denies hematuria, Denies dysuria, Denies flank pain, Denies urinary frequency, Denies urinary incontinence and Denies urinary urgency [facility] Medical History Anemia (Acute) Atrial fibrillation (Acute) Bladder cancer (Acute) CVA (cerebral vascular accident) (Acute) Cholangiocarcinoma (Acute) Diabetes (Acute) Duodenal ulcer (Acute) Surgical History Status post left hip replacement (Inactive) Family History Mother No known health problems Father No known health problems Social History marital status: household members: spouse Smoking Status: Never smoker Family History Mother No known health problems Father No known health problems Social History marital status: household members: spouse Smoking Status: Never smoker Exam Narrative Exam Narrative: GENERAL: Alert and oriented x three, male in mild distress. HEENT: Head normocephalic, atraumatic, EOMI, pupils reactive, face symmetric, moist mucous membranes NECK: Supple, full range of motion CARDIOVASCULAR: Regular rate and rhythm without murmurs, rubs or gallops. RESPIRATORY: Breath sounds equal bilaterally, no wheezes rales or rhonchi. ABDOMEN: Soft, nontender. Normoactive bowel sounds all 4 quadrants. No guarding or rebound, rigidity, no mass : No CVA tenderness EXTREMITIES: Normal range of motion, no edema. Neurovascularly intact NEUROLOGICAL: Cranial nerves II through XII grossly intact. Moving all extremities SKIN: Warm, dry, no petechiae, no rashes or lesions. Initial Vital Signs Initial Vital Signs: Vital Signs Temperature 98.7 F 11/14/18 12:26 Pulse Rate 83 11/14/18 12:26 Respiratory Rate 15 11/14/18 12:26 Blood Pressure 127/61 11/14/18 12:26 Pulse Oximetry 99 11/14/18 12:26 Course Orders Ordered: ED Orders 11/14/18 13:22 EKG-12 Lead Stat 11/14/18 13:46 Complete Blood Count AUTO DIFF Stat Comprehensive Metabolic Panel Stat Lactate (Lactic Acid) Stat Lipase Stat Partial Thromboplastin Time Stat Prothrombin Time INR Stat Type and Screen Stat 11/14/18 14:46 CT abdomen pelvis w con Stat Sodium Chloride (Normal Saline 0.9%) 1,000 mls @ 150 mls/hr IV BOLUS ONE Stop: 11/14/18 20:35 Last Infusion: 11/14/18 17:40 Dose: 0 mls/hr Infusion: 11/14/18 16:30 Dose: 999 mls/hr Admin: 11/14/18 13:59 Dose: 150 mls/hr Sodium Chloride (Normal Saline 0.9%) 1,000 mls @ 125 mls/hr IV CONT ZULEYMA Last Admin: 11/14/18 17:45 Dose: 125 mls/hr Discontinued Medications Morphine Sulfate (Morphine) 2 mg IV NOW ONE Stop: 11/14/18 16:22 Last Admin: 11/14/18 16:30 Dose: 2 mg Ondansetron HCl (Zofran) 4 mg IV NOW ONE Stop: 11/14/18 13:52 Last Admin: 11/14/18 13:59 Dose: 4 mg Ondansetron HCl (Zofran) 4 mg IV NOW ONE Stop: 11/14/18 16:27 Last Admin: 11/14/18 16:30 Dose: 4 mg Pantoprazole Sodium (Protonix) 80 mg IV NOW ONE Stop: 11/14/18 13:52 Last Admin: 11/14/18 13:59 Dose: 80 mg Vital Signs - 8 hr 11/14/18 12:26 11/14/18 13:15 11/14/18 13:30 Temperature 98.7 F Pulse Rate 83 83 87 Respiratory Rate 15 12 17 Blood Pressure 127/61 Blood Pressure [Right Arm] 124/64 123/66 Pulse Oximetry 99 98 96 11/14/18 14:00 11/14/18 14:30 11/14/18 15:18 Temperature Pulse Rate 82 82 77 Respiratory Rate 13 14 17 Blood Pressure Blood Pressure [Right Arm] 114/59 L 114/61 112/55 L Pulse Oximetry 99 98 95 11/14/18 16:35 11/14/18 17:05 11/14/18 17:33 Temperature Pulse Rate 84 82 86 Respiratory Rate 18 16 11 L Blood Pressure Blood Pressure [Right Arm] 120/66 114/52 L 129/60 Pulse Oximetry 98 98 96 MDM - Nausea/Vomiting/Diarrhea Lab Data Attestation: I reviewed the patient's lab results. Result diagrams: 11/14/18 13:46 11/14/18 13:46 Lab Results 11/14/18 11/14/18 11/14/18 Range/Units 13:46 13:46 13:46 WBC 10.6 (4.5-11.0) X10^3/uL RBC 3.34 L (4.5-5.9) X10^6/uL Hgb 9.3 L (13.5-17.5) g/dL Hct 28.0 L (41-53) % MCV 83.9 (80-100) fL MCH 27.9 (26-34) PG MCHC 33.3 (30-36) % RDW 17.2 H (11.6-14.8) % Plt Count 439 H (150-400) X10^3/uL Neut % (Auto) 83.5 H (50-75) % Lymph % (Auto) 5.3 L (25-40) % [place] % (Auto) 10.5 (3-14) % Eos % (Auto) 0.0 L (2-4) % Baso % (Auto) 0.7 (0-2) % Neut # (Auto) 8900 H (4741-0332) /uL Lymph # (Auto) 600 L (5994-3573) /uL [place] # (Auto) 1100 H (0-900) /uL Eos # (Auto) 0 (0-450) /uL Baso # (Auto) 100 (0-100) /uL PT 12.4 (10.1-12.7) SECONDS INR 1.1 (0.9-1.3) APTT 34 D (26.4-36.2) SECONDS Sodium 138 (137-145) mmol/L Potassium 3.4 (3.4-5.1) mmol/L Chloride 100 (98-107) mmol/L Carbon Dioxide 25 (22-32) mmol/L BUN 15 (9-20) mg/dL Creatinine 0.50 L (0.66-1.25) mg/dL Estimated GFR > 60.0 (>60) mL/min BUN/Creatinine Ratio 30.0 H (6-22) Glucose 125 H (80-110) mg/dL Lactate (0.7-2.1) mmol/L Calcium 8.6 (8.4-10.2) mg/dL Total Bilirubin 0.5 (0.2-1.3) mg/dL AST 24 (17-59) IU/L ALT 26 (21-72) IU/L Alkaline Phosphatase 406 H (38-126) U/L Total Protein 7.1 (6.3-8.2) g/dL Albumin 3.3 L (3.5-5.0) g/dL Globulin 3.8 (1.7-4.1) g/dL Albumin/Globulin Ratio 0.9 L (1.0-2.8) Lipase (23-300) U/L Blood Type Antibody Screen 11/14/18 11/14/18 11/14/18 Range/Units 13:46 13:46 13:46 WBC (4.5-11.0) X10^3/uL RBC (4.5-5.9) X10^6/uL Hgb (13.5-17.5) g/dL Hct (41-53) % MCV (80-100) fL MCH (26-34) PG MCHC (30-36) % RDW (11.6-14.8) % Plt Count (150-400) X10^3/uL Neut % (Auto) (50-75) % Lymph % (Auto) (25-40) % [place] % (Auto) (3-14) % Eos % (Auto) (2-4) % Baso % (Auto) (0-2) % Neut # (Auto) (4235-8344) /uL Lymph # (Auto) (5168-8288) /uL [place] # (Auto) (0-900) /uL Eos # (Auto) (0-450) /uL Baso # (Auto) (0-100) /uL PT (10.1-12.7) SECONDS INR (0.9-1.3) APTT (26.4-36.2) SECONDS Sodium (137-145) mmol/L Potassium (3.4-5.1) mmol/L Chloride (98-107) mmol/L Carbon Dioxide (22-32) mmol/L BUN (9-20) mg/dL Creatinine (0.66-1.25) mg/dL Estimated GFR (>60) mL/min BUN/Creatinine Ratio (6-22) Glucose (80-110) mg/dL Lactate 0.7 (0.7-2.1) mmol/L Calcium (8.4-10.2) mg/dL Total Bilirubin (0.2-1.3) mg/dL AST (17-59) IU/L ALT (21-72) IU/L Alkaline Phosphatase (38-126) U/L Total Protein (6.3-8.2) g/dL Albumin (3.5-5.0) g/dL Globulin (1.7-4.1) g/dL Albumin/Globulin Ratio (1.0-2.8) Lipase 27 (23-300) U/L Blood Type A Positive Antibody Screen Negative Imaging Data CT scan - abdomen: Radiologist's impression: [address] [address] [address] Scan Report Signed Patient: Osvaldo Martines [facility]#: [id number] : 2Acct:[id number] Age/Sex: 78 / MDate of Service: 11/14/18 Loc: ED Accession Number: [id number] Procedure: CT abdomen pelvis w con Ordering Provider: Vee Hollingsworth D.O. PROCEDURE: CT ABDOMEN PELVIS W CON INDICATIONS: vomiting, has biliary cancer, pyloric stent, having bm's TECHNIQUE: After the administration of intravenous contrast, 5 mm thick sections acquired from the diaphragm to the symphysis. 5 mm coronal and sagittal reformats were acquired. For radiation dose reduction, the following was used: automated exposure control, adjustment of mA and/or kV according to patient size. COMPARISON: [facility], CT, CT ABDOMEN PELVIS W CON, 11/08/2018, 23:17. FINDINGS: Image quality: Excellent. ABDOMEN: Lung bases: Patchy alveolar opacities have developed in the lung bases bilaterally right greater than left. Visualized heart is normal in size. Atherosclerotic calcifications noted in the visualized pulmonary vasculature. Solid organs: Liver is normal in size and enhancement. Gallbladder is surgically absent. Biliary system is non dilated. Extensive pneumobilia is redemonstrated. Pancreas enhances normally. Periportal hypodensity near the superior margin of the head of the pancreas is stable compared to 11/08/2018. Spleen is normal in size and enhancement. No adrenal nodules. Kidneys demonstrate normal size and enhancement, without hydronephrosis. Bilateral renal cysts are stable. Peritoneum and bowel: Pyloric stent extending to the mid duodenum is stable in position. The stomach and first portion of the duodenum are distended. Bowel loops demonstrate normal wall thickness. Anastomotic sutures noted in loop of proximal small bowel which are stable compared to 11/08/2018. Scattered colonic diverticuli without evidence of diverticulitis. No free fluid or air. Nodes and vessels: No retroperitoneal or mesenteric adenopathy by size criteria. Aorta and inferior vena cava are normal in size. Miscellaneous: No ventral hernias. PELVIS: Genitourinary: Bladder wall thickness is normal. Miscellaneous: No inguinal hernias or adenopathy. Bones: No suspicious bony lesions. No vertebral body compression fractures. Spine degenerative disc disease and facet arthropathy. Bilateral hip arthroplasties. IMPRESSION: 1. Pyloric stent is stable compared to 11/08/2018. 2. Distention of the stomach and first portion of the duodenum suspicious for gastric outlet obstruction/pyloric stent occlusion. Recommend gastroenterology consultation. 3. 3.1 cm periportal/pancreatic head hypoattenuating mass stable compared to 11/08/18. Residual/recurrent biliary carcinoma cannot be excluded. 4. Pneumobilia. 5. Colonic diverticulosis without evidence of diverticulitis. 6. No free fluid or free air. 7. Bibasilar lung alveolar opacities suspicious for pneumonia or aspiration. 8. Atherosclerosis including the visualized coronary vasculature. Dictated by: Idalmis Yan MD, PhD on 11/14/2018 at 15:14 Approved by: Idalmis Yan MD, PhD on 11/14/2018 at 15:24 ECG Data Attestation: I personally reviewed and interpreted this ECG as follows: Prior ECG tracings: available for review Interpretation: AFib rate of 78 QRS 165 QTC of 500. Patient has right bundle branch block, patient has prior EKG from 11/[address] segments appear similar. MDM Narrative Medical decision making narrative: Patient had CT abdomen pelvis which showed extensive pneumobilia, indeterminate hypodensity near the pancreatic which was significantly unchanged from 2014. He had a pyloric stent placed this is from patient's CT on 11/09/2018. CT imaging was repeated today stent appears in place but there is concern for obstruction either gastric outlet or of the stent itself. Lab work shows anemia but no but no change acutely, patient is not tachycardic, he is not hypotensive. No emesis able to for gastroccult. Electrolytes are normal range, BUN is not elevated creatinine is normal. Glucose is 125. Patient case discussed with Dr. Danielle with gastroenterology. He feels patient does need to return for endoscopy and further treatment and requires transfer to [facility]. He recommends NG tube if patient continues to have emesis. IV fluids and supportive care. They asked that we speak with the hospitalist service. Waiting for call back from the oncology service and bed assignment. Spoke with Dr. Alicea he accepts, waiting for bed assignment. Patient has not been actively vomiting in Department. Signed out to Dr. Dodson while awaiting bed assignment and transfer. Discharge Plan Departure Patient Disposition: [facility] Clinical Impression: Gastric outlet obstruction, Cholangiocarcinoma Prescriptions: No Action metformin [Glucophage XR] 500 MG tablet extended release 24 hr 1,000 mg PO QPM Qty: 0 RF: 0 levothyroxine 100 MCG tablet 100 mcg PO QAM Qty: 0 RF: 0 zolpidem 10 MG tablet 10 mg PO BEDTIME PRN (Reason: Sleep) Qty: 0 RF: 0 atorvastatin 80 MG tablet 80 mg PO QPM Qty: 0 RF: 0 metoprolol succinate 100 mg tablet extended release 24 hr 50 mg PO DAILY RF: 0 omeprazole 40 mg capsule,delayed release(DR/EC) 40 mg PO BID RF: 0 flunisolide 25 mcg (0.025 %) [place],Non-Aerosol 1 spray Intranasal PRN PRN (Reason: Allergy Symptoms) RF: 0 sucralfate 1 gram tablet 1 g PO QID RF: 0 nitroglycerin 0.4 mg Tablet, Sublingual 0.4 mg SUBLINGUAL Q5-15M PRN (Reason: Chest Pain) RF: 0 isosorbide mononitrate 30 mg Tablet Extended Release 24 Hr 30 mg PO DAILY PRN (Reason: Angina) RF: 0 docusate sodium [Colace] 100 mg capsule 100 mg PO BID PRN (Reason: constipation) Qty: 20 RF: 0 Eliquis 5 mg tablet 5 mg PO BID RF: 0 Creon 24,000-76,000 -120,000 unit Capsule,Delayed Release(Dr/Ec) 1 cap PO TID RF: 0 Referrals: Flaquito Rodriguez MD [Primary Care Provider] -
--- NOTE | 2018-11-14 14:49 | ED_ITS ---
HPI - Nausea/Vomiting/Diarrhea General Chief complaint: Abdominal Pain Stated complaint: vomiting brown last night and today Time Seen by Provider: 11/14/18 14:28 Source: patient, family () and old records reviewed Mode of arrival: ambulatory Limitations: no limitations History of Present Illness HPI Narrative: This is a 78-year-old male comes in with vomiting with some brownish discoloration his emesis. There was concern for possible blood. Patient has known cholangiocarcinoma, he has a peptic ulcer, he has also had issues with GI bleeding from radiation patient has had a resection and removal of tumor from his bile duct. He has not had chemo but has had radiation in the past. He had been on blood thinners they were stopped because of bleeding and then restarted after he had a stroke. He is currently taking Eliquis. They did not know any bright red blood or black in his stool. He had vomiting several times last night 3 times today. That is not typical for him. He has not had any abdominal pain currently. No syncope, no fevers or chills. Denies chest pain or shortness of breath. He is quite fatigued and tired. No nausea currently. But he has received Zofran. Patient usually has small formed bowel movements that come out when he passes gas. Related Data Home Medications Medication Instructions Recorded Confirmed atorvastatin 80 mg PO QPM #0 11/27/16 11/14/18 levothyroxine 100 mcg PO QAM #0 11/27/16 11/14/18 metformin [Glucophage XR] 1,000 mg PO QPM #0 11/27/16 11/14/18 zolpidem 10 mg PO BEDTIME PRN #0 11/27/16 11/14/18 flunisolide 1 spray INTRANASAL PRN PRN 11/11/17 11/14/18 metoprolol succinate 50 mg PO DAILY 11/11/17 11/14/18 omeprazole 40 mg PO BID 11/11/17 11/14/18 isosorbide mononitrate 30 mg PO DAILY PRN 07/21/18 11/14/18 nitroglycerin 0.4 mg SUBLINGUAL Q5-15M PRN 07/21/18 11/14/18 sucralfate 1 g PO QID 07/21/18 11/14/18 apixaban [Eliquis] 5 mg PO BID 11/14/18 11/14/18 [id number] [Creon] 1 cap PO TID 11/14/18 11/14/18 Previous Rx's Medication Instructions Recorded docusate sodium [Colace] 100 mg PO BID PRN #20 cap 11/09/18 Allergies Allergy/AdvReac Type Severity Reaction Status Date / Time No Known Drug Allergies Allergy Verified 11/14/18 12:26 Review of Systems Review of Systems ROS Unobtainable: All systems reviewed & are unremarkable except as noted in HPI and below Constitutional Denies chills, Denies fever(s) and Denies lethargy Cardiovascular Denies chest pain and Denies dyspnea Respiratory Denies dyspnea Gastrointestinal Gastrointestinal: Reports abdominal pain (burning feeling), Denies melena, Denies hematochezia, Denies change in bowel habits, Denies constipation, Denies diarrhea, Reports nausea, Reports vomiting and Denies hematemesis (had brownish emesis, no brb or black.) Genitourinary Denies hematuria, Denies dysuria, Denies flank pain, Denies urinary frequency, Denies urinary incontinence and Denies urinary urgency [facility] Medical History Anemia (Acute) Atrial fibrillation (Acute) Bladder cancer (Acute) CVA (cerebral vascular accident) (Acute) Cholangiocarcinoma (Acute) Diabetes (Acute) Duodenal ulcer (Acute) Surgical History Status post left hip replacement (Inactive) Family History Mother No known health problems Father No known health problems Social History marital status: household members: spouse Smoking Status: Never smoker Family History Mother No known health problems Father No known health problems Social History marital status: household members: spouse Smoking Status: Never smoker Exam Narrative Exam Narrative: GENERAL: Alert and oriented x three, male in mild distress. HEENT: Head normocephalic, atraumatic, EOMI, pupils reactive, face symmetric, moist mucous membranes NECK: Supple, full range of motion CARDIOVASCULAR: Regular rate and rhythm without murmurs, rubs or gallops. RESPIRATORY: Breath sounds equal bilaterally, no wheezes rales or rhonchi. ABDOMEN: Soft, nontender. Normoactive bowel sounds all 4 quadrants. No guarding or rebound, rigidity, no mass : No CVA tenderness EXTREMITIES: Normal range of motion, no edema. Neurovascularly intact NEUROLOGICAL: Cranial nerves II through XII grossly intact. Moving all extremities SKIN: Warm, dry, no petechiae, no rashes or lesions. Initial Vital Signs Initial Vital Signs: Vital Signs Temperature 98.7 F 11/14/18 12:26 Pulse Rate 83 11/14/18 12:26 Respiratory Rate 15 11/14/18 12:26 Blood Pressure 127/61 11/14/18 12:26 Pulse Oximetry 99 11/14/18 12:26 Course Orders Ordered: ED Orders 11/14/18 13:22 EKG-12 Lead Stat 11/14/18 13:46 Complete Blood Count AUTO DIFF Stat Comprehensive Metabolic Panel Stat Lactate (Lactic Acid) Stat Lipase Stat Partial Thromboplastin Time Stat Prothrombin Time INR Stat Type and Screen Stat 11/14/18 14:46 CT abdomen pelvis w con Stat Sodium Chloride (Normal Saline 0.9%) 1,000 mls @ 150 mls/hr IV BOLUS ONE Stop: 11/14/18 20:35 Last Infusion: 11/14/18 17:40 Dose: 0 mls/hr Infusion: 11/14/18 16:30 Dose: 999 mls/hr Admin: 11/14/18 13:59 Dose: 150 mls/hr Sodium Chloride (Normal Saline 0.9%) 1,000 mls @ 125 mls/hr IV CONT ZULEYMA Last Admin: 11/14/18 17:45 Dose: 125 mls/hr Discontinued Medications Morphine Sulfate (Morphine) 2 mg IV NOW ONE Stop: 11/14/18 16:22 Last Admin: 11/14/18 16:30 Dose: 2 mg Ondansetron HCl (Zofran) 4 mg IV NOW ONE Stop: 11/14/18 13:52 Last Admin: 11/14/18 13:59 Dose: 4 mg Ondansetron HCl (Zofran) 4 mg IV NOW ONE Stop: 11/14/18 16:27 Last Admin: 11/14/18 16:30 Dose: 4 mg Pantoprazole Sodium (Protonix) 80 mg IV NOW ONE Stop: 11/14/18 13:52 Last Admin: 11/14/18 13:59 Dose: 80 mg Vital Signs - 8 hr 11/14/18 12:26 11/14/18 13:15 11/14/18 13:30 Temperature 98.7 F Pulse Rate 83 83 87 Respiratory Rate 15 12 17 Blood Pressure 127/61 Blood Pressure [Right Arm] 124/64 123/66 Pulse Oximetry 99 98 96 11/14/18 14:00 11/14/18 14:30 11/14/18 15:18 Temperature Pulse Rate 82 82 77 Respiratory Rate 13 14 17 Blood Pressure Blood Pressure [Right Arm] 114/59 L 114/61 112/55 L Pulse Oximetry 99 98 95 11/14/18 16:35 11/14/18 17:05 11/14/18 17:33 Temperature Pulse Rate 84 82 86 Respiratory Rate 18 16 11 L Blood Pressure Blood Pressure [Right Arm] 120/66 114/52 L 129/60 Pulse Oximetry 98 98 96 MDM - Nausea/Vomiting/Diarrhea Lab Data Attestation: I reviewed the patient's lab results. Result diagrams: 11/14/18 13:46 11/14/18 13:46 Lab Results 11/14/18 11/14/18 11/14/18 Range/Units 13:46 13:46 13:46 WBC 10.6 (4.5-11.0) X10^3/uL RBC 3.34 L (4.5-5.9) X10^6/uL Hgb 9.3 L (13.5-17.5) g/dL Hct 28.0 L (41-53) % MCV 83.9 (80-100) fL MCH 27.9 (26-34) PG MCHC 33.3 (30-36) % RDW 17.2 H (11.6-14.8) % Plt Count 439 H (150-400) X10^3/uL Neut % (Auto) 83.5 H (50-75) % Lymph % (Auto) 5.3 L (25-40) % [place] % (Auto) 10.5 (3-14) % Eos % (Auto) 0.0 L (2-4) % Baso % (Auto) 0.7 (0-2) % Neut # (Auto) 8900 H (2830-2053) /uL Lymph # (Auto) 600 L (0746-8506) /uL [place] # (Auto) 1100 H (0-900) /uL Eos # (Auto) 0 (0-450) /uL Baso # (Auto) 100 (0-100) /uL PT 12.4 (10.1-12.7) SECONDS INR 1.1 (0.9-1.3) APTT 34 D (26.4-36.2) SECONDS Sodium 138 (137-145) mmol/L Potassium 3.4 (3.4-5.1) mmol/L Chloride 100 (98-107) mmol/L Carbon Dioxide 25 (22-32) mmol/L BUN 15 (9-20) mg/dL Creatinine 0.50 L (0.66-1.25) mg/dL Estimated GFR > 60.0 (>60) mL/min BUN/Creatinine Ratio 30.0 H (6-22) Glucose 125 H (80-110) mg/dL Lactate (0.7-2.1) mmol/L Calcium 8.6 (8.4-10.2) mg/dL Total Bilirubin 0.5 (0.2-1.3) mg/dL AST 24 (17-59) IU/L ALT 26 (21-72) IU/L Alkaline Phosphatase 406 H (38-126) U/L Total Protein 7.1 (6.3-8.2) g/dL Albumin 3.3 L (3.5-5.0) g/dL Globulin 3.8 (1.7-4.1) g/dL Albumin/Globulin Ratio 0.9 L (1.0-2.8) Lipase (23-300) U/L Blood Type Antibody Screen 11/14/18 11/14/18 11/14/18 Range/Units 13:46 13:46 13:46 WBC (4.5-11.0) X10^3/uL RBC (4.5-5.9) X10^6/uL Hgb (13.5-17.5) g/dL Hct (41-53) % MCV (80-100) fL MCH (26-34) PG MCHC (30-36) % RDW (11.6-14.8) % Plt Count (150-400) X10^3/uL Neut % (Auto) (50-75) % Lymph % (Auto) (25-40) % [place] % (Auto) (3-14) % Eos % (Auto) (2-4) % Baso % (Auto) (0-2) % Neut # (Auto) (9970-8013) /uL Lymph # (Auto) (3218-0662) /uL [place] # (Auto) (0-900) /uL Eos # (Auto) (0-450) /uL Baso # (Auto) (0-100) /uL PT (10.1-12.7) SECONDS INR (0.9-1.3) APTT (26.4-36.2) SECONDS Sodium (137-145) mmol/L Potassium (3.4-5.1) mmol/L Chloride (98-107) mmol/L Carbon Dioxide (22-32) mmol/L BUN (9-20) mg/dL Creatinine (0.66-1.25) mg/dL Estimated GFR (>60) mL/min BUN/Creatinine Ratio (6-22) Glucose (80-110) mg/dL Lactate 0.7 (0.7-2.1) mmol/L Calcium (8.4-10.2) mg/dL Total Bilirubin (0.2-1.3) mg/dL AST (17-59) IU/L ALT (21-72) IU/L Alkaline Phosphatase (38-126) U/L Total Protein (6.3-8.2) g/dL Albumin (3.5-5.0) g/dL Globulin (1.7-4.1) g/dL Albumin/Globulin Ratio (1.0-2.8) Lipase 27 (23-300) U/L Blood Type A Positive Antibody Screen Negative Imaging Data CT scan - abdomen: Radiologist's impression: [address] [address] [address] Scan Report Signed Patient: Osvaldo Martines [facility]#: [id number] : 2Acct:[id number] Age/Sex: 78 / MDate of Service: 11/14/18 Loc: ED Accession Number: [id number] Procedure: CT abdomen pelvis w con Ordering Provider: Vee Hollingsworth D.O. PROCEDURE: CT ABDOMEN PELVIS W CON INDICATIONS: vomiting, has biliary cancer, pyloric stent, having bm's TECHNIQUE: After the administration of intravenous contrast, 5 mm thick sections acquired from the diaphragm to the symphysis. 5 mm coronal and sagittal reformats were acquired. For radiation dose reduction, the following was used: automated exposure control, adjustment of mA and/or kV according to patient size. COMPARISON: [facility], CT, CT ABDOMEN PELVIS W CON, 11/08/2018, 23:17. FINDINGS: Image quality: Excellent. ABDOMEN: Lung bases: Patchy alveolar opacities have developed in the lung bases bilaterally right greater than left. Visualized heart is normal in size. Atherosclerotic calcifications noted in the visualized pulmonary vasculature. Solid organs: Liver is normal in size and enhancement. Gallbladder is surgically absent. Biliary system is non dilated. Extensive pneumobilia is redemonstrated. Pancreas enhances normally. Periportal hypodensity near the superior margin of the head of the pancreas is stable compared to 11/08/2018. Spleen is normal in size and enhancement. No adrenal nodules. Kidneys demonstrate normal size and enhancement, without hydronephrosis. Bilateral renal cysts are stable. Peritoneum and bowel: Pyloric stent extending to the mid duodenum is stable in position. The stomach and first portion of the duodenum are distended. Bowel loops demonstrate normal wall thickness. Anastomotic sutures noted in loop of proximal small bowel which are stable compared to 11/08/2018. Scattered colonic diverticuli without evidence of diverticulitis. No free fluid or air. Nodes and vessels: No retroperitoneal or mesenteric adenopathy by size criteria. Aorta and inferior vena cava are normal in size. Miscellaneous: No ventral hernias. PELVIS: Genitourinary: Bladder wall thickness is normal. Miscellaneous: No inguinal hernias or adenopathy. Bones: No suspicious bony lesions. No vertebral body compression fractures. Spine degenerative disc disease and facet arthropathy. Bilateral hip arthroplasties. IMPRESSION: 1. Pyloric stent is stable compared to 11/08/2018. 2. Distention of the stomach and first portion of the duodenum suspicious for gastric outlet obstruction/pyloric stent occlusion. Recommend gastroenterology consultation. 3. 3.1 cm periportal/pancreatic head hypoattenuating mass stable compared to 11/08/18. Residual/recurrent biliary carcinoma cannot be excluded. 4. Pneumobilia. 5. Colonic diverticulosis without evidence of diverticulitis. 6. No free fluid or free air. 7. Bibasilar lung alveolar opacities suspicious for pneumonia or aspiration. 8. Atherosclerosis including the visualized coronary vasculature. Dictated by: Idalmis Yan MD, PhD on 11/14/2018 at 15:14 Approved by: Idalmis Yan MD, PhD on 11/14/2018 at 15:24 ECG Data Attestation: I personally reviewed and interpreted this ECG as follows: Prior ECG tracings: available for review Interpretation: AFib rate of 78 QRS 165 QTC of 500. Patient has right bundle branch block, patient has prior EKG from 11/[address] segments appear similar. MDM Narrative Medical decision making narrative: Patient had CT abdomen pelvis which showed extensive pneumobilia, indeterminate hypodensity near the pancreatic which was significantly unchanged from 2014. He had a pyloric stent placed this is from patient's CT on 11/09/2018. CT imaging was repeated today stent appears in place but there is concern for obstruction either gastric outlet or of the stent itself. Lab work shows anemia but no but no change acutely, patient is not tachycardic, he is not hypotensive. No emesis able to for gastroccult. Electrolytes are normal range, BUN is not elevated creatinine is normal. Glucose is 125. Patient case discussed with Dr. Danielle with gastroenterology. He feels patient does need to return for endoscopy and further treatment and requires transfer to [facility]. He recommends NG tube if patient continues to have emesis. IV fluids and supportive care. They asked that we speak with the hospitalist service. Waiting for call back from the oncology service and bed assignment. Spoke with Dr. Alicea he accepts, waiting for bed assignment. Patient has not been actively vomiting in Department. Signed out to Dr. Dodson while awaiting bed assignment and transfer. Discharge Plan Departure Patient Disposition: [facility] Clinical Impression: Gastric outlet obstruction, Cholangiocarcinoma Prescriptions: No Action metformin [Glucophage XR] 500 MG tablet extended release 24 hr 1,000 mg PO QPM Qty: 0 RF: 0 levothyroxine 100 MCG tablet 100 mcg PO QAM Qty: 0 RF: 0 zolpidem 10 MG tablet 10 mg PO BEDTIME PRN (Reason: Sleep) Qty: 0 RF: 0 atorvastatin 80 MG tablet 80 mg PO QPM Qty: 0 RF: 0 metoprolol succinate 100 mg tablet extended release 24 hr 50 mg PO DAILY RF: 0 omeprazole 40 mg capsule,delayed release(DR/EC) 40 mg PO BID RF: 0 flunisolide 25 mcg (0.025 %) [place],Non-Aerosol 1 spray Intranasal PRN PRN (Reason: Allergy Symptoms) RF: 0 sucralfate 1 gram tablet 1 g PO QID RF: 0 nitroglycerin 0.4 mg Tablet, Sublingual 0.4 mg SUBLINGUAL Q5-15M PRN (Reason: Chest Pain) RF: 0 isosorbide mononitrate 30 mg Tablet Extended Release 24 Hr 30 mg PO DAILY PRN (Reason: Angina) RF: 0 docusate sodium [Colace] 100 mg capsule 100 mg PO BID PRN (Reason: constipation) Qty: 20 RF: 0 Eliquis 5 mg tablet 5 mg PO BID RF: 0 Creon 24,000-76,000 -120,000 unit Capsule,Delayed Release(Dr/Ec) 1 cap PO TID RF: 0 Referrals: Flaquito Rodriguez MD [Primary Care Provider] -
[2018-11-14] MEDS: MORPHINE 2 MG/ML INJ IV (16:30)
[2018-11-14 17:19] LABS: Lipase 27 U/L (23-300)
[2018-11-14] MEDS: SODIUM CHLORIDE 0.9% 1,000 ML 125 ML IV (17:45)
[2018-11-14 21:23] LABS: Bacteria Urine None Seen; RBC Urine None Seen (0-5/HPF)
[2018-11-14 21:33] LABS: Culture Indicated Urine Cult Not Indicated; Squamous Epithelial Cell Urine 0-1 /HPF (0-5/HPF); WBC Urine 0-1/HPF (0-5/HPF)
== END 2018-11-14 22:25 | disposition short-term general hospital (02) ==
PROVIDERS: Emergency Medicine; Emergency Provider Emergency Medicine; PCP Internal Medicine
DX: K31.1 Adult hypertrophic pyloric stenosis (principal); C22.1 Intrahepatic bile duct carcinoma; R03.0 Elevated blood-pressure reading, without diagnosis of hypertension; Z79.01 Long term (current) use of anticoagulants; R10.9 Unspecified abdominal pain; R11.11 Vomiting without nausea
CPT/HCPCS: 36591; 74177; 80053; 81003; 81015; 83605; 83690; 85025; 85610; 85730; 86850; 86900; 86901; 93005; 93010; 96361; 96374; 96375; 96376; 99285; C9113; J2270; J2405; Q9967

== ENCOUNTER → 2018-12-05 14:18 | Outpatient (CLI) | payer MEDICARE, OTHER, SELFPAY ==
[2018-07-21 05:26] VITALS: BMI 32.1
[2018-12-05 14:36] LABS: Add Manual Diff / Slide Review NO; Basophils Absolute Auto 100 /uL (0-100); Basophils Percent Auto 0.9 % (0-2); Eosinophils Absolute Auto 0 /uL (0-450); Eosinophils Percent Auto 0.7 % (2-4); Hematocrit 26.8 % (41-53); Hemoglobin 8.7 g/dL (13.5-17.5); Lymphocytes Absolute Auto 800 /uL (1100-4500); Lymphocytes Percent Auto 11.8 % (25-40); Mean Corpuscular HGB Conc 32.4 % (30-36); Mean Corpuscular Hemoglobin 26.5 PG (26-34); Mean Corpuscular Volume 81.9 fL (80-100); Monocytes Absolute Auto 100 /uL (0-900); Monocytes Percent Auto 0.8 % (3-14); Neutrophils Absolute Auto 5500 /uL (1500-7000); Neutrophils Percent Auto 85.8 % (50-75); Platelet Count 347 X10^3/uL (150-400); Red Blood Cell Count 3.27 X10^6/uL (4.5-5.9); Red Cell Distribution Width 16.5 % (11.6-14.8); White Blood Cell Count 6.5 X10^3/uL (4.5-11.0)
== END ==
PROVIDERS: PCP Internal Medicine
DX: C22.1 Intrahepatic bile duct carcinoma (principal); D64.9 Anemia, unspecified
CPT/HCPCS: 36415; 85025

== ENCOUNTER → 2018-12-12 12:02 | Outpatient (CLI) | payer MEDICARE, OTHER, SELFPAY ==
[2018-07-21 05:26] VITALS: BMI 32.1
[2018-12-12 12:33] LABS: Add Manual Diff / Slide Review NO; Basophils Absolute Auto 0 /uL (0-100); Basophils Percent Auto 0.5 % (0-2); Eosinophils Absolute Auto 0 /uL (0-450); Eosinophils Percent Auto 0.6 % (2-4); Hematocrit 23.9 % (41-53); Lymphocytes Absolute Auto 600 /uL (1100-4500); Lymphocytes Percent Auto 15.8 % (25-40); Mean Corpuscular HGB Conc 33.6 % (30-36); Mean Corpuscular Hemoglobin 26.8 PG (26-34); Mean Corpuscular Volume 79.8 fL (80-100); Monocytes Absolute Auto 600 /uL (0-900); Monocytes Percent Auto 16.1 % (3-14); Neutrophils Absolute Auto 2600 /uL (1500-7000); Platelet Count 160 X10^3/uL (150-400); Red Cell Distribution Width 16.6 % (11.6-14.8); White Blood Cell Count 3.9 X10^3/uL (4.5-11.0)
[2018-12-12 12:50] LABS: Hemoglobin A1C% w Est Avg Glu 7.7 % (4.0-6.0)
== END ==
PROVIDERS: Family Provider Internal Medicine; PCP Internal Medicine
DX: C22.1 Intrahepatic bile duct carcinoma (principal); D64.9 Anemia, unspecified; E11.9 Type 2 diabetes mellitus without complications
CPT/HCPCS: 36415; 83036; 85025

== ENCOUNTER → 2018-12-20 13:03 | Outpatient (CLI) | payer MEDICARE, OTHER, SELFPAY ==
[2018-07-21 05:26] VITALS: BMI 32.1
[2018-12-20 13:19] LABS: Add Manual Diff / Slide Review NO; Basophils Absolute Auto 0 /uL (0-100); Basophils Percent Auto 0.6 % (0-2); Eosinophils Absolute Auto 0 /uL (0-450); Eosinophils Percent Auto 0.4 % (2-4); Hematocrit 27.4 % (41-53); Hemoglobin 8.9 g/dL (13.5-17.5); Lymphocytes Absolute Auto 700 /uL (1100-4500); Lymphocytes Percent Auto 15.8 % (25-40); Mean Corpuscular HGB Conc 32.5 % (30-36); Mean Corpuscular Volume 83.2 fL (80-100); Monocytes Absolute Auto 1200 /uL (0-900); Monocytes Percent Auto 26.9 % (3-14); Neutrophils Absolute Auto 2400 /uL (1500-7000); Neutrophils Percent Auto 56.3 % (50-75); Platelet Count 333 X10^3/uL (150-400); Red Blood Cell Count 3.29 X10^6/uL (4.5-5.9); Red Cell Distribution Width 19.1 % (11.6-14.8); White Blood Cell Count 4.3 X10^3/uL (4.5-11.0)
== END ==
PROVIDERS: PCP Internal Medicine
DX: C22.1 Intrahepatic bile duct carcinoma (principal); D64.9 Anemia, unspecified
CPT/HCPCS: 36415; 85025

== ENCOUNTER → 2018-12-26 13:26 | Outpatient (CLI) | payer MEDICARE, OTHER, SELFPAY ==
[2018-07-21 05:26] VITALS: BMI 32.1
[2018-12-26 13:45] LABS: Add Manual Diff / Slide Review NO; Basophils Absolute Auto 0 /uL (0-100); Basophils Percent Auto 0.4 % (0-2); Eosinophils Absolute Auto 0 /uL (0-450); Eosinophils Percent Auto 0.1 % (2-4); Hematocrit 26.8 % (41-53); Hemoglobin 8.9 g/dL (13.5-17.5); Lymphocytes Absolute Auto 400 /uL (1100-4500); Lymphocytes Percent Auto 5.8 % (25-40); Mean Corpuscular HGB Conc 33.3 % (30-36); Mean Corpuscular Hemoglobin 27.2 PG (26-34); Mean Corpuscular Volume 81.6 fL (80-100); Monocytes Absolute Auto 200 /uL (0-900); Monocytes Percent Auto 3.3 % (3-14); Neutrophils Absolute Auto 5600 /uL (1500-7000); Neutrophils Percent Auto 90.4 % (50-75); Platelet Count 389 X10^3/uL (150-400); Red Blood Cell Count 3.28 X10^6/uL (4.5-5.9); Red Cell Distribution Width 19.6 % (11.6-14.8); White Blood Cell Count 6.2 X10^3/uL (4.5-11.0)
== END ==
PROVIDERS: PCP Internal Medicine; Visit Provider Internal Medicine
DX: C22.1 Intrahepatic bile duct carcinoma (principal); D64.9 Anemia, unspecified
CPT/HCPCS: 36415; 85025

== ENCOUNTER → 2019-01-04 16:25 | Outpatient (CLI) | payer MEDICARE, OTHER, SELFPAY ==
[2018-07-21 05:26] VITALS: BMI 32.1
[2019-01-04 17:02] LABS: Add Manual Diff / Slide Review YES; Hematocrit 23.6 % (41-53); Hemoglobin 7.8 g/dL (13.5-17.5); Mean Corpuscular HGB Conc 33.1 % (30-36); Mean Corpuscular Hemoglobin 27.1 PG (26-34); Mean Corpuscular Volume 81.8 fL (80-100); Platelet Count 125 X10^3/uL (150-400); Red Blood Cell Count 2.88 X10^6/uL (4.5-5.9); Red Cell Distribution Width 19.6 % (11.6-14.8); White Blood Cell Count 2.6 X10^3/uL (4.5-11.0)
[2019-01-04 17:27] LABS: Neutrophils Absolute Manual 1508 /uL (3000-5900); Total Cells Counted 100
[2019-01-04 17:28] LABS: Acanthocytes 1+; Anisocytosis 1+; Burr Cells 1+
[2019-01-04 17:29] LABS: Schistocytes 1+
[2019-01-04 17:30] LABS: Poikilocytosis 2+
== END ==
PROVIDERS: PCP Internal Medicine
DX: C22.1 Intrahepatic bile duct carcinoma (principal); D64.9 Anemia, unspecified
CPT/HCPCS: 36415; 85025

== ENCOUNTER → 2019-01-30 14:54 | Outpatient (CLI) | payer MEDICARE, OTHER, SELFPAY ==
[2018-07-21 05:26] VITALS: BMI 32.1
[2019-01-30 16:02] LABS: Add Manual Diff / Slide Review NO; Basophils Absolute Auto 0 /uL (0-100); Basophils Percent Auto 0.5 % (0-2); Eosinophils Absolute Auto 0 /uL (0-450); Eosinophils Percent Auto 0.8 % (2-4); Hematocrit 25.1 % (41-53); Hemoglobin 8.3 g/dL (13.5-17.5); Lymphocytes Absolute Auto 900 /uL (1100-4500); Lymphocytes Percent Auto 14.8 % (25-40); Mean Corpuscular HGB Conc 33.2 % (30-36); Mean Corpuscular Hemoglobin 27.9 PG (26-34); Mean Corpuscular Volume 84.2 fL (80-100); Monocytes Absolute Auto 1100 /uL (0-900); Neutrophils Absolute Auto 4000 /uL (1500-7000); Neutrophils Percent Auto 65.9 % (50-75); Platelet Count 335 X10^3/uL (150-400); Red Blood Cell Count 2.99 X10^6/uL (4.5-5.9); Red Cell Distribution Width 23.8 % (11.6-14.8)
[2019-01-30 16:32] LABS: Acanthocytes 1+; Anisocytosis 2+; Burr Cells 1+; Ovalocytes 1+; Poikilocytosis 2+; Polychromasia 1+
== END ==
PROVIDERS: PCP Internal Medicine
DX: C22.1 Intrahepatic bile duct carcinoma (principal); D64.9 Anemia, unspecified
CPT/HCPCS: 36415; 85025

== ENCOUNTER → 2019-02-28 14:46 | Outpatient (CLI) | payer MEDICARE, OTHER, SELFPAY ==
[2018-07-21 05:26] VITALS: BMI 32.1
== END ==
PROVIDERS: PCP Internal Medicine; Visit Provider Internal Medicine
DX: D50.9 Iron deficiency anemia, unspecified (principal); D64.9 Anemia, unspecified
CPT/HCPCS: 36415; 86850; 86900; 86901

== ENCOUNTER → 2019-03-02 12:00 | Oncology outpatient (ONC) | payer MEDICARE, OTHER, SELFPAY ==
[2017-10-29 09:44] VITALS: BP 115/57; PULSE 70; RESP 16; TEMP 36.6
[2017-10-29 10:04] VITALS: BP 98/54; PULSE 66; RESP 14; TEMP 36.9
[2017-10-29 11:43] VITALS: BP 115/67; PULSE 67; RESP 16; TEMP 36.6
[2017-12-02 12:20] LABS: Add Manual Diff / Slide Review NO; Basophils Percent Auto 0.2 % (0-2); Eosinophils Percent Auto 2.2 % (2-4); Hematocrit 28.3 % (41-53); Hemoglobin 9.3 g/dL (13.5-17.5); Lymphocytes Percent Auto 14.6 % (25-40); Mean Corpuscular HGB Conc 32.7 % (30-36); Mean Corpuscular Hemoglobin 27.8 PG (26-34); Monocytes Percent Auto 14.9 % (3-14); Neutrophils Absolute Auto 3600 /uL (3000-5900); Neutrophils Percent Auto 68.1 % (50-75); Platelet Count 252 X10^3/uL (150-400); Red Blood Cell Count 3.33 X10^6/uL (4.5-5.9); Red Cell Distribution Width 15.9 % (11.6-14.8); White Blood Cell Count 5.3 X10^3/uL (4.5-11.0)
[2017-12-02 12:24] LABS: Reticulocyte Count, Percent 2.5 % (0.87-2.60)
[2017-12-02 12:36] LABS: Alanine Aminotransferase 19 IU/L (21-72); Albumin 3.4 g/dL (3.5-5.0); Albumin Globulin Ratio 1.1 (1.0-2.8); Alkaline Phosphatase 92 U/L (38-126); Aspartate Aminotransferase 19 IU/L (17-59); BUN Creatinine Ratio 22.9 (6-22); Bilirubin Total 0.4 mg/dL (0.2-1.3); Blood Urea Nitrogen 16 mg/dL (9-20); Calcium 8.2 mg/dL (8.4-10.2); Carbon Dioxide 27 mmol/L (22-32); Chloride 104 mmol/L (98-107); Cholesterol 66 mg/dL (140-199); Estimated Glomerular Filt Rate > 60.0 mL/min (>60); Globulin 3.2 g/dL (1.7-4.1); Glucose 114 mg/dL (80-110); HDL Cholesterol 29 mg/dL (40-60); HEMOLYSIS < 15 (0-50); LDL Cholesterol Calculated 27 mg/dL (<100); Lactate Dehydrogenase 363 U/L (313-618); Sodium 139 mmol/L (137-145); Total Protein 6.6 g/dL (6.3-8.2); Triglycerides 48 mg/dL (35-150)
[2017-12-02 12:39] LABS: Hemoglobin A1C% w Est Avg Glu 5.8 % (4.0-6.0)
[2017-12-02 12:42] LABS: HEMOLYSIS < 15 (0-50); Iron 19 ug/dL (49-181)
[2017-12-02 12:53] LABS: Percent Iron Saturation 5 % (20-50); Total Iron Binding Capacity 354 ug/dL (261-462); Transferrin 291 mg/dL (206-381)
[2017-12-02 13:02] LABS: T4 Total Thyroxine 7.68 ug/dL (5.5-11.0)
[2017-12-02 13:11] LABS: Ferritin 23.4 ng/mL (17.9-464)
[2017-12-02 13:16] LABS: Thyroid Stimulating Hormone 3.78 uIU/mL (0.47-4.68)
[2017-12-02 13:41] VITALS: BP 99/61; PULSE 74; RESP 18; TEMP 36.8
[2017-12-02 13:41] LABS: Folate 9.4 ng/mL (2.76-20.0); Vitamin B12 264 pg/mL (239-931)
[2017-12-02 13:58] VITALS: BP 113/49; PULSE 80; RESP 16; TEMP 36.8
[2017-12-02 15:55] VITALS: BP 121/56; PULSE 71; RESP 16; TEMP 36.7
--- NOTE | 2017-12-08 10:12 | PC.NURSE ---
called to inquire about orders from Dr Rodriguez for iron infusions. No new orders have bee received. Call returned directing her to contact Dr Mcpherson office for information.
[2017-12-10 11:36] VITALS: BP 105/44; PULSE 70; RESP 20; TEMP 36.6; O2SAT 98
[2017-12-10 11:48] LABS: Add Manual Diff / Slide Review NO; Basophils Percent Auto 0.8 % (0-2); Eosinophils Percent Auto 1.2 % (2-4); Hematocrit 23.4 % (41-53); Hemoglobin 7.7 g/dL (13.5-17.5); Lymphocytes Percent Auto 10.2 % (25-40); Mean Corpuscular HGB Conc 32.8 % (30-36); Mean Corpuscular Volume 85.3 fL (80-100); Monocytes Percent Auto 12.2 % (3-14); Neutrophils Absolute Auto 5700 /uL (3000-5900); Neutrophils Percent Auto 75.6 % (50-75); Platelet Count 277 X10^3/uL (150-400); Red Blood Cell Count 2.74 X10^6/uL (4.5-5.9); Red Cell Distribution Width 16.6 % (11.6-14.8); White Blood Cell Count 7.5 X10^3/uL (4.5-11.0)
[2017-12-10] MEDS: IRON SUCROSE 200 MG in SODIUM CHLORIDE 0.9% 100 ML 220 ML IV (11:59)
[2017-12-14 10:45] VITALS: BP 122/58; PULSE 68; RESP 16; TEMP 36.8
[2017-12-14 10:52] LABS: Add Manual Diff / Slide Review NO; Basophils Percent Auto 1.1 % (0-2); Eosinophils Percent Auto 1.8 % (2-4); Hematocrit 23.6 % (41-53); Hemoglobin 7.7 g/dL (13.5-17.5); Lymphocytes Percent Auto 12.5 % (25-40); Mean Corpuscular HGB Conc 32.5 % (30-36); Mean Corpuscular Hemoglobin 27.9 PG (26-34); Mean Corpuscular Volume 85.8 fL (80-100); Monocytes Percent Auto 13.4 % (3-14); Neutrophils Absolute Auto 4700 /uL (3000-5900); Neutrophils Percent Auto 71.2 % (50-75); Platelet Count 291 X10^3/uL (150-400); Red Blood Cell Count 2.75 X10^6/uL (4.5-5.9); Red Cell Distribution Width 17.3 % (11.6-14.8); White Blood Cell Count 6.6 X10^3/uL (4.5-11.0)
[2017-12-14 11:01] VITALS: BP 130/64; PULSE 73; RESP 18; TEMP 36.7
[2017-12-14] MEDS: IRON SUCROSE 200 MG in SODIUM CHLORIDE 0.9% 100 ML 220 ML IV (13:02)
[2017-12-14 15:03] VITALS: BP 138/84; PULSE 79; RESP 18; TEMP 36.7
[2017-12-14 15:20] VITALS: BP 135/66; PULSE 66; RESP 18; TEMP 36.7
[2017-12-14 17:24] VITALS: BP 141/60; PULSE 68; RESP 20; TEMP 36.8
[2017-12-16] MEDS: IRON SUCROSE 200 MG in SODIUM CHLORIDE 0.9% 100 ML 220 ML IV (14:40)
[2017-12-16 14:59] VITALS: BP 117/67; PULSE 97; RESP 18; TEMP 36.8; O2SAT 97
[2017-12-20] MEDS: IRON SUCROSE 200 MG in SODIUM CHLORIDE 0.9% 100 ML 220 ML IV (14:26)
[2017-12-22 15:24] LABS: Hematocrit 29.4 % (41-53); Hemoglobin 9.7 g/dL (13.5-17.5)
[2017-12-22] MEDS: IRON SUCROSE 200 MG in SODIUM CHLORIDE 0.9% 100 ML 220 ML IV (15:25)
[2018-01-28 10:05] VITALS: BP 113/51; PULSE 69; RESP 16; TEMP 36.8
[2018-01-28 10:21] VITALS: BP 128/67; PULSE 67; RESP 16; TEMP 36.6
[2018-01-28 12:15] VITALS: BP 113/60; PULSE 66; RESP 16; TEMP 36.7
[2018-04-27 09:27] LABS: Add Manual Diff / Slide Review NO; Basophils Absolute Auto 0 /uL (0-100); Basophils Percent Auto 0.6 % (0-2); Eosinophils Absolute Auto 100 /uL (0-450); Eosinophils Percent Auto 1.5 % (2-4); Hematocrit 25.3 % (41-53); Lymphocytes Absolute Auto 700 /uL (1100-4500); Lymphocytes Percent Auto 11.5 % (25-40); Mean Corpuscular HGB Conc 31.4 % (30-36); Mean Corpuscular Hemoglobin 24.4 PG (26-34); Mean Corpuscular Volume 77.5 fL (80-100); Monocytes Absolute Auto 900 /uL (0-900); Monocytes Percent Auto 14.8 % (3-14); Neutrophils Absolute Auto 4200 /uL (1500-7000); Neutrophils Percent Auto 71.6 % (50-75); Platelet Count 350 X10^3/uL (150-400); Red Blood Cell Count 3.26 X10^6/uL (4.5-5.9); Red Cell Distribution Width 19.4 % (11.6-14.8); White Blood Cell Count 5.8 X10^3/uL (4.5-11.0)
[2018-04-27 12:39] VITALS: BP 105/50; PULSE 69; RESP 16; TEMP 36.8
[2018-04-27 12:55] VITALS: BP 126/55; PULSE 66; RESP 16; TEMP 36.7
[2018-04-27 14:55] VITALS: BP 121/60; PULSE 63; RESP 16; TEMP 36.8
[2018-04-27 15:09] VITALS: BP 121/60; PULSE 63; RESP 16; TEMP 36.8
[2018-04-27 15:24] VITALS: BP 126/66; PULSE 62; RESP 16; TEMP 36.8
[2018-04-27 17:58] VITALS: BP 108/56; PULSE 69; RESP 16; TEMP 37.4
[2018-08-08 13:23] VITALS: BP 113/55; PULSE 80; RESP 16; TEMP 37.2
[2018-08-08] MEDS: IRON SUCROSE 200 MG in SODIUM CHLORIDE 0.9% 100 ML 220 ML IV (13:28)
[2018-08-08 14:01] VITALS: BP 110/58; PULSE 76; RESP 18; TEMP 36.8; O2SAT 97
[2018-08-10] MEDS: IRON SUCROSE 200 MG in SODIUM CHLORIDE 0.9% 100 ML 220 ML IV (14:16)
[2018-08-10 14:35] VITALS: BP 125/57; PULSE 64; RESP 18; TEMP 36.7; O2SAT 99
[2018-08-12] MEDS: IRON SUCROSE 200 MG in SODIUM CHLORIDE 0.9% 100 ML 220 ML IV (14:55)
--- NOTE | 2018-08-12 15:02 | PC.NURSE ---
Pt arrived via home. Port accessed and infusion begun. psettled in to accompanied by .
[2018-08-16 15:17] VITALS: BP 110/55; PULSE 72; RESP 16; TEMP 36.8; O2SAT 98
[2018-08-16] MEDS: IRON SUCROSE 200 MG in SODIUM CHLORIDE 0.9% 100 ML 220 ML IV (15:49)
[2018-08-18 13:46] VITALS: BP 122/72; PULSE 70; RESP 16; TEMP 36.8; O2SAT 98
[2018-08-18] MEDS: IRON SUCROSE 200 MG in SODIUM CHLORIDE 0.9% 100 ML 220 ML IV (14:10)
[2018-08-18 15:50] LABS: Hematocrit 26.6 % (41-53); Hemoglobin 8.3 g/dL (13.5-17.5)
[2019-01-05 15:55] VITALS: BP 108/56; PULSE 69; RESP 16; TEMP 37.4
[2019-01-05 16:08] VITALS: BP 111/50; PULSE 70; RESP 16; TEMP 37.2
--- NOTE | 2019-01-05 16:54 | PC.NURSE ---
Transfer of patient to acute care floor for completion of one unit of PRBCs. Report made to Denise. Patient transferred with no problems.
[2019-01-05 18:33] VITALS: BP 118/56; PULSE 73; RESP 18; TEMP 36.9
[2019-01-05 18:46] VITALS: BP 118/56; PULSE 73
--- NOTE | 2019-01-05 18:50 | PC.NURSE ---
[facility] unit [id number] completed at 1833 by this RN. Power port de-accessed with gauze bandage placed. TAR will not allow this RN to complete unit in computer. message left with oncology.
[2019-03-02] VITALS (7 sets, daily range): BP systolic 102–118; BP diastolic 45–57; PULSE 68–74; RESP 16–28; TEMP 36.6–37
--- NOTE | 2019-03-02 16:36 | PC.NURSE ---
Addendum entered by Violet Hadley R.N. 03/02/19 19:00: Transfused second unit PRBC, no s/sx of transfusion reaction. VSS and afebrile. Power port to left upper chest de-accessed. No active bleeding. Ambulating in room, voided. Home accompanied by via private vehicle. Original Note: 1636 Acute Care Received patient from infusion center with second unit of PRBC infusing via power port to left upper chest at 125 ml/hr. Awake, alert, and pleasant. Upon arrival VSS and afebrile. Warm blankets provided and cranberry juice as requested.
== END ==
PROVIDERS: Student in an Organized Health Care Education/Training Program; Visit Provider Internal Medicine
DX: C22.1 Intrahepatic bile duct carcinoma (principal); D50.9 Iron deficiency anemia, unspecified; D64.9 Anemia, unspecified
CPT/HCPCS: 36415; 36430; 36592; 80053; 80061; 82607; 82728; 82746; 83036; 83540; 83550; 83615; 84436; 84443; 85014; 85018; 85025; 85045; 86850; 86900; 86901; 96365; 96523; P9016; J1756